=== PATIENT | female | born 1935 | race Two or more races ===

== ENCOUNTER 2024-08-02 10:33 | Inpatient (IN) | payer MEDICARE, MEDICAID, SELFPAY ==
[2024-08-02] VITALS (26 sets, daily range): BP systolic 87–164; BP diastolic 44–65; PULSE 58–100; RESP 16–33; TEMP 37.2–39.3; O2SAT 75–100; BMI 24.7
--- NOTE | 2024-08-02 10:37 | EKG_ITS ---
[facility] Test Date: 2024-08-02 Pat Name: REILLY MONTENEGROepartment: Room: - Gender: Female [employer]: : [id number] Requested By: ED Temporary Provider Order Number: [id number] Reading MD: ED Temporary Provider Measurements Intervals [place] Rate: 66 P: NC: QRS: -49 QRSD: 162 T: 118 QT: 451 QTc: 476 Interpretive Statements UNCERTAIN REGULAR RHYTHM MARKED LEFT AXIS DEVIATION [QRS AXIS < -30] LEFT BUNDLE BRANCH BLOCK [120+ ms QRS DURATION, 80+ ms Q/S IN V1/V2, 85+ ms R IN I/aVL/V5/V6] Compared to ECG 06/04/2024 20:19:50 Sinus bradycardia no longer present First degree AV block no longer present /store/S0/[id number]
--- NOTE | 2024-08-02 10:55 | XR_ITS ---
Examination: AP chest single view Technique: AP portable semiupright chest single view Exam date and time: August 02, 2024 11:50 AM Comparison June 04, 2024 Indications: Coughing beginning 2 days ago Findings: Moderate CHF Mild to moderate enlargement cardiac contour Prominent vascular congestion including central vascular engorgement Perihilar basilar edema Significant osteopenia Impression: Moderate CHF
--- NOTE | 2024-08-02 10:57 | PD.EDRME ---
Rapid Medical Screening Exam RME Arrival date/time: 08/02/24 10:33 Chief Complaint: Shortness of Breath/Dyspnea Time Seen by Provider: 08/02/24 10:46 RME Narrative: Cough, shortness of breath since yesterday. Patient hypoxic in triage
--- NOTE | 2024-08-02 11:12 | PD.EDSOB ---
ED SOB =RME/HPI General Chief Complaint: Shortness of Breath/Dyspnea Stated Complaint: DIFF BREATHING/COUGH FOR 2 DAYS AFTER FLU SHOT Time Seen by Provider: 08/02/24 10:46 Arrival date/time: 08/02/24 10:33 RME / HPI RME / HPI Narrative: 88-year-old female patient with significant history of congestive heart failure hypertension, hypercholesterolemia, was brought in by family for evaluation regarding worsening cough. Patient is having worsening cough for the last 2 days, dyspnea on exertion, orthopnea, and worsening bilateral lower leg swelling. Patient is currently taking Lasix 40 mg daily p.o. On my initial evaluation patient was noted to be 78% on room air. Patient was also noted to have fever, sepsis alert was initiated right away Related Data Home Medications ?Medication ?Instructions ?Recorded ?Confirmed amlodipine 5 mg tablet (Norvasc) 5 mg PO QDAY #0 tabs 05/06/16 12/11/22 atorvastatin 80 mg tablet 80 mg PO QDAY 11/21/22 04/27/24 Previous Rx's ?Medication ?Instructions ?Recorded amiodarone 200 mg tablet 200 mg PO BID #60 tabs 12/11/22 furosemide 40 mg tablet 40 mg PO QDAY 30 days #30 tabs 04/30/24 furosemide 40 mg tablet 40 mg PO QDAY #30 tabs 06/04/24 Allergies Allergy/AdvReac Type Severity Reaction Status Date / Time No Known Allergies Allergy Verified 08/02/24 10:36 Review of Systems Review of Systems Narrative Review of Systems: Review of system reviewed and within normal limits except mentioned in HPI ED Exam Narrative Physical exam: VITAL SIGNS: Reviewed. GENERAL APPEARANCE: Alert and interactive, follows commands, + mild acute distress, HEAD AND FACE: Non-traumatic. ENT: PERRL, pink conjunctivitis, eyelid no trauma, Mucous membrane moist. NECK: Supple, nontender, no nuchal rigidity. Positive distention jugular neck veins CHEST: No tenderness, no crepitus, no paradoxical movement, no retractions. LUNGS:+ymmetric, + rales, no wheezing, no ronchi, no stridor, decreased breath sounds bilaterally. HEART: Regular rate, regular rhythm, no murmur, no gallops. ABDOMEN: Soft, positive bowel sounds, nondistended, no guarding, nontender, no rebound, no masses, RECTAL: Deferred. GENITAL: Deferred. NEUROLOGICAL: Gross motor function intact sensory function intact, Appropriate for age. MUSCULOSKELETAL: low back nontender, full range of motion. EXTREMITIES: Nontender, full range of motion. + +2 bilateral lower leg edema SKIN: Color pink, dry, no rash, no lacerations, no abrasions, no contusions. LYMPHATICS: Deferred. Course Quality Measures none Orders Category Date Time Status Bedside COVID-19 Antigen Test NOW Care 08/02/24 11:55 Active Bedside Influenza A&B Antigen Test NOW Care 08/02/24 10:55 Active COVID-19 Screening Questionnaire NOW Care 08/02/24 13:06 Active Decision to Admit X1 Care 08/02/24 13:06 Active EKG (ED ONLY) *Do not use* NOW Care 08/02/24 10:37 Completed CXR [XR chest 1V] Stat Exams 08/02/24 10:55 Completed EKG (ED Only) Stat Exams 08/02/24 10:37 Draft BNP [B-Type Natriuretic Peptide] Stat Lab 08/02/24 11:32 Completed Blood Culture (Lab) Stat Lab 08/02/24 11:26 Received CBC Stat Lab 08/02/24 11:32 Completed CMP [Comprehensive Metabolic Panel] Stat Lab 08/02/24 11:32 Completed Lactate (Lactic Acid) Stat Lab 08/02/24 11:32 Results Procalcitonin Stat Lab 08/02/24 11:32 Completed Troponin I Stat Lab 08/02/24 11:32 Completed VBG [Venous Blood Gas] Stat Lab 08/02/24 11:32 Completed ALBUTEROL RT 0.5ml [Proventil Rt 0.5ml] Med 08/02/24 11:12 Discontinued 10 mg INH X1 ONE Furosemide Inj [Lasix Inj] Med 08/02/24 11:11 Discontinued 40 mg IVP X1 ONE Ipratropium Jerome Rt Cindy [Atrovent Rt Cindy] Med 08/02/24 11:12 Discontinued 1 mg INH X1 ONE Nitroglycerin Oint 2% [Nitro-paste Oint 2%] Med 08/02/24 11:11 Discontinued 1 inch TOP X1 ONE Oseltamivir [Tamiflu] Med 08/02/24 13:03 Discontinued 30 mg PO X1 ONE Oseltamivir [Tamiflu] Med 08/02/24 12:58 Discontinued 75 mg PO X1 ONE Sodium Chloride Rt Cindy 0.9% [NS Rt Cindy 0.9%] Med 08/02/24 11:12 Active 3 ml INH PRN PRN Vital Signs Vital signs: Vital Signs Temperature 98.9 F 08/02/24 10:49 Pulse Rate 69 08/02/24 10:49 Respiratory Rate 25 H 08/02/24 10:49 Blood Pressure 122/54 L 08/02/24 10:49 Pulse Oximetry (%) 75 L 08/02/24 10:49 Oxygen Delivery Method Room Air 08/02/24 10:49 Shortness of Breath / Dyspnea MDM Narrative MDM Narrative:: 88-year-old female patient with significant history of congestive heart failure hypertension, hypercholesterolemia, was brought in by family for evaluation regarding worsening cough. Patient is having worsening cough for the last 2 days, dyspnea on exertion, orthopnea, and worsening bilateral lower leg swelling. Patient is currently taking Lasix 40 mg daily p.o. On my initial evaluation patient was noted to be 78% on room air. Patient was also noted to have fever, sepsis alert was initiated right away. Patient tested positive for flu A, chest x-ray showed moderate congestive heart failure. Currently patient is satting 92% on 7 liters nasal cannula after patient received 1 hour-long breathing treatment, Lasix IV and Nitropaste Laboratory workup came back unremarkable except for elevated BNP Case discussed with hospitalist, Dr. Kim, admitted the Patient data External records reviewed:: None Clinical information provided by:: patient and family Social determinants that could affect healthcare access:: none Patient has the following chronic illnesses:: Congestive heart failure diabetes mellitus hypertension malignant neoplasm of ascending colon How is presenting disease/condition affected by chronic disease/condition?: exacerbated by Evaluation data The following diagnostics were reviewed and interpreted by me:: lab results, radiology exam(s) and EKG tracing(s) Lab and/or radiology exams considered but not ordered:: None Interpretation Summary: EKG showed left bundle branch block, ventricular rate 66 bpm, no ST segment elevation or depression noted. Chest x-ray showed moderate congestive heart failure, laboratory workup significant for elevated BNP. Medications / Prescriptions Medications or Prescriptions considered but not ordered:: Plan Medication administrations:: Medication Administration History Sodium Chloride (Sodium Chloride Rt Cindy 0.9% 3 Ml Nebu) 3 ml INH PRN PRN PRN Reason: SOLN Stop: 01/13/25 11:11 Last Admin: 08/02/24 11:15 Dose: 3 ml Documented By: [facility] Discontinued Medications Albuterol (Albuterol Rt 2.5 Mg/0.5 Ml Nebu) 10 mg INH X1 ONE Stop: 08/02/24 11:13 Last Admin: 08/02/24 11:15 Dose: 10 mg Documented By: [facility] Furosemide (Furosemide Inj 10 Mg/Ml 4ml Vial) 40 mg IVP X1 ONE Stop: 08/02/24 11:12 Last Admin: 08/02/24 11:34 Dose: 40 mg Documented By: SILVINA Ipratropium Jerome (Ipratropium Rt 0.5 Mg/ 2.5 Ml Nebu) 1 mg INH X1 ONE Stop: 08/02/24 11:13 Last Admin: 08/02/24 11:15 Dose: 1 mg Documented By: [facility] Nitroglycerin (Nitroglycerin Oint 2% 1 Inch Packet) 1 inch TOP X1 ONE Stop: 08/02/24 11:12 Last Admin: 08/02/24 11:16 Dose: 1 inch Documented By: SILVINA Oseltamivir Phosphate (Oseltamivir 75 Mg Capsule) 75 mg PO X1 ONE Stop: 08/02/24 12:59 Oseltamivir Phosphate (Oseltamivir 30 Mg Capsule) 30 mg PO X1 ONE Stop: 08/02/24 13:04 Tamiflu, Nitropaste, hour-long breathing treatment Consultations Consultation(s) initiated? (list below): No Diagnosis Shortness of Breath Differential Diagnosis: acute exacerbation of chronic obstructive airways disease, congestive heart failure and community acquired pneumonia Most likely diagnosis given after review of the tests above:: Hypoxia, influenza, acute exacerbation of CHF Admission Indicated Admission indicated?: indicated Explain why admission is indicated or not indicated:: For further management. Admission Request Was there a request for admission?: Yes Admission Attestation Admission request attestation: Discussed case with [Dr Kim] from Hospitalist service regarding admission. Discussed patients ED course, exam findings, labs, and radiology results. The Hospitalist [agrees] to accept the patient for admission. Disposition Plan Disposition Plan: Admit Discharge Plan Plan Patient Disposition: Admit Acute Care w/in Hospital Disposition Comment: stable Prescriptions/Referrals Prescriptions/Med Rec: No Action amlodipine [Norvasc] 5 MG tablet 5 mg PO QDAY Qty: 0 atorvastatin 80 mg tablet 80 mg PO QDAY amiodarone 200 mg Tablet 200 mg PO BID Qty: 60 0RF furosemide 40 mg Tablet 40 mg PO QDAY 30 Days Qty: 30 0RF furosemide 40 mg tablet 40 mg PO QDAY Qty: 30 0RF Referrals: No Primary/Family,Physician [Primary Care Provider] - In 1 week Problem List Clinical Impression: Hypoxia, Acute exacerbation of CHF (congestive heart failure), Influenza Patient/Caregiver Discharge Instructions Print Language: Syriac Stand Alone Forms: [employer]bie Award Info., Patient Portal Info Letter
[2024-08-02] MEDS: ALBUTEROL RT 2.5 MG/0.5 ML NEBU 10 MG INH (11:15)
[2024-08-02] MEDS: SODIUM CHLORIDE RT SOL 0.9% 3 ML NEBU INH (11:15)
[2024-08-02] MEDS: IPRATROPIUM RT 0.5 MG/ 2.5 ML NEBU 1 MG INH (11:15)
[2024-08-02] MEDS: NITROGLYCERIN OINT 2% 1 INCH PACKET TOP (11:16)
[2024-08-02] MEDS: FUROSEMIDE INJ 10 MG/ML 4ML VIAL 40 MG IVP (11:34)
[2024-08-02 12:01] LABS: Base Excess, Venous 3 (-3-3); Lactate (Lactic Acid) 2.4 mMol/L (0.4-2.0); O2 Saturation, Venous 84 % (96-97); PCO2, Venous 35 mmHg (36-56); PO2, Venous 46 mmHg (15-58); pH, Venous 7.48 (7.33-7.66)
[2024-08-02 12:10] LABS: Basophils % (Auto) 0 % (0-2.5); Eosinophils % (Auto) 0 % (0-10); Hematocrit 36.6 % (36.0-46.0); Hemoglobin 11.6 g/dL (12.0-16.0); Immature Granulocytes % (Auto) 1 % (0-0); Immature Granulocytes Auto 0.05 Thou/mm3 (0.00-0.00); Lymphocytes # (Auto) 0.9 Thou/mm3 (1.0-4.8); Lymphocytes % (Auto) 12 % (10-50); Mean Corpuscular HGB Conc 31.7 g/dl (31.0-37.0); Mean Corpuscular Hemoglobin 28.3 pg (25.0-35.0); Mean Corpuscular Volume 89 fL (80-100); Monocytes # (Auto) 0.4 Thou/mm3 (0.0-0.8); Monocytes % (Auto) 6 % (0-12); Neutrophils # (Auto) 6.2 Thou/mm3 (1.8-7.7); Neutrophils % (Auto) 81 % (37-80); Nucleated Red Blood Cell % 0 /100 WBC (0); Platelet Count 167 Thou/mm3 (140-440); RDW Standard Deviation 49.3 fL (36.4-46.3); White Blood Count 7.6 Thou/mm3 (3.6-11.0)
[2024-08-02 12:41] LABS: B-Type Natriuretic Peptide 518 pg/mL (0-100)
[2024-08-02 12:43] LABS: Alanine Aminotransferase 88 U/L (10-49); Albumin, Serum 4.6 gm/dL (3.4-4.8); Albumin/Globulin Ratio 1.8 (1.2-2.2); Alkaline Phosphatase 143 U/L (46-116); Anion Gap 6 (7-16); Aspartate Amino Transferase 127 U/L (0-34); BUN/Creatinine Ratio 11 Ratio (12-20); Bilirubin,Total 0.7 mg/dL (0.3-1.2); Blood Urea Nitrogen 17 mg/dL (9-23); Calcium 9.4 mg/dL (8.3-10.6); Calcium (Corrected) 9.4 mg/dL (8.5-10.1); Carbon Dioxide 28.7 mMol/L (20.0-31.0); Chloride 103 mMol/L (98-107); Creatinine (Component) 1.5 mg/dL (0.6-1.3); Estimated Creatinine Clearance 23.7 mL/min (>60); Globulin 2.5 gm/dL (2.3-3.5); Glucose 187 mg/dL (74-106); Osmolality,Calculated 282 (275-295); Potassium 3.7 mMol/L (3.4-5.1); Procalcitonin 0.14 ng/ml (0.0-0.49); Sodium 138 mMol/L (136-145); Total Protein 7.1 gm/dL (5.7-8.2); Troponin I < 0.020 ng/mL (0.0-0.045); eGFR 34 See Note
--- NOTE | 2024-08-02 13:34 | PD.ADDHP ---
Addendum History & Physical Addendum Date of report being addended: 08/02/24 Narrative: Attending's attestation: I reviewed labs, imaging, EKG, home medications and prior available records. Face to face evaluation was performed by me. I have personally examined the patient and discussed assessment and plan with the IM team. I reviewed the resident note and agree with the plan with exceptions as below. 88-year-old female with history of atrial fibrillation, CKD stage IIIb and heart failure with preserved EF as per echo done in April 2024, who presented with a chief complaint of shortness of breath and cough. She was found to have acute hypoxic respiratory failure in the setting of influenza A and CHF exacerbation. Acute hypoxic respiratory failure: In the setting of CHF exacerbation. Start IV diuresis. Monitor I's and O's. CHF exacerbation: In setting of history of HFpEF. Diuresis as above. Telemetry level of care. Influenza A: Might be the trigger of her CHF exacerbation. Started Tamiflu 30 mg p.o. twice daily given her renal function. CKD stage IIIb: Creatinine is close to baseline. Monitor kidney function. Avoid nephrotoxins. Renally dosed medications. Atrial fibrillation with controlled ventricular rhythm: Resume home medications.
[2024-08-02] MEDS: OSELTAMIVIR 30 MG CAPSULE PO (13:59)
[2024-08-02 14:59] LABS: Reflex Lactate? Y
[2024-08-02 15:31] LABS: Base Excess 3 (-3-3); HCO3 29 mEq/L (20-26); Inspired Oxygen, FIO2 21 %; O2 Saturation 64 % (91-98); PCO2 50 mmHg (32.0-48.0); pH, Arterial 7.37 (7.35-7.45)
[2024-08-02 15:32] LABS: Allen Test Performed/OK; PO2 36 mmHg (83-108)
[2024-08-02 15:32] LABS: Lactic Acid, 3 HR 4.2 mMol/L (0.4-2.0)
[2024-08-02 15:33] LABS: Inspired O2, VO2 Liters 10 L/min; Puncture Site Left Radial
[2024-08-02] MEDS: AMIODARONE HCL 200 MG TABLET PO (15:52)
[2024-08-02] MEDS: amLODIPine BESYLATE 5 MG TABLET PO (15:52)
[2024-08-02] MEDS: METOPROLOL SUCCINATE XL 25 MG TABCR PO (15:53)
[2024-08-02] MEDS: guaiFENesin SYRUP 200 MG/10 ML UDC 100 MG PO (15:54)
--- NOTE | 2024-08-02 16:01 | ESHP_ITS ---
<Statement entered by Beto Powell MD - 08/02/24 20:09> This patient 88-year-old female with past medical history of HFpEF EF 55 to 60%, CKD stage IIIb, history of severe aortic stenosis follows Dr. Barton, guard immigration as outpatient, history of colon cancer postresection history of A- fib on amiodarone not on Eliquis, DM type II presented with worsening shortness of breath and productive cough. ABG showed hypoxia. Patient is admitted for acute hypoxic respiratory failure and sepsis likely due to influenza pneumonia with superimposed bacterial infection and CHF exacerbation. Patient was started on IV diuretic therapy with Lasix initially 40 mg x 1 and now 60 mg in the evening due to vascular congestion and currently B-lines seen on chest x-ray. She was also started on Tamiflu 30 mg once daily given decrease creatinine clearance and due to fever spike of 102.7 blood cultures were taken and was started on IV Zosyn and vancomycin. As patient was hypoxic and desaturating in 70s despite on OxyMask ICU graphite grinder was curb sided and per recommendation patient was switched to BiPAP on IPAP 10 and EPAP 5 for lung protective ventilation settings and avoid barotrauma or patient infected lung injury. RT was called is following up the case. Breathing treatments. We added IV Solu- Medrol 40 mg once a day as patient is progressing towards ARDS. Goals of care discussion was performed between the family and patient's who is decision-maker patient's current condition was explained and with all that information he wished to continue full code for now. Cocci serology ordered. Field Marketing Director stated that if patient is in sinus rhythm he is okay for not starting Eliquis/heparin drip although [id number] or is 3 given high risk of bleeding and currently being in sinus rhythm. ICU graphite grinder stated that follow-up on ABGs and if pH drops below 7.2 explained the patient's family that patient would need intubation. ICU team was given update regarding patient current condition and they will follow-up on ABGs and lactic acid. Given well criteria was 1 low suspicious for PE CTA was not followed up and was deferred. All labs and orders were reviewed. I saw and examined the patient, and I agree with current management stated by Dr Eneida MD,PGY1. Plan of care was discussed with the attending physician and resident physician. Disclaimer: Despite multiple revisions, due to the dictation software being used, the document bellow may not be free of grammatical errors including phonetic/typographic errors. However, this does not deter from our commitment to providing health care in the patient's best interest in mind. Dr. Sherry MD, PGY 2 Documentation for date of: 08/02/24 HPI History of Present Illness History of present illness: CC:SOB Patient is an 88-year-old female with a past medical history of hypertension CHF diastolic dysfunction HFpEF (60 to 65%) on 04/27/2024, repeat CAD s/p stent in right coronary artery, aortic stenosis, carotid disease, s/p endarterectomy (2023), history of atrial fibrillation (not on Eliquis as patient is currently sinus and has a risk of bleeding?followed up with Dr. Barton guard immigration). Patient presented to the emergency room with a chief complaint of increasing shortness of breath, patient stated symptoms began on 08/01/2024, with shortness of breath, chills and dry cough. Patient stated cough is nonproductive. Patient also felt congested throughout the past 2 days. Patient denied any fevers at home. Patient has required sleeping in an upright position on the bed with several pillows propping herself up?orthopnea. Patient also states she has had paroxysmal internal dyspnea but she wakes up in the middle of the night short of breath. Patient denied any increasing lower pedal edema. Denied sick contacts. Patient denied chest pain. Admitted on (08/02/2024) for acute respiratory failure and pneumonia -->now Sepsis pneumonia shortly before moving onto floors. ER Course: T 98.9, HR 69, RR 25 (H), BP 122/54, SpO2 75 on RA CBC (08/02/2024) WBC 7.6, Hgb 11.6, Hct 36.6, MCV 89, Neut % 81 CMP (08/02/2024): Na 138, K 3.7 (repleated), BUN 17, Cr 1.5, GFR 34 (L) Previous baseline on discharge BUN 19, Cr. 1.4, GFR 27 BNP 518, Troponin <0.02, Glucose 187 Procalcitonin 0.14 Chest xray (08/02/2024): Moderate CHF. Mild to moderate enlargement cardiac contour. Prominent vascular congestion including central vascular engorgement. Perihilar basilar edema EKG (08/02/2024): Left bundle branch block, possible MT prolongation UA-Pending 40mg IV push Lasix PMH: HTN CHF CAD s/p stents aortic stenosis carotid disease atrial fibrillation (not on eliquis) Past Surgical History: -endarterectomy -CAD s/p stent of right coronary artery -colon cancer s/p resection Home Medication: Metoprolol 25 mg PO Amiodarone 200 mg PO BID Bumetanide 1 mg PO Daily Amlodipine 5 mg PO Daily-currenlty holding giving soft blood pressure Denied Eliquis despite previous history of Atrial Fibrillation-Dr. Barton confirmed no Eliquis on board currently as patient is sinus and possible risk of bleeding Social History: Denied Alcohol Use Denied Illicit Drug Use Never Smoker Allergies: None Code Status: Full Code Review of Systems Review of Systems Narrative Review of Systems: General appearance: NO weight change, NO fatigue, NO weakness, NO fever, YES c hills, NO night sweats, YES cough Skin: NO rash, NO itching, NO sores, NO moles HEENT: NO Trauma, NO nausea, NO vomiting, NO visual changes, NO blurry vision, NO double vision, NO tinnitus, NO vertigo, NO ear discharge, NO rhinorrhea, NO stuffiness, NO sneezing, NO allergy, NO epistaxis. NO Hoarseness, NO sore throat, NO swollen neck. Cardiac: NO Palpitations, NO dyspnea on exertion, NO orthopnea, NO paroxysmal nocturnal dyspnea, NO edema Respiratory: YES Shortness of Breath, NO Wheezing, YES Cough, NO Sputum, NO hemoptysis GI:NO appetite, NO nausea, NO vomiting, NO dysphagia, NO changes in bowel frequency, NO stool color, NO diarrhea, NO constipation, NO hemetemesis, NO hemorrhoids, NO melena, NO hematechezia, NO abdominal pain, NO jaundice Renal: NO frequency, NO hesitancy, NO urgency, NO hematuria, NO nocturia, NO incontinence MSK: NO muscle weakness, NO gout, NO arthritis, NO muscle stiffness Neuro: NO headaches, NO tremors, NO weakness, NO paralysis, NO seizures, NO loss of consciousness, NO numbness. Hem: NO anemia, NO easy bruising/bleeding, NO petechiae, NO purpura Endo: NO heat/cold intolerance, NO excessive sweating, NO polyuria, NO polydipsia, NO polyphagia, NO thyroid problems, NO diabetes (denied diabetes, A1c 6.2, previous admission) Pysch: NO mood, NO anxiety, NO depression Exam Vital Signs Temp Pulse Resp BP Pulse Ox O2 Del Method O2 Flow Rate 99.5 F 77 23 H 110/62 92 L Oxy Mask 9 08/02/24 14:42 08/02/24 14:42 08/02/24 14:42 08/02/24 14:42 08/02/24 14:42 08/02/24 14:42 08/02/24 14:42 Narrative Exam General Appearance: Alert & Oriented X3, well-nourished female who is lying in bed in respiratory distress with increased work of breathing HEENT: Skull symmetrical and atraumatic. Conjunctivae pale pink and moist. Pupils equal, round, reactive to light and accommodation (PERRL). External ear without lesion or discharge. Straight, nares patient, DRY mucosa, no discharge. No thyroid nodule appreciated. No cervical lymphadenopathy. Cardio: Normal Rate and Rhythm with S1 and S2 heart sounds. No murmurs or extra heart sounds auscultated. No bruits on carotid auscultation. 2+ pedal edema. Lungs: Symmetric with poor expansion, increased work of breathing. Chest and back non-tender. Rhonchi and crackles appreciated bilaterally on physical exam Abdomen: Non-tender, Non-distended, Normal Reactive Bowel Sounds Neuro: Alert, cooperative, oriented to person, place, and time. Speech clear. CN grossly intact. Upper motor strength 5/5 and Lower motor strength 5/5. Sensation intact. Results: Labs 08/04/24 05:24 08/04/24 05:24 Labs: Short CBC 08/02/24 Range/Units 11:32 WBC 7.6 (3.6-11.0) Thou/mm3 Hgb 11.6 L (12.0-16.0) g/dL Hct 36.6 (36.0-46.0) % Plt Count 167 (140-440) Thou/mm3 BMP 08/02/24 11:32 Sodium 138 Potassium 3.7 Chloride 103 Carbon Dioxide 28.7 BUN 17 Creatinine 1.5 H Glucose 187 H Calcium 9.4 Cardiac Enzymes 08/02/24 Range/Units 11:32 Troponin I < 0.020 (0.0-0.045) ng/mL Liver Function 08/02/24 Range/Units 11:32 Total Bilirubin 0.7 (0.3-1.2) mg/dL AST 127 H (0-34) U/L ALT 88 H (10-49) U/L Alkaline Phosphatase 143 H (46-116) U/L Albumin 4.6 (3.4-4.8) gm/dL ABG Interpretation ABG results: 08/02/24 08/02/24 11:32 15:23 ABG pH 7.37 ABG pCO2 50 H ABG pO2 36 L* ABG HCO3 29 H ABG O2 Saturation 64 L ABG Base Excess 3 VBG pH 7.48 VBG pCO2 35 L VBG pO2 46 VBG Base Excess 3 Quality Measures Quality Measures VTE prophylaxis (Heparin subcut) Advance care planning discussed with:: patient and spouse Medications Home Medications and Allergies Home Medications ?Medication ?Instructions ?Recorded ?Confirmed ?Type amlodipine 5 mg tablet (Norvasc) 5 mg PO QDAY #0 tabs 05/06/16 12/11/22 History atorvastatin 80 mg tablet 80 mg PO QDAY 11/21/22 04/27/24 History amlodipine 5 mg tablet 5 mg PO DAILY 08/02/24 08/02/24 History bumetanide 1 mg tablet 1 mg PO DAILY 08/02/24 08/02/24 History calcitriol 0.25 mcg capsule 0.25 mcg PO DAILY 08/02/24 08/02/24 History metoprolol succinate 25 mg 25 mg PO DAILY 08/02/24 08/02/24 History tablet,extended release 24 hr Allergies Allergy/AdvReac Type Severity Reaction Status Date / Time No Known Allergies Allergy Verified 08/02/24 10:36 Visit Medications Acetaminophen (Acetaminophen 325 Mg Tablet) 650 mg PO Q6H PRN PRN Reason: Mild Pain 1-3 or Fever >100.4 Stop: 09/01/24 13:41 Albuterol/Ipratropium (Albuterol/Ipratropium (Duoneb) Rt Cindy 3 Ml Nebu) 3 ml INH Q4HRRT PRN PRN Reason: Shortness of breath Stop: 09/01/24 14:59 Amiodarone HCl (Amiodarone Hcl 200 Mg Tablet) 200 mg PO BID [facility] Stop: 09/01/24 14:29 Amlodipine Besylate (Amlodipine Besylate 5 Mg Tablet) 5 mg PO QDAY [facility] Stop: 09/01/24 14:19 Atorvastatin Calcium (Atorvastatin Calcium 20 Mg Tablet) 80 mg PO QDAY [facility] Stop: 09/02/24 08:59 Dextrose (Dextrose 50%-Water Inj 50 Ml Syringe) 50 ml IV Q15MIN PRN PRN Reason: BG <50 OR BG <70 & pt unresponsive Stop: 09/01/24 13:45 Dextrose (Dextrose 50%-Water Inj 50 Ml Syringe) 25 ml IV Q15MIN PRN PRN Reason: BG 50-70 responsive npo pt Stop: 09/01/24 13:45 Furosemide (Furosemide Inj 10 Mg/Ml 4ml Vial) 40 mg IVP BID [facility] Stop: 09/01/24 20:59 Glucagon (Glucagon Inj 1 Mg Vial) 1 mg IM Q15MIN PRN PRN Reason: BG <70, and no IV access Guaifenesin (Guaifenesin Syrup 200 Mg/10 Ml Udc) 100 mg PO QID PRN; Protocol PRN Reason: COUGH Stop: 09/01/24 14:32 Guaifenesin/Dextromethorphan (Guaifenesin/Dm Tablet) 1 each PO Q4HR PRN PRN Reason: COUGH Stop: 09/01/24 15:25 Heparin Sodium (Porcine) (Heparin Sod Inj 5000 Unit/Ml Vial) 5,000 unit SC Q12HR [facility] Stop: 08/16/24 20:59 Metoprolol Succinate (Metoprolol Succinate Xl 25 Mg Tabcr) 25 mg PO QDAY [facility] Stop: 09/01/24 14:29 Oseltamivir Phosphate (Oseltamivir 30 Mg Capsule) 30 mg PO QDAY [facility]; Protocol Stop: 08/08/24 08:59 Sodium Chloride (Sodium Chloride Rt Cindy 0.9% 3 Ml Nebu) 3 ml INH PRN PRN PRN Reason: SOLN Stop: 09/01/24 11:11 Last Admin: 08/02/24 11:15 Dose: 3 ml Discontinued Medications Albuterol (Albuterol Rt 2.5 Mg/0.5 Ml Nebu) 10 mg INH X1 ONE Stop: 08/02/24 11:13 Last Admin: 08/02/24 11:15 Dose: 10 mg Furosemide (Furosemide Inj 10 Mg/Ml 4ml Vial) 40 mg IVP X1 ONE Stop: 08/02/24 11:12 Last Admin: 08/02/24 11:34 Dose: 40 mg Guaifenesin/Dextromethorphan (Guaifenesin/Dm Tablet) 1 each PO Q4HR PRN PRN Reason: COUGH Stop: 09/01/24 15:25 Insulin Human Lispro (Insulin Lispro (Admelog) 1 Unit/0.01 Ml Unit) 0 unit SC ACHS [facility]; Protocol Stop: 09/01/24 16:59 Ipratropium [facility] (Ipratropium Rt 0.5 Mg/ 2.5 Ml Nebu) 1 mg INH X1 ONE Stop: 08/02/24 11:13 Last Admin: 08/02/24 11:15 Dose: 1 mg Nitroglycerin (Nitroglycerin Oint 2% 1 Inch Packet) 1 inch TOP X1 ONE Stop: 08/02/24 11:12 Last Admin: 08/02/24 11:16 Dose: 1 inch Oseltamivir Phosphate (Oseltamivir 75 Mg Capsule) 75 mg PO X1 ONE Stop: 08/02/24 12:59 Last Admin: 08/02/24 14:00 Dose: Not Given Oseltamivir Phosphate (Oseltamivir 30 Mg Capsule) 30 mg PO X1 ONE Stop: 08/02/24 13:04 Last Admin: 08/02/24 13:59 Dose: 30 mg Potassium Chloride (Potassium Chloride 20 Meq Tabcr) 40 meq PO X1 ONE Stop: 08/02/24 15:27 Assessment & Plan Plan Patient is an 88-year-old female with a past medical history of hypertension CHF diastolic dysfunction HFpEF (60 to 65%) on 04/27/2024, repeat CAD s/p stent in right coronary artery, aortic stenosis, carotid disease, s/p endarterectomy (2023), history of atrial fibrillation (not on Eliquis) who was admitted in acute hypoxic respiratory failure with pneumonia likely post viral. #Sepsis, due to hypoxic respiratory failure likely secondary Pneumonia versus HFpEF #Pneumonia # Influenza Positive with superimposed bacterial infection Etiology: Influenza positive on admission in acute hypoxic respiratory failure with spO2 of 88% on 9 Liters of oxygen. Rhonchi and crackles heard on physical exam. -->Shortly after admission patient became septic with an T 102.7, RR 24, and known source of infection and organ failure from acute hypoxic respiratory failure with lacitc acid of 4.2 likely secondary to hypoxemia. 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 NO fluids given as patient is is in CHF exacerbation. Possible progression to ARDS. DDx: UTI less likely as no symptoms of UTI vs ME less likley given troponins <0.02. No STEM elevation. Diagnostics: CBC (08/02/2024) WBC 7.6, Hgb 11.6, Hct 36.6, MCV 89, Neut % 81 CMP (08/02/2024): Na 138, K 3.7 (repleated), BUN 17, Cr 1.5, GFR 34 (L) Previous baseline on discharge BUN 19, Cr. 1.4, GFR 27 Troponin <0.02, Procalcitonin 0.14 Lactic Acid 4.2 Chest xray (08/02/2024): Moderate CHF. Mild to moderate enlargement cardiac contour. Prominent vascular congestion including central vascular engorgement. Perihilar basilar edema EKG (08/02/2024): Left bundle branch block, possible MT prolongation -Ammonia <10, Lactic Acid 2.4, Lactic Acid 4.2 -QSOFA 1 Plan: ?Follow-up on ABGs and lactic acid -Oseltamivir 30 mg QDay (not bid given CKD) -Zosyn (08/02/2024--) -Vanco (08/02/2024) -blood Culture -Duonebs scheduled Q4HRRT -UA pending -UA culture -Coccidioides IgM Ab-Pending #Acute CHF exacerbation #CHF, Diastolic Dysfunction, HFpEF 60-65% (03/2024) # Aortic stenosis with RVSP 41 mmHg Etiology: Patient has a past medical history of congestive heart failure with a BNP 518. Patient positive for orthopnea, paroxysmal nocturnal orthopnea and increasing cough. CHF exacerbation likely secondary to pneumonia Dignostics: Although patient has a past medical history of CAD status post stents, less likely secondary to ME/no ST elevation on EKG and troponins are not elevated. PE less likely as well score is 1. Diagnostics: BNP 518, troponins less than 0.02 Chest x-ray (08/02/2024): Prominent vascular congestion including central vascular engorgemet, Moderate CHF Second Cxr pending Ultrasound (04/08/2024): Normal LV size and function. Stage I distolic dysfunction. Estimated EF 60-65% Moderate to severe AV stenosis, mean gradient 33mmHg, vmax 3.6m/s. LOREN 0.9 Sq cm Normal RV size and function. Estimated RVSP 41mmHg. Mild MAC. Mild MR, TR. Modeate AI. Wells Criteria 1 NYHA Class: likely III Plan: -Lasix 40 mg IV ER, and Lasix 60 IVP X1, Lasix 40 mg IVP BIDD -Amiodarone 200 mg PO BID, hold if HR <60 -Metoprolol Succinate XL 25 mg PO QDay -TSH -Lipid Panel -A1c -K>4 and Mg >2 -Fluid Restriction and Sodium Restriction 2 g per day -SpO <90%, support PRN; Currently on Bipap started at approximately 5 PM -Daily Weights, Strict Ins and Outs, Fluid Striction (1800 ml), Sodium Restriction 2 grams per day -Cardiology Consult, appreciate recommendations. #Atrial Fibrillation, rate controlled #CAD s/p stents of right coronary artery #Hyperlipidemia Patient has a past medical history of Atrial Fibrillation. CHADVASC of 3. Currently not on Eliquis per Dr. Barton. Possible risk of bleeding and currently sinus. Plan -Metoprolol Succinate XL 25 mg PO QDay -Amiodarone 200 mg PO BID, hold if HR <60 -Not on Eliquis #Hypertension Given soft blood pressure currently holdng home medication of Amlodipine Plan -Hold Amlodipine #CKD History of CKD disease currently CKD 3b. Likey secondary to cardio renal given history of CHF. Denied history of diabetes but previous A1c in 05/2024-6.2%. Diagnostics: Plan -Renally dose medication -avoid nephrotoxins #history of colon cancer Not an active problem Plan no acute intervention Health Maintenance: Disp: Pt is currently admitted to floors for further management of acute hypoxic respiratory failure, pneumonia & CHF exacerbation, awaiting blood culture, currently on Bipap FEN: low carb consistent, sodium restricted DVT: on subQ heparin Code: Full Code - The patient's plan was discussed with attending Dr. Kim and senior residents Dr. Sherry Monique MD PGY1 Internal Medicine Attending Provider Attestation/Addendum I reviewed labs, imaging, EKG, home medications and prior available records. Face to face evaluation was performed by me. I have personally examined the patient and discussed assessment and plan with the IM team. I reviewed the resident note and agree with the plan with exceptions as below. See my addendum in a separate note for the same date.
--- NOTE | 2024-08-02 16:10 | PC.NURSE ---
Report given to Meka FRY, patient will transfer to room 272.
--- NOTE | 2024-08-02 16:33 | XR_ITS ---
Examination: AP chest single view Technique one AP portable upright chest single view Exam date and time: August 02, 2024 1712 hrs. Comparison August 02, 2024 11:50 AM Indications: O2 desaturation today. Findings: Prominent CHF Consider superimposed pneumonia in the right perihilar region Enlarged cardiac contour prominent perihilar edema Moderate osteopenia Impression: Prominent CHF Consider superimposed pneumonia in the right perihilar region
[2024-08-02] MEDS: ALBUTEROL/IPRATROPIUM (Duoneb) RT SOL 3 ML NEBU INH ×3 (16:52→23:35)
[2024-08-02 16:59] LABS: Base Excess 2 (-3-3); HCO3 27 mEq/L (20-26); O2 Saturation 96 % (91-98); PCO2 44 mmHg (32.0-48.0); PO2 80 mmHg (83-108)
[2024-08-02 17:01] LABS: Allen Test Not Performed; Inspired Oxygen, FIO2 80 %; Puncture Site Right Brachial
[2024-08-02] MEDS: VANCOMYCIN/NS 1 GM IVPB 200 ML IV (17:02)
--- NOTE | 2024-08-02 17:24 | EVENTNT_ITS ---
<Statement entered by Beto Powell MD - 08/02/24 18:49> I saw and examined the patient, and I agree with current management stated by Dr Eneida MD,PGY1. Plan of care was discussed with the attending physician and resident physician. Disclaimer: Despite multiple revisions, due to the dictation software being used, the document bellow may not be free of grammatical errors including phonetic/typographic errors. However, this does not deter from our commitment to providing health care in the patient's best interest in mind. Dr. Sherry MD, PGY 2 Documentation for date of: 08/02/24 Event Note Event Note: Goals of Care event note, at 5:31 PM Spoke extensively to patient's family about goals of care given continue de- saturing spO2 despite changing patient from high flow. Explained current diagnosis of Pneumonia likely super imposed bacterial, post viral. Patient's SpO2 92% on high flow. Patient changed from high flow --> bipap with continued work of breathing. New ABG at 8:40 PM. Explained the possibility of needing intubation and transfer to ICU. Family would still like to keep patient Full Code with intubation if ICU is needed. Next of Kin and decision maker is patient's : Yassine Harris, phone number [phone]. Please call if there are any changes. - The patient's plan was discussed with attending Dr. Kim and senior residents Dr. Sherry Monique MD PGY1 Internal Medicine
[2024-08-02 18:13] LABS: Ammonia < 10 uMol/L (11-32)
[2024-08-02] MEDS: PIPER/TAZO 3.375 GM 3.375 GM/50 ML BAG IV (18:57)
--- NOTE | 2024-08-02 19:10 | PC.NURSE ---
MD Swenson notified that pt has an order for KCl liquid PO but pt is on bipap and desats without it. The pt is also have trouble swallowing due to the difficulty breathing. MD is aware and said ok to hold off on the medication and will reevaluate tomorrow.
[2024-08-02 20:05] LABS: Lactate (Lactic Acid) 3.1 mMol/L (0.4-2.0)
[2024-08-02 20:59] LABS: Base Excess 3 (-3-3); HCO3 29 mEq/L (20-26); Inspired Oxygen, FIO2 90 %; O2 Saturation 95 % (91-98); PCO2 47 mmHg (32.0-48.0); PO2 76 mmHg (83-108); pH, Arterial 7.39 (7.35-7.45)
[2024-08-02 21:00] LABS: Allen Test Performed/OK; Puncture Site Right Radial
[2024-08-02] MEDS: FUROSEMIDE INJ 10 MG/ML 4ML VIAL 60 MG IVP (21:05)
[2024-08-02] MEDS: HEPARIN SOD INJ 5000 UNIT/ML VIAL SC (21:05)
--- NOTE | 2024-08-02 22:17 | PC.NURSE ---
MS SQL DBA called to room 272 at approximately 2217 due to patient becoming more altered and increased work of breathing
[2024-08-02] MEDS: ETOMIDATE INJ 2 MG/ML VIAL 10 ML 20 MG IVP (22:46)
[2024-08-02] MEDS: SUCCINYLCHOLINE INJ 20 MG/ML VIAL 10 ML 50 MG IV (22:46)
--- NOTE | 2024-08-02 22:48 | XR_ITS ---
Examination: AP chest single view Technique: AP portable supine chest single view Exam date and time: August 02, 2020 4:11 PM Comparison August 02, 2024 1712 hrs. Indications: Hypoxic respiratory failure postintubation Findings: More prominent CHF, marked pulmonary edema throughout the lungs Tracheal tube tip 2.4 cm above britany Orogastric tube in the stomach Unchanged prominent cardiomegaly Impression: Marked worsening of pulmonary edema
[2024-08-02] MEDS: fentaNYL 2,500 MCG/250 ML BAG 2,500 MCG/250 ML BAG IV (22:50)
[2024-08-02] MEDS: PROPOFOL 1,000 MG IVPB 1,000 MG/100 ML VIAL 1.882 MG IV (22:50)
[2024-08-02 23:04] LABS: Reflex Lactate? Y
[2024-08-02] MEDS: Norepinephrine/D5W 8mg/250ml 8 MG/250 ML BAG 5.881 MG IV (23:30)
[2024-08-02 23:47] LABS: Lactic Acid, 3 HR 3.3 mMol/L (0.4-2.0)
[2024-08-02 23:58] LABS: Allen Test Performed/OK; Base Excess 2 (-3-3); HCO3 25 mEq/L (20-26); Inspired Oxygen, FIO2 100 %; O2 Saturation 99 % (91-98); PCO2 37 mmHg (32.0-48.0); PO2 248 mmHg (83-108); Puncture Site Right Radial; pH, Arterial 7.45 (7.35-7.45)
[2024-08-03] VITALS (73 sets, daily range): BP systolic 93–147; BP diastolic 41–57; PULSE 53–75; RESP 15–32; TEMP 36.4–36.9; O2SAT 80–100; BMI 24.5
[2024-08-03] MEDS: SODIUM CHLORIDE RT 10% 15 ML NEBU 5 ML INH (00:05)
[2024-08-03] MEDS: PIPER/TAZO 3.375 GM 3.375 GM/50 ML BAG IV ×4 (00:05→21:10)
--- NOTE | 2024-08-03 00:26 | PD.RESEVENT ---
Documentation for date of: 08/03/24 Event Note Event Note: Rapid response called on 22:17 (08/02) for patient in room 272 for increased work of breathing and increased altered mental status. Patient had an ABG earlier which showed pH 7.39, pCO2 47, pO2 76 and HCO3 of 29; however, patient apparently became more altered and was uncomfortable in the hospital bed. Patient's airway, breathing and circulation were assessed; patient's vitals included: BP of 108/46, HR fluctuating 70-90, RR of 27 and saturating 96 on BIPAP (IPAP 10 and EPAP 5). Decision was made to contact the patient's family to make them aware of the patient's rapidly deteriorating respiratory status. Their decision was to proceed with full code status; thus, a decision was made to intubate the patient for airway protection and predicted respiratory failure. Patient will be upgraded to ICU level of care after successfully being intubated and is currently sedated with RASS score of -4 achieved. Noel Swenson, PGY-1
--- NOTE | 2024-08-03 00:42 | ESOP_ITS ---
<Statement entered by Anisa Deo MD - 08/29/24 14:50> I, Anisa Doe MD, have reviewed the history, exam, and assessment of the patient. I have evaluated the patient independently and agree with the plan of care documented. All diagnostic studies were reviewed and discussed. Procedures were directly observed by me. I confirm the diagnosis as documented by the Resident. I was present during the Medical Decision Making for this patient. The patient's plan of care was created between myself and the Resident and consistent with our discussion of the patient's case. Procedures Procedure Date / Time 08/03/24 004 Intubation Indication(s): acute Resp Failure Informed consent obtained: obtained from surrogate decision maker Time out done, and the following verified: correct patient, side and site, procedure, patient position and implants and/or equipment Sedative: etomidate Mg given: 20 Paralytic: succinylcholine Mg given: 50 Laryngoscope: Brett ET tube size: 7.5 Tube secured depth (cm): 22 Tube placement confirmation: visualized tube passing through cords, equal breath sounds bilaterally, no breath sounds over epigastrium and confirmation by ca pnometry Patient tolerated procedure: well and no complications Intubation complications: none Additional comments: Procedure done under supervision of my attending Dr. Nader Hudson MD PGY-3
--- NOTE | 2024-08-03 00:42 | ESCONSULT_ITS ---
HPI Data of Consult Requesting Physician: Zuhair Kim MD Admitting Provider: Tameka Monique MD Attending Provider: Zuhair Kim MD Primary Care Provider: Physician No Primary/Family Consult Narrative History of present illness: 88-year-old woman with past medical history of HFpEF 55-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 During the day patient had 2 rapid responses due to hypoxia and increased work of breathing for which they spoke with the ICU team who recommended to start BiPAP on IPAP 10/EPAP 5 for lung protective ventilation settings and avoid barotrauma due to patient is progressing toward ARDS and if ABGs pH drop below 7.2 the patient will need intubation at the time . primary team had goals of care discussion with patient family members and patient and decision-maker Yassine Harris about patient current condition and overall prognosis they wish to continue with full code. Around 22:20 p.m. rapid response was called due to increased work of breathing, tachypnea and altered mental status. 8 PM ABG showed pH 7.39 pCO2 47 pO2 of 76 HCO3 of 29 otherwise overnight patient became altered and restless. Vitals were rapid BP 108/46, heart rate 90 RR 27 SpO2 96% on BiPAP. We called patient decision maker Yassine Harris about the patient critical medical condition that the patient at this point due to increased work of breathing will require intubation to improve oxygen requirements, family member understood the situation and he stated that he will like her to be intubated, and decision was made to transfer the patient to the ICU for intubation in the setting acute hypoxic respiratory failure secondary in the setting of influenza pneumonia and superimposed bacterial pneumonia. cc:: cc: Zuhair Kim MD Review of Systems Review of Systems ROS Unobtainable: unobtainable due to mental status Past Medical History Past Medical History NEUROLOGIC: Positive Neurological Disorders; Negative Cerebrovascular Accident, Transient Ischemic Attacks (TIA), Dementia, Alzheimer's Disease, Parkinson's Disease, Brain Tumor, Meningitis, Seizures, Epilepsy, Multiple Sclerosis, Cerebral Palsy, Amyotrophic Lateral Sclerosis (ALS/Belia Gehrig's), Guillain-Ama Syndrome, Spina Bifida, Paralysis, Peripheral Neuropathy, Regalado's Palsy, Subdural Hematoma, Migraine, Head Trauma, Spinal Cord Injury or Traumatic Brain Injury CARDIAC: Positive Cardiac Disorders, Heart Murmur, Coronary Artery Disease, Hypercholesterolemia, Congestive Heart Failure, Edema and Hypertension; Negative Myocardial Infarction, Cardiac Arrhythmia, Atrial Fibrillation, Angina, Atherosclerotic Heart Disease, Peripheral Vascular Disease, Aneurysm, Congenital Heart Disease, Valvular Heart Disease, Rheumatic Fever, Cardiomyopathy, Pericarditis, Cellulitis, Deep Vein Thrombosis, Hypotension or Varicose Veins RESPIRATORY: Positive Pneumonia; Negative Chronic Obstructive Pulmonary Disease (COPD), Asthma, Bronchitis, Emphysema, Pulmonary Fibrosis, Cystic Fibrosis, Tuberculosis, Pulmonary Embolism, Pulmonary Edema or Sleep Apnea GASTROINTESTINAL: Positive Colorectal Cancer; Negative Gastrointestinal Disorders, Hepatitis, Cirrhosis, Pancreatitis, Celiac Disease, Gall Bladder Disease, Gastrointestinal Bleed, Esophageal Varices, Simpson's Esophagus, Colitis, Ulcerative Colitis, Diverticulitis, Diverticulosis, Ulcer, Irritable Bowel, Crohn's Disease, Obstructive Bowel, Hiatal Hernia, Hemorrhoids, Gastroesophageal Reflux Disease or Obesity GENITOURINARY: Negative Genitourinary Disorders, Renal Disease, Kidney Stones, Polycystic Kidney Disease, Neurogenic Bladder, Inguinal Hernia or Dialysis REPRODUCTIVE: Positive Previous Pregnancies; Negative Breast Cancer, Endometriosis, Pelvic Inflammatory Disease or Uterine Prolapse MUSCULOSKELETAL: Positive Musculoskeletal Disorders and Arthritis; Negative Muscular Dystrophy, Myasthenia Gravis, Marfan's Syndrome, Bone Cancer, Rheumatoid Arthritis, Osteoporosis, Degenerative Disk Disease, Gout, Scoliosis, Carpal Tunnel Syndrome, Fibromyalgia, Fractures, Degenerative Joint Disease, Osteomyelitis or Poliovirus ENT: Positive Cataracts; Negative Glaucoma, Blind, Retinal Detachment, Macular Degeneration, Ear Infection, Deafness, Head Trauma or Eye Prosthesis ENDOCRINE: Negative Endocrine Disorders, Diabetes Mellitus Type 1, Diabetes Mellitus Type 2, Hypoglycemia, Milagro's Syndrome, [place]'s Disease, Hyperthyroidism, Hypothyroidism, Parathyroid Disease, Pituitary Disease, Systemic Lupus Erythematosus, Syndrome of Inappropriate Antidiuretic Hormone (SIADH), Adrenal Disease or Graves' Disease HEMATOLOGIC: Positive Blood Disorders; Negative Anemia, Leukemia, Hemophilia, Thalassemia, Sickle Cell Disease or Clotting Problems (pt) PSYCHO/SOCIAL: Negative Psychiatric Problems, Schizophrenia, Recreational Drug Use, Bipolar Disorder, Depression, Anxiety, Behavior Problems, Self-Mutilation, Attention Deficit Disorder, Attention Deficit Hyperactivity Disorder, Depression, Post Traumatic Stress Disorder or Eating Disorder OTHER HISTORY: Positive Hospitalization, Falls, Blood Transfusions, Chemotherapy, Radiation Therapy, Cancer and Colorectal Cancer; Negative Autoimmune Disease, Down Syndrome, Autism, Developmental Delay, Shingles, Blood Transfusion Reaction, Anesthesia Reactions, Organ Transplant, Hyperbaric Therapy, MRSA, VRSA, Vancomycin-Resistant Enterococci, Human Immunodeficiency Virus (HIV), Chicken Pox, Measles, Mumps, Rubella ([place] Measles), Pertussis, Clostridium Difficile, Breast Cancer, Cervical Cancer, Lung Cancer or Ovarian Cancer Family History FAMILY HISTORY: Positive Family Cardiac Disorders; Negative Family Psychiatric Problems, Family Respiratory Disorders, Family Gastrointestinal Problems, Family Cancer, Family Surgery or Family Anesthesia Reaction Surgical History SURGICAL: Positive Cardiac Surgery, Coronary Stent, Cardiac Catheterization, Angiogram, Eye Surgery and Abdominal Surgery; Negative Open Heart Surgery, Coronary Artery Bypass Graft, Valve Replacement, Vascular Surgery, Pacemaker, Auto Implanted Cardiovert Defib, Carotid Endarterectomy, Endocrine Surgery, Thyroidectomy, Ear Surgery, Tympanostomy Tube, Nose Surgery, Oral Surgery, Tonsillectomy, Adenoidectomy, Cochlear Implant, Corneal Transplant, Throat Surgery, Tracheostomy, Gastric Bypass Surgery, Gastrostomy, Bowel Surgery, Nephrectomy, Transurethral Resection, Joint Replacement, Amputation, Open Reduction Internal Fixation, Arthroscopy, Neurologic Surgery, Brain Shunt, Mastectomy, Lumpectomy, Hysterectomy, Tubal Ligation, Section or Organ Transplant Social History SMOKING STATUS: Never smoker Exam Vital Signs Temp Pulse Resp BP Pulse Ox O2 Del Method O2 Flow Rate 99.2 F 60 24 H 116/50 L 100 High Flow Nasal Cannula 40 08/02/24 20:00 08/02/24 23:11 08/02/24 20:00 08/02/24 23:11 08/02/24 23:11 08/02/24 16:53 08/02/24 16:53 FiO2 100 08/02/24 23:11 Narrative Exam General: In acute distress, tachypneic, SpO2 96% on BiPAP. HEENT: NC/AT, PERRL, EOMI, Good conjugate gaze, moist mucous membranes. Neck: Supple, No masses, No adenopathy, carotid pulse 2+ bilaterally without bruits, No JVD, normal range of motion. Chest: Symmetrical, atraumatic, and with equal expansion , Nontender on palpation no deformity and no crepitus. CVS: S1 and S2 present, Regular rate and rhythm, No murmurs, rubs or gallops perceived during auscultation. Lungs: Increased work of breathing with use of accessory muscles, tachypneic, bilateral rhonchi and crackles perceived on the lung martinez during auscultation. Abdomen : Soft, no tenderness to palpation, no guarding ,no rebound, +BS, no organomegaly. Extremities: 2+ bilateral lower extremity, warm well perfused, cap refill less than 2, +2 dp equal bilaterally, able to move all 4 extremities spontaneously. Skin: No rashes, no lesions, no erythema or jaundice noted . Neuro: Difficult to assess due to patient altered mental status. Psych: Difficult to assess due to patient altered mental state. Results Labs 08/02/24 11:32 08/02/24 11:32 Labs: Short CBC 08/02/24 Range/Units 11:32 WBC 7.6 (3.6-11.0) Thou/mm3 Hgb 11.6 L (12.0-16.0) g/dL Hct 36.6 (36.0-46.0) % Plt Count 167 (140-440) Thou/mm3 BMP 08/02/24 11:32 Sodium 138 Potassium 3.7 Chloride 103 Carbon Dioxide 28.7 BUN 17 Creatinine 1.5 H Glucose 187 H Calcium 9.4 Cardiac Enzymes 08/02/24 Range/Units 11:32 Troponin I < 0.020 (0.0-0.045) ng/mL Liver Function 08/02/24 Range/Units 11:32 Total Bilirubin 0.7 (0.3-1.2) mg/dL AST 127 H (0-34) U/L ALT 88 H (10-49) U/L Alkaline Phosphatase 143 H (46-116) U/L Albumin 4.6 (3.4-4.8) gm/dL ABG Interpretation ABG results: 08/02/24 08/02/24 08/02/24 11:32 15:23 16:47 ABG pH 7.37 7.40 ABG pCO2 50 H 44 ABG pO2 36 L* 80 L D ABG HCO3 29 H 27 H ABG O2 Saturation 64 L 96 ABG Base Excess 3 2 VBG pH 7.48 VBG pCO2 35 L VBG pO2 46 VBG Base Excess 3 08/02/24 08/02/24 20:46 23:49 ABG pH 7.39 7.45 ABG pCO2 47 37 D ABG pO2 76 L 248 H D ABG HCO3 29 H 25 ABG O2 Saturation 95 99 H ABG Base Excess 3 2 VBG pH VBG pCO2 VBG pO2 VBG Base Excess Quality Measures Quality Measures VTE prophylaxis (Heparin subcut) Advance care planning discussed with:: spouse Medications Home Medications and Allergies Home Medications ?Medication ?Instructions ?Recorded ?Confirmed ?Type amlodipine 5 mg tablet (Norvasc) 5 mg PO QDAY #0 tabs 05/06/16 12/11/22 History atorvastatin 80 mg tablet 80 mg PO QDAY 11/21/22 04/27/24 History amlodipine 5 mg tablet 5 mg PO DAILY 08/02/24 08/02/24 History bumetanide 1 mg tablet 1 mg PO DAILY 08/02/24 08/02/24 History calcitriol 0.25 mcg capsule 0.25 mcg PO DAILY 08/02/24 08/02/24 History metoprolol succinate 25 mg 25 mg PO DAILY 08/02/24 08/02/24 History tablet,extended release 24 hr Allergies Allergy/AdvReac Type Severity Reaction Status Date / Time No Known Allergies Allergy Verified 08/02/24 10:36 Visit Medications Acetaminophen (Acetaminophen 325 Mg Tablet) 650 mg PO Q6H PRN PRN Reason: Mild Pain 1-3 or Fever >100.4 Stop: 09/01/24 13:41 Albuterol/Ipratropium (Albuterol/Ipratropium (Duoneb) Rt Cindy 3 Ml Nebu) 3 ml INH Q4HRRT [facility] Stop: 09/01/24 16:44 Last Admin: 08/02/24 23:35 Dose: 3 ml Amiodarone HCl (Amiodarone Hcl 200 Mg Tablet) 200 mg PO BID [facility] Stop: 09/02/24 08:59 Amlodipine Besylate (Amlodipine Besylate 5 Mg Tablet) 5 mg PO QDAY [facility] Stop: 09/01/24 14:19 Last Admin: 08/02/24 15:52 Dose: 5 mg Atorvastatin Calcium (Atorvastatin Calcium 20 Mg Tablet) 80 mg PO QDAY [facility] Stop: 09/02/24 08:59 Dextrose (Dextrose 50%-Water Inj 50 Ml Syringe) 25 ml IV Q15MIN PRN PRN Reason: BG 50-70 responsive npo pt Stop: 09/01/24 16:38 Dextrose (Dextrose 50%-Water Inj 50 Ml Syringe) 50 ml IV Q15MIN PRN PRN Reason: BG <50 OR BG <70 & pt unresponsive Stop: 09/01/24 16:38 Furosemide (Furosemide Inj 10 Mg/Ml 4ml Vial) 40 mg IVP BIDD JORGE ALBERTO Stop: 09/02/24 08:59 Glucagon (Glucagon Inj 1 Mg Vial) 1 mg IM Q15MIN PRN PRN Reason: BG <70, and no IV access Guaifenesin (Guaifenesin Syrup 200 Mg/10 Ml Udc) 100 mg PO QID PRN; Protocol PRN Reason: COUGH Stop: 09/01/24 14:32 Last Admin: 08/02/24 15:54 Dose: 100 mg Guaifenesin/Dextromethorphan (Guaifenesin/Dm Tablet) 1 each PO Q4HR PRN PRN Reason: COUGH Stop: 09/01/24 15:25 Heparin Sodium (Porcine) (Heparin Sod Inj 5000 Unit/Ml Vial) 5,000 unit SC Q12HR JORGE ALBERTO Stop: 08/16/24 20:59 Last Admin: 08/02/24 21:05 Dose: 5,000 unit Piperacillin/Tazobactam/Dextrose (Zosyn) 3.375 gm in 50 mls @ 12.5 mls/hr IV Q8HR [facility] Stop: 08/09/24 21:59 Last Admin: 08/03/24 00:05 Dose: 12.5 mls/hr Propofol (Diprivan Ivpb) 1,000 mg in 100 mls @ 1.882 mls/hr IV .Q24H PRN; Protocol PRN Reason: PER PROTOCOL Stop: 09/01/24 22:48 Last Titration: 08/03/24 00:00 Dose: 40 mcg/kg/min, 15.056 mls/hr Fentanyl Citrate (Sublimaze Inj 2,500 Mcg/250 Ml Bag) 2,500 mcg in 250 mls @ 2.5 mls/hr IV .Q24H PRN; Protocol PRN Reason: PER PROTOCOL Stop: 08/07/24 22:48 Last Titration: 08/03/24 00:05 Dose: 125 mcg/hr, 12.5 mls/hr Norepinephrine/Dextrose (Levophed In D5w 8mg/250ml) 8 mg in 250 mls @ 5.881 mls/hr IV .Q24H PRN; Protocol PRN Reason: PER PROTOCOL Stop: 09/01/24 23:40 Insulin Human Lispro (Insulin Lispro (Admelog) 1 Unit/0.01 Ml Unit) 0 unit SC ACHS [facility]; Protocol Stop: 09/01/24 16:59 Last Admin: 08/02/24 21:14 Dose: Not Given Methylprednisolone Sodium Succinate (Methylprednisolone Sod Succ 40 Mg Vial) 40 mg IVP QDAY [facility] Stop: 08/09/24 19:29 Last Admin: 08/02/24 19:54 Dose: 40 mg Metoprolol Succinate (Metoprolol Succinate Xl 25 Mg Tabcr) 25 mg PO QDAY [facility] Stop: 09/01/24 14:29 Last Admin: 08/02/24 15:53 Dose: 25 mg Oseltamivir Phosphate (Oseltamivir 30 Mg Capsule) 30 mg PO QDAY [facility]; Protocol Stop: 08/08/24 08:59 Pharmacy Consult (Vancomycin Pharmacy To Dose 1 Each Each) 1 each IV QDAY PRN PRN Reason: PROTOCOL Stop: 09/01/24 16:44 Sodium Chloride (Sodium Chloride Rt Cindy 0.9% 3 Ml Nebu) 3 ml INH PRN PRN PRN Reason: SOLN Stop: 09/01/24 11:11 Last Admin: 08/02/24 11:15 Dose: 3 ml Discontinued Medications Albuterol (Albuterol Rt 2.5 Mg/0.5 Ml Nebu) 10 mg INH X1 ONE Stop: 08/02/24 11:13 Last Admin: 08/02/24 11:15 Dose: 10 mg Albuterol/Ipratropium (Albuterol/Ipratropium (Duoneb) Rt Cindy 3 Ml Nebu) 3 ml INH Q4HRRT PRN PRN Reason: Shortness of breath Stop: 09/01/24 14:59 Amiodarone HCl (Amiodarone Hcl 200 Mg Tablet) 200 mg PO BID JORGE ALBERTO Stop: 09/01/24 14:29 Last Admin: 08/02/24 15:52 Dose: 200 mg Dextrose (Dextrose 50%-Water Inj 50 Ml Syringe) 50 ml IV Q15MIN PRN PRN Reason: BG <50 OR BG <70 & pt unresponsive Stop: 09/01/24 13:45 Dextrose (Dextrose 50%-Water Inj 50 Ml Syringe) 25 ml IV Q15MIN PRN PRN Reason: BG 50-70 responsive npo pt Stop: 09/01/24 13:45 Etomidate (Etomidate Inj 2 Mg/Ml Vial 10 Ml) 20 mg IVP X1 ONE Stop: 08/02/24 23:55 Etomidate (Etomidate Inj 2 Mg/Ml Vial 10 Ml) 20 mg IVP X1 ONE Stop: 08/02/24 22:46 Last Admin: 08/02/24 22:46 Dose: 20 mg Furosemide (Furosemide Inj 10 Mg/Ml 4ml Vial) 40 mg IVP X1 ONE Stop: 08/02/24 11:12 Last Admin: 08/02/24 11:34 Dose: 40 mg Furosemide (Furosemide Inj 10 Mg/Ml 4ml Vial) 40 mg IVP BID JORGE ALBERTO Stop: 09/01/24 20:59 Furosemide (Furosemide Inj 10 Mg/Ml 4ml Vial) 60 mg IVP X1 ONE Stop: 08/02/24 21:01 Last Admin: 08/02/24 21:05 Dose: 60 mg Glucagon (Glucagon Inj 1 Mg Vial) 1 mg IM Q15MIN PRN PRN Reason: BG <70, and no IV access Guaifenesin/Dextromethorphan (Guaifenesin/Dm Tablet) 1 each PO Q4HR PRN PRN Reason: COUGH Stop: 09/01/24 15:25 Piperacillin/Tazobactam/Dextrose (Zosyn) 3.375 gm in 50 mls @ 100 mls/hr IV X1 ONE Stop: 08/02/24 17:14 Last Admin: 08/02/24 18:57 Dose: 100 mls/hr Vancomycin/Sodium Chloride (Vancomycin/Ns 1 Gm Ivpb) 200 mls @ 120 mls/hr IV X1 ONE Stop: 08/02/24 18:39 Last Admin: 08/02/24 17:02 Dose: 120 mls/hr Midazolam HCl (Versed Pf Inj In Ns Premix) 100 mg in 100 mls @ 2 mls/hr IV .Q24H PRN; Protocol PRN Reason: PER PROTOCOL Stop: 08/07/24 23:16 Insulin Human Lispro (Insulin Lispro (Admelog) 1 Unit/0.01 Ml Unit) 0 unit SC ACHS JORGE ALBERTO; Protocol Stop: 09/01/24 16:59 Ipratropium Noble (Ipratropium Rt 0.5 Mg/ 2.5 Ml Nebu) 1 mg INH X1 ONE Stop: 08/02/24 11:13 Last Admin: 08/02/24 11:15 Dose: 1 mg Nitroglycerin (Nitroglycerin Oint 2% 1 Inch Packet) 1 inch TOP X1 ONE Stop: 08/02/24 11:12 Last Admin: 08/02/24 11:16 Dose: 1 inch Oseltamivir Phosphate (Oseltamivir 75 Mg Capsule) 75 mg PO X1 ONE Stop: 08/02/24 12:59 Last Admin: 08/02/24 14:00 Dose: Not Given Oseltamivir Phosphate (Oseltamivir 30 Mg Capsule) 30 mg PO X1 ONE Stop: 08/02/24 13:04 Last Admin: 08/02/24 13:59 Dose: 30 mg Potassium Chloride (Potassium Chloride 20 Meq Tabcr) 40 meq PO X1 ONE Stop: 08/02/24 15:27 Last Admin: 08/02/24 17:48 Dose: Not Given Potassium Chloride (Potassium Chloride 10% 20 Meq/15 Ml Udc) 40 meq PO X1 ONE Stop: 08/02/24 18:21 Last Admin: 08/02/24 19:10 Dose: Not Given Sodium Chloride (Sodium Chloride Rt 10% 15 Ml Nebu) 5 ml INH X1 ONE Stop: 08/02/24 16:32 Last Admin: 08/03/24 00:05 Dose: 5 ml Succinylcholine Chloride (Succinylcholine Inj 20 Mg/Ml Vial 10 Ml) 50 mg IV X1 ONE Stop: 08/02/24 22:46 Last Admin: 08/02/24 22:46 Dose: 50 mg Assessment & Plan Plan 88-year-old woman with past medical history of HFpEF 55-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 During the day patient had 2 rapid responses due to hypoxia and increased work of breathing for which they spoke with the ICU team who recommended to start BiPAP on IPAP 10/EPAP 5 for lung protective ventilation settings and avoid barotrauma due to patient is progressing toward ARDS and if ABGs pH drop below 7.2 the patient will need intubation at the time . primary team had goals of care discussion with patient family members and patient and decision-maker Yassine Harris about patient current condition and overall prognosis they wish to continue with full code. Around 22:20 p.m. rapid response was called due to increased work of breathing, tachypnea and altered mental status. 8 PM ABG showed pH 7.39 pCO2 47 pO2 of 76 HCO3 of 29 otherwise overnight patient became altered and restless. Vitals were rapid BP 108/46, heart rate 90 RR 27 SpO2 96% on BiPAP. We called patient decision maker Yassine Harris about the patient critical medical condition that the patient at this point due to increased work of breathing will require intubation to improve oxygen requirements, family member understood the situation and he stated that he will like her to be intubated, and decision was made to transfer the patient to the ICU for intubation in the setting acute hypoxic respiratory failure secondary in the setting of influenza pneumonia and superimposed bacterial pneumonia. PROJECT/PRODUCTION MANAGER IMAGING: #Acute encephalopathy Secondary to hypoxia Overnight patient work on breathing increase started to become altered and agitated Due to hypoxia patient required transfer to the ICU sedated and mechanically ventilated Sedation: Propofol gtt and fentanyl gtt. RASS of -4 CVS: #Shock Most likely septic shock in the setting of influenza pneumonia and pneumonia and superimposed bacterial pneumonia MAP dropped below 65 after intubation ? Started Levophed gtt. to keep MAP above 65 ? Wean off as tolerated #Acute decompensated HFpEF 55 - 60% Patient has history of HFpEF 55-60% March 2024 Stage I distolic dysfunction BNP 518, troponin were negative Chest x-ray showed prominent vascular congestion including central vascular engorgemet, Moderate CHF ? Continue Lasix 40 mg IV twice daily ? Strict in and out ? Daily weight ? Follow-up electrolytes and replete as necessary #Aortic stenosis #History of A-fib Rate controlled on amiodarone [id number] 3 not on anticoagulation per cardiology recommendation due to high risk of bleeding ? Continue metoprolol succinate XL 25 p.o. daily ? Continue amiodarone 200 mg p.o. twice daily #History of hypertension ? Hold home amlodipine in the setting of blood pressure PULM: #Acute hypoxic respiratory failure Secondary to influenza pneumonia and superimposed bacterial pneumonia vs CHF exacerbation? Patient tested positive for influenza A on admission and was hypoxic on presentation with SpO2 88% X-ray showed moderate CHF with moderate enlargement of cardiac care nurse prominent vascular congestion with central vascular engorgement and perihilar vascular edema. ABG pH 7.39, pCO2 47, pO2 76 and HCO3 29 During the day patient had multiple rapid's due to increased work of breathing and hypoxia and possible progression to ARDS for which decision was made to intubate and transfer the patient to the ICU Vent settings: AC/VC VT 375 RR 30 PEEP 10 FiO2 100 ? Follow-up ABGs ? Follow-up chest x-ray #Influenza pneumonia with superimposed bacterial pneumonia ? See ID as below RENAL: #Lactic acidosis In the setting of hypoxia and shock Lactic acid 3.3=>4.2 ? Trend lactic acid every 3 hours #CKD stage IIIb Patient has past medical history of CKD no history of diabetes previous A1c 6.2% 05/2024 - Strict ins and outs - Avoid nephrotoxic drugs - Renally dose medications - Follow-up CMP ENDO: Stable HEME/ONC: Stable ID: #Septic shock secondary to influenza pneumonia and superimposed bacterial pneumonia On admission patient was positive for influenza and was hypoxic with SpO2 88% on 9 oxygen WBCs within normal limits on admission, lactic acid 4.2 on admission X-ray showed moderate CHF with moderate enlargement of cardiac care nurse prominent vascular congestion with central vascular engorgement and perihilar vascular edema Patient did not receive per sepsis protocol 30 cc/kg IV fluids due to decompensated CHF ? Continue oseltamivir 30 mg daily (08/02? ? Continue IV Zosyn and vancomycin (08/02? ? Continue DuoNebs every 4 hours scheduled ? Continue IV methylprednisolone 40 mg daily ? Follow-up blood and urine cultures ? Follow-up sputum culture and Gram ? Follow-up IgM and IgG cocci ? Follow-up CBC GI: Stable MSK: Stable SKIN: Stable FEN: N.p.o. Lines: Peripheral line DVT prophylaxis: Heparin subcu GI prophylaxis: Protonix CODE STATUS: Full code patient/decision maker Yassine Harris () phone number [phone] Patient discussed with my attending Dr Fady Hudson MD PGY-3 Disclaimer: Despite multiple revisions, due to the dictation software being used, the document bellow may not be free of grammatical errors including phonetic/typographic errors. However, this does not deter from our commitment to providing health care in the patient's best interest in mind. Attending Provider Attestation/Addendum Pt was evaluated and plan formulated together with the housestaff team. I have reviewed the residents note above and agree with most of its content. Please refer to the residents note for additional details.
[2024-08-03] MEDS: ALBUTEROL/IPRATROPIUM (Duoneb) RT SOL 3 ML NEBU INH ×6 (02:45→22:08)
[2024-08-03 03:31] LABS: Allen Test Performed/OK; Base Excess 2 (-3-3); HCO3 25 mEq/L (20-26); Inspired Oxygen, FIO2 60 %; O2 Saturation 98 % (91-98); PCO2 34 mmHg (32.0-48.0); PO2 160 mmHg (83-108); Puncture Site Right Radial; pH, Arterial 7.48 (7.35-7.45)
[2024-08-03] MEDS: PROPOFOL 1,000 MG IVPB 1,000 MG/100 ML VIAL 15.056 MG IV (04:33)
[2024-08-03 05:26] LABS: Base Excess 2 (-3-3); HCO3 26 mEq/L (20-26); O2 Saturation 90 % (91-98); PCO2 37 mmHg (32.0-48.0); pH, Arterial 7.45 (7.35-7.45)
[2024-08-03 05:28] LABS: Allen Test Performed/OK; Inspired Oxygen, FIO2 35 %; Puncture Site Right Radial
[2024-08-03 05:29] LABS: PO2 55 mmHg (83-108)
[2024-08-03 05:38] LABS: Lactate (Lactic Acid) 4.2 mMol/L (0.4-2.0)
[2024-08-03] MEDS: INSULIN LISPRO (AdmeLOG) 1 UNIT/0.01 ML UNIT SC ×3 (05:52→17:22)
[2024-08-03 06:10] LABS: Basophils % (Auto) 0 % (0-2.5); Eosinophils % (Auto) 0 % (0-10); Hematocrit 34.3 % (36.0-46.0); Immature Granulocytes % (Auto) 1 % (0-0); Immature Granulocytes Auto 0.04 Thou/mm3 (0.00-0.00); Lymphocytes # (Auto) 0.2 Thou/mm3 (1.0-4.8); Lymphocytes % (Auto) 3 % (10-50); Mean Corpuscular HGB Conc 32.1 g/dl (31.0-37.0); Mean Corpuscular Volume 87 fL (80-100); Monocytes # (Auto) 0.2 Thou/mm3 (0.0-0.8); Monocytes % (Auto) 3 % (0-12); Neutrophils # (Auto) 7.8 Thou/mm3 (1.8-7.7); Neutrophils % (Auto) 94 % (37-80); Nucleated Red Blood Cell % 0 /100 WBC (0); Platelet Count 143 Thou/mm3 (140-440); RDW Standard Deviation 48.1 fL (36.4-46.3); Red Blood Count 3.93 Miln/mm3 (4.00-5.20); White Blood Count 8.3 Thou/mm3 (3.6-11.0)
[2024-08-03 06:50] LABS: Alanine Aminotransferase 373 U/L (10-49); Albumin, Serum 3.8 gm/dL (3.4-4.8); Albumin/Globulin Ratio 1.7 (1.2-2.2); Alkaline Phosphatase 108 U/L (46-116); Anion Gap 14 (7-16); Aspartate Amino Transferase 594 U/L (0-34); BUN/Creatinine Ratio 13 Ratio (12-20); Bilirubin,Total 1.2 mg/dL (0.3-1.2); Blood Urea Nitrogen 24 mg/dL (9-23); Calcium 8.8 mg/dL (8.3-10.6); Carbon Dioxide 23.9 mMol/L (20.0-31.0); Cardiac Risk Estimate 3.2 RATIO (3.7-5.6); Chloride 102 mMol/L (98-107); Cholesterol 176 mg/dL (132-200); Creatinine (Component) 1.8 mg/dL (0.6-1.3); Estimated Creatinine Clearance 18.2 mL/min (>60); Globulin 2.3 gm/dL (2.3-3.5); Glucose 287 mg/dL (74-106); HDL Cholesterol 55 mg/dL (40-60); LDL Cholesterol,Calculated 101 mg/dL (0-130); Osmolality,Calculated 293 (275-295); Potassium 2.9 mMol/L (3.4-5.1); Sodium 140 mMol/L (136-145); Thyroid Stimulating Hormone 0.35 uIU/mL (0.55-4.78); Total Protein 6.1 gm/dL (5.7-8.2); Triglycerides 100 mg/dL (30-150); eGFR 27 See Note
[2024-08-03 07:04] LABS: Glucose Estimated Average 131 mg/dL (80-131); Hemoglobin A1C 6.2 % Hgb (4.8-6.0)
--- NOTE | 2024-08-03 08:18 | PC.NURSE ---
MD Puente made aware of poor urine output overnight as well as patients HR of low 50's
[2024-08-03] MEDS: RINGERS LACTATED 1000 ML 1,000 ML 999 ML IV (08:26)
[2024-08-03 08:33] LABS: Reflex Lactate? Y
--- NOTE | 2024-08-03 09:00 | XR_ITS ---
Examination: AP chest single view Technique: AP portable semiupright chest single view Exam date and time: August 01, 2024 0605 hrs. Comparison August 02, 2024 Indications: Hypoxic respiratory failure ARDS pneumonia heart failure on earlier chest imaging this week. Findings: Mild enlargement cardiac contour Extensive bilateral edema and/or pneumonia Endotracheal tube tip approximately 2.8 cm above britany The lower portion of the orogastric tube is poorly visualized Impression: Again noted extensive bilateral edema and/or pneumonia Recommend abdomen film to better assess position of the orogastric tube
[2024-08-03 09:13] LABS: Base Excess 0 (-3-3); HCO3 26 mEq/L (20-26); O2 Saturation 85 % (91-98); PCO2 43 mmHg (32.0-48.0); pH, Arterial 7.38 (7.35-7.45)
[2024-08-03 09:19] LABS: Allen Test Not Performed; Puncture Site Right Brachial
[2024-08-03 09:20] LABS: PO2 51 mmHg (83-108)
[2024-08-03 09:25] LABS: Inspired Oxygen, FIO2 35 %
[2024-08-03] MEDS: ATORVASTATIN CALCIUM 20 MG TABLET 80 MG PO (09:28)
[2024-08-03] MEDS: HEPARIN SOD INJ 5000 UNIT/ML VIAL SC ×2 (09:28→21:10)
[2024-08-03] MEDS: PANTOPRAZOLE INJ 40 MG VIAL IV (09:28)
[2024-08-03] MEDS: FUROSEMIDE INJ 10 MG/ML 4ML VIAL 40 MG IVP (10:09)
[2024-08-03] MEDS: POTASSIUM CHLORIDE 10% 20 MEQ/15 ML UDC 40 MEQ GT (10:33)
[2024-08-03] MEDS: DEXMEDETOMIDINE 200 MCG IVPB 200 MCG/50 ML BOTTLE IV (10:35)
[2024-08-03 10:45] LABS: Lactic Acid, 3 HR 3.7 mMol/L (0.4-2.0)
[2024-08-03] MEDS: VANCOMYCIN/NS 500 MG IVPB 100 ML 120 MG IV (11:00)
[2024-08-03] MEDS: OSELTAMIVIR 6 MG/ML 30 MG NG (11:00)
[2024-08-03] MEDS: POTASSIUM CHL 10 mEq IVPB 10 MEQ/100 ML BAG 100 MEQ IV ×4 (11:01→14:30)
[2024-08-03] MEDS: BUMETANIDE INJ 0.25 MG/ML VIAL 4 ML 1 MG IVP (11:19)
[2024-08-03] MEDS: DEXMEDETOMIDINE 200 MCG IVPB 200 MCG/50 ML BOTTLE 21.945 MCG IV ×5 (13:21→22:55)
[2024-08-03 14:01] LABS: Lactate (Lactic Acid) 3.1 mMol/L (0.4-2.0)
[2024-08-03 14:25] LABS: Cocci Serology, IgM Negative (Negative)
--- NOTE | 2024-08-03 14:38 | PD.INTPROG ---
Documentation for date of: 08/03/24 Subjective Subjective Interval history: This is an 88-year-old female admitted yesterday for acute hypoxic respiratory failure. She was diagnosed with influenza in the ER and admitted to the floor. She was started on BiPAP for increased work of breathing. She continued to decompensate and tire out. Overnight she was brought to the ICU and intubated. She was started on low tidal volume ventilation for ARDS secondary to influenza pneumonia. She has had a decreased urinary output overnight. She is afebrile. Critical Care Note Critical care time (min.): 68 Exam Vital Signs Temp Pulse Resp BP Pulse Ox O2 Del Method O2 Flow Rate 97.6 F 62 19 118/49 L 98 Mechanical Ventilation 40 08/03/24 12:00 08/03/24 12:15 08/03/24 10:39 08/03/24 12:15 08/03/24 12:15 08/03/24 07:00 08/02/24 16:53 FiO2 45 08/03/24 12:00 Narrative Exam General-intubated, sedated, elderly, normal body habitus, patient does wake up and is able to follow commands HEENT-normocephalic, atraumatic, sclera icteric, oral mucosa is hydrated, ET tube and OG tube in place Chest-few scattered crackles posterior base, no expiratory wheezes auscultated at this time, heart regular rhythmic, no bruits murmurs, no increased work of breathing Abdomen-soft, nontender, bowel sounds present, no rebound or guarding Extremities-some edema, pulses palpable, no clubbing, no mottling, moves all 4 Vent AC/VC Drips Fentanyl Propofol Physical Exam Completion Physical Exam Complete?: Yes 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 Labs 08/03/24 05:38 08/03/24 05:38 Labs: Laboratory Results - last 24 hr 08/02/24 08/02/24 08/02/24 15:19 15:23 16:47 WBC RBC Hgb Hct MCV MCH MCHC RDW Std Deviation Plt Count Neut % (Auto) Lymph % (Auto) Wells % (Auto) Eos % (Auto) Baso % (Auto) Neut # (Auto) Lymph # (Auto) Wells # (Auto) Eos # (Auto) Baso # (Auto) Immature Gran # (Auto) Absolute Nucleated RBC Immature Gran % Nucleated RBC % Puncture Site Left Radial Right Brachial ABG pH 7.37 7.40 ABG pCO2 50 H 44 ABG pO2 36 L* 80 L D ABG HCO3 29 H 27 H ABG O2 Saturation 64 L 96 ABG Base Excess 3 2 Oxygen Liter Flow 10 FiO2 21 80 Sodium Potassium Chloride Carbon Dioxide Anion Gap BUN Creatinine Estim Creat Clear Calc eGFR BUN/Creatinine Ratio Glucose Estimated Ave Glu mg/dL Hemoglobin A1c Calculated Osmolality Lactic Acid 4.2 H* Calcium Corrected Calcium Phosphorus Magnesium Total Bilirubin AST ALT Alkaline Phosphatase Ammonia Total Protein Albumin Globulin Albumin/Globulin Ratio Triglycerides Cholesterol LDL Cholesterol, Calc HDL Cholesterol Cholesterol/HDL Ratio TSH Coccidioides IgM Ab 08/02/24 08/02/24 08/02/24 17:31 19:56 20:46 WBC RBC Hgb Hct MCV MCH MCHC RDW Std Deviation Plt Count Neut % (Auto) Lymph % (Auto) Wells % (Auto) Eos % (Auto) Baso % (Auto) Neut # (Auto) Lymph # (Auto) Wells # (Auto) Eos # (Auto) Baso # (Auto) Immature Gran # (Auto) Absolute Nucleated RBC Immature Gran % Nucleated RBC % Puncture Site Right Radial ABG pH 7.39 ABG pCO2 47 ABG pO2 76 L ABG HCO3 29 H ABG O2 Saturation 95 ABG Base Excess 3 Oxygen Liter Flow FiO2 90 Sodium Potassium Chloride Carbon Dioxide Anion Gap BUN Creatinine Estim Creat Clear Calc eGFR BUN/Creatinine Ratio Glucose Estimated Ave Glu mg/dL Hemoglobin A1c Calculated Osmolality Lactic Acid 3.1 H Calcium Corrected Calcium Phosphorus Magnesium 2.0 Total Bilirubin AST ALT Alkaline Phosphatase Ammonia < 10 L Total Protein Albumin Globulin Albumin/Globulin Ratio Triglycerides Cholesterol LDL Cholesterol, Calc HDL Cholesterol Cholesterol/HDL Ratio TSH Coccidioides IgM Ab Negative 08/02/24 08/02/24 08/03/24 23:31 23:49 03:08 WBC RBC Hgb Hct MCV MCH MCHC RDW Std Deviation Plt Count Neut % (Auto) Lymph % (Auto) Wells % (Auto) Eos % (Auto) Baso % (Auto) Neut # (Auto) Lymph # (Auto) Wells # (Auto) Eos # (Auto) Baso # (Auto) Immature Gran # (Auto) Absolute Nucleated RBC Immature Gran % Nucleated RBC % Puncture Site Right Radial Right Radial ABG pH 7.45 7.48 H ABG pCO2 37 D 34 ABG pO2 248 H D 160 H D ABG HCO3 25 25 ABG O2 Saturation 99 H 98 ABG Base Excess 2 2 Oxygen Liter Flow FiO2 100 60 Sodium Potassium Chloride Carbon Dioxide Anion Gap BUN Creatinine Estim Creat Clear Calc eGFR BUN/Creatinine Ratio Glucose Estimated Ave Glu mg/dL Hemoglobin A1c Calculated Osmolality Lactic Acid 3.3 H Calcium Corrected Calcium Phosphorus Magnesium Total Bilirubin AST ALT Alkaline Phosphatase Ammonia Total Protein Albumin Globulin Albumin/Globulin Ratio Triglycerides Cholesterol LDL Cholesterol, Calc HDL Cholesterol Cholesterol/HDL Ratio TSH Coccidioides IgM Ab 08/03/24 08/03/24 08/03/24 05:03 05:38 09:09 WBC 8.3 RBC 3.93 L Hgb 11.0 L Hct 34.3 L MCV 87 MCH 28.0 MCHC 32.1 RDW Std Deviation 48.1 H Plt Count 143 Neut % (Auto) 94 H Lymph % (Auto) 3 L Wells % (Auto) 3 Eos % (Auto) 0 Baso % (Auto) 0 Neut # (Auto) 7.8 H Lymph # (Auto) 0.2 L Wells # (Auto) 0.2 Eos # (Auto) 0.0 Baso # (Auto) 0.0 Immature Gran # (Auto) 0.04 H Absolute Nucleated RBC 0.00 Immature Gran % 1 H Nucleated RBC % 0 Puncture Site Right Radial Right Brachial ABG pH 7.45 7.38 ABG pCO2 37 43 ABG pO2 55 L* D 51 L* ABG HCO3 26 26 ABG O2 Saturation 90 L 85 L ABG Base Excess 2 0 Oxygen Liter Flow FiO2 35 35 Sodium 140 Potassium 2.9 L D Chloride 102 Carbon Dioxide 23.9 Anion Gap 14 BUN 24 H Creatinine 1.8 H Estim Creat Clear Calc 18.2 L eGFR 27 L BUN/Creatinine Ratio 13 Glucose [address] Glu mg/dL 131 Hemoglobin A1c 6.2 H Calculated Osmolality 293 Lactic Acid 4.2 H* Calcium 8.8 Corrected Calcium 9.0 Phosphorus 3.0 Magnesium 2.0 Total Bilirubin 1.2 D AST 594 H* ALT 373 H Alkaline Phosphatase 108 D Ammonia Total Protein 6.1 Albumin 3.8 D Globulin 2.3 Albumin/Globulin Ratio 1.7 Triglycerides 100 Cholesterol 176 LDL Cholesterol, Calc 101 HDL Cholesterol 55 Cholesterol/HDL Ratio 3.2 L TSH 0.35 L Coccidioides IgM Ab 08/03/24 08/03/24 10:28 13:50 WBC RBC Hgb Hct MCV MCH MCHC RDW Std Deviation Plt Count Neut % (Auto) Lymph % (Auto) Wells % (Auto) Eos % (Auto) Baso % (Auto) Neut # (Auto) Lymph # (Auto) Wells # (Auto) Eos # (Auto) Baso # (Auto) Immature Gran # (Auto) Absolute Nucleated RBC Immature Gran % Nucleated RBC % Puncture Site ABG pH ABG pCO2 ABG pO2 ABG HCO3 ABG O2 Saturation ABG Base Excess Oxygen Liter Flow FiO2 Sodium Potassium Chloride Carbon Dioxide Anion Gap BUN Creatinine Estim Creat Clear Calc eGFR BUN/Creatinine Ratio Glucose Estimated Ave Glu mg/dL Hemoglobin A1c Calculated Osmolality Lactic Acid 3.7 H 3.1 H Calcium Corrected Calcium Phosphorus Magnesium Total Bilirubin AST ALT Alkaline Phosphatase Ammonia Total Protein Albumin Globulin Albumin/Globulin Ratio Triglycerides Cholesterol LDL Cholesterol, Calc HDL Cholesterol Cholesterol/HDL Ratio TSH Coccidioides IgM Ab Assessment & Plan Additional Assessment Additional Assessment: In summary this is an 88-year-old female admitted to the ICU for acute hypoxic respiratory failure 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 CV History of hypertension- home meds on hold h/o afib- on amio Resp Acute hypoxic respiratory failure- currently intubated and on MV, fu with ABG and CXR, ween as able Influenza pneumonia- initially on 100% FiO2 however have been able to come down to 50%, on Tamiflu, fu on cx - on vanc/zosyn to cover superimposed bacterial infection while cx are pending ARDS- LTVV - maintain Pplat <30 - sats >88% - pf ratio 145 Renal Hypokalemia- replete IV and PO Acute kidney injury on chronic kidney disease- monitor i/os, avoid nephrotoxins - given bumex today for decreased UOP Lactic acidosis- trended back down GI Transaminitis- likely related to ischemic hepatitis and episode of hypotension overnight - fu with AM labs GI prophylaxis- PPI Endo Stable Heme Anemia- no active bleeding noted DVT prophylaxis- heparin 5000 q8 ID Influenza- on tamiflu Case discussed with ICU team Discussed with family at bedside Labs, imaging and records reviewed Approximately 68 critical care minutes required for evaluation, exam, review, intervention and discussion with formulation of plan of care for this critically ill patient with acute hypoxic respiratory failure at high risk for further and ongoing decompensation Provider Notation Provider Notation: Although this document has been carefully reviewed, there may still be some phonetic and other typographical errors. These errors are purely grammatical due to imperfections in the software program and should not be construed in any way to compromise the substance of the patient's medical care during this visit. Thank you for the opportunity and privilege in assisting you with this patient's care and management.
[2024-08-03] MEDS: fentaNYL 2,500 MCG/250 ML BAG 2,500 MCG/250 ML BAG 17.5 MCG IV (14:52)
[2024-08-03] MEDS: BUMETANIDE INJ 0.25 MG/ML VIAL 4 ML 2 MG IVP (15:16)
[2024-08-03 16:59] LABS: Reflex Lactate? Y
[2024-08-03 17:17] LABS: Lactate (Lactic Acid) 1.6 mMol/L (0.4-2.0)
[2024-08-03 20:27] LABS: Lactate (Lactic Acid) 1.6 mMol/L (0.4-2.0)
[2024-08-03] MEDS: AMIODARONE HCL 200 MG TABLET PO (21:09)
[2024-08-03 23:20] LABS: Lactate (Lactic Acid) 1.4 mMol/L (0.4-2.0)
[2024-08-04] VITALS (36 sets, daily range): BP systolic 132–174; BP diastolic 49–121; PULSE 64–78; RESP 18–24; TEMP 36.6–37.6; O2SAT 94–99; BMI 25.2
[2024-08-04] MEDS: INSULIN LISPRO (AdmeLOG) 1 UNIT/0.01 ML UNIT SC ×4 (00:31→18:24)
[2024-08-04] MEDS: DEXMEDETOMIDINE 200 MCG IVPB 200 MCG/50 ML BOTTLE 21.945 MCG IV ×10 (00:43→20:40)
[2024-08-04] MEDS: ALBUTEROL/IPRATROPIUM (Duoneb) RT SOL 3 ML NEBU INH ×6 (03:04→22:38)
[2024-08-04 04:06] LABS: Hepatitis A Antibody IgM Non Reactive (Non React); Hepatitis B Core Antibody IgM Non Reactive (Non React); Hepatitis B Surface Antigen Non Reactive (Non React); Hepatitis C Antibody Non Reactive (Non React)
[2024-08-04 04:36] LABS: Base Excess 5 (-3-3); HCO3 30 mEq/L (20-26); Inspired Oxygen, FIO2 30 %; O2 Saturation 97 % (91-98); PCO2 46 mmHg (32.0-48.0); PO2 92 mmHg (83-108); pH, Arterial 7.42 (7.35-7.45)
[2024-08-04 04:39] LABS: Allen Test Performed/OK; Puncture Site Right Brachial
[2024-08-04] MEDS: HEPARIN SOD INJ 5000 UNIT/ML VIAL SC ×3 (05:16→22:55)
[2024-08-04] MEDS: PIPER/TAZO 3.375 GM 3.375 GM/50 ML BAG IV ×3 (05:18→22:56)
[2024-08-04 05:58] LABS: Basophils % (Auto) 0 % (0-2.5); Eosinophils % (Auto) 0 % (0-10); Hematocrit 36.2 % (36.0-46.0); Hemoglobin 11.7 g/dL (12.0-16.0); Immature Granulocytes % (Auto) 1 % (0-0); Immature Granulocytes Auto 0.16 Thou/mm3 (0.00-0.00); Lymphocytes # (Auto) 0.3 Thou/mm3 (1.0-4.8); Lymphocytes % (Auto) 2 % (10-50); Mean Corpuscular HGB Conc 32.3 g/dl (31.0-37.0); Mean Corpuscular Volume 87 fL (80-100); Monocytes # (Auto) 0.4 Thou/mm3 (0.0-0.8); Monocytes % (Auto) 3 % (0-12); Neutrophils # (Auto) 12.1 Thou/mm3 (1.8-7.7); Neutrophils % (Auto) 94 % (37-80); Nucleated Red Blood Cell % 0 /100 WBC (0); Platelet Count 162 Thou/mm3 (140-440); Red Blood Count 4.18 Miln/mm3 (4.00-5.20); White Blood Count 12.9 Thou/mm3 (3.6-11.0)
[2024-08-04] MEDS: fentaNYL 2,500 MCG/250 ML BAG 2,500 MCG/250 ML BAG 22.5 MCG IV (06:11)
[2024-08-04 06:31] LABS: Alanine Aminotransferase 575 U/L (10-49); Albumin, Serum 3.4 gm/dL (3.4-4.8); Albumin/Globulin Ratio 1.4 (1.2-2.2); Alkaline Phosphatase 92 U/L (46-116); Anion Gap 10 (7-16); Aspartate Amino Transferase 651 U/L (0-34); BUN/Creatinine Ratio 19 Ratio (12-20); Bilirubin,Total 0.8 mg/dL (0.3-1.2); Blood Urea Nitrogen 31 mg/dL (9-23); Calcium 9.1 mg/dL (8.3-10.6); Calcium (Corrected) 9.6 mg/dL (8.5-10.1); Carbon Dioxide 28.9 mMol/L (20.0-31.0); Chloride 106 mMol/L (98-107); Creatinine (Component) 1.6 mg/dL (0.6-1.3); Estimated Creatinine Clearance 20.5 mL/min (>60); Globulin 2.5 gm/dL (2.3-3.5); Glucose 148 mg/dL (74-106); Magnesium 2.1 mg/dL (1.6-2.6); Osmolality,Calculated 298 (275-295); Phosphorous 3.9 mg/dL (2.4-5.1); Potassium 3.8 mMol/L (3.4-5.1); Sodium 145 mMol/L (136-145); Total Protein 5.9 gm/dL (5.7-8.2); eGFR 31 See Note
--- NOTE | 2024-08-04 08:42 | PC.PT ---
PT eval received. Patient is on mechanical ventilator. Patient is not appropriate for PT at this time. Will cancel PT evaluation.
--- NOTE | 2024-08-04 09:00 | XR_ITS ---
Examination: AP chest single view Technique one AP portable semiupright chest single view Exam date and time: August 04, 2024 at 0528 hrs. Comparison August 03, 2024 Indications: Acute hypoxic respiratory failure, postintubation Findings: Extensive bilateral pneumonia and possible pulmonary edema No major cardiac enlargement The orogastric tube is in the stomach, the tip is below the level film Tracheal tube tip 3 cm above britany No pneumothorax Impression: Severe bilateral lung opacity, most consistent with pneumonia ARDS
[2024-08-04] MEDS: METOPROLOL SUCCINATE XL 25 MG TABCR PO (09:51)
[2024-08-04] MEDS: OSELTAMIVIR 6 MG/ML 30 MG NG (09:51)
[2024-08-04] MEDS: ATORVASTATIN CALCIUM 20 MG TABLET 80 MG PO (09:52)
[2024-08-04] MEDS: PANTOPRAZOLE INJ 40 MG VIAL IV (09:53)
[2024-08-04] MEDS: AMIODARONE HCL 200 MG TABLET PO ×2 (09:53→21:50)
[2024-08-04] MEDS: VANCOMYCIN/NS 500 MG IVPB 100 ML 120 MG IV (10:58)
--- NOTE | 2024-08-04 11:53 | PC.NURSE ---
Update given to patient's POC Lisbeth (daughter).
--- NOTE | 2024-08-04 12:24 | ECHO_ITS ---
Transthoracic Echo Report Ht (in): 63 Wt (lb): 142 Exam Location: Echo Lab Status: Inpatient Service Line Layer: Patrica Campbell Indications: Procedure Performed: BP: 153 / 60 HR: 65 Technical Quality: Technically difficult study MEASUREMENTS (Male / Female) Normal Values 2D ECHO LVOT Diameter 1.8 cm Aortic Root Diameter 2.4 cm LA Volume Index 33.5 cm?/m? 16 - 28 cm?/m? M-MODE AV Cusp Separation MM 0.9 cm DOPPLER AV Peak Velocity 336.0 cm/s AV Peak Gradient 45.2 mmHg AV Mean Gradient 27.0 mmHg AV Velocity Time Integral 84.8 cm AI Peak Velocity 293.5 cm/s AI Peak Gradient 34.5 mmHg AI Pressure Half Time 450.5 ms LVOT Peak Velocity 110.0 cm/s LVOT Peak Gradient 4.8 mmHg LVOT Velocity Time Integral 26.7 cm LVOT Cardiac Index 2591.2 cm?/min?m? AV Area Cont Eq vti 0.8 cm? AV Area Cont Eq pk 0.8 cm? MV Peak Velocity 122.0 cm/s MV Peak Gradient 6.0 mmHg MV Mean Velocity 83.3 cm/s MV Mean Gradient 3.0 mmHg MV Area PHT 2.8 cm? MR Peak Velocity 298.0 cm/s MR Peak Gradient 35.5 mmHg Mitral E Point Velocity 62.1 cm/s Mitral A Point Velocity 91.2 cm/s Mitral E to A Ratio 0.7 LV E' Lateral Velocity 6.1 cm/s Mitral E to LV E' Lateral Ratio 10.2 LV E' Septal Velocity 2.9 cm/s Mitral E to LV E' Septal Ratio 21.1 TR Peak Velocity 266.0 cm/s TR Peak Gradient 28.3 mmHg FINDINGS Left Ventricle Normal left ventricular size, wall thickness, systolic function with no obvious regional wall motion abnormalities. Normal left ventricular diastolic filling pattern for age. The ejection fraction is v isually estimated at 60-65 %. Right Ventricle The right ventricle is normal in size. The right ventricular systolic function is mildly decreased. The estimated right ventricular systolic pressure, 47 mmHg. RAP 15. Left Atrium The left atrium is normal by two-dimensional, color flow and Doppler imaging with no structural abnormalities, no thrombus formation present. Right Atrium The right atrium is normal by two-dimensional imaging, color flow and Doppler imaging with no struct ural abnormalities, no thrombus formation present. Atrial Septum The interatrial septum appears normal with no evidence of a shunt. Aorta The aortic valve is trileaflet. Moderate stenosis. Mitral Valve Mild Mitral valve is mildly MAC. There is mild mitral valve regurgitation, stenosis or prolapse. Aortic Valve The aortic valve is trileaflet and normal by two-dimensional, color flow and Doppler interrogation. There is moderate aortic valve regurgitation. Tricuspid Valve The tricuspid valve is normal by two-dimensional, color flow and Doppler interrogation. There is no significant tricuspid valve regurgitation. Pulmonic Valve The pulmonic valve is not well visualized. There is no significant pulmonic valve regurgitation. Vessels The pulmonary artery appears normal. The inferior vena cava pulmonary and hepatic veins appear chiquita l. Pericardium The pericardium is normal by two-dimensional imaging. There is no significant pericardial effusion. CONCLUSIONS Indiation: CHF Normal LV size and function. Estimated EF 60-65% Moderate to severec calcific aortic stenosis. Mild aotic regurgitation RV is normal in size. The right ventricular systolic function is mildly decreased. The estimated RVS P, 47 mmHg. RAP 15. Mild MAC. Mild MR, TR. Emy Montejo (Electronically Signed) Final Date: 06 August 2024 16:55
--- NOTE | 2024-08-04 13:34 | ESCONSULT_ITS ---
<Statement entered by Thaddeus Barton MD - 08/07/24 22:46> The patient is evaluated by me personally with physician resident physician Dr. Ryan in the intensive care unit patient under the hospital acute hypoxic respiratory failure due to combination of factors including possible volume overload influenza pneumonia flu positive critically ill intubated mechanical ventilation agree with the treatment plan recommendation as documented with Dr. Ryan will continue to monitor the patient closely possibly treat as heart failure as well with volume overload. She does have severe aortic stenosis as well but not critical velocities are usually below 4 m will reviewed the cardiac echo findings. HPI Data of Consult Requesting Physician: Ayaka Diaz MD Admitting Provider: Tameka Monique MD Attending Provider: Ayaka Diaz MD Primary Care Provider: Physician No Primary/Family Consult Narrative History of present illness: 88-year-old female patient with significant medical history for HFpEF, moderate to severe aortic stenosis, coronary artery disease s/p RCA stent placements, atrial fibrillation, bilateral endarterectomy (2020 and 2023), severe peripheral artery disease, chronic kidney disease, colon cancer sp resection, DM2, hypertension and hypercholesterolemia presented with worsening shortness of breath and productive cough was admitted for AHRF and sepsis due to influenza pneumonia with superimposed bacterial infection and CHF exacerbation. Patient was administered Tamiflu and started on IV Vanco and Zosyn. Initially patient was started on oxygen mask as she was hypoxic, due to continuing desaturation in the 70s patient was transitioned to BiPAP. Multiple rapid responses were called as patient continued to be desatting and was becoming increasingly tired. Goals of care discussion were held with family, patient's code status was switched to full code and decision was made to upgrade patient to ICU, intubated and started on levophed as patient was progressing towards ARDS. Cardiology was consulted for further management. Medical Hx: As above Surgical Hx: Bilateral endarterectomy, CAD s/p stent, colon cancer s/p resection Medications: Amiodarone 200 mg, metoprolol XL 25 mg, amlodipine 5 mg, atorvastatin 80 mg, Bumex 1mg, escitalopram 10 mg Social Hx: Denies alcohol use, smoking cigarettes or using other illicit drugs Allergies: NKDA CODE STATUS: Full code 08/04/24: Echocardiogram on this admission indicates moderate to severe aortic stenosis with a gradient of 48 mmHg H (mean 30) with Vmax of 3.5 and LVEF 60- 65%. On physical exam patient is does not seem to be fluid overloaded, patient was recently seen at the clinic and was found to be asymptomatic. Patient seems to have an ARDS pattern secondary to influenza pneumonia. Continue current management, if no improvement we will consider right heart [place] cath. cc:: cc: Ayaka Diaz MD Review of Systems Review of Systems ROS Unobtainable: unobtainable due to mental status and unobtainable due to medical condition Exam Vital Signs Temp Pulse Resp BP Pulse Ox O2 Del Method O2 Flow Rate 99.1 F 67 19 155/60 H 96 Mechanical Ventilation 40 08/04/24 07:00 08/04/24 11:00 08/04/24 10:59 08/04/24 11:00 08/04/24 11:00 08/03/24 07:00 08/02/24 16:53 FiO2 40 08/04/24 10:59 Narrative Exam Constitutional: Critically ill, sedated and intubated HEENT: NCAT, EOMI, reactive round pupils b/l,moist mucous membranes, ET tube noted Lung: Mechanically ventilated, no wheezing, no rhonchi, no crackles Heart: Regular S1S2, no murmurs, gallops, or rubs Abdomen: Soft, non-distended, non-tender, bowel sounds present throughout Extremities: No cyanosis, clubbing, or edema, LE pulses present b/l Neurologic: Unable to perform due to sedation Skin: Warm, dry, no lesions or rashes noted Results Labs 08/05/24 05:32 08/05/24 05:32 Labs: Short CBC 08/04/24 Range/Units 05:24 WBC 12.9 H D (3.6-11.0) Thou/mm3 Hgb 11.7 L (12.0-16.0) g/dL Hct 36.2 (36.0-46.0) % Plt Count 162 (140-440) Thou/mm3 BMP 08/04/24 05:24 Sodium 145 Potassium 3.8 D Chloride 106 Carbon Dioxide 28.9 BUN 31 H Creatinine 1.6 H Glucose 148 H D Calcium 9.1 Liver Function 08/04/24 Range/Units 05:24 Total Bilirubin 0.8 (0.3-1.2) mg/dL AST 651 H* (0-34) U/L ALT 575 H* (10-49) U/L Alkaline Phosphatase 92 (46-116) U/L Albumin 3.4 (3.4-4.8) gm/dL ABG Interpretation ABG results: 08/02/24 08/02/24 08/02/24 11:32 15:23 16:47 ABG pH 7.37 7.40 ABG pCO2 50 H 44 ABG pO2 36 L* 80 L D ABG HCO3 29 H 27 H ABG O2 Saturation 64 L 96 ABG Base Excess 3 2 VBG pH 7.48 VBG pCO2 35 L VBG pO2 46 VBG Base Excess 3 08/02/24 08/02/24 08/03/24 20:46 23:49 03:08 ABG pH 7.39 7.45 7.48 H ABG pCO2 47 37 D 34 ABG pO2 76 L 248 H D 160 H D ABG HCO3 29 H 25 25 ABG O2 Saturation 95 99 H 98 ABG Base Excess 3 2 2 VBG pH VBG pCO2 VBG pO2 VBG Base Excess 08/03/24 08/03/24 08/04/24 05:03 09:09 04:23 ABG pH 7.45 7.38 7.42 ABG pCO2 37 43 46 ABG pO2 55 L* D 51 L* 92 D ABG HCO3 26 26 30 H ABG O2 Saturation 90 L 85 L 97 ABG Base Excess 2 0 5 H VBG pH VBG pCO2 VBG pO2 VBG Base Excess Quality Measures Quality Measures VTE prophylaxis (Heparin subcut) Advance care planning discussed with:: other Medications Home Medications and Allergies Home Medications ?Medication ?Instructions ?Recorded ?Confirmed ?Type amlodipine 5 mg tablet (Norvasc) 5 mg PO QDAY #0 tabs 05/06/16 12/11/22 History atorvastatin 80 mg tablet 80 mg PO QDAY 11/21/22 04/27/24 History amlodipine 5 mg tablet 5 mg PO DAILY 08/02/24 08/02/24 History bumetanide 1 mg tablet 1 mg PO DAILY 08/02/24 08/02/24 History calcitriol 0.25 mcg capsule 0.25 mcg PO DAILY 08/02/24 08/02/24 History metoprolol succinate 25 mg 25 mg PO DAILY 08/02/24 08/02/24 History tablet,extended release 24 hr Allergies Allergy/AdvReac Type Severity Reaction Status Date / Time No Known Allergies Allergy Verified 08/02/24 10:36 Visit Medications Acetaminophen (Acetaminophen 325 Mg Tablet) 650 mg PO Q6H PRN PRN Reason: Mild Pain 1-3 or Fever >100.4 Stop: 09/01/24 13:41 Albuterol/Ipratropium (Albuterol/Ipratropium (Duoneb) Rt Cindy 3 Ml Nebu) 3 ml INH Q4HRRT [facility] Stop: 09/01/24 16:44 Last Admin: 08/04/24 10:59 Dose: 3 ml Amiodarone HCl (Amiodarone Hcl 200 Mg Tablet) 200 mg PO BID [facility] Stop: 09/02/24 08:59 Last Admin: 08/04/24 09:53 Dose: 200 mg Amlodipine Besylate (Amlodipine Besylate 5 Mg Tablet) 5 mg PO QDAY [facility] Stop: 09/01/24 14:19 Last Admin: 08/02/24 15:52 Dose: 5 mg Atorvastatin Calcium (Atorvastatin Calcium 20 Mg Tablet) 80 mg PO QDAY [facility] Stop: 09/02/24 08:59 Last Admin: 08/04/24 09:52 Dose: 80 mg Dextrose (Dextrose 50%-Water Inj 50 Ml Syringe) 25 ml IV Q15MIN PRN PRN Reason: BG 50-70 responsive npo pt Stop: 09/01/24 16:38 Dextrose (Dextrose 50%-Water Inj 50 Ml Syringe) 50 ml IV Q15MIN PRN PRN Reason: BG <50 OR BG <70 & pt unresponsive Stop: 09/01/24 16:38 Glucagon (Glucagon Inj 1 Mg Vial) 1 mg IM Q15MIN PRN PRN Reason: BG <70, and no IV access Guaifenesin (Guaifenesin Syrup 200 Mg/10 Ml Udc) 100 mg PO QID PRN; Protocol PRN Reason: COUGH Stop: 09/01/24 14:32 Last Admin: 08/02/24 15:54 Dose: 100 mg Guaifenesin/Dextromethorphan (Guaifenesin/Dm Tablet) 1 each PO Q4HR PRN PRN Reason: COUGH Stop: 09/01/24 15:25 Heparin Sodium (Porcine) (Heparin Sod Inj 5000 Unit/Ml Vial) 5,000 unit SC Q8HR [facility] Stop: 08/17/24 21:59 Last Admin: 08/04/24 05:16 Dose: 5,000 unit Piperacillin/Tazobactam/Dextrose (Zosyn) 3.375 gm in 50 mls @ 12.5 mls/hr IV Q8HR [facility] Stop: 08/09/24 21:59 Last Admin: 08/04/24 05:18 Dose: 12.5 mls/hr Propofol (Diprivan Ivpb) 1,000 mg in 100 mls @ 1.882 mls/hr IV .Q24H PRN; Protocol PRN Reason: PER PROTOCOL Stop: 09/01/24 22:48 Last Titration: 08/03/24 12:15 Dose: 0 mcg/kg/min, 0 mls/hr Fentanyl Citrate (Sublimaze Inj 2,500 Mcg/250 Ml Bag) 2,500 mcg in 250 mls @ 2.5 mls/hr IV .Q24H PRN; Protocol PRN Reason: PER PROTOCOL Stop: 08/07/24 22:48 Last Titration: 08/04/24 12:00 Dose: 225 mcg/hr, 22.5 mls/hr Norepinephrine/Dextrose (Levophed In D5w 8mg/250ml) 8 mg in 250 mls @ 5.881 mls/hr IV .Q24H PRN; Protocol PRN Reason: PER PROTOCOL Stop: 09/01/24 23:40 Last Titration: 08/03/24 12:00 Dose: 0 mcg/kg/min, 0 mls/hr Dexmedetomidine/Sodium Chloride (Precedex Ivpb) 200 mcg in 50 mls @ 3.135 mls/hr IV .[id number] PRN; Protocol PRN Reason: Per PROTOCOL Stop: 09/02/24 10:18 Last Admin: 08/04/24 12:10 Dose: 1.4 mcg/kg/hr, 21.945 mls/hr Insulin Human Lispro (Insulin Lispro (Admelog) 1 Unit/0.01 Ml Unit) 0 unit SC Q6HR [facility]; Protocol Stop: 09/02/24 05:59 Last Admin: 08/04/24 12:14 Dose: 1 unit Metoprolol Succinate (Metoprolol Succinate Xl 25 Mg Tabcr) 25 mg PO QDAY [facility] Stop: 09/01/24 14:29 Last Admin: 08/04/24 09:51 Dose: 25 mg Oseltamivir Phosphate (Oseltamivir 6 Mg/Ml) 30 mg NG QDAY [facility]; Protocol Stop: 08/08/24 08:59 Last Admin: 08/04/24 09:51 Dose: 30 mg Pantoprazole Sodium (Pantoprazole Inj 40 Mg Vial) 40 mg IV QDAY [facility] Stop: 09/02/24 08:59 Last Admin: 08/04/24 09:53 Dose: 40 mg Sodium Chloride (Sodium Chloride Rt Cindy 0.9% 3 Ml Nebu) 3 ml INH PRN PRN PRN Reason: SOLN Stop: 09/01/24 11:11 Last Admin: 08/02/24 11:15 Dose: 3 ml Discontinued Medications Albuterol (Albuterol Rt 2.5 Mg/0.5 Ml Nebu) 10 mg INH X1 ONE Stop: 08/02/24 11:13 Last Admin: 08/02/24 11:15 Dose: 10 mg Albuterol/Ipratropium (Albuterol/Ipratropium (Duoneb) Rt Cindy 3 Ml Nebu) 3 ml INH Q4HRRT PRN PRN Reason: Shortness of breath Stop: 09/01/24 14:59 Amiodarone HCl (Amiodarone Hcl 200 Mg Tablet) 200 mg PO BID [facility] Stop: 09/01/24 14:29 Last Admin: 08/02/24 15:52 Dose: 200 mg Bumetanide (Bumetanide Inj 0.25 Mg/Ml Vial 4 Ml) 1 mg IVP QDAY ONE Stop: 08/03/24 10:11 Last Admin: 08/03/24 11:19 Dose: 1 mg Bumetanide (Bumetanide Inj 0.25 Mg/Ml Vial 4 Ml) 2 mg IVP NOW ONE Stop: 08/03/24 14:56 Last Admin: 08/03/24 15:16 Dose: 2 mg Dextrose (Dextrose 50%-Water Inj 50 Ml Syringe) 50 ml IV Q15MIN PRN PRN Reason: BG <50 OR BG <70 & pt unresponsive Stop: 09/01/24 13:45 Dextrose (Dextrose 50%-Water Inj 50 Ml Syringe) 25 ml IV Q15MIN PRN PRN Reason: BG 50-70 responsive npo pt Stop: 09/01/24 13:45 Etomidate (Etomidate Inj 2 Mg/Ml Vial 10 Ml) 20 mg IVP X1 ONE Stop: 08/02/24 23:55 Last Admin: 08/03/24 04:19 Dose: Not Given Etomidate (Etomidate Inj 2 Mg/Ml Vial 10 Ml) 20 mg IVP X1 ONE Stop: 08/02/24 22:46 Last Admin: 08/02/24 22:46 Dose: 20 mg Furosemide (Furosemide Inj 10 Mg/Ml 4ml Vial) 40 mg IVP X1 ONE Stop: 08/02/24 11:12 Last Admin: 08/02/24 11:34 Dose: 40 mg Furosemide (Furosemide Inj 10 Mg/Ml 4ml Vial) 40 mg IVP BID [facility] Stop: 09/01/24 20:59 Furosemide (Furosemide Inj 10 Mg/Ml 4ml Vial) 60 mg IVP X1 ONE Stop: 08/02/24 21:01 Last Admin: 08/02/24 21:05 Dose: 60 mg Furosemide (Furosemide Inj 10 Mg/Ml 4ml Vial) 40 mg IVP BIDD [facility] Stop: 09/02/24 08:59 Last Admin: 08/03/24 10:09 Dose: 40 mg Glucagon (Glucagon Inj 1 Mg Vial) 1 mg IM Q15MIN PRN PRN Reason: BG <70, and no IV access Guaifenesin/Dextromethorphan (Guaifenesin/Dm Tablet) 1 each PO Q4HR PRN PRN Reason: COUGH Stop: 09/01/24 15:25 Heparin Sodium (Porcine) (Heparin Sod Inj 5000 Unit/Ml Vial) 5,000 unit SC Q12HR [facility] Stop: 08/16/24 20:59 Last Admin: 08/03/24 09:28 Dose: 5,000 unit Piperacillin/Tazobactam/Dextrose (Zosyn) 3.375 gm in 50 mls @ 100 mls/hr IV X1 ONE Stop: 08/02/24 17:14 Last Admin: 08/02/24 18:57 Dose: 100 mls/hr Vancomycin/Sodium Chloride (Vancomycin/Ns 1 Gm Ivpb) 200 mls @ 120 mls/hr IV X1 ONE Stop: 08/02/24 18:39 Last Admin: 08/02/24 17:02 Dose: 120 mls/hr Midazolam HCl (Versed Pf Inj In Ns Premix) 100 mg in 100 mls @ 2 mls/hr IV .Q24H PRN; Protocol PRN Reason: PER PROTOCOL Stop: 08/07/24 23:16 Lactated Ringer's (Lactated Ringers) 1,000 mls @ 999 mls/hr IV .Q1H1M ONE Stop: 08/03/24 09:06 Last Admin: 08/03/24 08:26 Dose: 999 mls/hr Vancomycin/Sodium Chloride (Vancomycin/Ns 500 Mg Ivpb) 100 mls @ 120 mls/hr IV Q24H [facility]; Protocol Stop: 08/10/24 09:59 Last Admin: 08/04/24 10:58 Dose: 120 mls/hr Dexmedetomidine/Sodium Chloride (Precedex Ivpb) 400 mcg in 100 mls @ 3.135 mls/hr IV .Q24H PRN; Protocol PRN Reason: Per PROTOCOL Stop: 09/02/24 10:18 Potassium Chloride (Kcl Ivpb) 10 meq in 100 mls @ 100 mls/hr IV Q1H [facility] Stop: 08/03/24 14:19 Last Admin: 08/03/24 14:30 Dose: 100 mls/hr Insulin Human Lispro (Insulin Lispro (Admelog) 1 Unit/0.01 Ml Unit) 0 unit SC ACHS [facility]; Protocol Stop: 09/01/24 16:59 Insulin Human Lispro (Insulin Lispro (Admelog) 1 Unit/0.01 Ml Unit) 0 unit SC ACHS [facility]; Protocol Stop: 09/01/24 16:59 Last Admin: 08/03/24 05:52 Dose: 4 unit Ipratropium [place] (Ipratropium Rt 0.5 Mg/ 2.5 Ml Nebu) 1 mg INH X1 ONE Stop: 08/02/24 11:13 Last Admin: 08/02/24 11:15 Dose: 1 mg Methylprednisolone Sodium Succinate (Methylprednisolone Sod Succ 40 Mg Vial) 40 mg IVP QDAY [facility] Stop: 08/09/24 19:29 Last Admin: 08/04/24 09:51 Dose: 40 mg Nitroglycerin (Nitroglycerin Oint 2% 1 Inch Packet) 1 inch TOP X1 ONE Stop: 08/02/24 11:12 Last Admin: 08/02/24 11:16 Dose: 1 inch Oseltamivir Phosphate (Oseltamivir 75 Mg Capsule) 75 mg PO X1 ONE Stop: 08/02/24 12:59 Last Admin: 08/02/24 14:00 Dose: Not Given Oseltamivir Phosphate (Oseltamivir 30 Mg Capsule) 30 mg PO X1 ONE Stop: 08/02/24 13:04 Last Admin: 08/02/24 13:59 Dose: 30 mg Oseltamivir Phosphate (Oseltamivir 30 Mg Capsule) 30 mg PO QDAY [facility]; Protocol Stop: 08/08/24 08:59 Last Admin: 08/03/24 19:15 Dose: Not Given Pharmacy Consult (Vancomycin Pharmacy To Dose 1 Each Each) 1 each IV QDAY PRN PRN Reason: PROTOCOL Stop: 09/01/24 16:44 Potassium Chloride (Potassium Chloride 20 Meq Tabcr) 40 meq PO X1 ONE Stop: 08/02/24 15:27 Last Admin: 08/02/24 17:48 Dose: Not Given Potassium Chloride (Potassium Chloride 10% 20 Meq/15 Ml Udc) 40 meq PO X1 ONE Stop: 08/02/24 18:21 Last Admin: 08/02/24 19:10 Dose: Not Given Potassium Chloride (Potassium Chloride 10% 20 Meq/15 Ml Udc) 40 meq GT X1 ONE Stop: 08/03/24 10:01 Last Admin: 08/03/24 10:33 Dose: 40 meq Sodium Chloride (Sodium Chloride Rt 10% 15 Ml Nebu) 5 ml INH X1 ONE Stop: 08/02/24 16:32 Last Admin: 08/03/24 00:05 Dose: 5 ml Succinylcholine Chloride (Succinylcholine Inj 20 Mg/Ml Vial 10 Ml) 50 mg IV X1 ONE Stop: 08/02/24 22:46 Last Admin: 08/02/24 22:46 Dose: 50 mg Assessment & Plan Plan 88-year-old female patient with significant medical history for HFpEF, moderate to severe aortic stenosis, coronary artery disease s/p RCA stent placements, atrial fibrillation, bilateral endarterectomy (2020 and 2023), severe peripheral artery disease, chronic kidney disease, colon cancer sp resection, DM2, hypertension and hypercholesterolemia presented with worsening shortness of breath and productive cough was admitted for AHRF and sepsis due to influenza pneumonia with superimposed bacterial infection and CHF exacerbation. #HFpEF (60 to 65%) #Hx of CAD s/p RCA stent placement #Hx of s/p bilateral endarterectomy #Hx of hypertension Echocardiogram indicates moderate to severe aortic stenosis with a gradient of 48 mmHg H (mean 30) with Vmax of 3.5 and LVEF 60-65% On addmission BNP 518 and CXR showed prominent vascular congestion On physical exam, patient not fluid overloaded Plan: ? If no improvement, will consider right heart [place] cath ? Hold off diuretic and BP meds in setting of septic shock ? Strict in and out ? Daily weight ? Follow-up electrolytes and replete as necessary #Atrial fibrillation, rate controlled #Moderate-severe aortic stenosis [id number] not on anticoagulation due to high risk of bleeding Plan: ? Continue amiodarone 200 mg BID #Shock, septic vs. cardiogenic In the setting of fever, influenza PNA and possibly superimposed bacterial pneumonia MAP dropped below 65 after intubation Plan: ? Continue Levophed gtt to keep MAP > 65 ? Wean off as tolerated #Sepsis secondary to #Influenza #Pneumonia #CKD IIIb #DM2 #Hx of colon cancer s/p resection -Management per primary team This patient care was discussed with my attending Dr. Mick Lester MD PGY-2 Disclaimer: Minor errors in aging room hand may be present since this note was dictated by speech recognition software.
--- NOTE | 2024-08-04 14:25 | PC.SS ---
Initial assessment: This is 88 year old female admitted for acute hypoxic respiratory failure. Patient is currently admitted to the ICU. Patient lives at home with spouse, Yassine. Confirmed address and contact number on face sheet in speaking with patient's daughter, Lisbeth Lynn. Lisbeth reports the patient requires some assistance with ADL's. Patient utilizes a cane to assist with ambulation. Patient utilizes supplemental oxygen, unknown baseline per daughter Lisbeth. Patient's PCP is Dr. Alfreda Alberto. The patient's emergency contact is her daughter, Lisbeth Lynn. The discharge plan remains pending at this time. D/c plan: pending Next of kin: daughter, Lisbeth Lynn
--- NOTE | 2024-08-04 14:46 | ESPR_ITS ---
<Statement entered by Ayaka Diaz MD - 08/05/24 11:48> TOTAL CC TIME: 45 MIN I saw and evaluated the patient. I reviewed the resident?s note and agree with findings and plan as documented in the resident?s note. Upon my evaluation, this patient had a high probability of imminent or life- threatening deterioration due to hypoxic respiratory failure from pulmonary edema due to aortic stenosis and influenza pneumonia which required my direct attention, intervention, and personal management. This time is exclusive of time spent on procedures, which are documented separately if performed. Continue diuresis with goal 1 L negative daily. We are careful to avoid overdiuresis due to the aortic stenosis. Repeat echocardiogram has been ordered. Continue management for influenza pneumonia Not a candidate to extubate at this time but we will continue to wean sedation as tolerated and transition to pressure support when appropriate Antibiotics DC'd as cultures are negative Documentation for date of: 08/04/24 Subjective Subjective Interval history: 08/04/2024: Patient was seen and examined by bedside, patient continues to be on ventilator, initially sedation was weaned off but resumed again as patient continues to require mechanical ventilation, vancomycin and Zosyn were discontinued as patient's clinical presentation, labs, imagings are not consistent with bacterial pneumonia, will continue patient on oseltamivir for influenza but will repeat influenza A/B PCR as no test results showing on patient's labs/serology, CBC only noted for increase in WBC to 12.5, CMP shows improvement in renal function and normalization of lactate level but AST/ALT continue to increase with levels around 600 in setting of ischemic injury, will continue to trend. Previous echocardiogram on 05/13 was noted for moderate/severe aortic stenosis with V-max gradient 3.5, cardiology was consulted for possible TAVR, recommendations pending. At the meantime we will continue cautiously diuresing patient to achieve - 1-1.5 L net balance. Exam Vital Signs Temp Pulse Resp BP Pulse Ox O2 Del Method O2 Flow Rate 99.1 F 71 19 153/59 H 97 Mechanical Ventilation 40 08/04/24 07:00 08/04/24 14:24 08/04/24 14:24 08/04/24 14:21 08/04/24 14:24 08/03/24 07:00 08/02/24 16:53 FiO2 40 08/04/24 14:24 Narrative Exam GEN: Critically ill, not acutely distressed, sedated and intubated. Neuro: Deferred due to sedation. HEENT: NCAT, trachea midline, moist mucous membranes, ET tube, PO tube noted. CVS: RRR, S1S2 present, no M/R/G. No JVD Respi: Mechanically ventilated, b/l breath sounds heard, no wheezing/crackles. ABD: Soft, no grimace to palpation, bowel sounds present in all 4 quadrants. Skin: warm, dry and intact. Extremities: Pulses 3+, no edema/cyanosis. Objective Labs 08/05/24 05:32 08/05/24 05:32 Labs: Laboratory Results - last 24 hr 08/03/24 08/03/24 08/03/24 00:02 10:28 17:05 WBC RBC Hgb Hct MCV MCH MCHC RDW Std Deviation Plt Count Neut % (Auto) Lymph % (Auto) Bell % (Auto) Eos % (Auto) Baso % (Auto) Neut # (Auto) Lymph # (Auto) Bell # (Auto) Eos # (Auto) Baso # (Auto) Immature Gran # (Auto) Absolute Nucleated RBC Immature Gran % Nucleated RBC % Puncture Site ABG pH ABG pCO2 ABG pO2 ABG HCO3 ABG O2 Saturation ABG Base Excess FiO2 Sodium Potassium Chloride Carbon Dioxide Anion Gap BUN Creatinine Estim Creat Clear Calc eGFR BUN/Creatinine Ratio Glucose Calculated Osmolality Lactic Acid 1.6 1.6 Calcium Corrected Calcium Phosphorus Magnesium Total Bilirubin AST ALT Alkaline Phosphatase Total Protein Albumin Globulin Albumin/Globulin Ratio Hepatitis A IgM Ab Non Reactive Hep Bs Antigen Non Reactive Hep B Core IgM Ab Non Reactive Hepatitis C Antibody Non Reactive 08/03/24 08/04/24 08/04/24 22:53 04:23 05:24 WBC 12.9 H D RBC 4.18 Hgb 11.7 L Hct 36.2 MCV 87 MCH 28.0 MCHC 32.3 RDW Std Deviation 49.0 H Plt Count 162 Neut % (Auto) 94 H Lymph % (Auto) 2 L Bell % (Auto) 3 Eos % (Auto) 0 Baso % (Auto) 0 Neut # (Auto) 12.1 H Lymph # (Auto) 0.3 L Bell # (Auto) 0.4 Eos # (Auto) 0.0 Baso # (Auto) 0.0 Immature Gran # (Auto) 0.16 H Absolute Nucleated RBC 0.00 Immature Gran % 1 H Nucleated RBC % 0 Puncture Site Right Brachial ABG pH 7.42 ABG pCO2 46 ABG pO2 92 D ABG HCO3 30 H ABG O2 Saturation 97 ABG Base Excess 5 H FiO2 30 Sodium 145 Potassium 3.8 D Chloride 106 Carbon Dioxide 28.9 Anion Gap 10 BUN 31 H Creatinine 1.6 H Estim Creat Clear Calc 20.5 L eGFR 31 L BUN/Creatinine Ratio 19 Glucose 148 H D Calculated Osmolality 298 H Lactic Acid 1.4 Calcium 9.1 Corrected Calcium 9.6 Phosphorus 3.9 Magnesium 2.1 Total Bilirubin 0.8 AST 651 H* ALT 575 H* Alkaline Phosphatase 92 Total Protein 5.9 Albumin 3.4 Globulin 2.5 Albumin/Globulin Ratio 1.4 Hepatitis A IgM Ab Hep Bs Antigen Hep B Core IgM Ab Hepatitis C Antibody ABG Interpretation ABG results: 08/02/24 08/02/24 08/02/24 11:32 15:23 16:47 ABG pH 7.37 7.40 ABG pCO2 50 H 44 ABG pO2 36 L* 80 L D ABG HCO3 29 H 27 H ABG O2 Saturation 64 L 96 ABG Base Excess 3 2 VBG pH 7.48 VBG pCO2 35 L VBG pO2 46 VBG Base Excess 3 08/02/24 08/02/24 08/03/24 20:46 23:49 03:08 ABG pH 7.39 7.45 7.48 H ABG pCO2 47 37 D 34 ABG pO2 76 L 248 H D 160 H D ABG HCO3 29 H 25 25 ABG O2 Saturation 95 99 H 98 ABG Base Excess 3 2 2 VBG pH VBG pCO2 VBG pO2 VBG Base Excess 08/03/24 08/03/24 08/04/24 05:03 09:09 04:23 ABG pH 7.45 7.38 7.42 ABG pCO2 37 43 46 ABG pO2 55 L* D 51 L* 92 D ABG HCO3 26 26 30 H ABG O2 Saturation 90 L 85 L 97 ABG Base Excess 2 0 5 H VBG pH VBG pCO2 VBG pO2 VBG Base Excess Quality Measures Quality Measures VTE prophylaxis (Heparin subcut) Advance care planning discussed with:: child and legal surragate Assessment & Plan Assessment Current Active Medications: Generic Name Dose Route Start Last Admin Trade Name Freq PRN Reason Stop Dose Admin Acetaminophen 650 mg 08/02/24 13:42 Acetaminophen 325 Mg Tablet PO 09/01/24 13:41 Q6H PRN Mild Pain 1-3 or Fever >100.4 Albuterol/Ipratropium 3 ml 08/02/24 16:45 08/04/24 14:24 Albuterol/Ipratropium (Duoneb) Rt Cindy 3 Ml Nebu INH 09/01/24 16:44 3 ml Q4HRRT JORGE ALBERTO Administration Amiodarone HCl 200 mg 08/03/24 09:00 08/04/24 09:53 Amiodarone Hcl 200 Mg Tablet PO 09/02/24 08:59 200 mg BID JORGE ALBERTO Administration Amlodipine Besylate 5 mg 08/02/24 14:20 08/02/24 15:52 Amlodipine Besylate 5 Mg Tablet PO 09/01/24 14:19 5 mg QDAY JORGE ALBERTO Administration Atorvastatin Calcium 80 mg 08/03/24 09:00 08/04/24 09:52 Atorvastatin Calcium 20 Mg Tablet PO 09/02/24 08:59 80 mg QDAY JORGE ALBERTO Administration Dextrose 25 ml 08/02/24 16:39 Dextrose 50%-Water Inj 50 Ml Syringe IV 09/01/24 16:38 Q15MIN PRN BG 50-70 responsive npo pt Dextrose 50 ml 08/02/24 16:39 Dextrose 50%-Water Inj 50 Ml Syringe IV 09/01/24 16:38 Q15MIN PRN BG <50 OR BG <70 & pt unresponsive Glucagon 1 mg 08/02/24 16:39 Glucagon Inj 1 Mg Vial IM Q15MIN PRN BG <70, and no IV access Guaifenesin 100 mg 08/02/24 14:33 08/02/24 15:54 Guaifenesin Syrup 200 Mg/10 Ml Udc PO 09/01/24 14:32 100 mg QID PRN Administration COUGH Protocol Guaifenesin/Dextromethorphan 1 each 08/02/24 15:30 Guaifenesin/Dm Tablet PO 09/01/24 15:25 Q4HR PRN COUGH Heparin Sodium (Porcine) 5,000 unit 08/03/24 22:00 08/04/24 14:06 Heparin Sod Inj 5000 Unit/Ml Vial SC 08/17/24 21:59 5,000 unit Q8HR JORGE ALBERTO Administration Piperacillin/Tazobactam/Dextrose 3.375 gm in 50 mls @ 12.5 mls/hr 08/02/24 22:00 08/04/24 14:06 Zosyn IV 08/09/24 21:59 12.5 mls/hr Q8HR JORGE ALBERTO Administration Propofol 1,000 mg in 100 mls @ 1.882 mls/hr 08/02/24 22:49 08/03/24 12:15 Diprivan Ivpb IV 09/01/24 22:48 0 mcg/kg/min .Q24H PRN 0 mls/hr PER PROTOCOL Titration Protocol 5 MCG/KG/MIN Fentanyl Citrate 2,500 mcg in 250 mls @ 2.5 mls/hr 08/02/24 22:49 08/04/24 12:00 Sublimaze Inj 2,500 Mcg/250 Ml Bag IV 08/07/24 22:48 225 mcg/hr .Q24H PRN 22.5 mls/hr PER PROTOCOL Titration Protocol 25 MCG/HR Norepinephrine/Dextrose 8 mg in 250 mls @ 5.881 mls/hr 08/02/24 23:41 08/03/24 12:00 Levophed In D5w 8mg/250ml IV 09/01/24 23:40 0 mcg/kg/min .Q24H PRN 0 mls/hr PER PROTOCOL Titration Protocol 0.05 MCG/KG/MIN Dexmedetomidine/Sodium Chloride 200 mcg in 50 mls @ 3.135 mls/hr 08/03/24 10:22 08/04/24 14:13 Precedex Ivpb IV 09/02/24 10:18 1.4 mcg/kg/hr .H24H31I PRN 21.945 mls/hr Per PROTOCOL Administration Protocol 0.2 MCG/KG/HR Insulin Human Lispro 0 unit 08/03/24 06:00 08/04/24 12:14 Insulin Lispro (Admelog) 1 Unit/0.01 Ml Unit SC 09/02/24 05:59 1 unit Q6HR JORGE ALBERTO Administration Protocol Metoprolol Succinate 25 mg 08/02/24 14:30 08/04/24 09:51 Metoprolol Succinate Xl 25 Mg Tabcr PO 09/01/24 14:29 25 mg QDAY JORGE ALBERTO Administration Oseltamivir Phosphate 30 mg 08/03/24 11:00 08/04/24 09:51 Oseltamivir 6 Mg/Ml NG 08/08/24 08:59 30 mg QDAY JORGE ALBERTO Administration Protocol Pantoprazole Sodium 40 mg 08/03/24 09:00 08/04/24 09:53 Pantoprazole Inj 40 Mg Vial IV 09/02/24 08:59 40 mg QDAY JORGE ALBERTO Administration Sodium Chloride 3 ml 08/02/24 11:12 08/02/24 11:15 Sodium Chloride Rt Cindy 0.9% 3 Ml Nebu INH 09/01/24 11:11 3 ml PRN PRN Administration SOLN Plan 88-year-old woman with past medical history of HFpEF 55-60% CKD stage IIIb, severe arctic stenosis, history of colon cancer postresection, A-fib on amiodarone, diabetes mellitus type 2 who was admitted today to [facility] due to acute hypoxic respiratory failure and sepsis in the setting influenza pneumonia and superimposed bacterial pneumonia as well as CHF exacerbation. During the day patient had 2 rapid responses due to hypoxia and increased work of breathing for which they spoke with the ICU team who recommended to start BiPAP on IPAP 10/EPAP 5 for lung protective ventilation settings and avoid barotrauma due to patient is progressing toward ARDS and if ABGs pH drop below 7.2 the patient will need intubation at the time . primary team had goals of care discussion with patient family members and patient and decision-maker Yassine Harris about patient current condition and overall prognosis they wish to continue with full code. Around 22:20 p.m. rapid response was called due to increased work of breathing, tachypnea and altered mental status. 8 PM ABG showed pH 7.39 pCO2 47 pO2 of 76 HCO3 of 29 otherwise overnight patient became altered and restless. Vitals were rapid BP 108/46, heart rate 90 RR 27 SpO2 96% on BiPAP. We called patient decision maker Yassine Harris about the patient critical medical condition that the patient at this point due to increased work of breathing will require intubation to improve oxygen requirements, family member understood the situation and he stated that he will like her to be intubated, and decision was made to transfer the patient to the ICU for intubation in the setting acute hypoxic respiratory failure secondary in the setting of influenza pneumonia and superimposed bacterial pneumonia. 08/04/2024: Patient was seen and examined by bedside, patient continues to be on ventilator, initially sedation was weaned off but resumed again as patient continues to require mechanical ventilation, vancomycin and Zosyn were discontinued as patient's clinical presentation, labs, imagings are not consistent with bacterial pneumonia, will continue patient on oseltamivir for influenza but will repeat influenza A/B PCR as no test results showing on patient's labs/serology, CBC only noted for increase in WBC to 12.5, CMP shows improvement in renal function and normalization of lactate level but AST/ALT continue to increase with levels around 600 in setting of ischemic injury, will continue to trend. Previous echocardiogram on 05/13 was noted for moderate/severe aortic stenosis with V-max gradient 3.5, cardiology was consulted for possible TAVR, recommendations pending. At the meantime we will continue cautiously diuresing patient to achieve - 1-1.5 L net balance. 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 RASS of -4 CVS: #Shock Most likely septic shock in the setting of influenza pneumonia and pneumonia and superimposed bacterial pneumonia MAP dropped below 65 after intubation ? Started Levophed gtt. to keep MAP above 65 ? Wean off as tolerated #Acute decompensated HFpEF 55 - 60% Patient has history of HFpEF 55-60% March 2024 Stage I distolic dysfunction BNP 518, troponin were negative Chest x-ray showed prominent vascular congestion including central vascular engorgemet, Moderate CHF ? Continue Lasix 40 mg IV twice daily ? Strict in and out ? Daily weight ? Follow-up electrolytes and replete as necessary #Aortic stenosis #History of A-fib Rate controlled on amiodarone [id number] 3 not on anticoagulation per cardiology recommendation due to high risk of bleeding ? Continue metoprolol succinate XL 25 p.o. daily ? Continue amiodarone 200 mg p.o. twice daily #History of hypertension ? Hold home amlodipine in the setting of blood pressure PULM: #Acute hypoxic respiratory failure Secondary to influenza pneumonia and superimposed bacterial pneumonia vs CHF exacerbation? 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 ABG pH 7.39, pCO2 47, pO2 76 and HCO3 29 During the day patient had multiple rapid's due to increased work of breathing and hypoxia and possible progression to ARDS for which decision was made to intubate and transfer the patient to the ICU Vent settings: AC/VC VT 375 RR 30 PEEP 10 FiO2 100 ? Follow-up ABGs ? Follow-up chest x-ray #Influenza pneumonia with superimposed bacterial pneumonia ? See ID as below RENAL: #Lactic acidosis In the setting of hypoxia and shock Lactic acid 3.3=>4.2 ? Trend lactic acid every 3 hours #CKD stage IIIb Patient has past medical history of CKD no history of diabetes previous A1c 6.2% 05/2024 - Strict ins and outs - Avoid nephrotoxic drugs - Renally dose medications - Follow-up CMP ENDO: Stable HEME/ONC: Stable ID: #Septic shock secondary to influenza pneumonia and superimposed bacterial pneumonia On admission patient was positive for influenza and was hypoxic with SpO2 88% on 9 oxygen WBCs within normal limits on admission, lactic acid 4.2 on admission X-ray showed moderate CHF with moderate enlargement of academic advisor prominent vascular congestion with central vascular engorgement and perihilar vascular edema Patient did not receive per sepsis protocol 30 cc/kg IV fluids due to decompensated CHF ? Continue oseltamivir 30 mg daily (08/02? ? Continue IV Zosyn and vancomycin (08/02? ? Continue DuoNebs every 4 hours scheduled ? Continue IV methylprednisolone 40 mg daily ? Follow-up blood and urine cultures ? Follow-up sputum culture and Gram ? Follow-up IgM and IgG cocci ? Follow-up CBC GI: Stable MSK: Stable SKIN: Stable FEN: N.p.o. Lines: Peripheral line DVT prophylaxis: Heparin subcu GI prophylaxis: Protonix CODE STATUS: Full code patient/decision maker Yassine Harris () phone number [phone] Patient's plan of care discussed with attending Dr Emily Garza, PGY-3
[2024-08-04 14:53] LABS: Cocci Serology, IgG Negative (Negative)
--- NOTE | 2024-08-04 16:12 | PC.SS ---
Update: patient remains intubated/sedated.
[2024-08-04] MEDS: fentaNYL 2,500 MCG/250 ML BAG 2,500 MCG/250 ML BAG 30 MCG IV (17:53)
[2024-08-05] VITALS (34 sets, daily range): BP systolic 119–168; BP diastolic 6–97; PULSE 60–79; RESP 15–19; TEMP 36.1–36.9; O2SAT 88–99; BMI 25.6; BMI 25.2
[2024-08-05] MEDS: INSULIN LISPRO (AdmeLOG) 1 UNIT/0.01 ML UNIT SC ×4 (00:43→17:32)
[2024-08-05] MEDS: DEXMEDETOMIDINE 200 MCG IVPB 200 MCG/50 ML BOTTLE 21.945 MCG IV ×5 (01:51→11:51)
[2024-08-05] MEDS: fentaNYL 2,500 MCG/250 ML BAG 2,500 MCG/250 ML BAG 30 MCG IV (01:55)
[2024-08-05] MEDS: ALBUTEROL/IPRATROPIUM (Duoneb) RT SOL 3 ML NEBU INH ×6 (02:38→22:34)
[2024-08-05 05:10] LABS: Base Excess 4 (-3-3); HCO3 30 mEq/L (20-26); Inspired Oxygen, FIO2 40 %; O2 Saturation 96 % (91-98); PCO2 50 mmHg (32.0-48.0); PO2 93 mmHg (83-108); pH, Arterial 7.38 (7.35-7.45)
[2024-08-05 05:12] LABS: Allen Test Performed/OK; Puncture Site Right Radial
[2024-08-05] MEDS: HEPARIN SOD INJ 5000 UNIT/ML VIAL SC ×3 (05:29→21:03)
[2024-08-05] MEDS: PIPER/TAZO 3.375 GM 3.375 GM/50 ML BAG IV (05:30)
[2024-08-05 06:29] LABS: Basophils % (Auto) 0 % (0-2.5); Eosinophils % (Auto) 0 % (0-10); Immature Granulocytes % (Auto) 2 % (0-0); Immature Granulocytes Auto 0.24 Thou/mm3 (0.00-0.00); Lymphocytes # (Auto) 0.3 Thou/mm3 (1.0-4.8); Lymphocytes % (Auto) 3 % (10-50); Mean Corpuscular HGB Conc 32.4 g/dl (31.0-37.0); Mean Corpuscular Hemoglobin 28.2 pg (25.0-35.0); Mean Corpuscular Volume 87 fL (80-100); Monocytes # (Auto) 0.4 Thou/mm3 (0.0-0.8); Monocytes % (Auto) 3 % (0-12); Neutrophils # (Auto) 11.8 Thou/mm3 (1.8-7.7); Neutrophils % (Auto) 92 % (37-80); Nucleated Red Blood Cell % 0 /100 WBC (0); Platelet Count 151 Thou/mm3 (140-440); RDW Standard Deviation 49.8 fL (36.4-46.3); Red Blood Count 4.26 Miln/mm3 (4.00-5.20); White Blood Count 12.9 Thou/mm3 (3.6-11.0)
[2024-08-05 07:20] LABS: Alanine Aminotransferase 405 U/L (10-49); Albumin, Serum 3.4 gm/dL (3.4-4.8); Albumin/Globulin Ratio 1.5 (1.2-2.2); Alkaline Phosphatase 97 U/L (46-116); Anion Gap 9 (7-16); Aspartate Amino Transferase 301 U/L (0-34); BUN/Creatinine Ratio 24 Ratio (12-20); Bilirubin,Total 0.6 mg/dL (0.3-1.2); Blood Urea Nitrogen 33 mg/dL (9-23); Calcium 8.7 mg/dL (8.3-10.6); Calcium (Corrected) 9.2 mg/dL (8.5-10.1); Chloride 108 mMol/L (98-107); Creatinine (Component) 1.4 mg/dL (0.6-1.3); Estimated Creatinine Clearance 25.6 mL/min (>60); Globulin 2.3 gm/dL (2.3-3.5); Glucose 174 mg/dL (74-106); Magnesium 2.4 mg/dL (1.6-2.6); Osmolality,Calculated 299 (275-295); Phosphorous 3.6 mg/dL (2.4-5.1); Potassium 3.7 mMol/L (3.4-5.1); Sodium 145 mMol/L (136-145); Total Protein 5.7 gm/dL (5.7-8.2); eGFR 36 See Note
[2024-08-05] MEDS: AMIODARONE HCL 200 MG TABLET PO ×2 (08:09→21:00)
[2024-08-05] MEDS: METOPROLOL SUCCINATE XL 25 MG TABCR PO (08:09)
[2024-08-05] MEDS: PANTOPRAZOLE INJ 40 MG VIAL IV (08:09)
[2024-08-05] MEDS: OSELTAMIVIR 6 MG/ML 30 MG NG (08:19)
[2024-08-05] MEDS: ATORVASTATIN CALCIUM 20 MG TABLET 80 MG PO (08:19)
[2024-08-05 08:49] LABS: Influenza A Ag Positive; Influenza B Ag Negative
--- NOTE | 2024-08-05 09:00 | XR_ITS ---
Examination: AP chest single view Technique one AP portable semiupright chest single view Exam date and time: August 05, 2024 0558 hours Comparison August 04, 2024 INDICATIONS: Hypoxic respiratory failure, severe bilateral pneumonia this week FINDINGS: Extensive bilateral lung opacity Mild enlargement left ventricle Orogastric tube in stomach, the tip below the level film Endotracheal tube tip 3 cm above britany IMPRESSION: Extensive bilateral pneumonia ARDS Suspicious for mild associated heart failure
[2024-08-05] MEDS: fentaNYL 2,500 MCG/250 ML BAG 2,500 MCG/250 ML BAG 20 MCG IV (09:10)
--- NOTE | 2024-08-05 10:37 | PC.RT ---
PER DR HUIZAR PLACED PATIENT ON PRESSURE SUPPORT MODE 15/ PATIENT FAILED AT THIS TIME WILL CONTINUE WEAN SEDATION & TRY AGAIN LATER
[2024-08-05] MEDS: fentaNYL 2,500 MCG/250 ML BAG 2,500 MCG/250 ML BAG 15 MCG IV (11:07)
--- NOTE | 2024-08-05 12:31 | PC.DIETICIAN ---
Nutrition prescription Vital 1.2 at 20 ml/hr via NG tube by pump. Advance 10 ml every 8 hrs to goal rate of 55 ml/hr x 24 hrs. If no IV fluids, water flushes of 25 ml/hr (or per MD).
--- NOTE | 2024-08-05 12:57 | ESPR_ITS ---
<Statement entered by Ayaka Diaz MD - 08/06/24 08:38> TOTAL CC TIME: 45 MIN I saw and evaluated the patient. I reviewed the resident?s note and agree with findings and plan as documented in the resident?s note. Upon my evaluation, this patient had a high probability of imminent or life- threatening deterioration due to acute hypoxic respiratory failure with pulmonary edema and aortic stenosis complicated by influenza pneumonia, which required my direct attention, intervention, and personal management. This time is exclusive of time spent on procedures, which are documented separately if performed. Diuresing well, monitor hemodynamics carefully while diuresing due to aortic stenosis She is following commands but becomes agitated very quickly when sedation is weaned We are trialing pressure support as tolerated Documentation for date of: 08/05/24 Subjective Subjective Interval history: 08/05/2024; patient was seen and examined by bedside, remains on sedation with fentanyl, will wean patient off sedation and evaluate for possible SBT, repeat echocardiogram showed normal EF with moderate/severe aortic stenosis with V-max of 3.5 m/S, continue patient on Bumex 1 mg every 8 hours as needed to achieve net balance of -1 L. Renal functions improving, no changes in CBC noted from prior, patient remains afebrile, renal panel noted for improving LFTs, repeat influenza PCR positive for flu A, will continue patient on oseltamivir. Weaning patient off oxygen with current FiO2 40%, will attempt switching patient to pressure support as she is more responsive and evaluated for extubation. Monitor and replete electrolytes as needed. Attempt to wean patient off fentanyl while on Precedex was unsuccessful as patient became extremely agitated, fentanyl was resumed again, will attempt weaning off sedation and spontaneous breathing trial again tomorrow. Exam Vital Signs Temp Pulse Resp BP Pulse Ox O2 Del Method O2 Flow Rate 97.0 F 60 18 145/63 H 97 Mechanical Ventilation 40 08/05/24 07:00 08/05/24 10:39 08/05/24 10:39 08/05/24 10:39 08/05/24 10:39 08/03/24 07:00 08/02/24 16:53 FiO2 40 08/05/24 10:39 Narrative Exam GEN: Critically ill, intubated. Neuro: Deferred due to sedation. HEENT: NCAT, trachea midline, moist mucous membranes, ET tube, PO tube noted. CVS: RRR, S1S2 present, no M/R/G. No JVD Respi: Mechanically ventilated, b/l breath sounds heard, no wheezing/crackles. ABD: Soft, grimaces to palpation, bowel sounds present in all 4 quadrants. Skin: warm, dry and intact. Extremities: Pulses 3+, 2+ edema on BLE / no cyanosis. Objective Labs 08/05/24 05:32 08/05/24 05:32 Labs: Laboratory Results - last 24 hr 08/02/24 08/05/24 08/05/24 17:31 04:47 05:32 WBC 12.9 H RBC 4.26 Hgb 12.0 Hct 37.0 MCV 87 MCH 28.2 MCHC 32.4 RDW Std Deviation 49.8 H Plt Count 151 Neut % (Auto) 92 H Lymph % (Auto) 3 L Mchenry % (Auto) 3 Eos % (Auto) 0 Baso % (Auto) 0 Neut # (Auto) 11.8 H Lymph # (Auto) 0.3 L Mchenry # (Auto) 0.4 Eos # (Auto) 0.0 Baso # (Auto) 0.0 Immature Gran # (Auto) 0.24 H Absolute Nucleated RBC 0.00 Immature Gran % 2 H Nucleated RBC % 0 Puncture Site Right Radial ABG pH 7.38 ABG pCO2 50 H ABG pO2 93 ABG HCO3 30 H ABG O2 Saturation 96 ABG Base Excess 4 H FiO2 40 Sodium 145 Potassium 3.7 Chloride 108 H Carbon Dioxide 28.0 Anion Gap 9 BUN 33 H Creatinine 1.4 H Estim Creat Clear Calc 25.6 L eGFR 36 L BUN/Creatinine Ratio 24 H Glucose 174 H Calculated Osmolality 299 H Calcium 8.7 Corrected Calcium 9.2 Phosphorus 3.6 Magnesium 2.4 Total Bilirubin 0.6 AST 301 H ALT 405 H Alkaline Phosphatase 97 Total Protein 5.7 Albumin 3.4 Globulin 2.3 Albumin/Globulin Ratio 1.5 Coccidioides IgG Ab Negative Influenza A (Rapid) Influenza B (Rapid) 08/05/24 07:25 WBC RBC Hgb Hct MCV MCH MCHC RDW Std Deviation Plt Count Neut % (Auto) Lymph % (Auto) Mchenry % (Auto) Eos % (Auto) Baso % (Auto) Neut # (Auto) Lymph # (Auto) Mchenry # (Auto) Eos # (Auto) Baso # (Auto) Immature Gran # (Auto) Absolute Nucleated RBC Immature Gran % Nucleated RBC % Puncture Site ABG pH ABG pCO2 ABG pO2 ABG HCO3 ABG O2 Saturation ABG Base Excess FiO2 Sodium Potassium Chloride Carbon Dioxide Anion Gap BUN Creatinine Estim Creat Clear Calc eGFR BUN/Creatinine Ratio Glucose Calculated Osmolality Calcium Corrected Calcium Phosphorus Magnesium Total Bilirubin AST ALT Alkaline Phosphatase Total Protein Albumin Globulin Albumin/Globulin Ratio Coccidioides IgG Ab Influenza A (Rapid) Positive A Influenza B (Rapid) Negative ABG Interpretation ABG results: 08/02/24 08/02/24 08/02/24 11:32 15:23 16:47 ABG pH 7.37 7.40 ABG pCO2 50 H 44 ABG pO2 36 L* 80 L D ABG HCO3 29 H 27 H ABG O2 Saturation 64 L 96 ABG Base Excess 3 2 VBG pH 7.48 VBG pCO2 35 L VBG pO2 46 VBG Base Excess 3 08/02/24 08/02/24 08/03/24 20:46 23:49 03:08 ABG pH 7.39 7.45 7.48 H ABG pCO2 47 37 D 34 ABG pO2 76 L 248 H D 160 H D ABG HCO3 29 H 25 25 ABG O2 Saturation 95 99 H 98 ABG Base Excess 3 2 2 VBG pH VBG pCO2 VBG pO2 VBG Base Excess 08/03/24 08/03/24 08/04/24 05:03 09:09 04:23 ABG pH 7.45 7.38 7.42 ABG pCO2 37 43 46 ABG pO2 55 L* D 51 L* 92 D ABG HCO3 26 26 30 H ABG O2 Saturation 90 L 85 L 97 ABG Base Excess 2 0 5 H VBG pH VBG pCO2 VBG pO2 VBG Base Excess 08/05/24 04:47 ABG pH 7.38 ABG pCO2 50 H ABG pO2 93 ABG HCO3 30 H ABG O2 Saturation 96 ABG Base Excess 4 H VBG pH VBG pCO2 VBG pO2 VBG Base Excess Quality Measures Quality Measures VTE prophylaxis (Heparin subcut) Advance care planning discussed with:: child and legal surragate Assessment & Plan Assessment Current Active Medications: Generic Name Dose Route Start Last Admin Trade Name Freq PRN Reason Stop Dose Admin Acetaminophen 650 mg 08/02/24 13:42 Acetaminophen 325 Mg Tablet PO 09/01/24 13:41 Q6H PRN Mild Pain 1-3 or Fever >100.4 Albuterol/Ipratropium 3 ml 08/02/24 16:45 08/05/24 10:40 Albuterol/Ipratropium (Duoneb) Rt Cindy 3 Ml Nebu INH 09/01/24 16:44 3 ml Q4HRRT JORGE ALBERTO Administration Amiodarone HCl 200 mg 08/03/24 09:00 08/05/24 08:09 Amiodarone Hcl 200 Mg Tablet PO 09/02/24 08:59 200 mg BID JORGE ALBERTO Administration Amlodipine Besylate 5 mg 08/02/24 14:20 08/02/24 15:52 Amlodipine Besylate 5 Mg Tablet PO 09/01/24 14:19 5 mg QDAY JORGE ALBERTO Administration Atorvastatin Calcium 80 mg 08/03/24 09:00 08/05/24 08:19 Atorvastatin Calcium 20 Mg Tablet PO 09/02/24 08:59 80 mg QDAY JORGE ALBERTO Administration Dextrose 25 ml 08/02/24 16:39 Dextrose 50%-Water Inj 50 Ml Syringe IV 09/01/24 16:38 Q15MIN PRN BG 50-70 responsive npo pt Dextrose 50 ml 08/02/24 16:39 Dextrose 50%-Water Inj 50 Ml Syringe IV 09/01/24 16:38 Q15MIN PRN BG <50 OR BG <70 & pt unresponsive Glucagon 1 mg 08/02/24 16:39 Glucagon Inj 1 Mg Vial IM Q15MIN PRN BG <70, and no IV access Guaifenesin 100 mg 08/02/24 14:33 08/02/24 15:54 Guaifenesin Syrup 200 Mg/10 Ml Udc PO 09/01/24 14:32 100 mg QID PRN Administration COUGH Protocol Guaifenesin/Dextromethorphan 1 each 08/02/24 15:30 Guaifenesin/Dm Tablet PO 09/01/24 15:25 Q4HR PRN COUGH Heparin Sodium (Porcine) 5,000 unit 08/03/24 22:00 08/05/24 05:29 Heparin Sod Inj 5000 Unit/Ml Vial SC 08/17/24 21:59 5,000 unit Q8HR JORGE ALBERTO Administration Propofol 1,000 mg in 100 mls @ 1.882 mls/hr 08/02/24 22:49 08/03/24 12:15 Diprivan Ivpb IV 09/01/24 22:48 0 mcg/kg/min .Q24H PRN 0 mls/hr PER PROTOCOL Titration Protocol 5 MCG/KG/MIN Norepinephrine/Dextrose 8 mg in 250 mls @ 5.881 mls/hr 08/02/24 23:41 08/03/24 12:00 Levophed In D5w 8mg/250ml IV 09/01/24 23:40 0 mcg/kg/min .Q24H PRN 0 mls/hr PER PROTOCOL Titration Protocol 0.05 MCG/KG/MIN Dexmedetomidine/Sodium Chloride 200 mcg in 50 mls @ 3.135 mls/hr 08/03/24 10:22 08/05/24 09:30 Precedex Ivpb IV 09/02/24 10:18 1.4 mcg/kg/hr .[id number] PRN 21.945 mls/hr Per PROTOCOL Administration Protocol 0.2 MCG/KG/HR Fentanyl Citrate 2,500 mcg in 250 mls @ 2.5 mls/hr 08/05/24 07:59 08/05/24 09:10 Sublimaze Inj 2,500 Mcg/250 Ml Bag IV 08/07/24 22:48 200 mcg/hr .Q24H PRN 20 mls/hr PER PROTOCOL Administration Protocol 25 MCG/HR Insulin Human Lispro 0 unit 08/03/24 06:00 08/05/24 05:36 Insulin Lispro (Admelog) 1 Unit/0.01 Ml Unit SC 09/02/24 05:59 1 unit Q6HR JORGE ALBERTO Administration Protocol Metoprolol Succinate 25 mg 08/02/24 14:30 08/05/24 08:09 Metoprolol Succinate Xl 25 Mg Tabcr PO 09/01/24 14:29 25 mg QDAY JORGE ALBERTO Administration Oseltamivir Phosphate 30 mg 08/03/24 11:00 08/05/24 08:19 Oseltamivir 6 Mg/Ml NG 08/08/24 08:59 30 mg QDAY JORGE ALBERTO Administration Protocol Pantoprazole Sodium 40 mg 08/03/24 09:00 08/05/24 08:09 Pantoprazole Inj 40 Mg Vial IV 09/02/24 08:59 40 mg QDAY JORGE ALBERTO Administration Sodium Chloride 3 ml 08/02/24 11:12 08/02/24 11:15 Sodium Chloride Rt Cindy 0.9% 3 Ml Nebu INH 09/01/24 11:11 3 ml PRN PRN Administration SOLN Plan 88-year-old woman with past medical history of HFpEF 55-60% CKD stage IIIb, severe arctic stenosis, history of colon cancer postresection, A-fib on amiodarone, diabetes mellitus type 2 who was admitted today to [facility] due to acute hypoxic respiratory failure and sepsis in the setting influenza pneumonia and superimposed bacterial pneumonia as well as CHF exacerbation. During the day patient had 2 rapid responses due to hypoxia and increased work of breathing for which they spoke with the ICU team who recommended to start BiPAP on IPAP 10/EPAP 5 for lung protective ventilation settings and avoid barotrauma due to patient is progressing toward ARDS and if ABGs pH drop below 7.2 the patient will need intubation at the time . primary team had goals of care discussion with patient family members and patient and decision-maker Yassine Harris about patient current condition and overall prognosis they wish to continue with full code. Around 22:20 p.m. rapid response was called due to increased work of breathing, tachypnea and altered mental status. 8 PM ABG showed pH 7.39 pCO2 47 pO2 of 76 HCO3 of 29 otherwise overnight patient became altered and restless. Vitals were rapid BP 108/46, heart rate 90 RR 27 SpO2 96% on BiPAP. We called patient decision maker Yassine Harris about the patient critical medical condition that the patient at this point due to increased work of breathing will require intubation to improve oxygen requirements, family member understood the situation and he stated that he will like her to be intubated, and decision was made to transfer the patient to the ICU for intubation in the setting acute hypoxic respiratory failure secondary in the setting of influenza pneumonia and superimposed bacterial pneumonia. 08/04/2024: Patient was seen and examined by bedside, patient continues to be on ventilator, initially sedation was weaned off but resumed again as patient continues to require mechanical ventilation, vancomycin and Zosyn were discontinued as patient's clinical presentation, labs, imagings are not consistent with bacterial pneumonia, will continue patient on oseltamivir for influenza but will repeat influenza A/B PCR as no test results showing on patient's labs/serology, CBC only noted for increase in WBC to 12.5, CMP shows improvement in renal function and normalization of lactate level but AST/ALT continue to increase with levels around 600 in setting of ischemic injury, will continue to trend. Previous echocardiogram on 05/13 was noted for moderate/severe aortic stenosis with V-max gradient 3.5, cardiology was consulted for possible TAVR, recommendations pending. At the meantime we will continue cautiously diuresing patient to achieve - 1-1.5 L net balance. 08/05/2024; patient was seen and examined by bedside, remains on sedation with fentanyl, will wean patient off sedation and evaluate for possible SBT, repeat echocardiogram showed normal EF with moderate/severe aortic stenosis with V-max of 3.5 m/S, continue patient on Bumex 1 mg every 8 hours as needed to achieve net balance of -1 L. Renal functions improving, no changes in CBC noted from prior, patient remains afebrile, renal panel noted for improving LFTs, repeat influenza PCR positive for flu A, will continue patient on oseltamivir. Weaning patient off oxygen with current FiO2 40%, will attempt switching patient to pressure support as she is more responsive and evaluated for extubation. Monitor and replete electrolytes as needed. Attempt to wean patient off fentanyl while on Precedex was unsuccessful as patient became extremely agitated, fentanyl was resumed again, will attempt weaning off sedation and spontaneous breathing trial again tomorrow. 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 RASS of -4 CVS: #Obstructive Shock Most likely septic shock in the setting of influenza pneumonia and pneumonia and superimposed bacterial pneumonia MAP dropped below 65 after intubation ? Started Levophed gtt. to keep MAP above 65 ? Wean off as tolerated ? Repeat echocardiogram shows moderate/severe aortic stenosis with Vmax of 3.5 M/S ? Bumix 1mg prn as needed to achieve net loss of around -1 Liter. #Acute decompensated HFpEF 55 - 60% Patient has history of HFpEF 55-60% March 2024 Stage I distolic dysfunction BNP 518, troponin were negative Chest x-ray showed prominent vascular congestion including central vascular engorgemet, Moderate CHF ? Bumix 1mg prn as needed to achieve net loss of around -1 Liter. ? Strict in and out ? Daily weight ? Follow-up electrolytes and replete as necessary #Aortic stenosis #History of A-fib Rate controlled on amiodarone [id number] not on anticoagulation per cardiology recommendation due to high risk of bleeding ? Continue metoprolol succinate XL 25 p.o. daily ? Continue amiodarone 200 mg p.o. twice daily ? Pending recs to see if pt is a candidate for TAVR #History of hypertension ? Hold home amlodipine in the setting of blood pressure PULM: #Acute hypoxic respiratory failure In setting of Obstructive shock 2/2 Aortic stenosis and CHF exacerbation. Patient tested positive for influenza A on admission and was hypoxic on presentation with SpO2 88% X-ray showed moderate CHF with moderate enlargement of monitor worker prominent vascular congestion with central vascular engorgement and perihilar vascular edema. ABG pH 7.39, pCO2 47, pO2 76 and HCO3 29 During the day patient had multiple rapid's due to increased work of breathing and hypoxia and possible progression to ARDS for which decision was made to intubate and transfer the patient to the ICU Vent settings: AC/VC VT 375 RR 30 PEEP 10 FiO2 100 ? Follow-up ABGs ? Follow-up chest x-ray ? Continue diuresis as needed to achieve daily goal of -1 Liter. #Influenza pneumonia ? See ID as below RENAL: #CKD stage IIIb Patient has past medical history of CKD no history of diabetes previous A1c 6.2% 05/2024 - Strict ins and outs - Avoid nephrotoxic drugs - Renally dose medications - Follow-up CMP #Lactic acidosis----Resolved. In the setting of hypoxia and shock Lactic acid 3.3=>4.2 ? Trend lactic acid every 3 hours ENDO: Stable HEME/ONC: Stable ID: #Influenza pneumonia On admission patient was positive for influenza and was hypoxic with SpO2 88% on 9 oxygen WBCs within normal limits on admission, lactic acid 4.2 on admission X-ray showed moderate CHF with moderate enlargement of monitor worker prominent vascular congestion with central vascular engorgement and perihilar vascular edema Patient did not receive per sepsis protocol 30 cc/kg IV fluids due to decompensated CHF ? Continue oseltamivir 30 mg daily (08/02? ? Continue IV Zosyn and vancomycin (08/02? ? Continue DuoNebs every 4 hours scheduled ? Continue IV methylprednisolone 40 mg daily ? Follow-up blood and urine cultures ? Follow-up sputum culture and Gram ? Follow-up IgM and IgG cocci ? Follow-up CBC GI: #Acute liver injury----Improving 2/2 obstructive shock. Continue management as per CVS. #Tube feeding at rate of 20cc/hr. MSK: Stable SKIN: Stable FEN: N.p.o. Lines: Peripheral line DVT prophylaxis: Heparin subcu GI prophylaxis: Protonix CODE STATUS: Full code patient/decision maker Yassine Harris () phone number [phone] Patient's plan of care discussed with attending Dr Emily Garza, PGY-3
[2024-08-05] MEDS: BUMETANIDE INJ 0.25 MG/ML VIAL 4 ML 1 MG IVP ×2 (13:16→17:31)
[2024-08-05] MEDS: POTASSIUM CHLORIDE 10% 20 MEQ/15 ML UDC 40 MEQ GT (13:42)
[2024-08-05] MEDS: DEXMEDETOMIDINE 200 MCG IVPB 200 MCG/50 ML BOTTLE 18.81 MCG IV ×3 (14:45→20:02)
--- NOTE | 2024-08-05 15:14 | PC.SS ---
Update: Patient remains intubated/sedated. Attempt at extubation unsuccessful today. No skin issues. Feeds via NG tube. Precaution protocol in place due to Flu A.
--- NOTE | 2024-08-05 17:37 | ESPR_ITS ---
<Statement entered by Thaddeus Barton MD - 08/07/24 22:35> The patient is evaluated by me personally in the intensive care and appears to be clinically somewhat stable but she is still intubated not extubated yet Levophed is not taken off not on vasopressors anymore she has severe aortic stenosis but not critical also some volume overload HFpEF with combination of aortic stenosis causing respiratory failure continue to diurese cautiously might help to extubate. I evaluated the patient with resident physician agree with the treatment plan recommendations all essential components are reviewed agree with the documentation and treatment as documented by Dr. Ryan PGY2 Documentation for date of: 08/05/24 Subjective Subjective Interval history: 88-year-old female patient with significant medical history for HFpEF, moderate to severe aortic stenosis, coronary artery disease s/p RCA stent placements, atrial fibrillation, bilateral endarterectomy (2020 and 2023), severe peripheral artery disease, chronic kidney disease, colon cancer sp resection, DM2, hypertension and hypercholesterolemia presented with worsening shortness of breath and productive cough was admitted for AHRF and sepsis due to influenza pneumonia with superimposed bacterial infection and CHF exacerbation. Patient was administered Tamiflu and started on IV Vanco and Zosyn. Initially patient was started on oxygen mask as she was hypoxic, due to continuing desaturation in the 70s patient was transitioned to BiPAP. Multiple rapid responses were called as patient continued to be desatting and was becoming increasingly tired. Goals of care discussion were held with family, patient's code status was switched to full code and decision was made to upgrade patient to ICU, intubated and started on levophed as patient was progressing towards ARDS. Cardiology was consulted for further management. 08/04/24: Echocardiogram on this admission indicates moderate to severe aortic stenosis with a gradient of 48 mmHg H (mean 30) with Vmax of 3.5 and LVEF 60- 65%. On physical exam patient is does not seem to be fluid overloaded, patient was recently seen at the clinic and was found to be asymptomatic. Patient seems to have an ARDS pattern secondary to influenza pneumonia. Continue current management, if no improvement we will consider right heart [place] cath. 08/05/24: Patient has been weaned off of Levophed but still intubated. FiO2 at 40% and on 20 L rate. Morning chest x-ray seems to be worse than previous with more congestion, greater on the right side. Renal function and transaminitis improving. Patient had 1.6 L urine output and 1 bowel movement. Patient started on Bumex 1mg with a goal of -1 to 1.5 L overall fluid balance. Per primary team, picture is more of a obstructive shock. From cardiology point of view, no need for TAVR at this point. Exam Vital Signs Temp Pulse Resp BP Pulse Ox O2 Del Method O2 Flow Rate 97.9 F 67 18 125/54 L 97 Mechanical Ventilation 40 08/05/24 16:00 08/05/24 17:00 08/05/24 14:48 08/05/24 17:00 08/05/24 17:00 08/03/24 07:00 08/02/24 16:53 FiO2 40 08/05/24 16:00 Narrative Exam Constitutional: Critically ill, sedated and intubated HEENT: NCAT, EOMI, reactive round pupils b/l,moist mucous membranes, ET tube noted Lung: Mechanically ventilated, no wheezing, no rhonchi, no crackles, decreased air entry on right lower lobe side Heart: Regular S1S2, no murmurs, gallops, or rubs Abdomen: Soft, non-distended, non-tender, bowel sounds present throughout Extremities: No cyanosis, clubbing, + trace edema, LE pulses present b/l Neurologic: Unable to perform due to sedation Skin: Warm, dry, no lesions or rashes noted Objective Labs 08/06/24 05:48 08/06/24 05:48 Labs: Laboratory Results - last 24 hr 08/05/24 08/05/24 08/05/24 04:47 05:32 07:25 WBC 12.9 H RBC 4.26 Hgb 12.0 Hct 37.0 MCV 87 MCH 28.2 MCHC 32.4 RDW Std Deviation 49.8 H Plt Count 151 Neut % (Auto) 92 H Lymph % (Auto) 3 L Greene % (Auto) 3 Eos % (Auto) 0 Baso % (Auto) 0 Neut # (Auto) 11.8 H Lymph # (Auto) 0.3 L Greene # (Auto) 0.4 Eos # (Auto) 0.0 Baso # (Auto) 0.0 Immature Gran # (Auto) 0.24 H Absolute Nucleated RBC 0.00 Immature Gran % 2 H Nucleated RBC % 0 Puncture Site Right Radial ABG pH 7.38 ABG pCO2 50 H ABG pO2 93 ABG HCO3 30 H ABG O2 Saturation 96 ABG Base Excess 4 H FiO2 40 Sodium 145 Potassium 3.7 Chloride 108 H Carbon Dioxide 28.0 Anion Gap 9 BUN 33 H Creatinine 1.4 H Estim Creat Clear Calc 25.6 L eGFR 36 L BUN/Creatinine Ratio 24 H Glucose 174 H Calculated Osmolality 299 H Calcium 8.7 Corrected Calcium 9.2 Phosphorus 3.6 Magnesium 2.4 Total Bilirubin 0.6 AST 301 H ALT 405 H Alkaline Phosphatase 97 Total Protein 5.7 Albumin 3.4 Globulin 2.3 Albumin/Globulin Ratio 1.5 Influenza A (Rapid) Positive A Influenza B (Rapid) Negative ABG Interpretation ABG results: 08/02/24 08/02/24 08/02/24 11:32 15:23 16:47 ABG pH 7.37 7.40 ABG pCO2 50 H 44 ABG pO2 36 L* 80 L D ABG HCO3 29 H 27 H ABG O2 Saturation 64 L 96 ABG Base Excess 3 2 VBG pH 7.48 VBG pCO2 35 L VBG pO2 46 VBG Base Excess 3 08/02/24 08/02/24 08/03/24 20:46 23:49 03:08 ABG pH 7.39 7.45 7.48 H ABG pCO2 47 37 D 34 ABG pO2 76 L 248 H D 160 H D ABG HCO3 29 H 25 25 ABG O2 Saturation 95 99 H 98 ABG Base Excess 3 2 2 VBG pH VBG pCO2 VBG pO2 VBG Base Excess 08/03/24 08/03/24 08/04/24 05:03 09:09 04:23 ABG pH 7.45 7.38 7.42 ABG pCO2 37 43 46 ABG pO2 55 L* D 51 L* 92 D ABG HCO3 26 26 30 H ABG O2 Saturation 90 L 85 L 97 ABG Base Excess 2 0 5 H VBG pH VBG pCO2 VBG pO2 VBG Base Excess 08/05/24 04:47 ABG pH 7.38 ABG pCO2 50 H ABG pO2 93 ABG HCO3 30 H ABG O2 Saturation 96 ABG Base Excess 4 H VBG pH VBG pCO2 VBG pO2 VBG Base Excess Quality Measures Quality Measures VTE prophylaxis (Heparin subcut) Advance care planning discussed with:: other Assessment & Plan Assessment Current Active Medications: Generic Name Dose Route Start Last Admin Trade Name Christo PRN Reason Stop Dose Admin Acetaminophen 650 mg 08/02/24 13:42 Acetaminophen 325 Mg Tablet PO 09/01/24 13:41 Q6H PRN Mild Pain 1-3 or Fever >100.4 Albuterol/Ipratropium 3 ml 08/02/24 16:45 08/05/24 14:41 Albuterol/Ipratropium (Duoneb) Rt Cindy 3 Ml Nebu INH 09/01/24 16:44 3 ml Q4HRRT JORGE ALBERTO Administration Amiodarone HCl 200 mg 08/03/24 09:00 08/05/24 08:09 Amiodarone Hcl 200 Mg Tablet PO 09/02/24 08:59 200 mg BID JORGE ALBERTO Administration Amlodipine Besylate 5 mg 08/02/24 14:20 08/02/24 15:52 Amlodipine Besylate 5 Mg Tablet PO 09/01/24 14:19 5 mg QDAY JORGE ALBERTO Administration Atorvastatin Calcium 80 mg 08/03/24 09:00 08/05/24 08:19 Atorvastatin Calcium 20 Mg Tablet PO 09/02/24 08:59 80 mg QDAY JORGE ALBERTO Administration Dextrose 25 ml 08/02/24 16:39 Dextrose 50%-Water Inj 50 Ml Syringe IV 09/01/24 16:38 Q15MIN PRN BG 50-70 responsive npo pt Dextrose 50 ml 08/02/24 16:39 Dextrose 50%-Water Inj 50 Ml Syringe IV 09/01/24 16:38 Q15MIN PRN BG <50 OR BG <70 & pt unresponsive Glucagon 1 mg 08/02/24 16:39 Glucagon Inj 1 Mg Vial IM Q15MIN PRN BG <70, and no IV access Guaifenesin 100 mg 08/02/24 14:33 08/02/24 15:54 Guaifenesin Syrup 200 Mg/10 Ml Udc PO 09/01/24 14:32 100 mg QID PRN Administration COUGH Protocol Guaifenesin/Dextromethorphan 1 each 08/02/24 15:30 Guaifenesin/Dm Tablet PO 09/01/24 15:25 Q4HR PRN COUGH Heparin Sodium (Porcine) 5,000 unit 08/03/24 22:00 08/05/24 13:21 Heparin Sod Inj 5000 Unit/Ml Vial SC 08/17/24 21:59 5,000 unit Q8HR JORGE ALBERTO Administration Propofol 1,000 mg in 100 mls @ 1.882 mls/hr 08/02/24 22:49 08/03/24 12:15 Diprivan Ivpb IV 09/01/24 22:48 0 mcg/kg/min .Q24H PRN 0 mls/hr PER PROTOCOL Titration Protocol 5 MCG/KG/MIN Norepinephrine/Dextrose 8 mg in 250 mls @ 5.881 mls/hr 08/02/24 23:41 08/03/24 12:00 Levophed In D5w 8mg/250ml IV 09/01/24 23:40 0 mcg/kg/min .Q24H PRN 0 mls/hr PER PROTOCOL Titration Protocol 0.05 MCG/KG/MIN Dexmedetomidine/Sodium Chloride 200 mcg in 50 mls @ 3.135 mls/hr 08/03/24 10:22 08/05/24 17:00 Precedex Ivpb IV 09/02/24 10:18 1.2 mcg/kg/hr .[id number] PRN 18.81 mls/hr Per PROTOCOL Titration Protocol 0.2 MCG/KG/HR Fentanyl Citrate 2,500 mcg in 250 mls @ 2.5 mls/hr 08/05/24 07:59 08/05/24 14:51 Sublimaze Inj 2,500 Mcg/250 Ml Bag IV 08/07/24 22:48 25 mcg/hr .Q24H PRN 2.5 mls/hr PER PROTOCOL Titration Protocol 25 MCG/HR Insulin Human Lispro 0 unit 08/03/24 06:00 08/05/24 13:16 Insulin Lispro (Admelog) 1 Unit/0.01 Ml Unit SC 09/02/24 05:59 2 unit Q6HR JORGE ALBERTO Administration Protocol Metoprolol Succinate 25 mg 08/02/24 14:30 08/05/24 08:09 Metoprolol Succinate Xl 25 Mg Tabcr PO 09/01/24 14:29 25 mg QDAY JORGE ALBERTO Administration Oseltamivir Phosphate 30 mg 08/03/24 11:00 08/05/24 08:19 Oseltamivir 6 Mg/Ml NG 08/08/24 08:59 30 mg QDAY JORGE ALBERTO Administration Protocol Pantoprazole Sodium 40 mg 08/03/24 09:00 08/05/24 08:09 Pantoprazole Inj 40 Mg Vial IV 09/02/24 08:59 40 mg QDAY JORGE ALBERTO Administration Sodium Chloride 3 ml 08/02/24 11:12 08/02/24 11:15 Sodium Chloride Rt Cindy 0.9% 3 Ml Nebu INH 09/01/24 11:11 3 ml PRN PRN Administration SOLN Plan 88-year-old female patient with significant medical history for HFpEF, moderate to severe aortic stenosis, coronary artery disease s/p RCA stent placements, atrial fibrillation, bilateral endarterectomy (2020 and 2023), severe peripheral artery disease, chronic kidney disease, colon cancer sp resection, DM2, hypertension and hypercholesterolemia presented with worsening shortness of breath and productive cough was admitted for AHRF and sepsis due to influenza pneumonia with superimposed bacterial infection and CHF exacerbation. #HFpEF (60 to 65%) #Hx of CAD s/p RCA stent placement #Hx of s/p bilateral endarterectomy #Hx of hypertension Echocardiogram indicates moderate to severe aortic stenosis with a gradient of 48 mmHg H (mean 30) with Vmax of 3.5 and LVEF 60-65% On addmission BNP 518 and CXR showed prominent vascular congestion On physical exam, patient not fluid overloaded Plan: ? If no improvement, will consider right heart [place] cath ? Hold off BP meds in setting of septic shock ? Strict in and out ? Daily weight ? Follow-up electrolytes and replete as necessary #Atrial fibrillation, rate controlled #Moderate-severe aortic stenosis [id number] not on anticoagulation due to high risk of bleeding Plan: ? Continue amiodarone 200 mg BID ? No need for TAVR at this point #Shock, septic vs. cardiogenic, resolved In the setting of fever, influenza PNA and possibly superimposed bacterial pneumonia MAP dropped below 65 after intubation Levophed weaned off on 08/05/24 Plan: ? Keep MAP > 65 #Sepsis secondary to #Influenza #Pneumonia #CKD IIIb #DM2 #Hx of colon cancer s/p resection -Management per primary team This patient care was discussed with my attending Dr. Mick Lester MD PGY-2 Disclaimer: Minor errors in cash applications associate may be present since this note was dictated by speech recognition software.
[2024-08-06] VITALS (35 sets, daily range): BP systolic 117–184; BP diastolic 52–97; PULSE 61–97; RESP 0–24; TEMP 36.3–37.3; O2SAT 84–97; BMI 25.1
[2024-08-06] MEDS: ALBUTEROL/IPRATROPIUM (Duoneb) RT SOL 3 ML NEBU INH ×6 (02:18→22:39)
[2024-08-06] MEDS: DEXMEDETOMIDINE 200 MCG IVPB 200 MCG/50 ML BOTTLE IV (02:23)
[2024-08-06 04:21] LABS: Base Excess 7 (-3-3); HCO3 32 mEq/L (20-26); Inspired Oxygen, FIO2 30 %; O2 Saturation 94 % (91-98); PCO2 49 mmHg (32.0-48.0); PO2 73 mmHg (83-108); pH, Arterial 7.42 (7.35-7.45)
[2024-08-06 04:29] LABS: Allen Test Performed/OK; Puncture Site Right Radial
[2024-08-06] MEDS: HEPARIN SOD INJ 5000 UNIT/ML VIAL SC ×3 (05:36→21:07)
[2024-08-06] MEDS: INSULIN LISPRO (AdmeLOG) 1 UNIT/0.01 ML UNIT SC ×3 (05:50→17:38)
[2024-08-06 06:23] LABS: Basophils % (Auto) 0 % (0-2.5); Eosinophils % (Auto) 0 % (0-10); Hematocrit 37.2 % (36.0-46.0); Immature Granulocytes % (Auto) 0 % (0-0); Immature Granulocytes Auto 0.04 Thou/mm3 (0.00-0.00); Lymphocytes # (Auto) 0.8 Thou/mm3 (1.0-4.8); Lymphocytes % (Auto) 9 % (10-50); Mean Corpuscular HGB Conc 32.3 g/dl (31.0-37.0); Mean Corpuscular Hemoglobin 28.1 pg (25.0-35.0); Mean Corpuscular Volume 87 fL (80-100); Monocytes # (Auto) 0.5 Thou/mm3 (0.0-0.8); Monocytes % (Auto) 6 % (0-12); Neutrophils # (Auto) 7.7 Thou/mm3 (1.8-7.7); Neutrophils % (Auto) 85 % (37-80); Nucleated Red Blood Cell % 0 /100 WBC (0); Platelet Count 132 Thou/mm3 (140-440); RDW Standard Deviation 50.4 fL (36.4-46.3); Red Blood Count 4.27 Miln/mm3 (4.00-5.20); White Blood Count 9.1 Thou/mm3 (3.6-11.0)
[2024-08-06 06:48] LABS: Alanine Aminotransferase 270 U/L (10-49); Albumin, Serum 3.2 gm/dL (3.4-4.8); Albumin/Globulin Ratio 1.5 (1.2-2.2); Alkaline Phosphatase 106 U/L (46-116); Anion Gap 9 (7-16); Aspartate Amino Transferase 193 U/L (0-34); BUN/Creatinine Ratio 22 Ratio (12-20); Bilirubin,Total 0.6 mg/dL (0.3-1.2); Blood Urea Nitrogen 35 mg/dL (9-23); Calcium 8.4 mg/dL (8.3-10.6); Carbon Dioxide 27.8 mMol/L (20.0-31.0); Chloride 110 mMol/L (98-107); Creatinine (Component) 1.6 mg/dL (0.6-1.3); Estimated Creatinine Clearance 22.4 mL/min (>60); Globulin 2.1 gm/dL (2.3-3.5); Glucose 159 mg/dL (74-106); Osmolality,Calculated 303 (275-295); Potassium 4.7 mMol/L (3.4-5.1); Sodium 147 mMol/L (136-145); Total Protein 5.3 gm/dL (5.7-8.2); eGFR 31 See Note
[2024-08-06] MEDS: fentaNYL 2,500 MCG/250 ML BAG 2,500 MCG/250 ML BAG 7.5 MCG IV (07:41)
[2024-08-06] MEDS: DEXMEDETOMIDINE 200 MCG IVPB 200 MCG/50 ML BOTTLE 9.405 MCG IV (07:41)
--- NOTE | 2024-08-06 09:00 | XR_ITS ---
Examination: AP chest single view Technique one AP portable semiupright chest single view Exam date and time: August 06, 2024 0519 hrs. Comparison August 05, 2024 Indications: Hypoxic respiratory failure, postintubation, bilateral pneumonia and heart failure on earlier chest imaging Findings: Again noted bilateral pneumonia, diffuse in the right lung Associated heart failure with prominent vascular congestion Endotracheal tube tip 2.9 cm above britany Orogastric tube is in the stomach satisfactory position Impression: Again noted bilateral pneumonia, diffuse in the right lung with mild associated heart failure
[2024-08-06] MEDS: ATORVASTATIN CALCIUM 20 MG TABLET 80 MG PO (09:37)
[2024-08-06] MEDS: OSELTAMIVIR 6 MG/ML 30 MG NG (09:37)
[2024-08-06] MEDS: METOPROLOL SUCCINATE XL 25 MG TABCR PO (09:37)
[2024-08-06] MEDS: AMIODARONE HCL 200 MG TABLET PO ×2 (09:37→21:06)
[2024-08-06] MEDS: PANTOPRAZOLE INJ 40 MG VIAL IV (09:38)
--- NOTE | 2024-08-06 10:31 | PC.RT ---
PER DR HUIZAR PLACED PATIENT ON PRESSURE SUPPORT MODE 15/ PATIENT FAILED AT THIS TIME WILL CONTINUE WEAN SEDATION & TRY AGAIN LATER
--- NOTE | 2024-08-06 11:21 | ESPR_ITS ---
<Statement entered by Ayaka Diaz MD - 08/07/24 14:22> TOTAL TIME: 45MINUTES ON DIRECT MEDICAL CARE, MANAGEMENT - COORDINATION AND COUNSELING > 50% OF TOTAL TIME I saw and evaluated the patient. I reviewed the resident?s note and agree with findings and plan as documented in the resident?s note. Achieving diuresis goals and subsequently extubated after passing SBT. Monitor in ICU continue diuresis add low-dose beta-jose. Documentation for date of: 08/06/24 Subjective Subjective Interval history: 08/06/2024; patient was seen and examined by bedside, doing fairly well with no acute overnight events reported, vitals stable with patient on minimal vent settings, fluid net balance 650cc started weaning patient off fentanyl for spontaneous awakening trials, patient was found to be alert and follows commands but failed initial SBT. Patient was ext[facility]ated to [facility] on second attempt, no significant change was noted in patient's CBC, CMP was noted for hypernatremia in setting of decreased oral intake and diuresis, patient was given 250 cc of free water, and will start patient on water at a rate of 10 cc/hour. CMP also noted for improvement in LFTs but showed mild decline in renal function with creatinine increasing to 1.6 likely in settings of diuresis, will continue careful fluid removal to achieve a goal of around 1 liter. Continue to monitor patient overnight and if remains stable will downgrade to floor in AM. Exam Vital Signs Temp Pulse Resp BP Pulse Ox O2 Del Method O2 Flow Rate 97.3 F 75 18 119/56 L 97 Mechanical Ventilation 40 08/06/24 04:00 08/06/24 10:14 08/06/24 10:14 08/06/24 10:14 08/06/24 10:14 08/06/24 04:00 08/02/24 16:53 FiO2 30 08/06/24 10:14 Narrative Exam GEN: Critically ill, extubated in PM Neuro: Off sedation, alert to name and , follow commands. HEENT: NCAT, trachea midline, moist mucous membranes, PO tube noted. CVS: RRR, S1S2 present, Systolic crescendo-decrescendo with radiation to carotids. No JVD Respi: On 5L of NC, b/l breath sounds heard, no wheezing/crackles. ABD: Soft, grimaces to palpation, bowel sounds present in all 4 quadrants. Skin: warm, dry and intact. Extremities: Pulses 3+, 1+ BLE pitting edema / no cyanosis. Objective Labs 08/06/24 05:48 08/06/24 05:48 Labs: Laboratory Results - last 24 hr 08/06/24 08/06/24 04:07 05:48 WBC 9.1 RBC 4.27 Hgb 12.0 Hct 37.2 MCV 87 MCH 28.1 MCHC 32.3 RDW Std Deviation 50.4 H Plt Count 132 L Neut % (Auto) 85 H Lymph % (Auto) 9 L Cassia % (Auto) 6 Eos % (Auto) 0 Baso % (Auto) 0 Neut # (Auto) 7.7 Lymph # (Auto) 0.8 L Cassia # (Auto) 0.5 Eos # (Auto) 0.0 Baso # (Auto) 0.0 Immature Gran # (Auto) 0.04 H Absolute Nucleated RBC 0.00 Immature Gran % 0 Nucleated RBC % 0 Puncture Site Right Radial ABG pH 7.42 ABG pCO2 49 H ABG pO2 73 L D ABG HCO3 32 H ABG O2 Saturation 94 ABG Base Excess 7 H FiO2 30 Sodium 147 H Potassium 4.7 D Chloride 110 H Carbon Dioxide 27.8 Anion Gap 9 BUN 35 H Creatinine 1.6 H Estim Creat Clear Calc 22.4 L eGFR 31 L BUN/Creatinine Ratio 22 H Glucose 159 H Calculated Osmolality 303 H Calcium 8.4 Corrected Calcium 9.0 Total Bilirubin 0.6 AST 193 H ALT 270 H Alkaline Phosphatase 106 Total Protein 5.3 L Albumin 3.2 L Globulin 2.1 L Albumin/Globulin Ratio 1.5 ABG Interpretation ABG results: 08/02/24 08/02/24 08/02/24 11:32 15:23 16:47 ABG pH 7.37 7.40 ABG pCO2 50 H 44 ABG pO2 36 L* 80 L D ABG HCO3 29 H 27 H ABG O2 Saturation 64 L 96 ABG Base Excess 3 2 VBG pH 7.48 VBG pCO2 35 L VBG pO2 46 VBG Base Excess 3 08/02/24 08/02/24 08/03/24 20:46 23:49 03:08 ABG pH 7.39 7.45 7.48 H ABG pCO2 47 37 D 34 ABG pO2 76 L 248 H D 160 H D ABG HCO3 29 H 25 25 ABG O2 Saturation 95 99 H 98 ABG Base Excess 3 2 2 VBG pH VBG pCO2 VBG pO2 VBG Base Excess 08/03/24 08/03/24 08/04/24 05:03 09:09 04:23 ABG pH 7.45 7.38 7.42 ABG pCO2 37 43 46 ABG pO2 55 L* D 51 L* 92 D ABG HCO3 26 26 30 H ABG O2 Saturation 90 L 85 L 97 ABG Base Excess 2 0 5 H VBG pH VBG pCO2 VBG pO2 VBG Base Excess 08/05/24 08/06/24 04:47 04:07 ABG pH 7.38 7.42 ABG pCO2 50 H 49 H ABG pO2 93 73 L D ABG HCO3 30 H 32 H ABG O2 Saturation 96 94 ABG Base Excess 4 H 7 H VBG pH VBG pCO2 VBG pO2 VBG Base Excess Quality Measures Quality Measures VTE prophylaxis (Heparin subcut) Advance care planning discussed with:: child and legal surragate Assessment & Plan Assessment Current Active Medications: Generic Name Dose Route Start Last Admin Trade Name Freq PRN Reason Stop Dose Admin Acetaminophen 650 mg 08/02/24 13:42 Acetaminophen 325 Mg Tablet PO 09/01/24 13:41 Q6H PRN Mild Pain 1-3 or Fever >100.4 Albuterol/Ipratropium 3 ml 08/02/24 16:45 08/06/24 10:13 Albuterol/Ipratropium (Duoneb) Rt Cindy 3 Ml Nebu INH 09/01/24 16:44 3 ml Q4HRRT JORGE ALBERTO Administration Amiodarone HCl 200 mg 08/03/24 09:00 08/06/24 09:37 Amiodarone Hcl 200 Mg Tablet PO 09/02/24 08:59 200 mg BID JORGE ALBERTO Administration Amlodipine Besylate 5 mg 08/02/24 14:20 08/02/24 15:52 Amlodipine Besylate 5 Mg Tablet PO 09/01/24 14:19 5 mg QDAY JORGE ALBERTO Administration Atorvastatin Calcium 80 mg 08/03/24 09:00 08/06/24 09:37 Atorvastatin Calcium 20 Mg Tablet PO 09/02/24 08:59 80 mg QDAY JORGE ALBERTO Administration Dextrose 25 ml 08/02/24 16:39 Dextrose 50%-Water Inj 50 Ml Syringe IV 09/01/24 16:38 Q15MIN PRN BG 50-70 responsive npo pt Dextrose 50 ml 08/02/24 16:39 Dextrose 50%-Water Inj 50 Ml Syringe IV 09/01/24 16:38 Q15MIN PRN BG <50 OR BG <70 & pt unresponsive Glucagon 1 mg 08/02/24 16:39 Glucagon Inj 1 Mg Vial IM Q15MIN PRN BG <70, and no IV access Guaifenesin 100 mg 08/02/24 14:33 08/02/24 15:54 Guaifenesin Syrup 200 Mg/10 Ml Udc PO 09/01/24 14:32 100 mg QID PRN Administration COUGH Protocol Guaifenesin/Dextromethorphan 1 each 08/02/24 15:30 Guaifenesin/Dm Tablet PO 09/01/24 15:25 Q4HR PRN COUGH Heparin Sodium (Porcine) 5,000 unit 08/03/24 22:00 08/06/24 05:36 Heparin Sod Inj 5000 Unit/Ml Vial SC 08/17/24 21:59 5,000 unit Q8HR JORGE ALBERTO Administration Propofol 1,000 mg in 100 mls @ 1.882 mls/hr 08/02/24 22:49 08/03/24 12:15 Diprivan Ivpb IV 09/01/24 22:48 0 mcg/kg/min .Q24H PRN 0 mls/hr PER PROTOCOL Titration Protocol 5 MCG/KG/MIN Norepinephrine/Dextrose 8 mg in 250 mls @ 5.881 mls/hr 08/02/24 23:41 08/03/24 12:00 Levophed In D5w 8mg/250ml IV 09/01/24 23:40 0 mcg/kg/min .Q24H PRN 0 mls/hr PER PROTOCOL Titration Protocol 0.05 MCG/KG/MIN Dexmedetomidine/Sodium Chloride 200 mcg in 50 mls @ 3.135 mls/hr 08/03/24 10:22 08/06/24 06:00 Precedex Ivpb IV 09/02/24 10:18 0.6 mcg/kg/hr .[id number] PRN 9.405 mls/hr Per PROTOCOL Titration Protocol 0.2 MCG/KG/HR Fentanyl Citrate 2,500 mcg in 250 mls @ 2.5 mls/hr 08/05/24 07:59 08/06/24 06:00 Sublimaze Inj 2,500 Mcg/250 Ml Bag IV 08/07/24 22:48 125 mcg/hr .Q24H PRN 12.5 mls/hr PER PROTOCOL Titration Protocol 25 MCG/HR Insulin Human Lispro 0 unit 08/03/24 06:00 08/06/24 05:50 Insulin Lispro (Admelog) 1 Unit/0.01 Ml Unit SC 09/02/24 05:59 1 unit Q6HR JORGE ALBERTO Administration Protocol Metoprolol Succinate 25 mg 08/02/24 14:30 08/06/24 09:37 Metoprolol Succinate Xl 25 Mg Tabcr PO 09/01/24 14:29 25 mg QDAY JORGE ALBERTO Administration Oseltamivir Phosphate 30 mg 08/03/24 11:00 08/06/24 09:37 Oseltamivir 6 Mg/Ml NG 08/08/24 08:59 30 mg QDAY JORGE ALBERTO Administration Protocol Pantoprazole Sodium 40 mg 08/03/24 09:00 08/06/24 09:38 Pantoprazole Inj 40 Mg Vial IV 09/02/24 08:59 40 mg QDAY JORGE ALBERTO Administration Sodium Chloride 3 ml 08/02/24 11:12 08/02/24 11:15 Sodium Chloride Rt Cindy 0.9% 3 Ml Nebu INH 09/01/24 11:11 3 ml PRN PRN Administration SOLN Plan 88-year-old woman with past medical history of HFpEF 55-60% CKD stage IIIb, severe arctic stenosis, history of colon cancer postresection, A-fib on amiodarone, diabetes mellitus type 2 who was admitted today to [facility] due to acute hypoxic respiratory failure and sepsis in the setting influenza pneumonia and superimposed bacterial pneumonia as well as CHF exacerbation. During the day patient had 2 rapid responses due to hypoxia and increased work of breathing for which they spoke with the ICU team who recommended to start BiPAP on IPAP 10/EPAP 5 for lung protective ventilation settings and avoid barotrauma due to patient is progressing toward ARDS and if ABGs pH drop below 7.2 the patient will need intubation at the time . primary team had goals of care discussion with patient family members and patient and decision-maker Yassine Harris about patient current condition and overall prognosis they wish to continue with full code. Around 22:20 p.m. rapid response was called due to increased work of breathing, tachypnea and altered mental status. 8 PM ABG showed pH 7.39 pCO2 47 pO2 of 76 HCO3 of 29 otherwise overnight patient became altered and restless. Vitals were rapid BP 108/46, heart rate 90 RR 27 SpO2 96% on BiPAP. We called patient decision maker Yassine Harris about the patient critical medical condition that the patient at this point due to increased work of breathing will require intubation to improve oxygen requirements, family member understood the situation and he stated that he will like her to be intubated, and decision was made to transfer the patient to the ICU for intubation in the setting acute hypoxic respiratory failure secondary in the setting of influenza pneumonia and superimposed bacterial pneumonia. 08/04/2024: Patient was seen and examined by bedside, patient continues to be on ventilator, initially sedation was weaned off but resumed again as patient continues to require mechanical ventilation, vancomycin and Zosyn were discontinued as patient's clinical presentation, labs, imagings are not consistent with bacterial pneumonia, will continue patient on oseltamivir for influenza but will repeat influenza A/B PCR as no test results showing on patient's labs/serology, CBC only noted for increase in WBC to 12.5, CMP shows improvement in renal function and normalization of lactate level but AST/ALT continue to increase with levels around 600 in setting of ischemic injury, will continue to trend. Previous echocardiogram on 05/13 was noted for moderate/severe aortic stenosis with V-max gradient 3.5, cardiology was consulted for possible TAVR, recommendations pending. At the meantime we will continue cautiously diuresing patient to achieve - 1-1.5 L net balance. 08/05/2024; patient was seen and examined by bedside, remains on sedation with fentanyl, will wean patient off sedation and evaluate for possible SBT, repeat echocardiogram showed normal EF with moderate/severe aortic stenosis with V-max of 3.5 m/S, continue patient on Bumex 1 mg every 8 hours as needed to achieve net balance of -1 L. Renal functions improving, no changes in CBC noted from prior, patient remains afebrile, renal panel noted for improving LFTs, repeat influenza PCR positive for flu A, will continue patient on oseltamivir. Weaning patient off oxygen with current FiO2 40%, will attempt switching patient to pressure support as she is more responsive and evaluated for extubation. Monitor and replete electrolytes as needed. Attempt to wean patient off fentanyl while on Precedex was unsuccessful as patient became extremely agitated, fentanyl was resumed again, will attempt weaning off sedation and spontaneous breathing trial again tomorrow. 08/06/2024; patient was seen and examined by bedside, doing fairly well with no acute overnight events reported, vitals stable with patient on minimal vent settings, fluid net balance 650cc started weaning patient off fentanyl for spontaneous awakening trials, patient was found to be alert and follows commands but failed initial SBT. Patient was ext[facility]ated to [facility] on second attempt, no significant change was noted in patient's CBC, CMP was noted for hypernatremia in setting of decreased oral intake and diuresis, patient was given 250 cc of free water, and will start patient on water at a rate of 10 cc/hour. CMP also noted for improvement in LFTs but showed mild decline in renal function with creatinine increasing to 1.6 likely in settings of diuresis, will continue careful fluid removal to achieve a goal of around 1 liter. Continue to monitor patient overnight and if remains stable will downgrade to floor in AM. 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 Secondary to hypoxia and sedation. CVS: #Cardiogenic Shock---Resolved Most likely septic shock in the setting of influenza pneumonia and pneumonia and superimposed bacterial pneumonia MAP dropped below 65 after intubation ? Started Levophed gtt. to keep MAP above 65 ? Wean off as tolerated ? Repeat echocardiogram shows moderate/severe aortic stenosis with Vmax of 3.5 M/S ? Bumix 1mg prn as needed to achieve net loss of around -1 Liter. #Acute decompensated HFpEF 55 - 60% Patient has history of HFpEF 55-60% March 2024 Stage I distolic dysfunction BNP 518, troponin were negative Chest x-ray showed prominent vascular congestion including central vascular engorgemet, Moderate CHF ? Bumix 1mg prn as needed to achieve net loss of around -1 Liter. ? Strict in and out ? Daily weight ? Follow-up electrolytes and replete as necessary #Aortic stenosis #History of A-fib Rate controlled on amiodarone [id number] 3 not on anticoagulation per cardiology recommendation due to high risk of bleeding ? Continue metoprolol succinate XL 25 p.o. daily ? Continue amiodarone 200 mg p.o. twice daily ? Per cardio patient doesn't require TAVR #History of hypertension ? Hold home amlodipine in the setting of blood pressure PULM: #Acute hypoxic respiratory failure----Improving In setting of Obstructive shock 2/2 Aortic stenosis and CHF exacerbation. Patient tested positive for influenza A on admission and was hypoxic on presentation with SpO2 88% X-ray showed moderate CHF with moderate enlargement of literature professor prominent vascular congestion with central vascular engorgement and perihilar vascular edema. ABG pH 7.39, pCO2 47, pO2 76 and HCO3 29 During the day patient had multiple rapid's due to increased work of breathing and hypoxia and possible progression to ARDS for which decision was made to intubate and transfer the patient to the ICU Vent settings: AC/VC VT 375 RR 30 PEEP 10 FiO2 100 ? Follow-up ABGs ? Follow-up chest x-ray ? Continue diuresis as needed to achieve daily goal of -1 Liter. #Influenza pneumonia ? See ID as below RENAL: #Hypernatremia Patient given 250cc of free water. Start patient on water 10cc/hr. #CKD stage IIIb Patient has past medical history of CKD no history of diabetes previous A1c 6.2% 05/2024 - Strict ins and outs - Avoid nephrotoxic drugs - Renally dose medications - Follow-up CMP #Lactic acidosis----Resolved. In the setting of hypoxia and shock Lactic acid 3.3=>4.2 ? Trend lactic acid every 3 hours ENDO: Stable HEME/ONC: Stable ID: #Influenza pneumonia On admission patient was positive for influenza and was hypoxic with SpO2 88% on 9 oxygen WBCs within normal limits on admission, lactic acid 4.2 on admission X-ray showed moderate CHF with moderate enlargement of literature professor prominent vascular congestion with central vascular engorgement and perihilar vascular edema Patient did not receive per sepsis protocol 30 cc/kg IV fluids due to decompensated CHF ? Continue oseltamivir 30 mg daily (08/02? ? Continue IV Zosyn and vancomycin (08/02? ? Continue DuoNebs every 4 hours scheduled ? Continue IV methylprednisolone 40 mg daily ? Follow-up blood and urine cultures ? Follow-up sputum culture and Gram ? Follow-up IgM and IgG cocci ? Follow-up CBC GI: #Acute liver injury----Improving 2/2 obstructive shock. Continue management as per CVS. #Tube feeding at rate of 20cc/hr. MSK: Stable SKIN: Stable FEN: N.p.o. Lines: Peripheral line DVT prophylaxis: Heparin subcu GI prophylaxis: Protonix CODE STATUS: Full code patient/decision maker Yassine Harris () phone number [phone] Patient's plan of care discussed with attending Dr Emily Garza, PGY-3
--- NOTE | 2024-08-06 11:41 | PC.RT ---
PER DR HUIZAR PATIENT WAS PUT ON SBT @1045 FIRST ON PS OF 07/27 THEN INCREASED TO 15/ AND INCREASED ONCE AGAIN TO 15. PATIENT FAILED SBT.
[2024-08-06] MEDS: BUMETANIDE INJ 0.25 MG/ML VIAL 4 ML 1 MG IVP (11:55)
--- NOTE | 2024-08-06 12:14 | PC.SS ---
Update: Patient failed extubation twice today. Feedings on hold. Patient is not sedated nor receiving pressors. Plan is for patient to come off precautions tomorrow, 08-07-24.
--- NOTE | 2024-08-06 12:28 | PC.RT ---
PER DR HUIZAR PATIENT WAS PUT ON SBT @1148 PT WAS MORE AWAKE AND RESPONSIVE TO COMMANDS. PS 12/5 PATIENT ON FOR 9 MINUTES AND BECAME APNIEC. PATIENT FAILED AND PLACED BACK STANDARD SETTINGS.
--- NOTE | 2024-08-06 15:29 | PC.SS ---
Update: Patient extubated today (08-06-24).
--- NOTE | 2024-08-06 17:35 | ESPR_ITS ---
<Statement entered by Thaddeus Barton MD - 08/07/24 22:33> The patient is personally evaluated by me in the intensive care unit she is extubated successfully clinically doing much better not have any chest pain shortness of breath heart failure improved significantly chest x-ray showed significant improvement compared to yesterday with diuresis. However she is developing hypernatremia slowly. She does have severe aortic stenosis but not critical aortic velocity is still below 4 m/s gradient is also not severely elevated as aortic stenosis not the main reason she went to the heart failure possibly combination of factors that includes aortic stenosis. Hence we will continue medical management may consider aortic valve replacement if she continues to have severe symptoms of aortic stenosis after discharge. Documentation for date of: 08/06/24 Subjective Subjective Interval history: 88-year-old female patient with significant medical history for HFpEF, moderate to severe aortic stenosis, coronary artery disease s/p RCA stent placements, atrial fibrillation, bilateral endarterectomy (2020 and 2023), severe peripheral artery disease, chronic kidney disease, colon cancer sp resection, DM2, hypertension and hypercholesterolemia presented with worsening shortness of breath and productive cough was admitted for AHRF and sepsis due to influenza pneumonia with superimposed bacterial infection and CHF exacerbation. Patient was administered Tamiflu and started on IV Vanco and Zosyn. Initially patient was started on oxygen mask as she was hypoxic, due to continuing desaturation in the 70s patient was transitioned to BiPAP. Multiple rapid responses were called as patient continued to be desatting and was becoming increasingly tired. Goals of care discussion were held with family, patient's code status was switched to full code and decision was made to upgrade patient to ICU, intubated and started on levophed as patient was progressing towards ARDS. Cardiology was consulted for further management. 08/04/24: Echocardiogram on this admission indicates moderate to severe aortic stenosis with a gradient of 48 mmHg H (mean 30) with Vmax of 3.5 and LVEF 60- 65%. On physical exam patient is does not seem to be fluid overloaded, patient was recently seen at the clinic and was found to be asymptomatic. Patient seems to have an ARDS pattern secondary to influenza pneumonia. Continue current management, if no improvement we will consider right heart swan cath. 08/05/24: Patient has been weaned off of Levophed but still intubated. FiO2 at 40% and on 20 L rate. Morning chest x-ray seems to be worse than previous with more congestion, greater on the right side. Renal function and transaminitis improving. Patient had 1.6 L urine output and 1 bowel movement. Patient started on Bumex 1mg with a goal of -1 to 1.5 L overall fluid balance. Per primary team, picture is more of a obstructive shock. From cardiology point of view, no need for TAVR at this point. 08/06/24: No significant overnight events overnight. Labs significant for hypernatremia most likely secondary to diuresis and decrease p.o. intake. While there was a mild decline in renal function patient's LFTs have been downtrending. Patient had 1.5 L of urine output with overall -650 mL net fluid balance. Patient was extubated on second attempt and was started on nasal cannula without complications. Currently patient on Bumex 1mg as needed which he was administered today. Exam Vital Signs Temp Pulse Resp BP Pulse Ox O2 Del Method O2 Flow Rate 97.8 F 84 18 161/71 H 90 L Mechanical Ventilation 4 08/06/24 16:01 08/06/24 16:01 08/06/24 15:30 08/06/24 16:01 08/06/24 16:01 08/06/24 04:00 08/06/24 15:30 FiO2 30 08/06/24 14:35 Narrative Exam Constitutional: Frail looking elderly, in mild distress, able to follow commands, on NC HEENT: NCAT, EOMI, reactive round pupils b/l,moist mucous membranes, NG tube noted Lung: Mechanically ventilated, no wheezing, no rhonchi, no crackles, decreased air entry on right lower lobe side Heart: Regular S1S2, no murmurs, gallops, or rubs Abdomen: Soft, non-distended, non-tender, bowel sounds present throughout Extremities: No cyanosis, clubbing, + trace edema, LE pulses present b/l Neurologic: Unable to perform due to sedation Skin: Warm, dry, no lesions or rashes noted Objective Labs 08/07/24 05:05 08/07/24 05:05 Labs: Laboratory Results - last 24 hr 08/06/24 08/06/24 04:07 05:48 WBC 9.1 RBC 4.27 Hgb 12.0 Hct 37.2 MCV 87 MCH 28.1 MCHC 32.3 RDW Std Deviation 50.4 H Plt Count 132 L Neut % (Auto) 85 H Lymph % (Auto) 9 L Power % (Auto) 6 Eos % (Auto) 0 Baso % (Auto) 0 Neut # (Auto) 7.7 Lymph # (Auto) 0.8 L Power # (Auto) 0.5 Eos # (Auto) 0.0 Baso # (Auto) 0.0 Immature Gran # (Auto) 0.04 H Absolute Nucleated RBC 0.00 Immature Gran % 0 Nucleated RBC % 0 Puncture Site Right Radial ABG pH 7.42 ABG pCO2 49 H ABG pO2 73 L D ABG HCO3 32 H ABG O2 Saturation 94 ABG Base Excess 7 H FiO2 30 Sodium 147 H Potassium 4.7 D Chloride 110 H Carbon Dioxide 27.8 Anion Gap 9 BUN 35 H Creatinine 1.6 H Estim Creat Clear Calc 22.4 L eGFR 31 L BUN/Creatinine Ratio 22 H Glucose 159 H Calculated Osmolality 303 H Calcium 8.4 Corrected Calcium 9.0 Total Bilirubin 0.6 AST 193 H ALT 270 H Alkaline Phosphatase 106 Total Protein 5.3 L Albumin 3.2 L Globulin 2.1 L Albumin/Globulin Ratio 1.5 ABG Interpretation ABG results: 08/02/24 08/02/24 08/02/24 11:32 15:23 16:47 ABG pH 7.37 7.40 ABG pCO2 50 H 44 ABG pO2 36 L* 80 L D ABG HCO3 29 H 27 H ABG O2 Saturation 64 L 96 ABG Base Excess 3 2 VBG pH 7.48 VBG pCO2 35 L VBG pO2 46 VBG Base Excess 3 08/02/24 08/02/24 08/03/24 20:46 23:49 03:08 ABG pH 7.39 7.45 7.48 H ABG pCO2 47 37 D 34 ABG pO2 76 L 248 H D 160 H D ABG HCO3 29 H 25 25 ABG O2 Saturation 95 99 H 98 ABG Base Excess 3 2 2 VBG pH VBG pCO2 VBG pO2 VBG Base Excess 08/03/24 08/03/24 08/04/24 05:03 09:09 04:23 ABG pH 7.45 7.38 7.42 ABG pCO2 37 43 46 ABG pO2 55 L* D 51 L* 92 D ABG HCO3 26 26 30 H ABG O2 Saturation 90 L 85 L 97 ABG Base Excess 2 0 5 H VBG pH VBG pCO2 VBG pO2 VBG Base Excess 08/05/24 08/06/24 04:47 04:07 ABG pH 7.38 7.42 ABG pCO2 50 H 49 H ABG pO2 93 73 L D ABG HCO3 30 H 32 H ABG O2 Saturation 96 94 ABG Base Excess 4 H 7 H VBG pH VBG pCO2 VBG pO2 VBG Base Excess Quality Measures Quality Measures VTE prophylaxis (Heparin subcut) Advance care planning discussed with:: other Assessment & Plan Assessment Current Active Medications: Generic Name Dose Route Start Last Admin Trade Name Freq PRN Reason Stop Dose Admin Acetaminophen 650 mg 08/02/24 13:42 Acetaminophen 325 Mg Tablet PO 09/01/24 13:41 Q6H PRN Mild Pain 1-3 or Fever >100.4 Albuterol/Ipratropium 3 ml 08/02/24 16:45 08/06/24 14:35 Albuterol/Ipratropium (Duoneb) Rt Cindy 3 Ml Nebu INH 09/01/24 16:44 3 ml Q4HRRT JORGE ALBERTO Administration Amiodarone HCl 200 mg 08/03/24 09:00 08/06/24 09:37 Amiodarone Hcl 200 Mg Tablet PO 09/02/24 08:59 200 mg BID JORGE ALBERTO Administration Amlodipine Besylate 5 mg 08/02/24 14:20 08/02/24 15:52 Amlodipine Besylate 5 Mg Tablet PO 09/01/24 14:19 5 mg QDAY JORGE ALBERTO Administration Atorvastatin Calcium 80 mg 08/03/24 09:00 08/06/24 09:37 Atorvastatin Calcium 20 Mg Tablet PO 09/02/24 08:59 80 mg QDAY JORGE ALBERTO Administration Dextrose 25 ml 08/02/24 16:39 Dextrose 50%-Water Inj 50 Ml Syringe IV 09/01/24 16:38 Q15MIN PRN BG 50-70 responsive npo pt Dextrose 50 ml 08/02/24 16:39 Dextrose 50%-Water Inj 50 Ml Syringe IV 09/01/24 16:38 Q15MIN PRN BG <50 OR BG <70 & pt unresponsive Glucagon 1 mg 08/02/24 16:39 Glucagon Inj 1 Mg Vial IM Q15MIN PRN BG <70, and no IV access Guaifenesin 100 mg 08/02/24 14:33 08/02/24 15:54 Guaifenesin Syrup 200 Mg/10 Ml Udc PO 09/01/24 14:32 100 mg QID PRN Administration COUGH Protocol Guaifenesin/Dextromethorphan 1 each 08/02/24 15:30 Guaifenesin/Dm Tablet PO 09/01/24 15:25 Q4HR PRN COUGH Heparin Sodium (Porcine) 5,000 unit 08/03/24 22:00 08/06/24 15:15 Heparin Sod Inj 5000 Unit/Ml Vial SC 08/17/24 21:59 5,000 unit Q8HR JORGE ALBERTO Administration Propofol 1,000 mg in 100 mls @ 1.882 mls/hr 08/02/24 22:49 08/03/24 12:15 Diprivan Ivpb IV 09/01/24 22:48 0 mcg/kg/min .Q24H PRN 0 mls/hr PER PROTOCOL Titration Protocol 5 MCG/KG/MIN Norepinephrine/Dextrose 8 mg in 250 mls @ 5.881 mls/hr 08/02/24 23:41 08/03/24 12:00 Levophed In D5w 8mg/250ml IV 09/01/24 23:40 0 mcg/kg/min .Q24H PRN 0 mls/hr PER PROTOCOL Titration Protocol 0.05 MCG/KG/MIN Dexmedetomidine/Sodium Chloride 200 mcg in 50 mls @ 3.135 mls/hr 08/03/24 10:22 08/06/24 13:18 Precedex Ivpb IV 09/02/24 10:18 0 mcg/kg/hr .[id number] PRN 0 mls/hr Per PROTOCOL Titration Protocol 0.2 MCG/KG/HR Fentanyl Citrate 2,500 mcg in 250 mls @ 2.5 mls/hr 08/05/24 07:59 08/06/24 08:30 Sublimaze Inj 2,500 Mcg/250 Ml Bag IV 08/07/24 22:48 0 mcg/hr .Q24H PRN 0 mls/hr PER PROTOCOL Titration Protocol 25 MCG/HR Insulin Human Lispro 0 unit 08/03/24 06:00 08/06/24 12:07 Insulin Lispro (Admelog) 1 Unit/0.01 Ml Unit SC 09/02/24 05:59 1 unit Q6HR JORGE ALBERTO Administration Protocol Metoprolol Succinate 12.5 mg 08/06/24 21:00 Metoprolol Succinate Xl 25 Mg Tabcr PO 09/05/24 20:59 BID JORGE ALBERTO Oseltamivir Phosphate 30 mg 08/03/24 11:00 08/06/24 09:37 Oseltamivir 6 Mg/Ml NG 08/08/24 08:59 30 mg QDAY JORGE ALBERTO Administration Protocol Pantoprazole Sodium 40 mg 08/03/24 09:00 08/06/24 09:38 Pantoprazole Inj 40 Mg Vial IV 09/02/24 08:59 40 mg QDAY JORGE ALBERTO Administration Sodium Chloride 3 ml 08/02/24 11:12 08/02/24 11:15 Sodium Chloride Rt Cindy 0.9% 3 Ml Nebu INH 09/01/24 11:11 3 ml PRN PRN Administration SOLN Plan 88-year-old female patient with significant medical history for HFpEF, moderate to severe aortic stenosis, coronary artery disease s/p RCA stent placements, atrial fibrillation, bilateral endarterectomy (2020 and 2023), severe peripheral artery disease, chronic kidney disease, colon cancer sp resection, DM2, hypertension and hypercholesterolemia presented with worsening shortness of breath and productive cough was admitted for AHRF and sepsis due to influenza pneumonia with superimposed bacterial infection and CHF exacerbation. #HFpEF (60 to 65%) #Hx of CAD s/p RCA stent placement #Hx of s/p bilateral endarterectomy #Hx of hypertension Echocardiogram indicates moderate to severe aortic stenosis with a gradient of 48 mmHg H (mean 30) with Vmax of 3.5 and LVEF 60-65% On addmission BNP 518 and CXR showed prominent vascular congestion On physical exam, patient not fluid overloaded Plan: ? If no improvement, will consider right heart [place] cath ? Hold off BP meds in setting of shock ? Strict in and out ? Daily weight ? Follow-up electrolytes and replete as necessary #Atrial fibrillation, rate controlled #Moderate-severe aortic stenosis [id number] 3 not on anticoagulation due to high risk of bleeding Plan: ? Continue amiodarone 200 mg BID ? No need for TAVR at this point #Shock, septic vs. cardiogenic, resolved In the setting of fever, influenza PNA and possibly superimposed bacterial pneumonia MAP dropped below 65 after intubation Levophed weaned off on 08/05/24 #Sepsis secondary to #Influenza #Pneumonia #CKD IIIb #DM2 #Hx of colon cancer s/p resection -Management per primary team This patient care was discussed with my attending Dr. Mick Lester MD PGY-2 Disclaimer: Minor errors in cement crusher operator may be present since this note was dictated by speech recognition software.
[2024-08-06] MEDS: METOPROLOL SUCCINATE XL 25 MG TABCR 12.5 MG PO (21:06)
[2024-08-07] VITALS (23 sets, daily range): BP systolic 136–169; BP diastolic 59–88; PULSE 70–93; RESP 16–32; TEMP 36.3–37.2; O2SAT 88–95; BMI 25.0
[2024-08-07] MEDS: ALBUTEROL/IPRATROPIUM (Duoneb) RT SOL 3 ML NEBU INH ×6 (02:29→22:08)
[2024-08-07 05:43] LABS: Basophils % (Auto) 0 % (0-2.5); Eosinophils % (Auto) 0 % (0-10); Hematocrit 38.4 % (36.0-46.0); Hemoglobin 12.1 g/dL (12.0-16.0); Immature Granulocytes % (Auto) 1 % (0-0); Immature Granulocytes Auto 0.11 Thou/mm3 (0.00-0.00); Lymphocytes # (Auto) 0.8 Thou/mm3 (1.0-4.8); Lymphocytes % (Auto) 8 % (10-50); Mean Corpuscular HGB Conc 31.5 g/dl (31.0-37.0); Mean Corpuscular Hemoglobin 27.9 pg (25.0-35.0); Mean Corpuscular Volume 89 fL (80-100); Monocytes # (Auto) 0.8 Thou/mm3 (0.0-0.8); Monocytes % (Auto) 8 % (0-12); Neutrophils # (Auto) 8.3 Thou/mm3 (1.8-7.7); Neutrophils % (Auto) 82 % (37-80); Nucleated Red Blood Cell % 0 /100 WBC (0); Platelet Count 153 Thou/mm3 (140-440); RDW Standard Deviation 52.3 fL (36.4-46.3); Red Blood Count 4.33 Miln/mm3 (4.00-5.20); White Blood Count 10.1 Thou/mm3 (3.6-11.0)
[2024-08-07] MEDS: HEPARIN SOD INJ 5000 UNIT/ML VIAL SC ×3 (06:01→21:30)
[2024-08-07 06:16] LABS: Alanine Aminotransferase 242 U/L (10-49); Albumin, Serum 3.4 gm/dL (3.4-4.8); Albumin/Globulin Ratio 1.4 (1.2-2.2); Alkaline Phosphatase 124 U/L (46-116); Anion Gap 11 (7-16); Aspartate Amino Transferase 187 U/L (0-34); BUN/Creatinine Ratio 26 Ratio (12-20); Bilirubin,Total 0.8 mg/dL (0.3-1.2); Blood Urea Nitrogen 41 mg/dL (9-23); Calcium 9.4 mg/dL (8.3-10.6); Calcium (Corrected) 9.9 mg/dL (8.5-10.1); Carbon Dioxide 30.4 mMol/L (20.0-31.0); Chloride 111 mMol/L (98-107); Creatinine (Component) 1.6 mg/dL (0.6-1.3); Estimated Creatinine Clearance 22.4 mL/min (>60); Globulin 2.5 gm/dL (2.3-3.5); Glucose 137 mg/dL (74-106); Osmolality,Calculated 313 (275-295); Potassium 4.4 mMol/L (3.4-5.1); Sodium 152 mMol/L (136-145); Total Protein 5.9 gm/dL (5.7-8.2); eGFR 31 See Note
[2024-08-07 06:27] LABS: Prolactin* 6.4 ng/mL
[2024-08-07] MEDS: METOPROLOL SUCCINATE XL 25 MG TABCR 12.5 MG PO ×2 (08:32→20:08)
[2024-08-07] MEDS: AMIODARONE HCL 200 MG TABLET PO ×2 (08:35→20:08)
[2024-08-07] MEDS: ATORVASTATIN CALCIUM 20 MG TABLET 80 MG PO (08:38)
[2024-08-07] MEDS: PANTOPRAZOLE INJ 40 MG VIAL IV (08:38)
[2024-08-07] MEDS: OSELTAMIVIR 6 MG/ML 30 MG NG (08:40)
--- NOTE | 2024-08-07 09:00 | XR_ITS ---
Examination: AP chest single view Technique one AP portable semiupright chest single view Exam date and time: August 07, 2024 0514 hrs. Comparison August 06, 2024 Indications: Hypoxic respiratory failure this week, bilateral pneumonia and heart failure on earlier chest imaging this week Findings: The patient has been extubated Cardiac contour remains enlarged with prominent vascular congestion and extensive bilateral perihilar pneumonia and/or edema Orogastric tube in the stomach, the tip below the level of the film Prominent osteopenia Impression: The patient has been extubated Heart failure remains with extensive bilateral pneumonia and/or pulmonary edema
--- NOTE | 2024-08-07 09:31 | PC.NURSE ---
MD Diaz Notified of patients current neuro assessment. States that the patient needs more time.
--- NOTE | 2024-08-07 10:06 | PCS.ST ---
Swallow Evaluation completed. See report for details. Pt is not safe for a PO diet at this time. ST will follow up for diet readiness.
--- NOTE | 2024-08-07 10:57 | PC.SS ---
Update: Patient has been downgraded from ICU on 08-07-24. Patient no longer on Flu precautions.
--- NOTE | 2024-08-07 11:23 | PC.SS ---
LANDSCAPING SPECIALIST conducted bedside contact with the patient. At bedside with patient was Olu patten. Olu Patten; confirmed that patient possesses home oxygen. Patient currently on 4L nasal cannula.
--- NOTE | 2024-08-07 11:57 | EVENTNT_ITS ---
<Statement entered by Beto Powell MD - 08/07/24 15:12> This patient 88-year-old female with past medical history of HFpEF EF 55 to 60%, CKD stage IIIb, severe aortic stenosis, history of colon cancer postresection, A-fib on amiodarone, diabetes type 2 was upgraded to ICU for acute hypoxic respiratory failure and sepsis in the setting of influenza pneumonia and superimposed bacterial pneumonia and CHF exacerbation. Patient is currently stable and maintaining saturation above 90% on 5 L NC. She is hemodynamically stable. Currently being managed on IV Bumex 1 mg every 12 hourly changed to daily as needed to achieve a net output of 1 L negative balance while maintaining stable hemodynamics. Labs showed no changes in the CBC. Chemistry panel showed mild hyponatremia with sodium 152, LFTs downtrended, renal functions are unchanged. Patient is on water flushes every 6 hourly. Repeat echocardiogram showed moderate/severe aortic stenosis with V-max of 3.5 m/s. C urrently managing with metoprolol succinate XL 25 and amiodarone 200 mg twice daily. Cardiology did not recommend TAVR. Antihypertensives are on hold for soft blood pressure. Antibiotics and Tamiflu were given adequately and blood cultures came negative. Patient is downgraded to hospitalist team a for continuation of care. I saw and examined the patient, and I agree with current management stated by Dr Eneida MD,PGY1. Plan of care was discussed with the attending physician and resident physician. Disclaimer: Despite multiple revisions, due to the dictation software being used, the document bellow may not be free of grammatical errors including phonetic/typographic errors. However, this does not deter from our commitment to providing health care in the patient's best interest in mind. Dr. Sherry MD, PGY 2 Documentation for date of: 08/07/24 Event Note Event Note: This patient 88-year-old female with past medical history of HFpEF EF 55 to 60%, CKD stage IIIb, severe aortic stenosis, history of colon cancer postresection, A-fib on amiodarone, diabetes type 2 was upgraded to ICU for acute hypoxic respiratory failure and sepsis in the setting of influenza pneumonia and superimposed bacterial pneumonia and CHF exacerbation. Patient is currently stable and maintaining saturation above 90% on 5 L NC. She is hemodynamically stable. Currently being managed on IV Bumex 1 mg every 12 hourly changed to daily as needed to achieve a net output of 1 L negative balance while maintaining stable hemodynamics. Labs showed no changes in the CBC. Chemistry panel showed mild hyponatremia with sodium 152, LFTs downtrended, renal functions are unchanged. Patient is on water flushes every 6 hourly. Repeat echocardiogram showed moderate/severe aortic stenosis with V-max of 3.5 m/s. Currently managing with metoprolol succinate XL 25 and amiodarone 200 mg twice daily. Cardiology did not recommend TAVR. Antihypertensives are on hold for soft blood pressure. Antibiotics and Tamiflu were discontinued given blood cultures negative. Patient is downgraded to hospitalist team a for continuation of care. Patient was seen and discussed with attending physician, Dr. Mann and resident physician, Dr. Sherry MD, PGY 2 Tameka Monique PGY- 1
[2024-08-07] MEDS: INSULIN LISPRO (AdmeLOG) 1 UNIT/0.01 ML UNIT SC ×3 (12:42→23:52)
--- NOTE | 2024-08-07 13:15 | ESPR_ITS ---
<Statement entered by Thaddeus Barton MD - 08/07/24 22:31> The patient is evaluated along with resident physician Dr. Ryan PGY2 successfully extubated now doing better developed hypernatremia and hyperchloremia possibly concentration and slightly dry side clinically continue medical management patient does have aortic stenosis which is severe but not critical will not require any aortic valve replacement surgery surgery near future but may be next 6 to 12 months. Because of the high sodium level will give him D5 W for dilating-8 see me every third the administration of sodium chloride. Since clinically she is doing well we will hold off on diuretics for short. Might discharge her home on a low-dose diuretic if necessary. Documentation for date of: 08/07/24 Subjective Subjective Interval history: 88-year-old female patient with significant medical history for HFpEF, moderate to severe aortic stenosis, coronary artery disease s/p RCA stent placements, atrial fibrillation, bilateral endarterectomy (2020 and 2023), severe peripheral artery disease, chronic kidney disease, colon cancer sp resection, DM2, hypertension and hypercholesterolemia presented with worsening shortness of breath and productive cough was admitted for AHRF and sepsis due to influenza pneumonia with superimposed bacterial infection and CHF exacerbation. Patient was administered Tamiflu and started on IV Vanco and Zosyn. Initially patient was started on oxygen mask as she was hypoxic, due to continuing desaturation in the 70s patient was transitioned to BiPAP. Multiple rapid responses were called as patient continued to be desatting and was becoming increasingly tired. Goals of care discussion were held with family, patient's code status was switched to full code and decision was made to upgrade patient to ICU, intubated and started on levophed as patient was progressing towards ARDS. Cardiology was consulted for further management. 08/04/24: Echocardiogram on this admission indicates moderate to severe aortic stenosis with a gradient of 48 mmHg H (mean 30) with Vmax of 3.5 and LVEF 60- 65%. On physical exam patient is does not seem to be fluid overloaded, patient was recently seen at the clinic and was found to be asymptomatic. Patient seems to have an ARDS pattern secondary to influenza pneumonia. Continue current management, if no improvement we will consider right heart swan cath. 08/05/24: Patient has been weaned off of Levophed but still intubated. FiO2 at 40% and on 20 L rate. Morning chest x-ray seems to be worse than previous with more congestion, greater on the right side. Renal function and transaminitis improving. Patient had 1.6 L urine output and 1 bowel movement. Patient started on Bumex 1mg with a goal of -1 to 1.5 L overall fluid balance. Per primary team, picture is more of a obstructive shock. From cardiology point of view, no need for TAVR at this point. 08/06/24: No significant events overnight. Labs significant for hypernatremia most likely secondary to diuresis and decrease p.o. intake. While there was a mild decline in renal function patient's LFTs have been downtrending. Patient had 1.5 L of urine output with overall -650 mL net fluid balance. Patient was extubated on second attempt and was started on nasal cannula without complications. Currently patient on Bumex 1mg as needed which he was administered today. 08/07/24: No events overnight. Vitals stable, currently on 5L nasal cannula. Patient had 2.3L of urine output with overall -2.2L of net fluid balance. While most labs are improving, sodium has increased to 152. Patient currently on 250 mL free water flush Q6H. Patient receiving nutrition through NG tube. Patient stable to be downgraded for floor team to take over care starting tomorrow. We recommend discontinuing diuresis and giving patient x1 500ml D5W IVF. Exam Vital Signs Temp Pulse Resp BP Pulse Ox O2 Del Method O2 Flow Rate 98.1 F 78 20 141/60 H 91 L Nasal Cannula 5 08/07/24 12:08/07/24 12:08/07/24 12:08/07/24 12:08/07/24 12:08/07/24 12:08/07/24 12:00 FiO2 30 08/06/24 14:35 Narrative Exam Constitutional: Frail looking female, in mild distress, cooperative HEENT: NCAT, EOMI, reactive round pupils b/l,moist mucous membranes, on nasal cannula Lung: Mechanically ventilated, no wheezing, no rhonchi, no crackles, decreased air entry on right lower lobe side Heart: Regular S1S2, no murmurs, gallops, or rubs Abdomen: Soft, non-distended, non-tender, bowel sounds present throughout Extremities: No cyanosis, clubbing, + trace edema, LE pulses present b/l Neurologic: Unable to perform due to sedation Skin: Warm, dry, no lesions or rashes noted Objective Labs 08/07/24 05:05 08/07/24 05:05 Labs: Laboratory Results - last 24 hr 08/02/24 08/07/24 17:31 05:05 WBC 10.1 RBC 4.33 Hgb 12.1 Hct 38.4 MCV 89 MCH 27.9 MCHC 31.5 RDW Std Deviation 52.3 H Plt Count 153 Neut % (Auto) 82 H Lymph % (Auto) 8 L Rap[place] % (Auto) 8 Eos % (Auto) 0 Baso % (Auto) 0 Neut # (Auto) 8.3 H Lymph # (Auto) 0.8 L [place] # (Auto) 0.8 Eos # (Auto) 0.0 Baso # (Auto) 0.0 Immature Gran # (Auto) 0.11 H Absolute Nucleated RBC 0.00 Immature Gran % 1 H Nucleated RBC % 0 Sodium 152 H Potassium 4.4 Chloride 111 H Carbon Dioxide 30.4 Anion Gap 11 BUN 41 H Creatinine 1.6 H Estim Creat Clear Calc 22.4 L eGFR 31 L BUN/Creatinine Ratio 26 H Glucose 137 H Calculated Osmolality 313 H Calcium 9.4 Corrected Calcium 9.9 Total Bilirubin 0.8 AST 187 H ALT 242 H Alkaline Phosphatase 124 H Total Protein 5.9 Albumin 3.4 Globulin 2.5 Albumin/Globulin Ratio 1.4 Prolactin (Send Out) 6.4 ABG Interpretation ABG results: 08/02/24 08/02/24 08/02/24 11:32 15:23 16:47 ABG pH 7.37 7.40 ABG pCO2 50 H 44 ABG pO2 36 L* 80 L D ABG HCO3 29 H 27 H ABG O2 Saturation 64 L 96 ABG Base Excess 3 2 VBG pH 7.48 VBG pCO2 35 L VBG pO2 46 VBG Base Excess 3 08/02/24 08/02/24 08/03/24 20:46 23:49 03:08 ABG pH 7.39 7.45 7.48 H ABG pCO2 47 37 D 34 ABG pO2 76 L 248 H D 160 H D ABG HCO3 29 H 25 25 ABG O2 Saturation 95 99 H 98 ABG Base Excess 3 2 2 VBG pH VBG pCO2 VBG pO2 VBG Base Excess 08/03/24 08/03/24 08/04/24 05:03 09:09 04:23 ABG pH 7.45 7.38 7.42 ABG pCO2 37 43 46 ABG pO2 55 L* D 51 L* 92 D ABG HCO3 26 26 30 H ABG O2 Saturation 90 L 85 L 97 ABG Base Excess 2 0 5 H VBG pH VBG pCO2 VBG pO2 VBG Base Excess 08/05/24 08/06/24 04:47 04:07 ABG pH 7.38 7.42 ABG pCO2 50 H 49 H ABG pO2 93 73 L D ABG HCO3 30 H 32 H ABG O2 Saturation 96 94 ABG Base Excess 4 H 7 H VBG pH VBG pCO2 VBG pO2 VBG Base Excess Quality Measures Quality Measures VTE prophylaxis (Heparin subcut) Advance care planning discussed with:: other Assessment & Plan Assessment Current Active Medications: Generic Name Dose Route Start Last Admin Trade Name Freq PRN Reason Stop Dose Admin Acetaminophen 650 mg 08/02/24 13:42 Acetaminophen 325 Mg Tablet PO 09/01/24 13:41 Q6H PRN Mild Pain 1-3 or Fever >100.4 Albuterol/Ipratropium 3 ml 08/02/24 16:45 08/07/24 11:50 Albuterol/Ipratropium (Duoneb) Rt Cindy 3 Ml Nebu INH 09/01/24 16:44 3 ml Q4HRRT JORGE ALBERTO Administration Amiodarone HCl 200 mg 08/03/24 09:00 08/07/24 08:35 Amiodarone Hcl 200 Mg Tablet PO 09/02/24 08:59 200 mg BID JORGE ALBERTO Administration Amlodipine Besylate 5 mg 08/02/24 14:20 08/02/24 15:52 Amlodipine Besylate 5 Mg Tablet PO 09/01/24 14:19 5 mg QDAY JORGE ALBERTO Administration Atorvastatin Calcium 80 mg 08/03/24 09:00 08/07/24 08:38 Atorvastatin Calcium 20 Mg Tablet PO 09/02/24 08:59 80 mg QDAY JORGE ALBERTO Administration Bumetanide 1 mg 08/08/24 09:00 Bumetanide Inj 0.25 Mg/Ml Vial 4 Ml IVP 09/07/24 08:59 QDAY JORGE ALBERTO Dextrose 25 ml 08/02/24 16:39 Dextrose 50%-Water Inj 50 Ml Syringe IV 09/01/24 16:38 Q15MIN PRN BG 50-70 responsive npo pt Dextrose 50 ml 08/02/24 16:39 Dextrose 50%-Water Inj 50 Ml Syringe IV 09/01/24 16:38 Q15MIN PRN BG <50 OR BG <70 & pt unresponsive Glucagon 1 mg 08/02/24 16:39 Glucagon Inj 1 Mg Vial IM Q15MIN PRN BG <70, and no IV access Guaifenesin 100 mg 08/02/24 14:33 08/02/24 15:54 Guaifenesin Syrup 200 Mg/10 Ml Udc PO 09/01/24 14:32 100 mg QID PRN Administration COUGH Protocol Guaifenesin/Dextromethorphan 1 each 08/02/24 15:30 Guaifenesin/Dm Tablet PO 09/01/24 15:25 Q4HR PRN COUGH Heparin Sodium (Porcine) 5,000 unit 08/03/24 22:00 08/07/24 06:01 Heparin Sod Inj 5000 Unit/Ml Vial SC 08/17/24 21:59 5,000 unit Q8HR JORGE ALBERTO Administration Insulin Human Lispro 0 unit 08/03/24 06:00 08/07/24 12:42 Insulin Lispro (Admelog) 1 Unit/0.01 Ml Unit SC 09/02/24 05:59 1 unit Q6HR JORGE ALBERTO Administration Protocol Metoprolol Succinate 12.5 mg 08/06/24 21:00 08/07/24 08:32 Metoprolol Succinate Xl 25 Mg Tabcr PO 09/05/24 20:59 12.5 mg BID JORGE ALBERTO Administration Oseltamivir Phosphate 30 mg 08/03/24 11:00 08/07/24 08:40 Oseltamivir 6 Mg/Ml NG 08/08/24 08:59 30 mg QDAY JORGE ALBERTO Administration Protocol Pantoprazole Sodium 40 mg 08/03/24 09:00 08/07/24 08:38 Pantoprazole Inj 40 Mg Vial IV 09/02/24 08:59 40 mg QDAY JORGE ALBERTO Administration Sodium Chloride 3 ml 08/02/24 11:12 08/02/24 11:15 Sodium Chloride Rt Cindy 0.9% 3 Ml Nebu INH 09/01/24 11:11 3 ml PRN PRN Administration SOLN Plan 88-year-old female patient with significant medical history for HFpEF, moderate to severe aortic stenosis, coronary artery disease s/p RCA stent placements, atrial fibrillation, bilateral endarterectomy (2020 and 2023), severe peripheral artery disease, chronic kidney disease, colon cancer sp resection, DM2, hypertension and hypercholesterolemia presented with worsening shortness of breath and productive cough was admitted for AHRF and sepsis due to influenza pneumonia with superimposed bacterial infection and CHF exacerbation. #HFpEF (60 to 65%), improving #Hx of CAD s/p RCA stent placement #Hx of s/p bilateral endarterectomy #Hx of hypertension Echocardiogram indicates moderate to severe aortic stenosis with a gradient of 48 mmHg H (mean 30) with Vmax of 3.5 and LVEF 60-65% On addmission BNP 518 and CXR showed prominent vascular congestion On physical exam, patient not fluid overloaded Plan: ? Strict in and out - Hold off diuresis - Administer x1 time IVF D5W at 75 cc/h ? Daily weight ? Follow-up electrolytes and replete as necessary - Future TAVR in outpatient setting #Atrial fibrillation, rate controlled #Moderate-severe aortic stenosis [id number] 3 not on anticoagulation due to high risk of bleeding Plan: ? Continue amiodarone 200 mg BID ? No need for TAVR at this point #Shock, septic vs. cardiogenic, resolved In the setting of fever, influenza PNA and possibly superimposed bacterial pneumonia MAP dropped below 65 after intubation Levophed weaned off on 08/05/24 #Sepsis secondary to #Influenza #Pneumonia #CKD IIIb #DM2 #Hx of colon cancer s/p resection -Management per primary team This patient care was discussed with my attending Dr. Mick Lester MD PGY-2 Disclaimer: Minor errors in recycler may be present since this note was dictated by speech recognition software.
--- NOTE | 2024-08-07 14:11 | ESPR_ITS ---
<Statement entered by Ayaka Diaz MD - 08/08/24 13:47> TOTAL TIME: 45MINUTES ON DIRECT MEDICAL CARE, MANAGEMENT - COORDINATION AND COUNSELING > 50% OF TOTAL TIME I saw and evaluated the patient. I reviewed the resident?s note and agree with findings and plan as documented in the resident?s note. Documentation for date of: 08/07/24 Subjective Subjective Interval history: 08/07/2024; patient was seen and examined by bedside, doing well this morning continues to be on 5L of NC, vitals stable. patient on Bumix 1mg q12 as needed to achieve a net output of -1 Liter while maintaing stable hemodynamics, UOP overnight 2.5 liters, net balance -3.5 liters. No changes in CBC noted, hypernatremia with sodium at 152 and increased from 147, LFTs trending down, renal functions unchanged, patient started on 250cc free water every 6 hours. Patient will be downgraded to [facility] as she no longer requires ICU level of care. Patient will be signed off to hospitalist team for resumption of care starting 08/08/2024. Exam Vital Signs Temp Pulse Resp BP Pulse Ox O2 Del Method O2 Flow Rate 98.1 F 78 20 141/60 H 91 L Nasal Cannula 5 08/07/24 12:00 08/07/24 12:00 08/07/24 12:00 08/07/24 12:00 08/07/24 12:00 08/07/24 12:00 08/07/24 12:00 FiO2 30 08/06/24 14:35 Narrative Exam GEN: Elderly, appears stated age, alert, on NC Neuro: Off sedation, alert to name and , follow commands. HEENT: NCAT, trachea midline, moist mucous membranes, PO tube noted. CVS: RRR, S1S2 present, Systolic crescendo-decrescendo with radiation to carotids. No JVD Respi: On 5L of NC, b/l breath sounds heard, no wheezing/crackles. ABD: Soft, grimaces to palpation, bowel sounds present in all 4 quadrants. Skin: warm, dry and intact. Extremities: Pulses 3+, 1+ BLE pitting edema / no cyanosis. Objective Labs 08/07/24 05:05 08/07/24 05:05 Labs: Laboratory Results - last 24 hr 08/02/24 08/07/24 17:31 05:05 WBC 10.1 RBC 4.33 Hgb 12.1 Hct 38.4 MCV 89 MCH 27.9 MCHC 31.5 RDW Std Deviation 52.3 H Plt Count 153 Neut % (Auto) 82 H Lymph % (Auto) 8 L Morgan % (Auto) 8 Eos % (Auto) 0 Baso % (Auto) 0 Neut # (Auto) 8.3 H Lymph # (Auto) 0.8 L Morgan # (Auto) 0.8 Eos # (Auto) 0.0 Baso # (Auto) 0.0 Immature Gran # (Auto) 0.11 H Absolute Nucleated RBC 0.00 Immature Gran % 1 H Nucleated RBC % 0 Sodium 152 H Potassium 4.4 Chloride 111 H Carbon Dioxide 30.4 Anion Gap 11 BUN 41 H Creatinine 1.6 H Estim Creat Clear Calc 22.4 L eGFR 31 L BUN/Creatinine Ratio 26 H Glucose 137 H Calculated Osmolality 313 H Calcium 9.4 Corrected Calcium 9.9 Total Bilirubin 0.8 AST 187 H ALT 242 H Alkaline Phosphatase 124 H Total Protein 5.9 Albumin 3.4 Globulin 2.5 Albumin/Globulin Ratio 1.4 Prolactin (Send Out) 6.4 ABG Interpretation ABG results: 08/02/24 08/02/24 08/02/24 11:32 15:23 16:47 ABG pH 7.37 7.40 ABG pCO2 50 H 44 ABG pO2 36 L* 80 L D ABG HCO3 29 H 27 H ABG O2 Saturation 64 L 96 ABG Base Excess 3 2 VBG pH 7.48 VBG pCO2 35 L VBG pO2 46 VBG Base Excess 3 08/02/24 08/02/24 08/03/24 20:46 23:49 03:08 ABG pH 7.39 7.45 7.48 H ABG pCO2 47 37 D 34 ABG pO2 76 L 248 H D 160 H D ABG HCO3 29 H 25 25 ABG O2 Saturation 95 99 H 98 ABG Base Excess 3 2 2 VBG pH VBG pCO2 VBG pO2 VBG Base Excess 08/03/24 08/03/24 08/04/24 05:03 09:09 04:23 ABG pH 7.45 7.38 7.42 ABG pCO2 37 43 46 ABG pO2 55 L* D 51 L* 92 D ABG HCO3 26 26 30 H ABG O2 Saturation 90 L 85 L 97 ABG Base Excess 2 0 5 H VBG pH VBG pCO2 VBG pO2 VBG Base Excess 08/05/24 08/06/24 04:47 04:07 ABG pH 7.38 7.42 ABG pCO2 50 H 49 H ABG pO2 93 73 L D ABG HCO3 30 H 32 H ABG O2 Saturation 96 94 ABG Base Excess 4 H 7 H VBG pH VBG pCO2 VBG pO2 VBG Base Excess Quality Measures Quality Measures VTE prophylaxis (Heparin subcut) Advance care planning discussed with:: child and legal surragate Assessment & Plan Assessment Current Active Medications: Generic Name Dose Route Start Last Admin Trade Name Freq PRN Reason Stop Dose Admin Acetaminophen 650 mg 08/02/24 13:42 Acetaminophen 325 Mg Tablet PO 09/01/24 13:41 Q6H PRN Mild Pain 1-3 or Fever >100.4 Albuterol/Ipratropium 3 ml 08/02/24 16:45 08/07/24 11:50 Albuterol/Ipratropium (Duoneb) Rt Cindy 3 Ml Nebu INH 09/01/24 16:44 3 ml Q4HRRT JORGE ALBERTO Administration Amiodarone HCl 200 mg 08/03/24 09:00 08/07/24 08:35 Amiodarone Hcl 200 Mg Tablet PO 09/02/24 08:59 200 mg BID JORGE ALBERTO Administration Amlodipine Besylate 5 mg 08/02/24 14:20 08/02/24 15:52 Amlodipine Besylate 5 Mg Tablet PO 09/01/24 14:19 5 mg QDAY JORGE ALBERTO Administration Atorvastatin Calcium 80 mg 08/03/24 09:00 08/07/24 08:38 Atorvastatin Calcium 20 Mg Tablet PO 09/02/24 08:59 80 mg QDAY JORGE ALBERTO Administration Bumetanide 1 mg 08/08/24 09:00 Bumetanide Inj 0.25 Mg/Ml Vial 4 Ml IVP 09/07/24 08:59 QDAY JORGE ALBERTO Dextrose 25 ml 08/02/24 16:39 Dextrose 50%-Water Inj 50 Ml Syringe IV 09/01/24 16:38 Q15MIN PRN BG 50-70 responsive npo pt Dextrose 50 ml 08/02/24 16:39 Dextrose 50%-Water Inj 50 Ml Syringe IV 09/01/24 16:38 Q15MIN PRN BG <50 OR BG <70 & pt unresponsive Glucagon 1 mg 08/02/24 16:39 Glucagon Inj 1 Mg Vial IM Q15MIN PRN BG <70, and no IV access Guaifenesin 100 mg 08/02/24 14:33 08/02/24 15:54 Guaifenesin Syrup 200 Mg/10 Ml Udc PO 09/01/24 14:32 100 mg QID PRN Administration COUGH Protocol Guaifenesin/Dextromethorphan 1 each 08/02/24 15:30 Guaifenesin/Dm Tablet PO 09/01/24 15:25 Q4HR PRN COUGH Heparin Sodium (Porcine) 5,000 unit 08/03/24 22:00 08/07/24 06:01 Heparin Sod Inj 5000 Unit/Ml Vial SC 08/17/24 21:59 5,000 unit Q8HR JORGE ALBERTO Administration Insulin Human Lispro 0 unit 08/03/24 06:00 08/07/24 12:42 Insulin Lispro (Admelog) 1 Unit/0.01 Ml Unit SC 09/02/24 05:59 1 unit Q6HR JORGE ALBERTO Administration Protocol Metoprolol Succinate 12.5 mg 08/06/24 21:00 08/07/24 08:32 Metoprolol Succinate Xl 25 Mg Tabcr PO 09/05/24 20:59 12.5 mg BID JORGE ALBERTO Administration Oseltamivir Phosphate 30 mg 08/03/24 11:00 08/07/24 08:40 Oseltamivir 6 Mg/Ml NG 08/08/24 08:59 30 mg QDAY JORGE ALBERTO Administration Protocol Pantoprazole Sodium 40 mg 08/03/24 09:00 08/07/24 08:38 Pantoprazole Inj 40 Mg Vial IV 09/02/24 08:59 40 mg QDAY JORGE ALBERTO Administration Sodium Chloride 3 ml 08/02/24 11:12 08/02/24 11:15 Sodium Chloride Rt Cindy 0.9% 3 Ml Nebu INH 09/01/24 11:11 3 ml PRN PRN Administration SOLN Plan 88-year-old woman with past medical history of HFpEF 55-60% CKD stage IIIb, severe arctic stenosis, history of colon cancer postresection, A-fib on amiodarone, diabetes mellitus type 2 who was admitted today to [facility] due to acute hypoxic respiratory failure and sepsis in the setting influenza pneumonia and superimposed bacterial pneumonia as well as CHF exacerbation. During the day patient had 2 rapid responses due to hypoxia and increased work of breathing for which they spoke with the ICU team who recommended to start BiPAP on IPAP 10/EPAP 5 for lung protective ventilation settings and avoid barotrauma due to patient is progressing toward ARDS and if ABGs pH drop below 7.2 the patient will need intubation at the time . primary team had goals of care discussion with patient family members and patient and decision-maker Yassine Harris about patient current condition and overall prognosis they wish to continue with full code. Around 22:20 p.m. rapid response was called due to increased work of breathing, tachypnea and altered mental status. 8 PM ABG showed pH 7.39 pCO2 47 pO2 of 76 HCO3 of 29 otherwise overnight patient became altered and restless. Vitals were rapid BP 108/46, heart rate 90 RR 27 SpO2 96% on BiPAP. We called patient decision maker Yassine Harris about the patient critical medical condition that the patient at this point due to increased work of breathing will require intubation to improve oxygen requirements, family member understood the situation and he stated that he will like her to be intubated, and decision was made to transfer the patient to the ICU for intubation in the setting acute hypoxic respiratory failure secondary in the setting of influenza pneumonia and superimposed bacterial pneumonia. 08/04/2024: Patient was seen and examined by bedside, patient continues to be on ventilator, initially sedation was weaned off but resumed again as patient continues to require mechanical ventilation, vancomycin and Zosyn were discontinued as patient's clinical presentation, labs, imagings are not consistent with bacterial pneumonia, will continue patient on oseltamivir for influenza but will repeat influenza A/B PCR as no test results showing on patient's labs/serology, CBC only noted for increase in WBC to 12.5, CMP shows improvement in renal function and normalization of lactate level but AST/ALT continue to increase with levels around 600 in setting of ischemic injury, will continue to trend. Previous echocardiogram on 05/13 was noted for moderate/severe aortic stenosis with V-max gradient 3.5, cardiology was consulted for possible TAVR, recommendations pending. At the meantime we will continue cautiously diuresing patient to achieve - 1-1.5 L net balance. 08/05/2024; patient was seen and examined by bedside, remains on sedation with fentanyl, will wean patient off sedation and evaluate for possible SBT, repeat echocardiogram showed normal EF with moderate/severe aortic stenosis with V-max of 3.5 m/S, continue patient on Bumex 1 mg every 8 hours as needed to achieve net balance of -1 L. Renal functions improving, no changes in CBC noted from prior, patient remains afebrile, renal panel noted for improving LFTs, repeat influenza PCR positive for flu A, will continue patient on oseltamivir. Weaning patient off oxygen with current FiO2 40%, will attempt switching patient to pressure support as she is more responsive and evaluated for extubation. Monitor and replete electrolytes as needed. Attempt to wean patient off fentanyl while on Precedex was unsuccessful as patient became extremely agitated, fentanyl was resumed again, will attempt weaning off sedation and spontaneous breathing trial again tomorrow. 08/06/2024; patient was seen and examined by bedside, doing fairly well with no acute overnight events reported, vitals stable with patient on minimal vent settings, fluid net balance 650cc started weaning patient off fentanyl for spontaneous awakening trials, patient was found to be alert and follows commands but failed initial SBT. Patient was extubated to VT on second attempt, no significant change was noted in patient's CBC, CMP was noted for hypernatremia in setting of decreased oral intake and diuresis, patient was given 250 cc of free water, and will start patient on water at a rate of 10 cc/hour. CMP also noted for improvement in LFTs but showed mild decline in renal function with creatinine increasing to 1.6 likely in settings of diuresis, will continue careful fluid removal to achieve a goal of around 1 liter. Patient continues to be on Oseltamavir until 08/08Continue to monitor patient overnight and if remains stable will downgrade to floor in AM. 08/07/2024; patient was seen and examined by bedside, doing well this morning continues to be on 5L of NC, vitals stable. patient on Bumix 1mg q12 as needed to achieve a net output of -1 Liter while maintaing stable hemodynamics, UOP overnight 2.5 liters, net balance -3.5 liters. No changes in CBC noted, hypernatremia with sodium at 152 and increased from 147, LFTs trending down, renal functions unchanged, patient started on 250cc free water every 6 hours. Patient will be downgraded to [facility] as she no longer requires ICU level of care. Patient will be signed off to hospitalist team for resumption of care starting 08/08/2024. 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 Secondary to hypoxia and sedation. CVS: #Cardiogenic Shock---Resolved Most likely septic shock in the setting of influenza pneumonia and pneumonia and superimposed bacterial pneumonia MAP dropped below 65 after intubation ? Started Levophed gtt. to keep MAP above 65 ? Wean off as tolerated ? Repeat echocardiogram shows moderate/severe aortic stenosis with Vmax of 3.5 M/S ? Bumix 1mg prn as needed to achieve net loss of around -1 Liter. #Acute decompensated HFpEF 55 - 60% Patient has history of HFpEF 55-60% March 2024 Stage I distolic dysfunction BNP 518, troponin were negative Chest x-ray showed prominent vascular congestion including central vascular engorgemet, Moderate CHF ? Bumix 1mg prn as needed to achieve net loss of around -1 Liter. ? Strict in and out ? Daily weight ? Follow-up electrolytes and replete as necessary #Aortic stenosis #History of A-fib Rate controlled on amiodarone [id number] 3 not on anticoagulation per cardiology recommendation due to high risk of bleeding ? Continue metoprolol succinate XL 25 p.o. daily ? Continue amiodarone 200 mg p.o. twice daily ? Per cardio patient doesn't require TAVR #History of hypertension ? Hold home amlodipine in the setting of blood pressure PULM: #Acute hypoxic respiratory failure----Improving In setting of Obstructive shock 2/2 Aortic stenosis and CHF exacerbation. Patient tested positive for influenza A on admission and was hypoxic on presentation with SpO2 88% X-ray showed moderate CHF with moderate enlargement of library monitor prominent vascular congestion with central vascular engorgement and perihilar vascular edema. ABG pH 7.39, pCO2 47, pO2 76 and HCO3 29 During the day patient had multiple rapid's due to increased work of breathing and hypoxia and possible progression to ARDS for which decision was made to intubate and transfer the patient to the ICU Vent settings: AC/VC VT 375 RR 30 PEEP 10 FiO2 100 ? Follow-up ABGs ? Follow-up chest x-ray ? Continue diuresis as needed to achieve daily goal of -1 Liter. #Influenza pneumonia ? See ID as below RENAL: #Hypernatremia Patient given 250cc of free water. Free water 250cc/q6 Start patient on water 10cc/hr. #CKD stage IIIb Patient has past medical history of CKD no history of diabetes previous A1c 6.2% 05/2024 - Strict ins and outs - Avoid nephrotoxic drugs - Renally dose medications - Follow-up CMP #Lactic acidosis----Resolved. In the setting of hypoxia and shock Lactic acid 3.3=>4.2 ? Trend lactic acid every 3 hours ENDO: Stable HEME/ONC: Stable ID: #Influenza pneumonia On admission patient was positive for influenza and was hypoxic with SpO2 88% on 9 oxygen WBCs within normal limits on admission, lactic acid 4.2 on admission X-ray showed moderate CHF with moderate enlargement of library monitor prominent vascular congestion with central vascular engorgement and perihilar vascular edema Patient did not receive per sepsis protocol 30 cc/kg IV fluids due to decompensated CHF ? Continue oseltamivir 30 mg daily (08/02?08/07) ? Continue IV Zosyn and vancomycin (08/02? ? Continue DuoNebs every 4 hours scheduled ? Continue IV methylprednisolone 40 mg daily ? Follow-up blood and urine cultures ? Follow-up sputum culture and Gram ? Follow-up IgM and IgG cocci ? Follow-up CBC GI: #Acute liver injury----Improving 2/2 Cardiogenic shock. Continue management as per CVS. #Tube feeding at rate of 20cc/hr. Failed swallow evaluation by speech therapy. MSK: Stable SKIN: Stable FEN: N.p.o. Lines: Peripheral line DVT prophylaxis: Heparin subcu GI prophylaxis: Protonix CODE STATUS: Full code patient/decision maker Yassine Harris () phone number [phone] Patient's plan of care discussed with attending Dr Emily Garza, PGY-3
[2024-08-07] MEDS: DEXTROSE 5%-WATER 500 ML 75 ML IV (18:36)
[2024-08-08] VITALS (18 sets, daily range): BP systolic 107–139; BP diastolic 49–67; PULSE 61–73; RESP 12–21; TEMP 36.1–36.6; O2SAT 91–96; BMI 25.0
[2024-08-08] MEDS: ALBUTEROL/IPRATROPIUM (Duoneb) RT SOL 3 ML NEBU INH ×6 (02:13→23:02)
[2024-08-08] MEDS: HEPARIN SOD INJ 5000 UNIT/ML VIAL SC ×3 (05:30→21:51)
[2024-08-08] MEDS: INSULIN LISPRO (AdmeLOG) 1 UNIT/0.01 ML UNIT SC ×4 (05:31→23:30)
[2024-08-08 06:01] LABS: Basophils % (Auto) 0 % (0-2.5); Eosinophils % (Auto) 0 % (0-10); Hemoglobin 11.4 g/dL (12.0-16.0); Immature Granulocytes % (Auto) 1 % (0-0); Immature Granulocytes Auto 0.13 Thou/mm3 (0.00-0.00); Lymphocytes % (Auto) 10 % (10-50); Mean Corpuscular HGB Conc 30.8 g/dl (31.0-37.0); Mean Corpuscular Hemoglobin 27.6 pg (25.0-35.0); Mean Corpuscular Volume 90 fL (80-100); Monocytes % (Auto) 10 % (0-12); Neutrophils # (Auto) 7.6 Thou/mm3 (1.8-7.7); Neutrophils % (Auto) 78 % (37-80); Nucleated Red Blood Cell % 0 /100 WBC (0); Platelet Count 154 Thou/mm3 (140-440); RDW Standard Deviation 53.2 fL (36.4-46.3); Red Blood Count 4.13 Miln/mm3 (4.00-5.20); White Blood Count 9.7 Thou/mm3 (3.6-11.0)
[2024-08-08 06:50] LABS: Alanine Aminotransferase 212 U/L (10-49); Albumin, Serum 3.4 gm/dL (3.4-4.8); Albumin/Globulin Ratio 1.4 (1.2-2.2); Alkaline Phosphatase 146 U/L (46-116); Anion Gap 7 (7-16); Aspartate Amino Transferase 195 U/L (0-34); BUN/Creatinine Ratio 26 Ratio (12-20); Bilirubin,Total 0.5 mg/dL (0.3-1.2); Blood Urea Nitrogen 42 mg/dL (9-23); Calcium 8.8 mg/dL (8.3-10.6); Calcium (Corrected) 9.3 mg/dL (8.5-10.1); Carbon Dioxide 33.8 mMol/L (20.0-31.0); Chloride 110 mMol/L (98-107); Creatinine (Component) 1.6 mg/dL (0.6-1.3); Estimated Creatinine Clearance 22.3 mL/min (>60); Globulin 2.4 gm/dL (2.3-3.5); Glucose 177 mg/dL (74-106); Osmolality,Calculated 314 (275-295); Potassium 3.9 mMol/L (3.4-5.1); Sodium 151 mMol/L (136-145); Total Protein 5.8 gm/dL (5.7-8.2); eGFR 31 See Note
[2024-08-08] MEDS: METOPROLOL SUCCINATE XL 25 MG TABCR 12.5 MG PO ×2 (08:41→21:50)
[2024-08-08] MEDS: AMIODARONE HCL 200 MG TABLET PO ×2 (08:42→21:49)
[2024-08-08] MEDS: POTASSIUM CHLORIDE 10% 20 MEQ/15 ML UDC PO (08:42)
[2024-08-08] MEDS: ATORVASTATIN CALCIUM 20 MG TABLET 80 MG PO (08:42)
[2024-08-08] MEDS: PANTOPRAZOLE INJ 40 MG VIAL IV (08:43)
[2024-08-08] MEDS: DEXTROSE 5%-WATER 500 ML 75 ML IV (08:47)
--- NOTE | 2024-08-08 09:41 | ESPR_ITS ---
<Statement entered by Portia Chang MD - 08/08/24 16:49> HFpEF 55-60% CKD stage IIIb, severe arctic stenosis, history of colon cancer postresection, A-fib on amiodarone, diabetes mellitus type 2 who was admitted for acute hypoxic respiratory failure and sepsis in the setting influenza pneumonia and superimposed bacterial pneumonia as well as CHF exacerbation, and downgraded from the ICU yesterday. Today, she was on 10L Oxymask. On physical exam she has scattered rhonchi and productive cough. We will get a repeat chest x-ray, order an acapella device and switch her over to high flow nasal cannula for some PEEP support. On her labs she was also noted to have hyponatremia at 151. We will discontinue IV fluids and just do free water flushes through the NG tube. We will continue her cardiac medications and will evaluate for diuresis tomorrow. Portia Chang MD PGY-3 Documentation for date of: 08/08/24 Subjective Subjective Interval history: Patient is an 88-year-old female with a past medical history of hypertension CHF diastolic dysfunction HFpEF (60 to 65%) on 04/27/2024, CAD s/p stent in right coronary artery, aortic stenosis, carotid disease, s/p endarterectomy (2020& 2023), history of atrial fibrillation (not on Eliquis as patient is currently sinus and has a risk of bleeding?followed up with Dr. Barton orientation and mobility instructor), and CKD. Admitted initially on 08/02/2024 for acute hypoxic respiratory failure and upgraded to ICU. Patient downgraded on 08/08/2024 for continued medical management. No overnight events reported for patient. Patient has been concerned with NG tube placement and discomfort, but explained at length the risk of aspiration given difficulty swallow and evaluation from speech therapy recommending continued NG tube. Paitne denied chest pain or with some dyspnea. Patichristina is currenlty on 10 liters oxy mask->transitioned back to high flow. Exam Vital Signs Temp Pulse Resp BP Pulse Ox O2 Del Method O2 Flow Rate 97 F 69 14 118/59 L 94 L Nasal Cannula 10 08/08/24 04:00 08/08/24 08:42 08/08/24 06:53 08/08/24 08:42 08/08/24 06:53 08/08/24 04:00 08/08/24 06:53 FiO2 30 08/08/24 04:00 Narrative Exam General Appearance: Alert & Oriented X3, well-nourished female who is lying in bed in no acute distress HEENT: Skull symmetrical and atraumatic. Conjunctivae pale pink and moist. Pupils equal, round, reactive to light and accommodation (PERRL). External ear without lesion or discharge. Straight, nares patient, mucosa pink, no discharge. No thyroid nodule appreciated. Cardio: Normal Rate and Rhythm with S1 and S2 heart sounds. Pulses regular and equal bilaterally. Possible holosystolic. No bruits on carotid auscultation. Peripheral edema improved, +1 Lungs: Symmetric expansion. Chest and back non-tender. Breath sounds vesicular with rhonchi appreciated through out lung martinez. Abdomen: Non-tender, Non-distended, Normal Reactive Bowel Sounds Neuro: Alert, cooperative, oriented to person, place, and time. Speech clear. CN grossly intact. Upper motor strength 5/5 and Lower motor strength 5/5. Sensation intact. Objective Labs 08/09/24 04:27 08/09/24 04:27 Labs: Laboratory Results - last 24 hr 08/08/24 04:15 WBC 9.7 RBC 4.13 Hgb 11.4 L Hct 37.0 MCV 90 MCH 27.6 MCHC 30.8 L RDW Std Deviation 53.2 H Plt Count 154 Neut % (Auto) 78 Lymph % (Auto) 10 [place] % (Auto) 10 Eos % (Auto) 0 Baso % (Auto) 0 Neut # (Auto) 7.6 Lymph # (Auto) 1.0 [place] # (Auto) 1.0 H Eos # (Auto) 0.0 Baso # (Auto) 0.0 Immature Gran # (Auto) 0.13 H Absolute Nucleated RBC 0.00 Immature Gran % 1 H Nucleated RBC % 0 Sodium 151 H Potassium 3.9 D Chloride 110 H Carbon Dioxide 33.8 H Anion Gap 7 BUN 42 H Creatinine 1.6 H Estim Creat Clear Calc 22.3 L eGFR 31 L BUN/Creatinine Ratio 26 H Glucose 177 H Calculated Osmolality 314 H Calcium 8.8 Corrected Calcium 9.3 Total Bilirubin 0.5 AST 195 H ALT 212 H Alkaline Phosphatase 146 H D Total Protein 5.8 Albumin 3.4 Globulin 2.4 Albumin/Globulin Ratio 1.4 ABG Interpretation ABG results: 08/02/24 08/02/24 08/02/24 11:32 15:23 16:47 ABG pH 7.37 7.40 ABG pCO2 50 H 44 ABG pO2 36 L* 80 L D ABG HCO3 29 H 27 H ABG O2 Saturation 64 L 96 ABG Base Excess 3 2 VBG pH 7.48 VBG pCO2 35 L VBG pO2 46 VBG Base Excess 3 08/02/24 08/02/24 08/03/24 20:46 23:49 03:08 ABG pH 7.39 7.45 7.48 H ABG pCO2 47 37 D 34 ABG pO2 76 L 248 H D 160 H D ABG HCO3 29 H 25 25 ABG O2 Saturation 95 99 H 98 ABG Base Excess 3 2 2 VBG pH VBG pCO2 VBG pO2 VBG Base Excess 08/03/24 08/03/24 08/04/24 05:03 09:09 04:23 ABG pH 7.45 7.38 7.42 ABG pCO2 37 43 46 ABG pO2 55 L* D 51 L* 92 D ABG HCO3 26 26 30 H ABG O2 Saturation 90 L 85 L 97 ABG Base Excess 2 0 5 H VBG pH VBG pCO2 VBG pO2 VBG Base Excess 08/05/24 08/06/24 04:47 04:07 ABG pH 7.38 7.42 ABG pCO2 50 H 49 H ABG pO2 93 73 L D ABG HCO3 30 H 32 H ABG O2 Saturation 96 94 ABG Base Excess 4 H 7 H VBG pH VBG pCO2 VBG pO2 VBG Base Excess Quality Measures Quality Measures VTE prophylaxis (Heparin subcut) Advance care planning discussed with:: patient and spouse Assessment & Plan Assessment Current Active Medications: Generic Name Dose Route Start Last Admin Trade Name Freq PRN Reason Stop Dose Admin Acetaminophen 650 mg 08/02/24 13:42 Acetaminophen 325 Mg Tablet PO 09/01/24 13:41 Q6H PRN Mild Pain 1-3 or Fever >100.4 Albuterol/Ipratropium 3 ml 08/02/24 16:45 08/08/24 06:52 Albuterol/Ipratropium (Duoneb) Rt Cindy 3 Ml Nebu INH 09/01/24 16:44 3 ml Q4HRRT JORGE ALBERTO Administration Amiodarone HCl 200 mg 08/03/24 09:00 08/08/24 08:42 Amiodarone Hcl 200 Mg Tablet PO 09/02/24 08:59 200 mg BID JORGE ALBERTO Administration Amlodipine Besylate 5 mg 08/02/24 14:20 08/02/24 15:52 Amlodipine Besylate 5 Mg Tablet PO 09/01/24 14:19 5 mg QDAY JORGE ALBERTO Administration Atorvastatin Calcium 80 mg 08/03/24 09:00 08/08/24 08:42 Atorvastatin Calcium 20 Mg Tablet PO 09/02/24 08:59 80 mg QDAY JORGE ALBERTO Administration Dextrose 25 ml 08/02/24 16:39 Dextrose 50%-Water Inj 50 Ml Syringe IV 09/01/24 16:38 Q15MIN PRN BG 50-70 responsive npo pt Dextrose 50 ml 08/02/24 16:39 Dextrose 50%-Water Inj 50 Ml Syringe IV 09/01/24 16:38 Q15MIN PRN BG <50 OR BG <70 & pt unresponsive Glucagon 1 mg 08/02/24 16:39 Glucagon Inj 1 Mg Vial IM Q15MIN PRN BG <70, and no IV access Guaifenesin 100 mg 08/02/24 14:33 08/02/24 15:54 Guaifenesin Syrup 200 Mg/10 Ml Udc PO 09/01/24 14:32 100 mg QID PRN Administration COUGH Protocol Guaifenesin/Dextromethorphan 1 each 08/02/24 15:30 Guaifenesin/Dm Tablet PO 09/01/24 15:25 Q4HR PRN COUGH Heparin Sodium (Porcine) 5,000 unit 08/03/24 22:00 08/08/24 05:30 Heparin Sod Inj 5000 Unit/Ml Vial SC 08/17/24 21:59 5,000 unit Q8HR JORGE ALBERTO Administration Dextrose 500 mls @ 75 mls/hr 08/08/24 07:39 08/08/24 08:47 D5w IV 08/08/24 14:18 75 mls/hr .Q6H40M ONE Administration Insulin Human Lispro 0 unit 08/03/24 06:00 08/08/24 05:31 Insulin Lispro (Admelog) 1 Unit/0.01 Ml Unit SC 09/02/24 05:59 2 unit Q6HR JORGE ALBERTO Administration Protocol Metoprolol Succinate 12.5 mg 08/06/24 21:00 08/08/24 08:41 Metoprolol Succinate Xl 25 Mg Tabcr PO 09/05/24 20:59 12.5 mg BID JORGE ALBERTO Administration Pantoprazole Sodium 40 mg 08/03/24 09:00 08/08/24 08:43 Pantoprazole Inj 40 Mg Vial IV 09/02/24 08:59 40 mg QDAY JORGE ALBERTO Administration Sodium Chloride 3 ml 08/02/24 11:12 08/02/24 11:15 Sodium Chloride Rt Cindy 0.9% 3 Ml Nebu INH 09/01/24 11:11 3 ml PRN PRN Administration SOLN Plan Patient is an 88-year-old female with a past medical history of hypertension CHF diastolic dysfunction HFpEF (60 to 65%) on 04/27/2024, CAD s/p stent in right coronary artery, aortic stenosis, carotid disease, s/p endarterectomy (2020& 2023), history of atrial fibrillation (not on Eliquis risk of bleeding), history of colorectal cancer, and CKD who was admitted for acute hypoxic respiratory failure. #Acute hypoxic respiratory failure secondary to CHF and pneumonia #Pneumonia, Influenza + with likley superimposed pneumonia #Sepsis, secondary to Pneumonia, resolved #Septic shock, resolved. Etiology: Influenza positive on admission in acute hypoxic respiratory failure from pneumonia likely secondary to influenza positive, patient currently requires oxygen support. DDx: UTI less likely as no symptoms of UTI vs [place] less likley given troponins <0.02. No STEM elevation. -WBC 9.7 (08/08/2024) -Cxr (08/08/2024): Moderate CHF, Right Base Pneumonia -Cxr (08/02/2024): Moderate CHF, perihilar basilar edema -Urine Culture NO Growth -Blood Culture: No growthin -Sputum Culture: Tia Albicans Plan: -Add Nystatin mouth wash AM -Duonebs scheduled -Guifensen PRN -Chest Physiology & Acapella -Oseltamivir 30 mg QDay-course completed -Oxygen Support, currenlty on High Flow. -Consider ABG if worsening work of breathing #Hypernatremia, Hypovolemic #Metabolic Alkalosis, secondary to diuresis Etiology: Patient was being diuresed on Bumex in ICU. Patient presented with hypernatremia after downgrade 152. Given that patient appears hypovolemic and dry up on physical exam with improved pedal edema on physical exam and improve pulmonary vascular congestion on chest x-ray, likely secondary to diuretics. DDx: Worsening CKD cannot be ruled out versus central or nephrogenic causes. Diagnostics: (08/08/2024) sodium 151, Bicarb 33.8, BUN 42, creatinine 1.6, GFR 31 Plan: -Water flushes 2 50 cc every 2 hours, if MAC fluid restriction of 1800 reached- okay to stop -Goal sodium 145 which would be a difference of 7 within the next 24 hours. -Next sodium check at 10 PM -Bumex on hold. #Acute CHF exacerbation, improving #CHF, Diastolic Dysfunciton, HFpEF 60-65% w/ moderate to serve calcified aortic stenosis (08/04/2024) Etiology: Patient has a past medical history of congestive heart failure with a BNP 518. Patient positive for orthopnea, paroxysmal nocturnal orthopnea and increasing cough. CHF exacerbation likely secondary to pneumonia Dignostics: Although patient has a past medical history of CAD status post stents, less likely secondary to [place]/no ST elevation on EKG and troponins are not elevated. PE less likely as well score is 1. Echo(08/04/2024) : Normal LV size and function. Estimated EF 60-65% Moderate to severec calcific aortic stenosis. Mild aotic regurgitation RV is normal in size. The right ventricular systolic function is mildly decreased. The estimated RVSP, 47 mmHg. RAP 15. Mild MAC. Mild MR, TR. NYHA Class: likely III Plan: -Hold Bumex -K>4 and Mg >2 -Fluid Restriction and Sodium Restriction 2 g per day -SpO <90%, support PRN -Daily Weights, Strict Ins and Outs, Fluid Striction (1800 ml), Sodium Restriction 2 grams per day -Cardiology Consult, Dr. Barton, appreciate recommendations. #Atrial Fibrillation, rate controlled #CAD s/p stents of right coronary artery #Hyperlipidemia Patient has a past medical history of Atrial Fibrillation. CHADVASC of 3. Currently not on Eliquis per Dr. Barton. Possible risk of bleeding and currently sinus. 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 FEN: NG tube w/ free water flushes DVT: on subQ heparin Code: Full code - The patient's plan was discussed with attending Dr. Mann and senior residents Dr. Bernardo Monique MD PGY1 Internal Medicine Attending Provider Attestation/Addendum I, Licha Mann DO, attest that I was physically present for the smith portions of the service and evaluated the patient with the resident and I reviewed and discussed the case with the resident and agree with the resident's findings and plans of care as documented above Patient seen and eval this a.m. Daughters are at bedside. She is currently on high flow nasal cannula with FiO2 of 60%. NG tube in place as well. Patient is noted to have bilateral crackles and rhonchi in all lung martinez. She has been receiving IV fluids for hypernatremia. However, due to concern for volume overload, will hold off on IV fluids and increase free water flushes instead. Will continue trending sodium closely. Chest x-ray appears to be slightly improved today but continues to have vascular congestion. Encourage patient to use incentive spirometer and Acapella due to productive cough and sputum. Will continue to titrate O2 as tolerated.
--- NOTE | 2024-08-08 09:48 | PC.SS ---
SS follow up note; Pending PT eval to determine discharge plan. Patient will be discharged in 1-2 days.
--- NOTE | 2024-08-08 09:58 | XR_ITS ---
Examination: AP chest single view TECHNIQUE: Portable sitting AP chest single view Exam date and time: August 08, 2024 10 0 8:00 AM Comparison August 07, 2024 INDICATIONS: Increasing hypoxia FINDINGS: Moderate CHF Mild enlargement cardiac contour Prominent vascular congestion including central vascular engorgement with bilateral perihilar edema Consider superimposed pneumonia at the right lung base Orogastric tube in the stomach Prominent osteopenia IMPRESSION: Moderate CHF Right base pneumonia
--- NOTE | 2024-08-08 09:59 | PCS.ST ---
Swallow tx/PO trials completed. See tx note for details. Pt continues to NOT be safe for PO at this time.
[2024-08-08 10:05] LABS: Magnesium 2.8 mg/dL (1.6-2.6)
--- NOTE | 2024-08-08 10:36 | PC.SS ---
SS follow up note; SS was informed by PT that patient was needing SNF for PT. SS contacted patient's daughter Lisbeth and she is agreeable to have patient discharge to SNF. SS submitted inquiry through [employer]. SS will also submit PASSR.
[2024-08-08 10:59] LABS: Sodium 149 mMol/L (136-145)
--- NOTE | 2024-08-08 11:18 | PC.SS ---
SS follow up note; SS followed up with patient's daughter, Lisbeth in regards to [facility]. Lisbeth reported that she needs to talk to family in regards to Discharge plan and would like time to decide what the disposition would be. SS informed her that The reported that patient might be discharged tomorrow or Sunday. SS informed her that all 4 local facilities accepted patient. PASSR was sent via [facility] to all facilities. SS will need to follow up with Lisbeth in regards to discharge plan.
[2024-08-08 15:48] LABS: Sodium 148 mMol/L (136-145)
--- NOTE | 2024-08-08 17:32 | ESPR_ITS ---
<Statement entered by Thaddeus Barton MD - 08/09/24 13:15> The patient is evaluated by me personally continues to require high flow oxygen has mild pulmonary congestion but there is influenza pneumonia possibly contributing to her hypoxemia is unlikely that patient has significant high volume overload causing her heart failure symptoms at this time appears to be mostly influenza predominantly in his diuretic therapy can be backed off to lower doses as necessary and her hyponatremia also suggest that she is clinically on the right side we will monitor sodium levels closely. I reviewed the findings agree with the treatment plan recommendations as documented by PGY 2 Dr. Ryan Documentation for date of: 08/08/24 Subjective Subjective Interval history: 88-year-old female patient with significant medical history for HFpEF, moderate to severe aortic stenosis, coronary artery disease s/p RCA stent placements, atrial fibrillation, bilateral endarterectomy (2020 and 2023), severe peripheral artery disease, chronic kidney disease, colon cancer sp resection, DM2, hypertension and hypercholesterolemia presented with worsening shortness of breath and productive cough was admitted for AHRF and sepsis due to influenza pneumonia with superimposed bacterial infection and CHF exacerbation. Patient was administered Tamiflu and started on IV Vanco and Zosyn. Initially patient was started on oxygen mask as she was hypoxic, due to continuing desaturation in the 70s patient was transitioned to BiPAP. Multiple rapid responses were called as patient continued to be desatting and was becoming increasingly tired. Goals of care discussion were held with family, patient's code status was switched to full code and decision was made to upgrade patient to ICU, intubated and started on levophed as patient was progressing towards ARDS. Cardiology was consulted for further management. 08/04/24: Echocardiogram on this admission indicates moderate to severe aortic stenosis with a gradient of 48 mmHg H (mean 30) with Vmax of 3.5 and LVEF 60- 65%. On physical exam patient is does not seem to be fluid overloaded, patient was recently seen at the clinic and was found to be asymptomatic. Patient seems to have an ARDS pattern secondary to influenza pneumonia. Continue current management, if no improvement we will consider right heart swan cath. 08/05/24: Patient has been weaned off of Levophed but still intubated. FiO2 at 40% and on 20 L rate. Morning chest x-ray seems to be worse than previous with more congestion, greater on the right side. Renal function and transaminitis improving. Patient had 1.6 L urine output and 1 bowel movement. Patient started on Bumex 1mg with a goal of -1 to 1.5 L overall fluid balance. Per primary team, picture is more of a obstructive shock. From cardiology point of view, no need for TAVR at this point. 08/06/24: No significant events overnight. Labs significant for hypernatremia most likely secondary to diuresis and decrease p.o. intake. While there was a mild decline in renal function patient's LFTs have been downtrending. Patient had 1.5 L of urine output with overall -650 mL net fluid balance. Patient was extubated on second attempt and was started on nasal cannula without complications. Currently patient on Bumex 1mg as needed which he was administered today. 08/07/24: No events overnight. Vitals stable, currently on 5L nasal cannula. Patient had 2.3L of urine output with overall -2.2L of net fluid balance. While most labs are improving, sodium has increased to 152. Patient currently on 250 mL free water flush Q6H. Patient receiving nutrition through NG tube. Patient stable to be downgraded for floor team to take over care starting tomorrow. We recommend discontinuing diuresis and giving patient x1 500ml D5W IVF. 08/08/24: Patient was started on HFNC overnight as she was found to be hypoxic. Morning labs and x-ray reviewed. Sodium improving/downtrending to 149, free water flush frequency increased by primary team. Renal function stable/same as yesterday. We recommend withholding diuretics. Patient's hypoxia likely due to ARDS, she is not fluid overloaded. Exam Vital Signs Temp Pulse Resp BP Pulse Ox O2 Del Method O2 Flow Rate 97.9 F 67 16 109/55 L 91 L High Flow Nasal Cannula 20 08/08/24 16:00 08/08/24 16:00 08/08/24 16:00 08/08/24 16:00 08/08/24 16:00 08/08/24 16:00 08/08/24 16:00 FiO2 60 08/08/24 16:00 Narrative Exam Constitutional: Frail looking female, in mild distress, cooperative HEENT: NCAT, EOMI, reactive round pupils b/l,moist mucous membranes, on nasal cannula Lung: Mechanically ventilated, no wheezing, no rhonchi, no crackles, decreased air entry on right lower lobe side Heart: Regular S1S2, no murmurs, gallops, or rubs Abdomen: Soft, non-distended, non-tender, bowel sounds present throughout Extremities: No cyanosis, clubbing, + trace edema, LE pulses present b/l Neurologic: Unable to perform due to sedation Skin: Warm, dry, no lesions or rashes noted Objective Labs 08/08/24 04:15 08/08/24 21:25 Labs: Laboratory Results - last 24 hr 08/08/24 08/08/24 08/08/24 04:15 10:25 15:31 WBC 9.7 RBC 4.13 Hgb 11.4 L Hct 37.0 MCV 90 MCH 27.6 MCHC 30.8 L RDW Std Deviation 53.2 H Plt Count 154 Neut % (Auto) 78 Lymph % (Auto) 10 [place] % (Auto) 10 Eos % (Auto) 0 Baso % (Auto) 0 Neut # (Auto) 7.6 Lymph # (Auto) 1.0 [place] # (Auto) 1.0 H Eos # (Auto) 0.0 Baso # (Auto) 0.0 Immature Gran # (Auto) 0.13 H Absolute Nucleated RBC 0.00 Immature Gran % 1 H Nucleated RBC % 0 Sodium 151 H 149 H 148 H Potassium 3.9 D Chloride 110 H Carbon Dioxide 33.8 H Anion Gap 7 BUN 42 H Creatinine 1.6 H Estim Creat Clear Calc 22.3 L eGFR 31 L BUN/Creatinine Ratio 26 H Glucose 177 H Calculated Osmolality 314 H Calcium 8.8 Corrected Calcium 9.3 Magnesium 2.8 H Total Bilirubin 0.5 AST 195 H ALT 212 H Alkaline Phosphatase 146 H D Total Protein 5.8 Albumin 3.4 Globulin 2.4 Albumin/Globulin Ratio 1.4 ABG Interpretation ABG results: 08/02/24 08/02/24 08/02/24 11:32 15:23 16:47 ABG pH 7.37 7.40 ABG pCO2 50 H 44 ABG pO2 36 L* 80 L D ABG HCO3 29 H 27 H ABG O2 Saturation 64 L 96 ABG Base Excess 3 2 VBG pH 7.48 VBG pCO2 35 L VBG pO2 46 VBG Base Excess 3 08/02/24 08/02/24 08/03/24 20:46 23:49 03:08 ABG pH 7.39 7.45 7.48 H ABG pCO2 47 37 D 34 ABG pO2 76 L 248 H D 160 H D ABG HCO3 29 H 25 25 ABG O2 Saturation 95 99 H 98 ABG Base Excess 3 2 2 VBG pH VBG pCO2 VBG pO2 VBG Base Excess 08/03/24 08/03/24 08/04/24 05:03 09:09 04:23 ABG pH 7.45 7.38 7.42 ABG pCO2 37 43 46 ABG pO2 55 L* D 51 L* 92 D ABG HCO3 26 26 30 H ABG O2 Saturation 90 L 85 L 97 ABG Base Excess 2 0 5 H VBG pH VBG pCO2 VBG pO2 VBG Base Excess 08/05/24 08/06/24 04:47 04:07 ABG pH 7.38 7.42 ABG pCO2 50 H 49 H ABG pO2 93 73 L D ABG HCO3 30 H 32 H ABG O2 Saturation 96 94 ABG Base Excess 4 H 7 H VBG pH VBG pCO2 VBG pO2 VBG Base Excess Quality Measures Quality Measures VTE prophylaxis (Heparin subcut) Advance care planning discussed with:: other Assessment & Plan Assessment Current Active Medications: Generic Name Dose Route Start Last Admin Trade Name Freq PRN Reason Stop Dose Admin Acetaminophen 650 mg 08/02/24 13:42 Acetaminophen 325 Mg Tablet PO 09/01/24 13:41 Q6H PRN Mild Pain 1-3 or Fever >100.4 Albuterol/Ipratropium 3 ml 08/02/24 16:45 08/08/24 15:20 Albuterol/Ipratropium (Duoneb) Rt Cindy 3 Ml Nebu INH 09/01/24 16:44 3 ml Q4HRRT JORGE ALBERTO Administration Amiodarone HCl 200 mg 08/03/24 09:00 08/08/24 08:42 Amiodarone Hcl 200 Mg Tablet PO 09/02/24 08:59 200 mg BID JORGE ALBERTO Administration Amlodipine Besylate 5 mg 08/02/24 14:20 08/02/24 15:52 Amlodipine Besylate 5 Mg Tablet PO 09/01/24 14:19 5 mg QDAY JORGE ALBERTO Administration Atorvastatin Calcium 80 mg 08/03/24 09:00 08/08/24 08:42 Atorvastatin Calcium 20 Mg Tablet PO 09/02/24 08:59 80 mg QDAY JORGE ALBERTO Administration Dextrose 25 ml 08/02/24 16:39 Dextrose 50%-Water Inj 50 Ml Syringe IV 09/01/24 16:38 Q15MIN PRN BG 50-70 responsive npo pt Dextrose 50 ml 08/02/24 16:39 Dextrose 50%-Water Inj 50 Ml Syringe IV 09/01/24 16:38 Q15MIN PRN BG <50 OR BG <70 & pt unresponsive Glucagon 1 mg 08/02/24 16:39 Glucagon Inj 1 Mg Vial IM Q15MIN PRN BG <70, and no IV access Guaifenesin 100 mg 08/02/24 14:33 08/02/24 15:54 Guaifenesin Syrup 200 Mg/10 Ml Udc PO 09/01/24 14:32 100 mg QID PRN Administration COUGH Protocol Guaifenesin/Dextromethorphan 1 each 08/02/24 15:30 Guaifenesin/Dm Tablet PO 09/01/24 15:25 Q4HR PRN COUGH Heparin Sodium (Porcine) 5,000 unit 08/03/24 22:00 08/08/24 13:34 Heparin Sod Inj 5000 Unit/Ml Vial SC 08/17/24 21:59 5,000 unit Q8HR JORGE ALBERTO Administration Insulin Human Lispro 0 unit 08/03/24 06:00 08/08/24 11:39 Insulin Lispro (Admelog) 1 Unit/0.01 Ml Unit SC 09/02/24 05:59 3 unit Q6HR JORGE ALBERTO Administration Protocol Metoprolol Succinate 12.5 mg 08/06/24 21:00 08/08/24 08:41 Metoprolol Succinate Xl 25 Mg Tabcr PO 09/05/24 20:59 12.5 mg BID JORGE ALBERTO Administration Pantoprazole Sodium 40 mg 08/03/24 09:00 08/08/24 08:43 Pantoprazole Inj 40 Mg Vial IV 09/02/24 08:59 40 mg QDAY JORGE ALBERTO Administration Sodium Chloride 3 ml 08/02/24 11:12 08/02/24 11:15 Sodium Chloride Rt Icndy 0.9% 3 Ml Nebu INH 09/01/24 11:11 3 ml PRN PRN Administration SOLN Plan 88-year-old female patient with significant medical history for HFpEF, moderate to severe aortic stenosis, coronary artery disease s/p RCA stent placements, atrial fibrillation, bilateral endarterectomy (2020 and 2023), severe peripheral artery disease, chronic kidney disease, colon cancer sp resection, DM2, hypertension and hypercholesterolemia presented with worsening shortness of breath and productive cough was admitted for AHRF and sepsis due to influenza pneumonia with superimposed bacterial infection and CHF exacerbation. #HFpEF (60 to 65%), improving #Hx of CAD s/p RCA stent placement #Hx of s/p bilateral endarterectomy #Hx of hypertension Echocardiogram indicates moderate to severe aortic stenosis with a gradient of 48 mmHg H (mean 30) with Vmax of 3.5 and LVEF 60-65% On addmission BNP 518 and CXR showed prominent vascular congestion On physical exam, patient not fluid overloaded Plan: ? Strict in and out - Hold off diuresis ? Daily weight ? Follow-up electrolytes and replete as necessary - Future TAVR in outpatient setting #Atrial fibrillation, rate controlled #Moderate-severe aortic stenosis [id number] 3 not on anticoagulation due to high risk of bleeding Plan: ? Continue amiodarone 200 mg BID ? No need for TAVR at this point #Shock, septic vs. cardiogenic, resolved In the setting of fever, influenza PNA and possibly superimposed bacterial pneumonia MAP dropped below 65 after intubation Levophed weaned off on 08/05/24 #Sepsis secondary to #Influenza #Pneumonia #CKD IIIb #DM2 #Hx of colon cancer s/p resection -Management per primary team This patient care was discussed with my attending Dr. Mick Lester MD PGY-2 Disclaimer: Minor errors in financial accountant may be present since this note was dictated by speech recognition software.
[2024-08-08 21:54] LABS: Sodium 148 mMol/L (136-145)
[2024-08-09] VITALS (17 sets, daily range): BP systolic 119–148; BP diastolic 43–73; PULSE 65–72; RESP 11–23; TEMP 35.9–36.6; O2SAT 90–98; BMI 25.0
[2024-08-09] MEDS: INSULIN LISPRO (AdmeLOG) 1 UNIT/0.01 ML UNIT SC ×4 (05:20→23:26)
[2024-08-09] MEDS: HEPARIN SOD INJ 5000 UNIT/ML VIAL SC ×2 (05:20→20:19)
[2024-08-09 05:48] LABS: Basophils % (Auto) 0 % (0-2.5); Eosinophils % (Auto) 0 % (0-10); Hematocrit 34.2 % (36.0-46.0); Hemoglobin 10.5 g/dL (12.0-16.0); Immature Granulocytes % (Auto) 2 % (0-0); Immature Granulocytes Auto 0.16 Thou/mm3 (0.00-0.00); Lymphocytes # (Auto) 0.9 Thou/mm3 (1.0-4.8); Lymphocytes % (Auto) 9 % (10-50); Mean Corpuscular HGB Conc 30.7 g/dl (31.0-37.0); Mean Corpuscular Hemoglobin 28.2 pg (25.0-35.0); Mean Corpuscular Volume 92 fL (80-100); Monocytes # (Auto) 0.8 Thou/mm3 (0.0-0.8); Monocytes % (Auto) 8 % (0-12); Neutrophils # (Auto) 8.2 Thou/mm3 (1.8-7.7); Neutrophils % (Auto) 82 % (37-80); Nucleated Red Blood Cell % 0 /100 WBC (0); Platelet Count 134 Thou/mm3 (140-440); RDW Standard Deviation 53.7 fL (36.4-46.3); Red Blood Count 3.73 Miln/mm3 (4.00-5.20)
[2024-08-09 06:39] LABS: Anion Gap 6 (7-16); Calcium 8.8 mg/dL (8.3-10.6); Carbon Dioxide 34.4 mMol/L (20.0-31.0); Chloride 109 mMol/L (98-107); Sodium 149 mMol/L (136-145)
[2024-08-09 06:43] LABS: BUN/Creatinine Ratio 26 Ratio (12-20); Blood Urea Nitrogen 36 mg/dL (9-23); Creatinine (Component) 1.4 mg/dL (0.6-1.3); Estimated Creatinine Clearance 24.9 mL/min (>60); Glucose 153 mg/dL (74-106); Magnesium 2.7 mg/dL (1.6-2.6); Osmolality,Calculated 307 (275-295); Phosphorous 2.4 mg/dL (2.4-5.1); eGFR 36 See Note
[2024-08-09 07:49] LABS: Total Iron Binding Capacity 213 mcg/dL (250-425)
[2024-08-09 07:58] LABS: Iron 42 mcg/dL (50-170); Percent Iron Saturation 19 % (20-55); Unsaturated Iron Binding 171 (225-295)
--- NOTE | 2024-08-09 07:58 | XR_ITS ---
Examination: AP chest single view Technique one AP portable upright chest single view Exam date and time: August 09, 2024 0812 hrs. Comparison August 08, 2024 Indications: Difficulty breathing today. Findings: Moderate CHF Mild to moderate enlargement cardiac contour Prominent vascular congestion with perihilar edema Orogastric tube tip distal stomach versus duodenal Impression: Moderate CHF
[2024-08-09 08:45] LABS: Base Excess 10 (-3-3); HCO3 37 mEq/L (20-26); Inspired Oxygen, FIO2 70 %; PCO2 65 mmHg (32.0-48.0); PO2 67 mmHg (83-108); pH, Arterial 7.37 (7.35-7.45)
[2024-08-09 08:46] LABS: Allen Test Not Performed; O2 Saturation 95 % (91-98); Puncture Site Right Radial
--- NOTE | 2024-08-09 09:28 | PC.NURSE ---
Patient very coarse and crackles throughout lungs, Dr. Freire at bedside and ordered to hold water flushes.
[2024-08-09] MEDS: FUROSEMIDE INJ 10 MG/ML VIAL 2 ML 20 MG IVP ×2 (10:13)
[2024-08-09] MEDS: PANTOPRAZOLE INJ 40 MG VIAL IV (10:14)
[2024-08-09] MEDS: AMIODARONE HCL 200 MG TABLET PO ×2 (10:14→20:18)
[2024-08-09] MEDS: METOPROLOL SUCCINATE XL 25 MG TABCR 12.5 MG PO ×2 (10:14→20:20)
[2024-08-09 10:51] LABS: Procalcitonin 0.31 ng/ml (0.0-0.49)
[2024-08-09] MEDS: ALBUTEROL/IPRATROPIUM (Duoneb) RT SOL 3 ML NEBU INH ×4 (10:57→23:07)
[2024-08-09] MEDS: ATORVASTATIN CALCIUM 20 MG TABLET 80 MG PO (12:21)
--- NOTE | 2024-08-09 12:33 | ESPR_ITS ---
<Statement entered by Portia Chang MD - 08/09/24 16:49> Patient seen and examined this morning at bedside. She sounds very rhonchorous saturating on high flow nasal cannula at 20 L at an FiO2 of 60%. She is net +1.49 L, likely related to the IV fluids and free water flushes that she has been receiving for hypernatremia in the setting of a diuretic holiday. We will hold off on the free water flushes for the hypernatremia and start diuresing the patient with Lasix and give trial of Diamox for the alkalosis. Portia Chang MD PGY-3 Documentation for date of: 08/09/24 Subjective Subjective Interval history: Patient is an 88-year-old female with a past medical history of hypertension CHF diastolic dysfunction HFpEF 60 to 65% (07/2024), CAD s/p stent in right coronary artery, aortic stenosis, carotid disease, s/p endarterectomy (2020& 2023), history of atrial fibrillation (not on Eliquis as patient is currently sinus and has a risk of bleeding?followed up with Dr. Barton store sales consultant), and CKD. Admitted initially on 08/02/2024 for acute hypoxic respiratory failure and upgraded to ICU. Patient downgraded on 08/08/2024 for continued medical management. Overnight, patient received approximately 1500 cc over entire day of water flushes going from 55cc-->250 cc very 2 hours, thus near 9 PM water flushes were stopped. Currenlty holding water flushes given increased crackles heard on physical exam. Lasix 40 mg IV X1 given in AM. Patient was alert and oriented when examined at bedside, complained of shortness of breath with increased work of breathing noted. Patient's high flow increased from FiO2 50-->75. Exam Vital Signs Temp Pulse Resp BP Pulse Ox O2 Del Method O2 Flow Rate 97.2 F 70 18 129/73 97 High Flow Nasal Cannula 30 08/09/24 08:00 08/09/24 10:59 08/09/24 10:59 08/09/24 10:14 08/09/24 10:59 08/09/24 08:00 08/09/24 10:59 FiO2 75 08/09/24 10:59 Narrative Exam General Appearance: Alert & Oriented X2, well-nourished female who is lying in bed with increased work of breathing using abdominal muscles. HEENT: Skull symmetrical and atraumatic. Conjunctivae pale pink and moist. Pupils equal, round, reactive to light and accommodation (PERRL). External ear without lesion or discharge. Straight, nares patient, mucosa pink, no discharge. No thyroid nodule appreciated. Cardio: Normal Rate and Rhythm with S1 and S2 heart sounds. Pulses regular and equal bilaterally. Possible holosystolic. No bruits on carotid auscultation. Peripheral edema improved, +1 Lungs: Symmetric expansion. Chest and back non-tender. Breath sounds vesicular with rhonchi and crackles appreciated. Abdomen: Non-tender, Non-distended, Normal Reactive Bowel Sounds Neuro: Yes Alert, Yes cooperative, Yes oriented to person, Yes place, and No time. Speech clear. CN grossly intact. Upper motor strength 5/5 and Lower motor strength 5/5. Sensation intact. Objective Labs 08/10/24 05:10 08/10/24 05:10 Labs: Laboratory Results - last 24 hr 08/08/24 08/08/24 08/09/24 15:31 21:25 04:27 WBC 10.0 RBC 3.73 L Hgb 10.5 L Hct 34.2 L MCV 92 MCH 28.2 MCHC 30.7 L RDW Std Deviation 53.7 H Plt Count 134 L Neut % (Auto) 82 H Lymph % (Auto) 9 L [place] % (Auto) 8 Eos % (Auto) 0 Baso % (Auto) 0 Neut # (Auto) 8.2 H Lymph # (Auto) 0.9 L [place] # (Auto) 0.8 Eos # (Auto) 0.0 Baso # (Auto) 0.0 Immature Gran # (Auto) 0.16 H Absolute Nucleated RBC 0.00 Immature Gran % 2 H Nucleated RBC % 0 Puncture Site ABG pH ABG pCO2 ABG pO2 ABG HCO3 ABG O2 Saturation ABG Base Excess FiO2 Sodium 148 H 148 H 149 H Potassium 4.0 Chloride 109 H Carbon Dioxide 34.4 H Anion Gap 6 L BUN 36 H Creatinine 1.4 H Estim Creat Clear Calc 24.9 L eGFR 36 L BUN/Creatinine Ratio 26 H Glucose 153 H Calculated Osmolality 307 H Calcium 8.8 Phosphorus 2.4 Magnesium 2.7 H Iron 42 L TIBC 213 L Iron Saturation 19 L Unsat Iron Binding 171 L Procalcitonin 0.31 08/09/24 08:33 WBC RBC Hgb Hct MCV MCH MCHC RDW Std Deviation Plt Count Neut % (Auto) Lymph % (Auto) [place] % (Auto) Eos % (Auto) Baso % (Auto) Neut # (Auto) Lymph # (Auto) [place] # (Auto) Eos # (Auto) Baso # (Auto) Immature Gran # (Auto) Absolute Nucleated RBC Immature Gran % Nucleated RBC % Puncture Site Right Radial ABG pH 7.37 ABG pCO2 65 H ABG pO2 67 L ABG HCO3 37 H ABG O2 Saturation 95 ABG Base Excess 10 H FiO2 70 Sodium Potassium Chloride Carbon Dioxide Anion Gap BUN Creatinine Estim Creat Clear Calc eGFR BUN/Creatinine Ratio Glucose Calculated Osmolality Calcium Phosphorus Magnesium Iron TIBC Iron Saturation Unsat Iron Binding Procalcitonin ABG Interpretation ABG results: 08/02/24 08/02/24 08/02/24 11:32 15:23 16:47 ABG pH 7.37 7.40 ABG pCO2 50 H 44 ABG pO2 36 L* 80 L D ABG HCO3 29 H 27 H ABG O2 Saturation 64 L 96 ABG Base Excess 3 2 VBG pH 7.48 VBG pCO2 35 L VBG pO2 46 VBG Base Excess 3 08/02/24 08/02/24 08/03/24 20:46 23:49 03:08 ABG pH 7.39 7.45 7.48 H ABG pCO2 47 37 D 34 ABG pO2 76 L 248 H D 160 H D ABG HCO3 29 H 25 25 ABG O2 Saturation 95 99 H 98 ABG Base Excess 3 2 2 VBG pH VBG pCO2 VBG pO2 VBG Base Excess 08/03/24 08/03/24 08/04/24 05:03 09:09 04:23 ABG pH 7.45 7.38 7.42 ABG pCO2 37 43 46 ABG pO2 55 L* D 51 L* 92 D ABG HCO3 26 26 30 H ABG O2 Saturation 90 L 85 L 97 ABG Base Excess 2 0 5 H VBG pH VBG pCO2 VBG pO2 VBG Base Excess 08/05/24 08/06/24 08/09/24 04:47 04:07 08:33 ABG pH 7.38 7.42 7.37 ABG pCO2 50 H 49 H 65 H ABG pO2 93 73 L D 67 L ABG HCO3 30 H 32 H 37 H ABG O2 Saturation 96 94 95 ABG Base Excess 4 H 7 H 10 H VBG pH VBG pCO2 VBG pO2 VBG Base Excess Quality Measures Quality Measures VTE prophylaxis (Heparin subcut) Advance care planning discussed with:: patient Assessment & Plan Assessment Current Active Medications: Generic Name Dose Route Start Last Admin Trade Name Freq PRN Reason Stop Dose Admin Acetaminophen 650 mg 08/02/24 13:42 Acetaminophen 325 Mg Tablet PO 09/01/24 13:41 Q6H PRN Mild Pain 1-3 or Fever >100.4 Albuterol/Ipratropium 3 ml 08/02/24 16:45 08/09/24 10:57 Albuterol/Ipratropium (Duoneb) Rt Cindy 3 Ml Nebu INH 09/01/24 16:44 3 ml Q4HRRT JORGE ALBERTO Administration Amiodarone HCl 200 mg 08/03/24 09:00 08/09/24 10:14 Amiodarone Hcl 200 Mg Tablet PO 09/02/24 08:59 200 mg BID JORGE ALBERTO Administration Amlodipine Besylate 5 mg 08/02/24 14:20 08/02/24 15:52 Amlodipine Besylate 5 Mg Tablet PO 09/01/24 14:19 5 mg QDAY JORGE ALBERTO Administration Atorvastatin Calcium 80 mg 08/03/24 09:00 08/09/24 12:21 Atorvastatin Calcium 20 Mg Tablet PO 09/02/24 08:59 80 mg QDAY JORGE ALBERTO Administration Dextrose 25 ml 08/02/24 16:39 Dextrose 50%-Water Inj 50 Ml Syringe IV 09/01/24 16:38 Q15MIN PRN BG 50-70 responsive npo pt Dextrose 50 ml 08/02/24 16:39 Dextrose 50%-Water Inj 50 Ml Syringe IV 09/01/24 16:38 Q15MIN PRN BG <50 OR BG <70 & pt unresponsive Glucagon 1 mg 08/02/24 16:39 Glucagon Inj 1 Mg Vial IM Q15MIN PRN BG <70, and no IV access Guaifenesin 100 mg 08/02/24 14:33 08/02/24 15:54 Guaifenesin Syrup 200 Mg/10 Ml Udc PO 09/01/24 14:32 100 mg QID PRN Administration COUGH Protocol Guaifenesin/Dextromethorphan 1 each 08/02/24 15:30 Guaifenesin/Dm Tablet PO 09/01/24 15:25 Q4HR PRN COUGH Heparin Sodium (Porcine) 5,000 unit 08/09/24 21:00 Heparin Sod Inj 5000 Unit/Ml Vial SC 08/23/24 20:59 BID JORGE ALBERTO Insulin Human Lispro 0 unit 08/03/24 06:00 08/09/24 12:21 Insulin Lispro (Admelog) 1 Unit/0.01 Ml Unit SC 09/02/24 05:59 1 unit Q6HR JORGE ALBERTO Administration Protocol Metoprolol Succinate 12.5 mg 08/06/24 21:00 08/09/24 10:14 Metoprolol Succinate Xl 25 Mg Tabcr PO 09/05/24 20:59 12.5 mg BID JORGE ALBERTO Administration Pantoprazole Sodium 40 mg 08/03/24 09:00 08/09/24 10:14 Pantoprazole Inj 40 Mg Vial IV 09/02/24 08:59 40 mg QDAY JORGE ALBERTO Administration Povidone Iodine 0 ml 08/08/24 21:00 08/09/24 09:21 Povidone Iodine Top Cindy 10% 120 Ml Btl TOP 08/15/24 20:59 Not Given BID JORGE ALBERTO Sodium Chloride 3 ml 08/02/24 11:12 08/02/24 11:15 Sodium Chloride Rt Cindy 0.9% 3 Ml Nebu INH 09/01/24 11:11 3 ml PRN PRN Administration SOLN Plan Patient is an 88-year-old female with a past medical history of hypertension CHF diastolic dysfunction HFpEF (60 to 65%) on 04/27/2024, CAD s/p stent in right coronary artery, aortic stenosis, carotid disease, s/p endarterectomy (2020& 2023), history of atrial fibrillation (not on Eliquis risk of bleeding), history of colorectal cancer, and CKD who was admitted for acute hypoxic respiratory failure. #Hypernatremia, Hypovolemic #Metabolic Alkalosis, secondary to diuretics Etiology: Patient was being diuresed on Bumex in ICU. Patient presented with hypernatremia after downgrade 152. Given that patient appears hypovolemic and dry up on physical exam with improved pedal edema on physical exam and improve pulmonary vascular congestion on chest x-ray, likely secondary to diuretics. DDx: Worsening CKD cannot be ruled out versus central or nephrogenic causes. (08/09/2024): Bicarbonate showing no improvement and limited improvement on Sodium. Given increased bicarbonate Acetazolamide 250 mg POx1 (via NG tube) and Lasix 40 mg X 1 on 07/20/2024 Diagnostics: (08/08/2024) sodium 151, Bicarb 34.4, BUN 36, creatinine 1.4, GFR 36--> Na 149, 150, BUN 36 Cr 1.6, GFR 36 Plan: -Holding Water Flushes (recheck tomorrow) -Goal sodium 145 which would be a difference of 7 within the next 24 hours. -Next sodium check at 10 PM -Bumex on hold. #Acute hypoxic respiratory failure secondary to CHF and pneumonia #Pneumonia, Influenza + with likley superimposed pneumonia #Sepsis, secondary to Pneumonia, resolved #Septic shock, resolved. Etiology: Influenza positive on admission in acute hypoxic respiratory failure from pneumonia likely secondary to influenza positive, patient currently requires oxygen support. DDx: UTI less likely as no symptoms of UTI vs NC less likley given troponins <0.02. No STEM elevation. 08/09/2024: high flow FiO2 increased to 75 given increased work of breathing likely secondary to increased free water flushes for hypernatremia. Currently Holding water flushes, continue to monitor Na Q6 hours Balance 1493, weight no change 64.127 -WBC 10.0 (08/08/2024) -Cxr (08/08/2024): Moderate CHF, Right Base Pneumonia -Cxr (08/02/2024): Moderate CHF, perihilar basilar edema -Urine Culture NO Growth -Blood Culture: No growthin -Sputum Culture: Tia Albicans Plan: -Lasix 40 mg X 1 08/09/2024 -Re-access patient tomorrow and pulmonary exam, may add Lasix 20 mg x 1 -Hold Bumex given bicarbonate and sodium -On high flow FiO2 75 -Consider Nystatin mouth -Duonebs scheduled -Guifensen PRN -Chest Physiology & Acapella -Oseltamivir 30 mg QDay-course completed -Consider ABG if worsening work of breathing #Acute CHF exacerbation, improving #CHF, Diastolic Dysfunciton, HFpEF 60-65% w/ moderate to serve calcified aortic stenosis (08/04/2024) Etiology: Patient has a past medical history of congestive heart failure with a BNP 518. Patient positive for orthopnea, paroxysmal nocturnal orthopnea and increasing cough. CHF exacerbation likely secondary to pneumonia Dignostics: Although patient has a past medical history of CAD status post stents, less likely secondary to NC/no ST elevation on EKG and troponins are not elevated. PE less likely as well score is 1. Echo(08/04/2024) : Normal LV size and function. Estimated EF 60-65% Moderate to severec calcific aortic stenosis. Mild aotic regurgitation RV is normal in size. The right ventricular systolic function is mildly decreased. The estimated RVSP, 47 mmHg. RAP 15. Mild MAC. Mild MR, TR. NYHA Class: likely III Plan: -Hold Bumex -K>4 and Mg >2 -Fluid Restriction and Sodium Restriction 2 g per day -SpO <90%, support PRN -Daily Weights, Strict Ins and Outs, Fluid Striction (1800 ml), Sodium Restriction 2 grams per day -Cardiology Consult, Dr. Barton, appreciate recommendations. #Atrial Fibrillation, rate controlled #CAD s/p stents of right coronary artery #Hyperlipidemia Patient has a past medical history of Atrial Fibrillation. CHADVASC of 3. Currently not on Eliquis per Dr. Barton. Possible risk of bleeding and currently sinus. 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 FEN: NG tube, HOLDING WATER FLUSHES DVT: on subQ heparin Code: Full code - The patient's plan was discussed with attending Dr. Andrew and senior residents Dr. Bernardo Monique MD PGY1 Internal Medicine Attending Provider Attestation/Addendum I have discussed and was present for the essential components of the history, physical examination, diagnosis, and treatment plan with the resident. I agree with the patient's care as documented by the resident and amended herein by me. Roverto Andrew DO. Although this document has been carefully reviewed, there may still be some phonetic and other typographical errors. These errors are purely grammatical due to imperfections in the software program and should not be construed in any way to compromise the substance of the patient's medical care during this visit.
--- NOTE | 2024-08-09 13:49 | ESPR_ITS ---
RE: REILLY TIDWELL : 1935 DATE OF SERVICE: 08/09/2024 SUBJECTIVE: The patient is 88 with a history of aortic stenosis, CAD stent placement, and peripheral artery disease. The patient was admitted for influenza and pneumonia and congestive heart failure with reduced ejection fraction. Aortic stenosis was severe, but not critical. She is still requiring high-flow oxygen at 70% FiO2 via nasal cannula, still having some shortness of breath, weakness, not swallowing that well. She is not having any chest pain, orthopnea, or PND. OBJECTIVE: General: She is somewhat lethargic. Vital Signs: Blood pressure 144/60, pulse 64, respirations 23, temperature 97.4, oxygen saturation 94% on high flow nasal cannula at 70% FiO2. Head: Atraumatic. Neck: Supple. Mild JVD. Chest: Symmetric. Lung: Mostly decreased breath sounds bilaterally, crackles. Heart: S1 and S2. Distant. Abdomen: Thin and soft. Extremities: Mild edema. /Rectal: Not performed. Neurologic: Remarkable . LABORATORY DATA: White count is normal at 10,000, hemoglobin 10.4, creatinine 1.4, BUN 36, sodium 149, potassium 4. IMPRESSION: 1. Hypoxic respiratory failure secondary to a combination of influenza pneumonia and volume overload heart failure. 2. Severe aortic stenosis. 3. Coronary artery disease, stent placement in the past, right coronary artery. 4. Hypernatremia, improving. RECOMMENDATIONS: Continue high flow oxygen. Continue amiodarone for atrial fibrillation and Lasix low dose is fine as long as the patient's 20 mg was given with fairly good urine output. Metoprolol succinate also continued 12.5 mg twice daily, tolerating this well so far. We continue to monitor for signs of decompensation; however, most likely her findings are due to influenza pneumonia rather than heart failure, hence diuretic dose will be used at low doses depending on renal function and urine output. DT: 13:08:48 TT: 13:48:00 Ref: [id number] - TID: [id number]
[2024-08-09 14:06] LABS: Sodium 150 mMol/L (136-145)
[2024-08-09] MEDS: ACETAzolaMIDE 250 MG TABLET PO (14:44)
[2024-08-09 16:27] LABS: Anion Gap 5 (7-16); BUN/Creatinine Ratio 24 Ratio (12-20); Blood Urea Nitrogen 33 mg/dL (9-23); Calcium 8.8 mg/dL (8.3-10.6); Carbon Dioxide 36.2 mMol/L (20.0-31.0); Chloride 108 mMol/L (98-107); Creatinine (Component) 1.4 mg/dL (0.6-1.3); Estimated Creatinine Clearance 24.9 mL/min (>60); Glucose 177 mg/dL (74-106); Osmolality,Calculated 307 (275-295); Potassium 3.9 mMol/L (3.4-5.1); Sodium 149 mMol/L (136-145); eGFR 36 See Note
--- NOTE | 2024-08-09 23:32 | XR_ITS ---
Examination: AP chest single view Technique: AP portable upright chest single view Exam date and time: 03/09/2024 1147 hrs. Comparison August 09, 2024 0811 hrs. Indications: Orogastric tube placement Findings: Moderate CHF Enlarged cardiac contour with prominent vascular congestion and perihilar edema Consider superimposed bilateral pneumonia Orogastric tube in the stomach satisfactory position Impression: Orogastric tube in the stomach satisfactory position
--- NOTE | 2024-08-09 23:45 | PC.NURSE ---
patient having a breathing treatment became agitated and pulled NG tube out. provider notified, new orders given.
[2024-08-10] VITALS (17 sets, daily range): BP systolic 114–144; BP diastolic 49–57; PULSE 69–82; RESP 13–25; TEMP 35.8–36.4; O2SAT 91–95; BMI 24.4
--- NOTE | 2024-08-10 00:01 | PC.NURSE ---
feedings started upon confirmation from x ray of NG tube satisfactory placement.
[2024-08-10] MEDS: ALBUTEROL/IPRATROPIUM (Duoneb) RT SOL 3 ML NEBU INH ×6 (03:29→23:13)
[2024-08-10] MEDS: INSULIN LISPRO (AdmeLOG) 1 UNIT/0.01 ML UNIT SC ×4 (05:16→23:24)
[2024-08-10 06:19] LABS: Basophils % (Auto) 0 % (0-2.5); Eosinophils % (Auto) 0 % (0-10); Hematocrit 32.8 % (36.0-46.0); Hemoglobin 10.2 g/dL (12.0-16.0); Immature Granulocytes % (Auto) 1 % (0-0); Immature Granulocytes Auto 0.14 Thou/mm3 (0.00-0.00); Lymphocytes # (Auto) 0.7 Thou/mm3 (1.0-4.8); Lymphocytes % (Auto) 7 % (10-50); Mean Corpuscular HGB Conc 31.1 g/dl (31.0-37.0); Mean Corpuscular Hemoglobin 27.8 pg (25.0-35.0); Mean Corpuscular Volume 89 fL (80-100); Monocytes # (Auto) 0.5 Thou/mm3 (0.0-0.8); Monocytes % (Auto) 4 % (0-12); Neutrophils # (Auto) 9.3 Thou/mm3 (1.8-7.7); Neutrophils % (Auto) 87 % (37-80); Nucleated Red Blood Cell % 0 /100 WBC (0); Platelet Count 146 Thou/mm3 (140-440); RDW Standard Deviation 51.9 fL (36.4-46.3); Red Blood Count 3.67 Miln/mm3 (4.00-5.20); White Blood Count 10.6 Thou/mm3 (3.6-11.0)
[2024-08-10 06:59] LABS: Anion Gap 5 (7-16); BUN/Creatinine Ratio 26 Ratio (12-20); Blood Urea Nitrogen 37 mg/dL (9-23); Carbon Dioxide 37.2 mMol/L (20.0-31.0); Chloride 109 mMol/L (98-107); Creatinine (Component) 1.4 mg/dL (0.6-1.3); Estimated Creatinine Clearance 24.6 mL/min (>60); Glucose 202 mg/dL (74-106); Magnesium 2.7 mg/dL (1.6-2.6); Osmolality,Calculated 314 (275-295); Phosphorous 2.2 mg/dL (2.4-5.1); Potassium 3.5 mMol/L (3.4-5.1); Sodium 151 mMol/L (136-145); eGFR 36 See Note
--- NOTE | 2024-08-10 09:25 | PD.RESPRO ---
Documentation for date of: 08/10/24 Subjective Subjective Interval history: Patient was seen and examined at the bedside. Patient's family was also present at bedside. She was lethargic and feeling weak was responding slowly to questions. Overnight, patient continued to remain on high flow nasal cannula. This morning, patient was mildly hypotensive and afebrile. She was saturating 90% on high flow nasal cannula 25 L with FiO2 65%. Labs revealed hemoglobin at 10.2 white count within normal limits. Chemistry panel showed hyponatremia with sodium 151, contraction alkalosis with bicarb 37.2. Kidney function showed BUN 37 and creatinine 1.4 with hypophosphatemia. Currently seen with NG tube receiving tube feedings without water flushes. Currently we are continuing with diuresis with IV Lasix 20 mg x 1, p.o. metolazone given 2.5 mg with Diamox 500 mg p.o. x 1 for contraction alkalosis. 60 mEq KCl repleted x 1. Will continue with diuresis and anticipate improvement in sodium levels as well. Patient is showing good diuresis output with negative balance of 1.4 L with urine output 2.8 L. Blood pressure remained stable. Ordered chest PT with Mucomyst Q4 hourly and speech evaluation. Will continue with tube feedings without water flushes and continue sodium checks every 6 hourly. All labs and orders were reviewed. Exam Vital Signs Temp Pulse Resp BP Pulse Ox O2 Del Method O2 Flow Rate 97.3 F 71 16 138/57 H 93 L High Flow Nasal Cannula 25 08/10/24 04:00 08/10/24 06:28 08/10/24 06:28 08/10/24 04:00 08/10/24 06:28 08/10/24 04:00 08/10/24 06:28 FiO2 65 08/10/24 06:28 Narrative Exam GENERAL APPEARANCE: Patient is AO x 2, lethargic lying on the bed with mild increased work of breathing. Currently seen on high flow saturating 90%. 25 L FiO2 65% HEENT: NC, AT. MMM. EOMI, clear conjunctiva, oropharynx clear. NG tube in place NECK: Supple without lymphadenopathy. No stiffness or restricted ROM. HEART: Regular rate and regular rhythm, normal S1/S2, holosystolic murmur on apex LUNGS: CTAB, moving air well. No crackles or wheezes are heard. ABDOMEN: Soft, nontender, nondistended with good bowel sounds heard. BACK: No CVAT, no obvious deformity. EXTREMITIES: Mild trace edema on both lower extremities. NEUROLOGICAL: Grossly nonfocal. Alert and oriented, moving all 4 extremities. CN not formally tested but appear grossly intact. Skin: Warm and dry without any rash. Psych: Lethargic and slow to respond Objective Labs 08/10/24 05:10 08/10/24 14:55 Labs: Laboratory Results - last 24 hr 08/09/24 08/09/24 08/09/24 04:27 13:45 15:53 WBC RBC Hgb Hct MCV MCH MCHC RDW Std Deviation Plt Count Neut % (Auto) Lymph % (Auto) [place] % (Auto) Eos % (Auto) Baso % (Auto) Neut # (Auto) Lymph # (Auto) [place] # (Auto) Eos # (Auto) Baso # (Auto) Immature Gran # (Auto) Absolute Nucleated RBC Immature Gran % Nucleated RBC % Sodium 150 H 149 H Potassium 3.9 Chloride 108 H Carbon Dioxide 36.2 H Anion Gap 5 L BUN 33 H Creatinine 1.4 H Estim Creat Clear Calc 24.9 L eGFR 36 L BUN/Creatinine Ratio 24 H Glucose 177 H Calculated Osmolality 307 H Calcium 8.8 Phosphorus Magnesium Procalcitonin 0.31 08/10/24 05:10 WBC 10.6 RBC 3.67 L Hgb 10.2 L Hct 32.8 L MCV 89 MCH 27.8 MCHC 31.1 RDW Std Deviation 51.9 H Plt Count 146 Neut % (Auto) 87 H Lymph % (Auto) 7 L [place] % (Auto) 4 Eos % (Auto) 0 Baso % (Auto) 0 Neut # (Auto) 9.3 H Lymph # (Auto) 0.7 L [place] # (Auto) 0.5 Eos # (Auto) 0.0 Baso # (Auto) 0.0 Immature Gran # (Auto) 0.14 H Absolute Nucleated RBC 0.00 Immature Gran % 1 H Nucleated RBC % 0 Sodium 151 H Potassium 3.5 Chloride 109 H Carbon Dioxide 37.2 H Anion Gap 5 L BUN 37 H Creatinine 1.4 H Estim Creat Clear Calc 24.6 L eGFR 36 L BUN/Creatinine Ratio 26 H Glucose 202 H Calculated Osmolality 314 H Calcium 9.0 Phosphorus 2.2 L Magnesium 2.7 H Procalcitonin ABG Interpretation ABG results: 08/02/24 08/02/24 08/02/24 11:32 15:23 16:47 ABG pH 7.37 7.40 ABG pCO2 50 H 44 ABG pO2 36 L* 80 L D ABG HCO3 29 H 27 H ABG O2 Saturation 64 L 96 ABG Base Excess 3 2 VBG pH 7.48 VBG pCO2 35 L VBG pO2 46 VBG Base Excess 3 08/02/24 08/02/24 08/03/24 20:46 23:49 03:08 ABG pH 7.39 7.45 7.48 H ABG pCO2 47 37 D 34 ABG pO2 76 L 248 H D 160 H D ABG HCO3 29 H 25 25 ABG O2 Saturation 95 99 H 98 ABG Base Excess 3 2 2 VBG pH VBG pCO2 VBG pO2 VBG Base Excess 08/03/24 08/03/24 08/04/24 05:03 09:09 04:23 ABG pH 7.45 7.38 7.42 ABG pCO2 37 43 46 ABG pO2 55 L* D 51 L* 92 D ABG HCO3 26 26 30 H ABG O2 Saturation 90 L 85 L 97 ABG Base Excess 2 0 5 H VBG pH VBG pCO2 VBG pO2 VBG Base Excess 08/05/24 08/06/24 08/09/24 04:47 04:07 08:33 ABG pH 7.38 7.42 7.37 ABG pCO2 50 H 49 H 65 H ABG pO2 93 73 L D 67 L ABG HCO3 30 H 32 H 37 H ABG O2 Saturation 96 94 95 ABG Base Excess 4 H 7 H 10 H VBG pH VBG pCO2 VBG pO2 VBG Base Excess Quality Measures Quality Measures VTE prophylaxis (Heparin subcut) Advance care planning discussed with:: other Assessment & Plan Assessment Current Active Medications: Generic Name Dose Route Start Last Admin Trade Name Freq PRN Reason Stop Dose Admin Acetaminophen 650 mg 08/02/24 13:42 Acetaminophen 325 Mg Tablet PO 09/01/24 13:41 Q6H PRN Mild Pain 1-3 or Fever >100.4 Albuterol/Ipratropium 3 ml 08/02/24 16:45 08/10/24 06:27 Albuterol/Ipratropium (Duoneb) Rt Cindy 3 Ml Nebu INH 09/01/24 16:44 3 ml Q4HRRT JORGE ALBERTO Administration Amiodarone HCl 200 mg 08/03/24 09:00 08/09/24 20:18 Amiodarone Hcl 200 Mg Tablet PO 09/02/24 08:59 200 mg BID JORGE ALBERTO Administration Amlodipine Besylate 5 mg 08/02/24 14:20 08/02/24 15:52 Amlodipine Besylate 5 Mg Tablet PO 09/01/24 14:19 5 mg QDAY JORGE ALBERTO Administration Atorvastatin Calcium 80 mg 08/03/24 09:00 08/09/24 12:21 Atorvastatin Calcium 20 Mg Tablet PO 09/02/24 08:59 80 mg QDAY JORGE ALBERTO Administration Dextrose 25 ml 08/02/24 16:39 Dextrose 50%-Water Inj 50 Ml Syringe IV 09/01/24 16:38 Q15MIN PRN BG 50-70 responsive npo pt Dextrose 50 ml 08/02/24 16:39 Dextrose 50%-Water Inj 50 Ml Syringe IV 09/01/24 16:38 Q15MIN PRN BG <50 OR BG <70 & pt unresponsive Glucagon 1 mg 08/02/24 16:39 Glucagon Inj 1 Mg Vial IM Q15MIN PRN BG <70, and no IV access Guaifenesin 100 mg 08/02/24 14:33 08/02/24 15:54 Guaifenesin Syrup 200 Mg/10 Ml Udc PO 09/01/24 14:32 100 mg QID PRN Administration COUGH Protocol Guaifenesin/Dextromethorphan 1 each 08/02/24 15:30 Guaifenesin/Dm Tablet PO 09/01/24 15:25 Q4HR PRN COUGH Heparin Sodium (Porcine) 5,000 unit 08/09/24 21:00 08/09/24 20:19 Heparin Sod Inj 5000 Unit/Ml Vial SC 08/23/24 20:59 5,000 unit BID JORGE ALBERTO Administration Insulin Human Lispro 0 unit 08/10/24 07:38 Insulin Lispro (Admelog) 1 Unit/0.01 Ml Unit SC 09/02/24 05:59 Q6HR JORGE ALBERTO Protocol Metoprolol Succinate 12.5 mg 08/06/24 21:00 08/09/24 20:20 Metoprolol Succinate Xl 25 Mg Tabcr PO 09/05/24 20:59 12.5 mg BID JORGE ALBERTO Administration Pantoprazole Sodium 40 mg 08/03/24 09:00 08/09/24 10:14 Pantoprazole Inj 40 Mg Vial IV 09/02/24 08:59 40 mg QDAY JORGE ALBERTO Administration Povidone Iodine 0 ml 08/08/24 21:00 08/09/24 20:20 Povidone Iodine Top Cindy 10% 120 Ml Btl TOP 08/15/24 20:59 Not Given BID JORGE ALBERTO Sodium Chloride 3 ml 08/02/24 11:12 08/02/24 11:15 Sodium Chloride Rt Cindy 0.9% 3 Ml Nebu INH 09/01/24 11:11 3 ml PRN PRN Administration SOLN Plan Patient is an 88-year-old female with a past medical history of hypertension CHF diastolic dysfunction HFpEF (60 to 65%) on 04/27/2024, CAD s/p stent in right coronary artery, aortic stenosis, carotid disease, s/p endarterectomy (2020& 2023), history of atrial fibrillation (not on Eliquis risk of bleeding), history of colorectal cancer, and CKD who was admitted for acute hypoxic respiratory failure. #Hypernatremia, Hypovolemic #Metabolic Alkalosis, secondary to diuretics Etiology: Patient was being diuresed on Bumex in ICU. Patient presented with hypernatremia after downgrade 152. Given that patient appears hypovolemic and dry up on physical exam with improved pedal edema on physical exam and improve pulmonary vascular congestion on chest x-ray, likely secondary to diuretics. DDx: Worsening CKD cannot be ruled out versus central or nephrogenic causes. (08/09/2024): Bicarbonate showing no improvement and limited improvement on Sodium. Given increased bicarbonate Acetazolamide 250 mg POx1 (via NG tube) and Lasix 40 mg X 1 on 07/20/2024 Diagnostics: (08/08/2024) sodium 151, Bicarb 34.4, BUN 36, creatinine 1.4, GFR 36--> Na 149, 150, BUN 36 Cr 1.6, GFR 36 ? 08/10/2024: Sodium 151, bicarb 37.2, BUN 37 and creatinine 1.4 GFR 36 Plan: -Continue IV diuresis with Lasix and metolazone given today per Dr. Alecia estrada, 08/10 -Holding Water Flushes (recheck tomorrow) -Goal sodium 145 which would be a difference of 7 within the next 24 hours. -Continue sodium checks every 6 hourly #Acute hypoxic respiratory failure secondary to CHF and pneumonia #Pneumonia, Influenza + with likley superimposed pneumonia #Sepsis, secondary to Pneumonia, resolved #Septic shock, resolved. Etiology: Influenza positive on admission in acute hypoxic respiratory failure from pneumonia likely secondary to influenza positive, patient currently requires oxygen support. DDx: UTI less likely as no symptoms of UTI vs LA less likley given troponins <0.02. No STEM elevation. 08/09/2024: high flow FiO2 increased to 75 given increased work of breathing likely secondary to increased free water flushes for hypernatremia. Currently Holding water flushes, continue to monitor Na Q6 hours Balance 1493, weight no change 64.127 -WBC 10.0 (08/08/2024) -Cxr (08/08/2024): Moderate CHF, Right Base Pneumonia -Cxr (08/02/2024): Moderate CHF, perihilar basilar edema -Urine Culture NO Growth -Blood Culture: No growthin -Sputum Culture: Tia Albicans Plan: -Ordered lasix 20 mgx1 and metolazone 2.5 mg x 1 with Diamox 500 mg x 1 -60 mEq KCl given x 1 -Weaning off on high flow FiO2 65 -Consider Nystatin mouth -Duonebs scheduled -Ordered chest PT Q4 hourly with Mucomyst -Guifensen PRN -Chest Physiology & Acapella -Oseltamivir 30 mg QDay-course completed -Consider ABG if worsening work of breathing #Acute CHF exacerbation, improving #CHF, Diastolic Dysfunciton, HFpEF 60-65% w/ moderate to serve calcified aortic stenosis (08/04/2024) Etiology: Patient has a past medical history of congestive heart failure with a BNP 518. Patient positive for orthopnea, paroxysmal nocturnal orthopnea and increasing cough. CHF exacerbation likely secondary to pneumonia Dignostics: Although patient has a past medical history of CAD status post stents, less likely secondary to LA/no ST elevation on EKG and troponins are not elevated. PE less likely as well score is 1. Echo(08/04/2024) : Normal LV size and function. Estimated EF 60-65% Moderate to severec calcific aortic stenosis. Mild aotic regurgitation RV is normal in size. The right ventricular systolic function is mildly decreased. The estimated RVSP, 47 mmHg. RAP 15. Mild MAC. Mild MR, TR. NYHA Class: likely III Plan: -Lasix 20 mg IV and metolazone given x 1, weaning of high flow as tolerated -K>4 and Mg >2 -Fluid Restriction and Sodium Restriction 2 g per day -SpO <90%, support PRN -Daily Weights, Strict Ins and Outs, Fluid Striction (1800 ml), Sodium Restriction 2 grams per day -Cardiology Consult, Dr. Barton, appreciate recommendations. #Atrial Fibrillation, rate controlled #CAD s/p stents of right coronary artery #Hyperlipidemia Patient has a past medical history of Atrial Fibrillation. CHADVASC of 3. Currently not on Eliquis per Dr. Barton. Possible risk of bleeding and currently sinus. 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 and intrinsic kidney damage Diagnostics: (08/09/2024): BUN 36, Cr 1.4 GFR 31, BUN/Cr 26 Plan: -Continue with NG tube feeding without water flushes -Renally dose medication -Avoid nephrotoxins # Dysphagia -currently NG tube, hold water flushes -Water flushes initially 55cc-->250 cc every 2 hours-->08/09/2024 CURRENTLY HOLDING Plan -NG Tube, last accessed on 08/08/2024 -Speech Referral -Swallow evaluation Health Maintenance: Disp: Pt is currently admitted to floors for further management of acute hypoxic respiratory failure, awaiting improvement in hypernatremia, heart failure and work of breathing. FEN: NG tube, HOLDING WATER FLUSHES DVT: on subQ heparin Code: Full code - Patient was seen and discussed with attending physician, DO Dr. Sherry Pacheco MD, PGY 2 Attending Provider Attestation/Addendum I have discussed and was present for the essential components of the history, physical examination, diagnosis, and treatment plan with the resident. I agree with the patient's care as documented by the resident and amended herein by me. Roverto Andrew DO. Although this document has been carefully reviewed, there may still be some phonetic and other typographical errors. These errors are purely grammatical due to imperfections in the software program and should not be construed in any way to compromise the substance of the patient's medical care during this visit.
[2024-08-10] MEDS: NAPH,KPH MBDB 1 PACKET (1.5 GM) 2 PACKET PO (10:22)
[2024-08-10] MEDS: POTASSIUM CHLORIDE 10% 20 MEQ/15 ML UDC 40 MEQ PO (10:22)
[2024-08-10] MEDS: AMIODARONE HCL 200 MG TABLET PO ×2 (10:22→20:37)
[2024-08-10] MEDS: METOPROLOL SUCCINATE XL 25 MG TABCR 12.5 MG PO (10:23)
[2024-08-10] MEDS: ATORVASTATIN CALCIUM 20 MG TABLET 80 MG PO (10:23)
[2024-08-10] MEDS: metOLazone 2.5 MG TABLET PO (10:23)
[2024-08-10] MEDS: POVIDONE IODINE 10% TOP ×2 (10:24→20:37)
[2024-08-10] MEDS: HEPARIN SOD INJ 5000 UNIT/ML VIAL SC ×2 (10:24→20:37)
[2024-08-10] MEDS: PANTOPRAZOLE INJ 40 MG VIAL IV (10:24)
[2024-08-10] MEDS: ACETYLCYSTEINE RT SOL 10% 4 ML NEBU 3 ML INH ×4 (10:36→23:13)
--- NOTE | 2024-08-10 11:45 | PC.RT ---
No vest CPT machine available for pt
[2024-08-10] MEDS: FUROSEMIDE INJ 10 MG/ML VIAL 2 ML 20 MG IVP (14:52)
[2024-08-10] MEDS: ACETAzolaMIDE 250 MG TABLET 500 MG PO (14:56)
--- NOTE | 2024-08-10 15:14 | ESCONSULT_ITS ---
RE: REILLY TIDWELL : 1935 DATE OF CONSULTATION: 08/10/2024 ROOM: 262. The patient is seen for Cardiovascular evaluation. HISTORY OF PRESENT ILLNESS: The patient is an 88-year-old lady with past medical history of aortic stenosis and hypoxic respiratory failure following influenza positive. Clearly has had influenza pneumonia with some heart failure, but clinically, she appears to be still dehydrated. Sodium level continues to go up. No JVD. Chest x-ray findings are consistent with mostly pneumonia. Though the patient had aortic stenosis, it is not causing her problems. Currently, it appears to be mostly underlying pneumonia. She is still requiring high-flow oxygen therapy, not eating well, receiving NG tube feedings. PHYSICAL EXAMINATION: VITAL SIGNS: Shows her blood pressure 120/60, pulse rate 70, and temperature normal. NECK: Supple. No JVD. LUNGS: Decreased breath sounds. Bilateral coarse crackles. HEART: S1 and S2, regular. Loud systolic murmur with aortic stenosis. ABDOMEN: Thin and soft. EXTREMITIES: No edema. LABORATORY DATA: Showed elevated BUN and creatinine. BUN is still elevated at 37 and creatinine is slightly elevated at 1.4. Creatinine clearance is 36 and the sodium continues to go up to 151. IMPRESSION: 1. Hypoxia respiratory failure secondary to pneumonia and acute respiratory distress syndrome. 2. Aortic stenosis, severe. 3. Dehydration and hypernatremia. RECOMMENDATIONS: Continue to increase the free water for now. Back off on diuretics as patient is clinically dry. Okay to give oral fluids with NG tube with no restriction. DT: 12:30:25 TT: 15:06:00 Ref: [id number] - TID: [id number]
[2024-08-10 15:31] LABS: Sodium 153 mMol/L (136-145)
[2024-08-10] MEDS: POTASSIUM CHLORIDE 10% 20 MEQ/15 ML UDC PO (18:06)
[2024-08-10 18:58] LABS: B-Type Natriuretic Peptide 349 pg/mL (0-100)
[2024-08-10 21:01] LABS: Lactate (Lactic Acid) 1.2 mMol/L (0.4-2.0)
[2024-08-10 21:20] LABS: Sodium 153 mMol/L (136-145)
[2024-08-11] VITALS (17 sets, daily range): BP systolic 128–143; BP diastolic 51–63; PULSE 70–79; RESP 16–21; TEMP 36–36.8; O2SAT 89–95; BMI 23.8
[2024-08-11 03:13] LABS: Basophils % (Auto) 0 % (0-2.5); Eosinophils % (Auto) 0 % (0-10); Hematocrit 34.6 % (36.0-46.0); Hemoglobin 10.4 g/dL (12.0-16.0); Immature Granulocytes % (Auto) 1 % (0-0); Immature Granulocytes Auto 0.15 Thou/mm3 (0.00-0.00); Lymphocytes # (Auto) 0.8 Thou/mm3 (1.0-4.8); Lymphocytes % (Auto) 7 % (10-50); Mean Corpuscular HGB Conc 30.1 g/dl (31.0-37.0); Mean Corpuscular Hemoglobin 27.7 pg (25.0-35.0); Mean Corpuscular Volume 92 fL (80-100); Monocytes # (Auto) 0.6 Thou/mm3 (0.0-0.8); Monocytes % (Auto) 5 % (0-12); Neutrophils # (Auto) 10.1 Thou/mm3 (1.8-7.7); Neutrophils % (Auto) 86 % (37-80); Nucleated Red Blood Cell % 0 /100 WBC (0); Platelet Count 157 Thou/mm3 (140-440); RDW Standard Deviation 54.1 fL (36.4-46.3); Red Blood Count 3.75 Miln/mm3 (4.00-5.20); White Blood Count 11.7 Thou/mm3 (3.6-11.0)
[2024-08-11] MEDS: ACETYLCYSTEINE RT SOL 10% 4 ML NEBU 3 ML INH ×5 (03:18→23:25)
[2024-08-11] MEDS: ALBUTEROL/IPRATROPIUM (Duoneb) RT SOL 3 ML NEBU INH ×6 (03:19→23:24)
[2024-08-11 03:53] LABS: Alanine Aminotransferase 115 U/L (10-49); Albumin, Serum 3.1 gm/dL (3.4-4.8); Albumin/Globulin Ratio 1.1 (1.2-2.2); Alkaline Phosphatase 227 U/L (46-116); Anion Gap 5 (7-16); Aspartate Amino Transferase 109 U/L (0-34); BUN/Creatinine Ratio 27 Ratio (12-20); Bilirubin,Total 0.4 mg/dL (0.3-1.2); Blood Urea Nitrogen 41 mg/dL (9-23); Calcium 9.6 mg/dL (8.3-10.6); Calcium (Corrected) 10.3 mg/dL (8.5-10.1); Carbon Dioxide 37.1 mMol/L (20.0-31.0); Chloride 113 mMol/L (98-107); Creatinine (Component) 1.5 mg/dL (0.6-1.3); Globulin 2.7 gm/dL (2.3-3.5); Glucose 147 mg/dL (74-106); Magnesium 2.8 mg/dL (1.6-2.6); Osmolality,Calculated 320 (275-295); Phosphorous 2.7 mg/dL (2.4-5.1); Potassium 3.4 mMol/L (3.4-5.1); Sodium 155 mMol/L (136-145); Total Protein 5.8 gm/dL (5.7-8.2); eGFR 34 See Note
[2024-08-11] MEDS: INSULIN LISPRO (AdmeLOG) 1 UNIT/0.01 ML UNIT SC ×3 (05:11→18:07)
[2024-08-11] MEDS: METOPROLOL SUCCINATE XL 25 MG TABCR 12.5 MG PO ×2 (10:17→22:17)
[2024-08-11] MEDS: POTASSIUM CHLORIDE 10% 20 MEQ/15 ML UDC 40 MEQ PO (10:17)
[2024-08-11] MEDS: POVIDONE IODINE 10% TOP ×2 (10:18→23:09)
[2024-08-11] MEDS: PANTOPRAZOLE INJ 40 MG VIAL IV (10:18)
[2024-08-11] MEDS: HEPARIN SOD INJ 5000 UNIT/ML VIAL SC ×2 (10:19→22:16)
[2024-08-11] MEDS: AMIODARONE HCL 200 MG TABLET PO ×2 (10:19→22:18)
[2024-08-11] MEDS: FERROUS SULF 325 MG TABLET PO (10:19)
[2024-08-11 10:31] LABS: Sodium 153 mMol/L (136-145)
--- NOTE | 2024-08-11 11:32 | XR_ITS ---
Examination: AP chest single view TECHNIQUE: AP portable upright chest single view Exam date and time: August 11, 2024 1146 hours Comparison 03/09/2024 INDICATIONS: Shortness of breath O2 desaturation today. FINDINGS: Significant CHF Mild enlargement cardiac contour Prominent vascular congestion with. Hilar edema Orogastric tube in the stomach tip below the level of the film IMPRESSION: Worsening significant CHF
--- NOTE | 2024-08-11 14:35 | ESPR_ITS ---
<Statement entered by Thaddeus Barton MD - 08/13/24 19:11> The patient is examined clinically not doing well requiring high flow oxygen still I evaluated the patient with resident physician Dr. Ryan all essential complaints reviewed patient's condition is deteriorating requiring high flow oxygen combination of pneumonia and heart failure also there is some element of kidney disease nephrology consult was also obtained. Documentation for date of: 08/11/24 Subjective Subjective Interval history: 88-year-old female patient with significant medical history for HFpEF, moderate to severe aortic stenosis, coronary artery disease s/p RCA stent placements, atrial fibrillation, bilateral endarterectomy (2020 and 2023), severe peripheral artery disease, chronic kidney disease, colon cancer sp resection, DM2, hypertension and hypercholesterolemia presented with worsening shortness of breath and productive cough was admitted for AHRF and sepsis due to influenza pneumonia with superimposed bacterial infection and CHF exacerbation. Patient was administered Tamiflu and started on IV Vanco and Zosyn. Initially patient was started on oxygen mask as she was hypoxic, due to continuing desaturation in the 70s patient was transitioned to BiPAP. Multiple rapid responses were called as patient continued to be desatting and was becoming increasingly tired. Goals of care discussion were held with family, patient's code status was switched to full code and decision was made to upgrade patient to ICU, intubated and started on levophed as patient was progressing towards ARDS. Cardiology was consulted for further management. 08/04/24: Echocardiogram on this admission indicates moderate to severe aortic stenosis with a gradient of 48 mmHg H (mean 30) with Vmax of 3.5 and LVEF 60- 65%. On physical exam patient is does not seem to be fluid overloaded, patient was recently seen at the clinic and was found to be asymptomatic. Patient seems to have an ARDS pattern secondary to influenza pneumonia. Continue current management, if no improvement we will consider right heart swan cath. 08/05/24: Patient has been weaned off of Levophed but still intubated. FiO2 at 40% and on 20 L rate. Morning chest x-ray seems to be worse than previous with more congestion, greater on the right side. Renal function and transaminitis improving. Patient had 1.6 L urine output and 1 bowel movement. Patient started on Bumex 1mg with a goal of -1 to 1.5 L overall fluid balance. Per primary team, picture is more of a obstructive shock. From cardiology point of view, no need for TAVR at this point. 08/06/24: No significant events overnight. Labs significant for hypernatremia most likely secondary to diuresis and decrease p.o. intake. While there was a mild decline in renal function patient's LFTs have been downtrending. Patient had 1.5 L of urine output with overall -650 mL net fluid balance. Patient was extubated on second attempt and was started on nasal cannula without complications. Currently patient on Bumex 1mg as needed which he was administered today. 08/07/24: No events overnight. Vitals stable, currently on 5L nasal cannula. Patient had 2.3L of urine output with overall -2.2L of net fluid balance. While most labs are improving, sodium has increased to 152. Patient currently on 250 mL free water flush Q6H. Patient receiving nutrition through NG tube. Patient stable to be downgraded for floor team to take over care starting tomorrow. We recommend discontinuing diuresis and giving patient x1 500ml D5W IVF. 08/08/24: Patient was started on HFNC overnight as she was found to be hypoxic. Morning labs and x-ray reviewed. Sodium improving/downtrending to 149, free water flush frequency increased by primary team. Renal function stable/same as yesterday. We recommend withholding diuretics. Patient's hypoxia likely due to ARDS, she is not fluid overloaded. 08/11/24: Continues to be on HFNC, currently on FiO2 90% at rate of 40 L. Patient continues to be hypernatremic, nephrology was consulted. Patient started on Bumex 2 mg Qday. Chest X-ray showed worsening congestion. Patient had 2.2L urine output with an overall -1.3L net negative fluid balance. Exam Vital Signs Temp Pulse Resp BP Pulse Ox O2 Del Method O2 Flow Rate 98.2 F 78 19 137/53 H 95 High Flow Nasal Cannula 25 08/11/24 12:00 08/11/24 12:08/11/24 12:08/11/24 12:00 08/11/24 12:00 08/11/24 12:00 08/11/24 10:15 FiO2 60 08/11/24 10:15 Narrative Exam Constitutional: Frail looking female, in mild distress HEENT: NCAT, EOMI, reactive round pupils b/l,moist mucous membranes, on HFNC Lung: B/l crackles present, no wheezing, no rhonchi, decreased air entry on right lower lobe side Heart: Regular S1S2, no murmurs, gallops, or rubs Abdomen: Soft, non-distended, non-tender, bowel sounds present throughout Extremities: No cyanosis, clubbing, + trace edema, LE pulses present b/l Neurologic: AOx1, rest can not be performed due to patient's condition Skin: Warm, dry, no lesions or rashes noted Objective Labs 08/11/24 02:58 08/11/24 17:40 Labs: Laboratory Results - last 24 hr 08/10/24 08/10/24 08/11/24 14:55 20:50 02:58 WBC 11.7 H RBC 3.75 L Hgb 10.4 L Hct 34.6 L MCV 92 MCH 27.7 MCHC 30.1 L RDW Std Deviation 54.1 H Plt Count 157 Neut % (Auto) 86 H Lymph % (Auto) 7 L [place] % (Auto) 5 Eos % (Auto) 0 Baso % (Auto) 0 Neut # (Auto) 10.1 H Lymph # (Auto) 0.8 L [place] # (Auto) 0.6 Eos # (Auto) 0.0 Baso # (Auto) 0.0 Immature Gran # (Auto) 0.15 H Absolute Nucleated RBC 0.00 Immature Gran % 1 H Nucleated RBC % 0 Sodium 153 H 153 H 155 H Potassium 3.4 Chloride 113 H Carbon Dioxide 37.1 H Anion Gap 5 L BUN 41 H Creatinine 1.5 H Estim Creat Clear Calc 23.0 L eGFR 34 L BUN/Creatinine Ratio 27 H Glucose 147 H D Calculated Osmolality 320 H Lactic Acid 1.2 Calcium 9.6 Corrected Calcium 10.3 H Phosphorus 2.7 Magnesium 2.8 H Total Bilirubin 0.4 AST 109 H ALT 115 H Alkaline Phosphatase 227 H D B-Natriuretic Peptide 349 H Total Protein 5.8 Albumin 3.1 L Globulin 2.7 Albumin/Globulin Ratio 1.1 L 08/11/24 09:57 WBC RBC Hgb Hct MCV MCH MCHC RDW Std Deviation Plt Count Neut % (Auto) Lymph % (Auto) [place] % (Auto) Eos % (Auto) Baso % (Auto) Neut # (Auto) Lymph # (Auto) [place] # (Auto) Eos # (Auto) Baso # (Auto) Immature Gran # (Auto) Absolute Nucleated RBC Immature Gran % Nucleated RBC % Sodium 153 H Potassium Chloride Carbon Dioxide Anion Gap BUN Creatinine Estim Creat Clear Calc eGFR BUN/Creatinine Ratio Glucose Calculated Osmolality Lactic Acid Calcium Corrected Calcium Phosphorus Magnesium Total Bilirubin AST ALT Alkaline Phosphatase B-Natriuretic Peptide Total Protein Albumin Globulin Albumin/Globulin Ratio ABG Interpretation ABG results: 08/02/24 08/02/24 08/02/24 11:32 15:23 16:47 ABG pH 7.37 7.40 ABG pCO2 50 H 44 ABG pO2 36 L* 80 L D ABG HCO3 29 H 27 H ABG O2 Saturation 64 L 96 ABG Base Excess 3 2 VBG pH 7.48 VBG pCO2 35 L VBG pO2 46 VBG Base Excess 3 08/02/24 08/02/24 08/03/24 20:46 23:49 03:08 ABG pH 7.39 7.45 7.48 H ABG pCO2 47 37 D 34 ABG pO2 76 L 248 H D 160 H D ABG HCO3 29 H 25 25 ABG O2 Saturation 95 99 H 98 ABG Base Excess 3 2 2 VBG pH VBG pCO2 VBG pO2 VBG Base Excess 08/03/24 08/03/24 08/04/24 05:03 09:09 04:23 ABG pH 7.45 7.38 7.42 ABG pCO2 37 43 46 ABG pO2 55 L* D 51 L* 92 D ABG HCO3 26 26 30 H ABG O2 Saturation 90 L 85 L 97 ABG Base Excess 2 0 5 H VBG pH VBG pCO2 VBG pO2 VBG Base Excess 08/05/24 08/06/24 08/09/24 04:47 04:07 08:33 ABG pH 7.38 7.42 7.37 ABG pCO2 50 H 49 H 65 H ABG pO2 93 73 L D 67 L ABG HCO3 30 H 32 H 37 H ABG O2 Saturation 96 94 95 ABG Base Excess 4 H 7 H 10 H VBG pH VBG pCO2 VBG pO2 VBG Base Excess Quality Measures Quality Measures VTE prophylaxis (Heparin subcut) Advance care planning discussed with:: other Assessment & Plan Assessment Current Active Medications: Generic Name Dose Route Start Last Admin Trade Name Freq PRN Reason Stop Dose Admin Acetaminophen 650 mg 08/02/24 13:42 Acetaminophen 325 Mg Tablet PO 09/01/24 13:41 Q6H PRN Mild Pain 1-3 or Fever >100.4 Acetylcysteine 3 ml 08/10/24 11:00 08/11/24 10:15 Acetylcysteine Rt Cindy 10% 4 Ml Nebu INH 09/09/24 10:59 3 ml Q4HRRT JORGE ALBERTO Administration Albuterol/Ipratropium 3 ml 08/02/24 16:45 08/11/24 10:15 Albuterol/Ipratropium (Duoneb) Rt Cindy 3 Ml Nebu INH 09/01/24 16:44 3 ml Q4HRRT JORGE ALBERTO Administration Amiodarone HCl 200 mg 08/03/24 09:00 08/11/24 10:19 Amiodarone Hcl 200 Mg Tablet PO 09/02/24 08:59 200 mg BID JORGE ALBERTO Administration Amlodipine Besylate 5 mg 08/02/24 14:20 08/02/24 15:52 Amlodipine Besylate 5 Mg Tablet PO 09/01/24 14:19 5 mg QDAY JORGE ALBERTO Administration Atorvastatin Calcium 80 mg 08/11/24 21:00 Atorvastatin Calcium 20 Mg Tablet PO 09/02/24 08:59 HS JORGE ALBERTO Dextrose 25 ml 08/02/24 16:39 Dextrose 50%-Water Inj 50 Ml Syringe IV 09/01/24 16:38 Q15MIN PRN BG 50-70 responsive npo pt Dextrose 50 ml 08/02/24 16:39 Dextrose 50%-Water Inj 50 Ml Syringe IV 09/01/24 16:38 Q15MIN PRN BG <50 OR BG <70 & pt unresponsive Ferrous Sulfate 325 mg 08/11/24 07:30 08/11/24 10:19 Ferrous Sulf 325 Mg Tablet PO 09/10/24 07:29 325 mg QOD JORGE ALBERTO Administration Glucagon 1 mg 08/02/24 16:39 Glucagon Inj 1 Mg Vial IM Q15MIN PRN BG <70, and no IV access Guaifenesin 100 mg 08/02/24 14:33 08/02/24 15:54 Guaifenesin Syrup 200 Mg/10 Ml Udc PO 09/01/24 14:32 100 mg QID PRN Administration COUGH Protocol Guaifenesin/Dextromethorphan 1 each 08/02/24 15:30 Guaifenesin/Dm Tablet PO 09/01/24 15:25 Q4HR PRN COUGH Heparin Sodium (Porcine) 5,000 unit 08/09/24 21:00 08/11/24 10:19 Heparin Sod Inj 5000 Unit/Ml Vial SC 08/23/24 20:59 5,000 unit BID JORGE ALBERTO Administration Piperacillin/Tazobactam/Dextrose 50 mls @ 12.5 mls/hr 08/11/24 22:00 Zosyn IV 08/18/24 21:59 Q8HR JORGE ALBERTO Insulin Human Lispro 0 unit 08/10/24 07:38 08/11/24 12:43 Insulin Lispro (Admelog) 1 Unit/0.01 Ml Unit SC 09/02/24 05:59 2 unit Q6HR JORGE ALBERTO Administration Protocol Metoprolol Succinate 12.5 mg 08/06/24 21:00 08/11/24 10:17 Metoprolol Succinate Xl 25 Mg Tabcr PO 09/05/24 20:59 12.5 mg BID JORGE ALBERTO Administration Pantoprazole Sodium 40 mg 08/03/24 09:00 08/11/24 10:18 Pantoprazole Inj 40 Mg Vial IV 09/02/24 08:59 40 mg QDAY JORGE ALBERTO Administration Pharmacy Consult 1 each 08/11/24 13:04 Pharmacy Renal Dose Adjustment 1 Ea XX 09/10/24 13:03 PRN PRN CONSULT Povidone Iodine 0 ml 08/08/24 21:00 08/11/24 10:18 Povidone Iodine Top Cindy 10% 120 Ml Btl TOP 08/15/24 20:59 1 appln BID JORGE ALBERTO Administration Sodium Chloride 3 ml 08/02/24 11:12 08/02/24 11:15 Sodium Chloride Rt Cindy 0.9% 3 Ml Nebu INH 09/01/24 11:11 3 ml PRN PRN Administration SOLN Plan 88-year-old female patient with significant medical history for HFpEF, moderate to severe aortic stenosis, coronary artery disease s/p RCA stent placements, atrial fibrillation, bilateral endarterectomy (2020 and 2023), severe peripheral artery disease, chronic kidney disease, colon cancer sp resection, DM2, hypertension and hypercholesterolemia presented with worsening shortness of breath and productive cough was admitted for AHRF and sepsis due to influenza pneumonia with superimposed bacterial infection and CHF exacerbation. #HFpEF (60 to 65%), improving #Hx of CAD s/p RCA stent placement #Hx of s/p bilateral endarterectomy #Hx of hypertension Echocardiogram indicates moderate to severe aortic stenosis with a gradient of 48 mmHg H (mean 30) with Vmax of 3.5 and LVEF 60-65% On addmission BNP 518 and CXR showed prominent vascular congestion On physical exam, patient not fluid overloaded Plan: ? Strict in and out ? Can continue temporary diuresis ? Daily weight ? Follow-up electrolytes and replete as necessary ? Future TAVR in outpatient setting #Atrial fibrillation, rate controlled #Moderate-severe aortic stenosis [id number] not on anticoagulation due to high risk of bleeding Plan: ? Continue amiodarone 200 mg BID ? No need for TAVR at this point #Shock, septic vs. cardiogenic, resolved In the setting of fever, influenza PNA and possibly superimposed bacterial pneumonia MAP dropped below 65 after intubation Levophed weaned off on 08/05/24 #Sepsis secondary to #Influenza #Pneumonia #CKD IIIb #DM2 #Hx of colon cancer s/p resection -Management per primary team This patient care was discussed with my attending Dr. Mick Lester MD PGY-2 Disclaimer: Minor errors in pick remover may be present since this note was dictated by speech recognition software.
[2024-08-11] MEDS: PIPER/TAZO 3.375 GM 50 ML IV ×2 (14:51→22:16)
[2024-08-11 14:55] LABS: Sodium 150 mMol/L (136-145)
--- NOTE | 2024-08-11 15:11 | ESCONSULT_ITS ---
History of Present Illness Data of Consult Consult date: 08/11/24 Requesting Physician: Ayaka Diaz MD Primary Care Provider: Physician No Primary/Family Consult Narrative Reason for consult: ANASTACIA History of present illness: Ms. Keller is a 88-year-old lady with past medical history of hypertension, dyslipidemia, aortic stenosis presented to the hospital with acute hypoxic respiratory failure and noted to have flu positive. Patient also seem to have some heart failure and was given Lasix and metolazone. However BUN, creatinine, sodium went up and diuretics were held. Patient was given gentle IV fluids. However she went into respiratory failure needing high flow at 40 L/min O2, atrial fibrillation and Dr. Montejo was consulted. Renal consultation requested in view of ANASTACIA/hyponatremia in the setting of fluid overload. Dr. Montejo at bedside. Patient currently on NG tube feeds with no free water flushes. Chest x-ray shows fluid overload/pneumonia. Current medications included amlodipine which was held, Zosyn, Lipitor, heparin, metoprolol, amiodarone, cough syrup. 08/11/2024 WBC 11.7, hemoglobin 10.4, platelets 157. Sodium 150, potassium 3.4, BUN 41, creatinine 1.5, calcium 10.3, phosphorus 2.7, magnesium 2.8, AST 109, ALT 115, alk phos 227, albumin 3.1. Chest x-ray showed worsening congestive heart failure. Patient currently seen in telemetry. Daughter, at bedside. cc:: cc: Ayaka Diaz MD Review of Systems Review of Systems Narrative Review of Systems: Limited as she seems to be very sleepy and barely arousable. Past Medical History Past Medical History NEUROLOGIC: Positive Neurological Disorders; Negative Cerebrovascular Accident, Transient Ischemic Attacks (TIA), Dementia, Alzheimer's Disease, Parkinson's Disease, Brain Tumor, Meningitis, Seizures, Epilepsy, Multiple Sclerosis, Cerebral Palsy, Amyotrophic Lateral Sclerosis (ALS/Belia Gehrig's), Guillain-Nilwood Syndrome, Spina Bifida, Paralysis, Peripheral Neuropathy, Regalado's Palsy, Subdural Hematoma, Migraine, Head Trauma, Spinal Cord Injury or Traumatic Brain Injury CARDIAC: Positive Cardiac Disorders, Heart Murmur, Coronary Artery Disease, Hypercholesterolemia, Congestive Heart Failure, Edema and Hypertension; Negative Myocardial Infarction, Cardiac Arrhythmia, Atrial Fibrillation, Angina, Atherosclerotic Heart Disease, Peripheral Vascular Disease, Aneurysm, Congenital Heart Disease, Valvular Heart Disease, Rheumatic Fever, Cardiomyopathy, Pericarditis, Cellulitis, Deep Vein Thrombosis, Hypotension or Varicose Veins RESPIRATORY: Positive Pneumonia; Negative Chronic Obstructive Pulmonary Disease (COPD), Asthma, Bronchitis, Emphysema, Pulmonary Fibrosis, Cystic Fibrosis, Tuberculosis, Pulmonary Embolism, Pulmonary Edema or Sleep Apnea GASTROINTESTINAL: Positive Colorectal Cancer; Negative Gastrointestinal Disorders, Hepatitis, Cirrhosis, Pancreatitis, Celiac Disease, Gall Bladder Disease, Gastrointestinal Bleed, Esophageal Varices, Simpson's Esophagus, Colitis, Ulcerative Colitis, Diverticulitis, Diverticulosis, Ulcer, Irritable Bowel, Crohn's Disease, Obstructive Bowel, Hiatal Hernia, Hemorrhoids, Gastroesophageal Reflux Disease, Polyps or Obesity GENITOURINARY: Negative Genitourinary Disorders, Renal Disease, Kidney Stones, Polycystic Kidney Disease, Neurogenic Bladder, Inguinal Hernia, Dialysis or Prostate Cancer REPRODUCTIVE: Positive Previous Pregnancies; Negative Breast Cancer, Endometriosis, Pelvic Inflammatory Disease or Uterine Prolapse MUSCULOSKELETAL: Positive Musculoskeletal Disorders and Arthritis; Negative Muscular Dystrophy, Myasthenia Gravis, Marfan's Syndrome, Bone Cancer, Rheumatoid Arthritis, Osteoporosis, Degenerative Disk Disease, Gout, Scoliosis, Carpal Tunnel Syndrome, Fibromyalgia, Fractures, Degenerative Joint Disease, Osteomyelitis or Poliovirus ENT: Positive Cataracts; Negative Glaucoma, Blind, Retinal Detachment, Macular Degeneration, Ear Infection, Deafness, Head Trauma or Eye Prosthesis ENDOCRINE: Negative Endocrine Disorders, Diabetes Mellitus Type 1, Diabetes Mellitus Type 2, Hypoglycemia, Milagro's Syndrome, [place]'s Disease, Hyperthyroidism, Hypothyroidism, Parathyroid Disease, Pituitary Disease, Systemic Lupus Erythematosus, Syndrome of Inappropriate Antidiuretic Hormone (SIADH), Adrenal Disease or Graves' Disease HEMATOLOGIC: Positive Blood Disorders; Negative Anemia, Leukemia, Hemophilia, Thalassemia, Sickle Cell Disease or Clotting Problems (pt) PSYCHO/SOCIAL: Negative Psychiatric Problems, Schizophrenia, Recreational Drug Use, Bipolar Disorder, Depression, Anxiety, Behavior Problems, Self-Mutilation, Attention Deficit Disorder, Attention Deficit Hyperactivity Disorder, Depression, Post Traumatic Stress Disorder or Eating Disorder OTHER HISTORY: Positive Hospitalization, Falls, Blood Transfusions, Chemotherapy, Radiation Therapy, Cancer and Colorectal Cancer; Negative Autoimmune Disease, Down Syndrome, Autism, Developmental Delay, Shingles, Blood Transfusion Reaction, Anesthesia Reactions, Organ Transplant, Hyperbaric Therapy, MRSA, VRSA, Vancomycin-Resistant Enterococci, Human Immunodeficiency Virus (HIV), Chicken Pox, Measles, Mumps, Rubella (French Measles), Pertussis, Clostridium Difficile, Breast Cancer, Cervical Cancer, Lung Cancer, Ovarian Cancer or Prostate Cancer Family History FAMILY HISTORY: Positive Family Cardiac Disorders; Negative Family Psychiatric Problems, Family Respiratory Disorders, Family Gastrointestinal Problems, Family Genitourinary Problems, Family Endocrine Disorders, Family Reproductive Disorders, Family Musculoskeletal Disorders, Family Cancer, Family Surgery or Family Anesthesia Reaction Surgical History SURGICAL: Positive Cardiac Surgery, Coronary Stent, Cardiac Catheterization, Angiogram, Eye Surgery and Abdominal Surgery; Negative Open Heart Surgery, Coronary Artery Bypass Graft, Valve Replacement, Vascular Surgery, Pacemaker, Auto Implanted Cardiovert Defib, Carotid Endarterectomy, Endocrine Surgery, Thyroidectomy, Ear Surgery, Tympanostomy Tube, Nose Surgery, Oral Surgery, Tonsillectomy, Adenoidectomy, Cochlear Implant, Corneal Transplant, Throat Surgery, Tracheostomy, Gastric Bypass Surgery, Gastrostomy, Bowel Surgery, Nephrectomy, Bladder Sling, Ureteral Stent, Transurethral Resection, Joint Replacement, of Shoulder Sx, Amputation, Knee Sx, Hip Sx, Open Reduction Internal Fixation, Arthroscopy, of Back Surgery, Neurologic Surgery, Brain Shunt, Mastectomy, Lumpectomy, Hysterectomy, Tubal Ligation, Section, Organ Transplant or ESWL Social History SMOKING STATUS: Never smoker Meds Home Medications and Allergies Home Medications ?Medication ?Instructions ?Recorded ?Confirmed ?Type amlodipine 5 mg tablet (Norvasc) 5 mg PO QDAY #0 tabs 05/06/16 12/11/22 History atorvastatin 80 mg tablet 80 mg PO QDAY 11/21/22 04/27/24 History amlodipine 5 mg tablet 5 mg PO DAILY 08/02/24 08/02/24 History bumetanide 1 mg tablet 1 mg PO DAILY 08/02/24 08/02/24 History calcitriol 0.25 mcg capsule 0.25 mcg PO DAILY 08/02/24 08/02/24 History metoprolol succinate 25 mg 25 mg PO DAILY 08/02/24 08/02/24 History tablet,extended release 24 hr Allergies Allergy/AdvReac Type Severity Reaction Status Date / Time No Known Allergies Allergy Verified 08/02/24 10:36 Exam Vital Signs Temp Pulse Resp BP Pulse Ox O2 Del Method O2 Flow Rate 36.8 C 71 18 137/53 H 92 L High Flow Nasal Cannula 40 08/11/24 12:00 08/11/24 14:51 08/11/24 14:51 08/11/24 12:00 08/11/24 14:51 08/11/24 12:00 08/11/24 14:51 FiO2 85 08/11/24 14:51 Narrative Exam GENERAL APPEARANCE: Patient sick looking-looks younger than her stated age. Currently seen in telemetry. On high flow oxygen. NECK: Neck supple, no JVD or bruit CARDIOVASCULAR: Heart regular, no murmurs LUNGS/CHEST: Bilateral crackles ABDOMEN: Soft, nontender, nondistended. No masses. Normal bowel sounds. EXTREMITIES: No edema, clubbing or cyanosis. SKIN: Skin exam normal without any rashes MUSCULOSKELETAL: In bed NEUROLOGICAL : Lethargic, barely arousable Results Labs 08/11/24 02:58 08/11/24 14:15 Labs: Short CBC 08/11/24 Range/Units 02:58 WBC 11.7 H (3.6-11.0) Thou/mm3 Hgb 10.4 L (12.0-16.0) g/dL Hct 34.6 L (36.0-46.0) % Plt Count 157 (140-440) Thou/mm3 [facility] 08/10/24 08/10/24 08/11/24 14:55 20:50 02:58 Sodium 153 H 153 H 155 H Potassium 3.4 Chloride 113 H Carbon Dioxide 37.1 H BUN 41 H Creatinine 1.5 H Glucose 147 H D Calcium 9.6 08/11/24 08/11/24 09:57 14:15 Sodium 153 H 150 H Potassium Chloride Carbon Dioxide BUN Creatinine Glucose Calcium Liver Function 08/11/24 Range/Units 02:58 Total Bilirubin 0.4 (0.3-1.2) mg/dL AST 109 H (0-34) U/L ALT 115 H (10-49) U/L Alkaline Phosphatase 227 H D (46-116) U/L Albumin 3.1 L (3.4-4.8) gm/dL ABG Interpretation ABG results: 08/02/24 08/02/24 08/02/24 11:32 15:23 16:47 ABG pH 7.37 7.40 ABG pCO2 50 H 44 ABG pO2 36 L* 80 L D ABG HCO3 29 H 27 H ABG O2 Saturation 64 L 96 ABG Base Excess 3 2 VBG pH 7.48 VBG pCO2 35 L VBG pO2 46 VBG Base Excess 3 08/02/24 08/02/24 08/03/24 20:46 23:49 03:08 ABG pH 7.39 7.45 7.48 H ABG pCO2 47 37 D 34 ABG pO2 76 L 248 H D 160 H D ABG HCO3 29 H 25 25 ABG O2 Saturation 95 99 H 98 ABG Base Excess 3 2 2 VBG pH VBG pCO2 VBG pO2 VBG Base Excess 08/03/24 08/03/24 08/04/24 05:03 09:09 04:23 ABG pH 7.45 7.38 7.42 ABG pCO2 37 43 46 ABG pO2 55 L* D 51 L* 92 D ABG HCO3 26 26 30 H ABG O2 Saturation 90 L 85 L 97 ABG Base Excess 2 0 5 H VBG pH VBG pCO2 VBG pO2 VBG Base Excess 08/05/24 08/06/24 08/09/24 04:47 04:07 08:33 ABG pH 7.38 7.42 7.37 ABG pCO2 50 H 49 H 65 H ABG pO2 93 73 L D 67 L ABG HCO3 30 H 32 H 37 H ABG O2 Saturation 96 94 95 ABG Base Excess 4 H 7 H 10 H VBG pH VBG pCO2 VBG pO2 VBG Base Excess Assessment & Plan Additional Assessment & Plan Additional Plan: 1. Acute renal failure secondary to prerenal azotemia. Patient clinically looks rather hypervolemic. Spoke to Dr. Montejo-will give diuretics. 2. Hypoxia respiratory failure secondary to pneumonia and acute respiratory distress syndrome, fluid overload. Add diuretics, on high flow, antibiotics 3. Aortic stenosis, severe. Under Dr. Montejo 4. Dehydration and hypernatremia. Will add free water flushes NG tube. 5. Congestive heart failure-will add Bumex and closely monitor sodium. Strict I&O's ordered. Echocardiogram last showed ejection fraction 60 to 65%. Thank you [facility] for allowing me to participate in the care of Ms. Keller Plan of care discussed with family at bedside.
--- NOTE | 2024-08-11 15:16 | ESPR_ITS ---
<Statement entered by Maru Yap MD - 08/11/24 16:04> Patient was examined bedside this morning, she was AO x 1, more lethargic. Her sodium today was 155 in the morning. we started free water flushes, but suddenly patient became more hypoxic and her oxygen requirement increased to 100% FiO2. Chest x-ray was ordered, which showed worsening . started him on zosyn to cover aspiration pneumonia .Nephrology is on board . we held the free water flushes foe now, will continue Na Q4 hr . I discussed with and supervised my environmental health and safety intern involved in the care of this patient. I agree with the assessment and plan as documented above. Maru Yap,PGY-3 Disclaimer: Despite multiple revisions, due to the dictation software being used, the document below may not be free of grammatical errors including phonetic/typographic errors. However, this does not deter from our commitment to providing health care in the patient's best interest in mind. Documentation for date of: 08/11/24 Subjective Subjective Interval history: Patient is an 88-year-old female with a past medical history of hypertension CHF diastolic dysfunction HFpEF 60 to 65% (07/2024), CAD s/p stent in right coronary artery, aortic stenosis, carotid disease, s/p endarterectomy (2020& 2023), history of atrial fibrillation (not on Eliquis as patient is currently sinus and has a risk of bleeding?followed up with Dr. Barton board certified orthodontist), and CKD. Admitted initially on 08/02/2024 for acute hypoxic respiratory failure and upgraded to ICU. Patient downgraded on 08/08/2024 for continued medical management. Overnight. Patient continued to have increased work of breathing and this morning Fio2 needed to be tritrated up to 100%. Nephrology consulted-->Free water flushes recommended to continue w/ Bumex. Updated patients family about worsening condition. Continue water flushes until limit reached-->restart 6 AM. Exam Vital Signs Temp Pulse Resp BP Pulse Ox O2 Del Method O2 Flow Rate 98.2 F 71 18 137/53 H 92 L High Flow Nasal Cannula 40 08/11/24 12:00 08/11/24 14:51 08/11/24 14:51 08/11/24 12:00 08/11/24 14:51 08/11/24 12:00 08/11/24 14:51 FiO2 85 08/11/24 14:51 Narrative Exam General Appearance: Alert & Oriented X3, well-nourished female who is lying in bed in with increased work breathing HEENT: Skull symmetrical and atraumatic. Conjunctivae pale pink and moist. Pupils equal, round, reactive to light and accommodation (PERRL). External ear without lesion or discharge. Straight, nares patient, mucosa pink, no discharge. Cardio: Normal Rate and Rhythm with S1 and S2 heart sounds. No murmurs or extra heart sounds auscultated. No bruits on carotid auscultation. No peripheral edema or cyanosis. Lungs: Symmetric with good expansion. Chest and back non-tender. Breath sounds vesicular with crackles and rhonchi Abdomen: Non-tender, Non-distended, Normal Reactive Bowel Sounds Neuro: Alert, cooperative, oriented to person, place, and time. Speech clear. CN grossly intact. Upper motor strength 5/5 and Lower motor strength 5/5. Sensation intact. Objective Labs 08/12/24 05:05 08/12/24 05:05 Labs: Laboratory Results - last 24 hr 08/10/24 08/10/24 08/11/24 14:55 20:50 02:58 WBC 11.7 H RBC 3.75 L Hgb 10.4 L Hct 34.6 L MCV 92 MCH 27.7 MCHC 30.1 L RDW Std Deviation 54.1 H Plt Count 157 Neut % (Auto) 86 H Lymph % (Auto) 7 L [place] % (Auto) 5 Eos % (Auto) 0 Baso % (Auto) 0 Neut # (Auto) 10.1 H Lymph # (Auto) 0.8 L [place] # (Auto) 0.6 Eos # (Auto) 0.0 Baso # (Auto) 0.0 Immature Gran # (Auto) 0.15 H Absolute Nucleated RBC 0.00 Immature Gran % 1 H Nucleated RBC % 0 Sodium 153 H 153 H 155 H Potassium 3.4 Chloride 113 H Carbon Dioxide 37.1 H Anion Gap 5 L BUN 41 H Creatinine 1.5 H Estim Creat Clear Calc 23.0 L eGFR 34 L BUN/Creatinine Ratio 27 H Glucose 147 H D Calculated Osmolality 320 H Lactic Acid 1.2 Calcium 9.6 Corrected Calcium 10.3 H Phosphorus 2.7 Magnesium 2.8 H Total Bilirubin 0.4 AST 109 H ALT 115 H Alkaline Phosphatase 227 H D B-Natriuretic Peptide 349 H Total Protein 5.8 Albumin 3.1 L Globulin 2.7 Albumin/Globulin Ratio 1.1 L 08/11/24 08/11/24 09:57 14:15 WBC RBC Hgb Hct MCV MCH MCHC RDW Std Deviation Plt Count Neut % (Auto) Lymph % (Auto) [place] % (Auto) Eos % (Auto) Baso % (Auto) Neut # (Auto) Lymph # (Auto) [place] # (Auto) Eos # (Auto) Baso # (Auto) Immature Gran # (Auto) Absolute Nucleated RBC Immature Gran % Nucleated RBC % Sodium 153 H 150 H Potassium Chloride Carbon Dioxide Anion Gap BUN Creatinine Estim Creat Clear Calc eGFR BUN/Creatinine Ratio Glucose Calculated Osmolality Lactic Acid Calcium Corrected Calcium Phosphorus Magnesium Total Bilirubin AST ALT Alkaline Phosphatase B-Natriuretic Peptide Total Protein Albumin Globulin Albumin/Globulin Ratio ABG Interpretation ABG results: 08/02/24 08/02/24 08/02/24 11:32 15:23 16:47 ABG pH 7.37 7.40 ABG pCO2 50 H 44 ABG pO2 36 L* 80 L D ABG HCO3 29 H 27 H ABG O2 Saturation 64 L 96 ABG Base Excess 3 2 VBG pH 7.48 VBG pCO2 35 L VBG pO2 46 VBG Base Excess 3 08/02/24 08/02/24 08/03/24 20:46 23:49 03:08 ABG pH 7.39 7.45 7.48 H ABG pCO2 47 37 D 34 ABG pO2 76 L 248 H D 160 H D ABG HCO3 29 H 25 25 ABG O2 Saturation 95 99 H 98 ABG Base Excess 3 2 2 VBG pH VBG pCO2 VBG pO2 VBG Base Excess 08/03/24 08/03/24 08/04/24 05:03 09:09 04:23 ABG pH 7.45 7.38 7.42 ABG pCO2 37 43 46 ABG pO2 55 L* D 51 L* 92 D ABG HCO3 26 26 30 H ABG O2 Saturation 90 L 85 L 97 ABG Base Excess 2 0 5 H VBG pH VBG pCO2 VBG pO2 VBG Base Excess 08/05/24 08/06/24 08/09/24 04:47 04:07 08:33 ABG pH 7.38 7.42 7.37 ABG pCO2 50 H 49 H 65 H ABG pO2 93 73 L D 67 L ABG HCO3 30 H 32 H 37 H ABG O2 Saturation 96 94 95 ABG Base Excess 4 H 7 H 10 H VBG pH VBG pCO2 VBG pO2 VBG Base Excess Quality Measures Quality Measures VTE prophylaxis (Heparin subcut) Advance care planning discussed with:: patient Assessment & Plan Assessment Current Active Medications: Generic Name Dose Route Start Last Admin Trade Name Freq PRN Reason Stop Dose Admin Acetaminophen 650 mg 08/02/24 13:42 Acetaminophen 325 Mg Tablet PO 09/01/24 13:41 Q6H PRN Mild Pain 1-3 or Fever >100.4 Acetylcysteine 3 ml 08/10/24 11:00 08/11/24 14:49 Acetylcysteine Rt Cindy 10% 4 Ml Nebu INH 09/09/24 10:59 3 ml Q4HRRT JORGE ALBERTO Administration Albuterol/Ipratropium 3 ml 08/02/24 16:45 08/11/24 14:49 Albuterol/Ipratropium (Duoneb) Rt Cindy 3 Ml Nebu INH 09/01/24 16:44 3 ml Q4HRRT JORGE ALBERTO Administration Amiodarone HCl 200 mg 08/03/24 09:00 08/11/24 10:19 Amiodarone Hcl 200 Mg Tablet PO 09/02/24 08:59 200 mg BID JORGE ALBERTO Administration Amlodipine Besylate 5 mg 08/02/24 14:20 08/02/24 15:52 Amlodipine Besylate 5 Mg Tablet PO 09/01/24 14:19 5 mg QDAY JORGE ALBERTO Administration Atorvastatin Calcium 80 mg 08/11/24 21:00 Atorvastatin Calcium 20 Mg Tablet PO 09/02/24 08:59 HS JORGE ALBERTO Dextrose 25 ml 08/02/24 16:39 Dextrose 50%-Water Inj 50 Ml Syringe IV 09/01/24 16:38 Q15MIN PRN BG 50-70 responsive npo pt Dextrose 50 ml 08/02/24 16:39 Dextrose 50%-Water Inj 50 Ml Syringe IV 09/01/24 16:38 Q15MIN PRN BG <50 OR BG <70 & pt unresponsive Ferrous Sulfate 325 mg 08/11/24 07:30 08/11/24 10:19 Ferrous Sulf 325 Mg Tablet PO 09/10/24 07:29 325 mg QOD JORGE ALBERTO Administration Glucagon 1 mg 08/02/24 16:39 Glucagon Inj 1 Mg Vial IM Q15MIN PRN BG <70, and no IV access Guaifenesin 100 mg 08/02/24 14:33 08/02/24 15:54 Guaifenesin Syrup 200 Mg/10 Ml Udc PO 09/01/24 14:32 100 mg QID PRN Administration COUGH Protocol Guaifenesin/Dextromethorphan 1 each 08/02/24 15:30 Guaifenesin/Dm Tablet PO 09/01/24 15:25 Q4HR PRN COUGH Heparin Sodium (Porcine) 5,000 unit 08/09/24 21:00 08/11/24 10:19 Heparin Sod Inj 5000 Unit/Ml Vial SC 08/23/24 20:59 5,000 unit BID JORGE ALBERTO Administration Piperacillin/Tazobactam/Dextrose 50 mls @ 12.5 mls/hr 08/11/24 22:00 Zosyn IV 08/18/24 21:59 Q8HR JORGE ALBERTO Insulin Human Lispro 0 unit 08/10/24 07:38 08/11/24 12:43 Insulin Lispro (Admelog) 1 Unit/0.01 Ml Unit SC 09/02/24 05:59 2 unit Q6HR JORGE ALBERTO Administration Protocol Metoprolol Succinate 12.5 mg 08/06/24 21:00 08/11/24 10:17 Metoprolol Succinate Xl 25 Mg Tabcr PO 09/05/24 20:59 12.5 mg BID JORGE ALBERTO Administration Pantoprazole Sodium 40 mg 08/03/24 09:00 08/11/24 10:18 Pantoprazole Inj 40 Mg Vial IV 09/02/24 08:59 40 mg QDAY JORGE ALBERTO Administration Pharmacy Consult 1 each 08/11/24 13:04 Pharmacy Renal Dose Adjustment 1 Ea XX 09/10/24 13:03 PRN PRN CONSULT Povidone Iodine 0 ml 08/08/24 21:00 08/11/24 10:18 Povidone Iodine Top Cindy 10% 120 Ml Btl TOP 08/15/24 20:59 1 appln BID JORGE ALBERTO Administration Sodium Chloride 3 ml 08/02/24 11:12 08/02/24 11:15 Sodium Chloride Rt Cindy 0.9% 3 Ml Nebu INH 09/01/24 11:11 3 ml PRN PRN Administration SOLN Plan Patient is an 88-year-old female with a past medical history of hypertension CHF diastolic dysfunction HFpEF (60 to 65%) on 04/27/2024, CAD s/p stent in right coronary artery, aortic stenosis, carotid disease, s/p endarterectomy (2020& 2023), history of atrial fibrillation (not on Eliquis risk of bleeding), history of colorectal cancer, and CKD who was admitted for acute hypoxic respiratory failure. #Hypernatremia, Hypovolemic #Metabolic Alkalosis, secondary to diuretics Etiology: Patient was being diuresed on Bumex in ICU. Patient presented with hypernatremia after downgrade 152. Given that patient appears hypovolemic and dry up on physical exam with improved pedal edema on physical exam and improve pulmonary vascular congestion on chest x-ray, likely secondary to diuretics. DDx: Worsening CKD cannot be ruled out versus central or nephrogenic causes. (08/09/2024): Bicarbonate showing no improvement and limited improvement on Sodium. Given increased bicarbonate Acetazolamide 250 mg POx1 (via NG tube) and Lasix 40 mg X 1 on 07/20/2024 08/12/2024: Per nephrology: Free Water Flushes at 200 ml q4hr and Bumex mg IVP Qday Diagnostics: (08/08/2024) sodium 151, Bicarb 34.4, BUN 36, creatinine 1.4, GFR 36-->(08/11/2024) Na 153, BUN 36 Cr 1.4, GFR 36 Plan: -IV Bumex 2 mg IVP QDay -Water Flushes at 200 mlg q4hr, stop at fluid restriction -Goal sodium 145 which would be a difference of 7 within the next 24 hours. -Continue sodium checks every 4 hourly #Acute hypoxic respiratory failure secondary to CHF and pneumonia #Pneumonia, Influenza + with likley superimposed pneumonia #Sepsis, secondary to Pneumonia, resolved #Septic shock, resolved. Etiology: Influenza positive on admission in acute hypoxic respiratory failure from pneumonia likely secondary to influenza positive, patient currently requires oxygen support. DDx: UTI less likely as no symptoms of UTI vs AL less likley given troponins <0.02. No STEM elevation. 08/09/2024: high flow FiO2 increased to 75 given increased work of breathing likely secondary to increased free water flushes for hypernatremia. Currently Holding water flushes, continue to monitor Na Q6 hours Balance 1493, weight no change 64.127 08/11/2024: This morning patient had worsening work of breathing, and desatting in the low 80s on high flow rate 20 and FiO2 of 60. FiO2 increased to 100, this evening rechecked and currently sitting at 90% saturating at 95%. Nephrology consulted recommended to restart water flushes of 200 ml every Q4HR with Bumex 2 mg IV push today. Please stop fluid restrictions of 1800. New chest x-ray ordered showed worsening significant CHF with prominent posterior congestion with hilar edema. Consider aspiration pneumonia, started on Zosyn extended release taking consideration CKD 3 and fluid restrictions. Consider fibrosis versus ARDS. Consider CT chest. -WBC 10.0 (08/08/2024) -Cxr (08/08/2024): Moderate CHF, Right Base Pneumonia -Cxr (08/02/2024): Moderate CHF, perihilar basilar edema -Urine Culture NO Growth -Blood Culture: No growthin -Sputum Culture: Tia Albicans Plan: -Zosyn 3.375 mg Extended Release (covering aspiration pneumonia) & at lower fluid 50 ml per day. -Bumex 2 mg IVP Qday + water flushes at 200 ml q4 hrs -40 mEq KCl given x 1 -High flow at Fio2 90% (@6 PM) -Consider Nystatin mouth -Duonebs scheduled -Ordered chest PT Q4 hourly with Mucomyst -Guifensen PRN -Chest Physiology & Acapella -Oseltamivir 30 mg QDay-course completed -Consider ABG if worsening work of breathing #Acute CHF exacerbation, improving #CHF, Diastolic Dysfunciton, HFpEF 60-65% w/ moderate to serve calcified aortic stenosis (08/04/2024) Etiology: Patient has a past medical history of congestive heart failure with a BNP 518. Patient positive for orthopnea, paroxysmal nocturnal orthopnea and increasing cough. CHF exacerbation likely secondary to pneumonia Dignostics: Although patient has a past medical history of CAD status post stents, less likely secondary to AL/no ST elevation on EKG and troponins are not elevated. PE less likely as well score is 1. Echo(08/04/2024) : Normal LV size and function. Estimated EF 60-65% Moderate to severec calcific aortic stenosis. Mild aotic regurgitation RV is normal in size. The right ventricular systolic function is mildly decreased. The estimated RVSP, 47 mmHg. RAP 15. Mild MAC. Mild MR, TR. NYHA Class: likely III Plan: -Bumex 2mg IVP Qday -K>4 and Mg >2 -Fluid Restriction and Sodium Restriction 2 g per day -SpO <90%, support PRN -Daily Weights, Strict Ins and Outs, Fluid Striction (1800 ml), Sodium Restriction 2 grams per day -Cardiology Consult, Dr. Barton, appreciate recommendations. #Atrial Fibrillation, rate controlled #CAD s/p stents of right coronary artery #Hyperlipidemia Patient has a past medical history of Atrial Fibrillation. CHADVASC of 3. Currently not on Eliquis per Dr. Barton. Possible risk of bleeding and currently sinus. 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 Diagnostics: (08/09/2024): BUN 36, Cr 1.4 GFR 36, BUN/Cr 27 Plan: -Bumex 2 mg IVP Qday -Continue with NG tube feeding with water flushes (200 ml q4hr per nephrology) -Renally dose medication -Avoid nephrotoxins # Dysphagia -currently NG tube, hold water flushes -Water flushes currently at 200 ml q4hr Plan -NG Tube, last accessed on 08/08/2024 -Speech Referral -Swallow evaluation Health Maintenance: Disp: Pt is currently admitted to floors for further management of acute hypoxic respiratory failure, awaiting improvement in hypernatremia, heart failure and work of breathing. FEN: NG tube, continue water flushes 200 ml q4hr per nephrology-->stop at fluid restriction then continue with morning team. DVT: on subQ heparin Code: Full code - The patient's plan was discussed with attending Dr. Andrew and senior residents Dr. Onelia Monique MD PGY1 Internal Medicine Attending Provider Attestation/Addendum I have discussed and was present for the essential components of the history, physical examination, diagnosis, and treatment plan with the resident. I agree with the patient's care as documented by the resident and amended herein by me. Roverto Andrew, DO. Although this document has been carefully reviewed, there may still be some phonetic and other typographical errors. These errors are purely grammatical due to imperfections in the software program and should not be construed in any way to compromise the substance of the patient's medical care during this visit.
--- NOTE | 2024-08-11 15:17 | PC.SS ---
Rounding Note: Patient remains on high flow oxygen, 40L.
[2024-08-11] MEDS: BUMETANIDE INJ 0.25 MG/ML VIAL 4 ML 2 MG IVP (18:06)
[2024-08-11 18:17] LABS: Sodium 151 mMol/L (136-145)
[2024-08-11 22:10] LABS: Sodium 152 mMol/L (136-145)
[2024-08-11] MEDS: ATORVASTATIN CALCIUM 20 MG TABLET 80 MG PO (22:18)
[2024-08-12] VITALS (16 sets, daily range): BP systolic 93–133; BP diastolic 50–75; PULSE 70–85; RESP 15–22; TEMP 35.9–36.2; O2SAT 91–98; BMI 23.4
[2024-08-12] MEDS: INSULIN LISPRO (AdmeLOG) 1 UNIT/0.01 ML UNIT SC ×4 (00:56→18:02)
[2024-08-12 01:37] LABS: Sodium 152 mMol/L (136-145)
[2024-08-12] MEDS: ACETYLCYSTEINE RT SOL 10% 4 ML NEBU 3 ML INH ×6 (02:39→22:52)
[2024-08-12] MEDS: ALBUTEROL/IPRATROPIUM (Duoneb) RT SOL 3 ML NEBU INH ×6 (02:40→22:52)
[2024-08-12] MEDS: PIPER/TAZO 3.375 GM 50 ML IV ×2 (05:18→20:29)
[2024-08-12 05:56] LABS: Basophils % (Auto) 0 % (0-2.5); Eosinophils % (Auto) 0 % (0-10); Hematocrit 32.3 % (36.0-46.0); Immature Granulocytes % (Auto) 1 % (0-0); Immature Granulocytes Auto 0.13 Thou/mm3 (0.00-0.00); Lymphocytes % (Auto) 7 % (10-50); Mean Corpuscular Hemoglobin 27.5 pg (25.0-35.0); Mean Corpuscular Volume 89 fL (80-100); Monocytes # (Auto) 0.6 Thou/mm3 (0.0-0.8); Monocytes % (Auto) 5 % (0-12); Neutrophils # (Auto) 12.1 Thou/mm3 (1.8-7.7); Neutrophils % (Auto) 87 % (37-80); Nucleated Red Blood Cell % 0 /100 WBC (0); Platelet Count 152 Thou/mm3 (140-440); RDW Standard Deviation 51.5 fL (36.4-46.3); Red Blood Count 3.63 Miln/mm3 (4.00-5.20); White Blood Count 13.9 Thou/mm3 (3.6-11.0)
[2024-08-12 06:30] LABS: Alanine Aminotransferase 86 U/L (10-49); Albumin, Serum 3.1 gm/dL (3.4-4.8); Albumin/Globulin Ratio 1.2 (1.2-2.2); Alkaline Phosphatase 204 U/L (46-116); Anion Gap 7 (7-16); Aspartate Amino Transferase 55 U/L (0-34); BUN/Creatinine Ratio 28 Ratio (12-20); Bilirubin,Total 0.5 mg/dL (0.3-1.2); Blood Urea Nitrogen 47 mg/dL (9-23); Calcium 9.3 mg/dL (8.3-10.6); Carbon Dioxide 37.4 mMol/L (20.0-31.0); Chloride 109 mMol/L (98-107); Creatinine (Component) 1.7 mg/dL (0.6-1.3); Estimated Creatinine Clearance 18.4 mL/min (>60); Globulin 2.6 gm/dL (2.3-3.5); Glucose 149 mg/dL (74-106); Magnesium 2.8 mg/dL (1.6-2.6); Osmolality,Calculated 318 (275-295); Potassium 3.1 mMol/L (3.4-5.1); Sodium 153 mMol/L (136-145); Total Protein 5.7 gm/dL (5.7-8.2); eGFR 29 See Note
--- NOTE | 2024-08-12 07:56 | PD.NEPHPROG ---
Documentation for date of: 08/12/24 Subjective Subjective Interval history: Ms. Keller is a 88-year-old lady with past medical history of hypertension, dyslipidemia, aortic stenosis presented to the hospital with acute hypoxic respiratory failure and noted to have flu positive. Patient also seem to have some heart failure and was given Lasix and metolazone. However BUN, creatinine, sodium went up and diuretics were held. Patient was given gentle IV fluids. However she went into respiratory failure needing high flow at 40 L/min O2, atrial fibrillation and Dr. Montejo was consulted. Renal consultation requested in view of ANASTACIA/hyponatremia in the setting of fluid overload. Dr. Montejo at bedside. Patient currently on NG tube feeds with no free water flushes. Chest x-ray shows fluid overload/pneumonia. Current medications included amlodipine which was held, Zosyn, Lipitor, heparin, metoprolol, amiodarone, cough syrup. 08/11/2024 WBC 11.7, hemoglobin 10.4, platelets 157. Sodium 150, potassium 3.4, BUN 41, creatinine 1.5, calcium 10.3, phosphorus 2.7, magnesium 2.8, AST 109, ALT 115, alk phos 227, albumin 3.1. Chest x-ray showed worsening congestive heart failure. Patient currently seen in telemetry. Daughter, at bedside. 08/12/2024 patient currently seen in telemetry. She is more alert and awake. Sodium still remains at 153. Apparently she did not get free water flushes yesterday. Creatinine 1.7. Clinically she looks tad better today. Entire family at bedside. Continue with Bumex today. 1 dose of Diamox given due to metabolic alkalosis. Review of Systems Review of Systems Narrative Review of Systems: Limited due to her mentation. Exam Vital Signs Temp Pulse Resp BP Pulse Ox O2 Del Method O2 Flow Rate 36.0 C 78 20 129/52 L 92 L High Flow Nasal Cannula 35 08/12/24 04:00 08/12/24 06:51 08/12/24 06:51 08/12/24 04:00 08/12/24 06:51 08/12/24 04:00 08/12/24 06:51 FiO2 65 08/12/24 06:51 Narrative Exam GENERAL APPEARANCE: Patient sick looking-looks younger than her stated age. Currently seen in telemetry. On high flow oxygen. NECK: Neck supple, no JVD or bruit CARDIOVASCULAR: Heart regular, no murmurs LUNGS/CHEST: Marked improvement in crackles ABDOMEN: Soft, nontender, nondistended. No masses. Normal bowel sounds. EXTREMITIES: No edema, clubbing or cyanosis. SKIN: Skin exam normal without any rashes MUSCULOSKELETAL: In bed NEUROLOGICAL : Sleepy although arousable Objective Labs 08/13/24 02:50 08/13/24 02:50 Labs: Laboratory Results - last 24 hr 08/11/24 08/11/24 08/11/24 09:57 14:15 17:40 WBC RBC Hgb Hct MCV MCH MCHC RDW Std Deviation Plt Count Neut % (Auto) Lymph % (Auto) [place] % (Auto) Eos % (Auto) Baso % (Auto) Neut # (Auto) Lymph # (Auto) [place] # (Auto) Eos # (Auto) Baso # (Auto) Immature Gran # (Auto) Absolute Nucleated RBC Immature Gran % Nucleated RBC % Sodium 153 H 150 H 151 H Potassium Chloride Carbon Dioxide Anion Gap BUN Creatinine Estim Creat Clear Calc eGFR BUN/Creatinine Ratio Glucose Calculated Osmolality Calcium Corrected Calcium Phosphorus Magnesium Total Bilirubin AST ALT Alkaline Phosphatase Total Protein Albumin Globulin Albumin/Globulin Ratio 08/11/24 08/12/24 08/12/24 20:41 01:17 05:05 WBC 13.9 H RBC 3.63 L Hgb 10.0 L Hct 32.3 L MCV 89 MCH 27.5 MCHC 31.0 RDW Std Deviation 51.5 H Plt Count 152 Neut % (Auto) 87 H Lymph % (Auto) 7 L [place] % (Auto) 5 Eos % (Auto) 0 Baso % (Auto) 0 Neut # (Auto) 12.1 H Lymph # (Auto) 1.0 [place] # (Auto) 0.6 Eos # (Auto) 0.0 Baso # (Auto) 0.0 Immature Gran # (Auto) 0.13 H Absolute Nucleated RBC 0.00 Immature Gran % 1 H Nucleated RBC % 0 Sodium 152 H 152 H 153 H Potassium 3.1 L Chloride 109 H Carbon Dioxide 37.4 H Anion Gap 7 BUN 47 H Creatinine 1.7 H Estim Creat Clear Calc 18.4 L eGFR 29 L BUN/Creatinine Ratio 28 H Glucose 149 H Calculated Osmolality 318 H Calcium 9.3 Corrected Calcium 10.0 Phosphorus 3.0 Magnesium 2.8 H Total Bilirubin 0.5 AST 55 H ALT 86 H Alkaline Phosphatase 204 H D Total Protein 5.7 Albumin 3.1 L Globulin 2.6 Albumin/Globulin Ratio 1.2 ABG Interpretation ABG results: 08/02/24 08/02/24 08/02/24 11:32 15:23 16:47 ABG pH 7.37 7.40 ABG pCO2 50 H 44 ABG pO2 36 L* 80 L D ABG HCO3 29 H 27 H ABG O2 Saturation 64 L 96 ABG Base Excess 3 2 VBG pH 7.48 VBG pCO2 35 L VBG pO2 46 VBG Base Excess 3 08/02/24 08/02/24 08/03/24 20:46 23:49 03:08 ABG pH 7.39 7.45 7.48 H ABG pCO2 47 37 D 34 ABG pO2 76 L 248 H D 160 H D ABG HCO3 29 H 25 25 ABG O2 Saturation 95 99 H 98 ABG Base Excess 3 2 2 VBG pH VBG pCO2 VBG pO2 VBG Base Excess 08/03/24 08/03/24 08/04/24 05:03 09:09 04:23 ABG pH 7.45 7.38 7.42 ABG pCO2 37 43 46 ABG pO2 55 L* D 51 L* 92 D ABG HCO3 26 26 30 H ABG O2 Saturation 90 L 85 L 97 ABG Base Excess 2 0 5 H VBG pH VBG pCO2 VBG pO2 VBG Base Excess 08/05/24 08/06/24 08/09/24 04:47 04:07 08:33 ABG pH 7.38 7.42 7.37 ABG pCO2 50 H 49 H 65 H ABG pO2 93 73 L D 67 L ABG HCO3 30 H 32 H 37 H ABG O2 Saturation 96 94 95 ABG Base Excess 4 H 7 H 10 H VBG pH VBG pCO2 VBG pO2 VBG Base Excess Assessment & Plan Additional Assessment & Plan Additional Plan: 1. Acute renal failure secondary to prerenal azotemia. Patient clinically looks rather hypervolemic. Spoke to Dr. Montejo-will give diuretics. Gave 1 dose of Diamox for metabolic alkalosis. Continue Bumex today. Noted mild elevation in creatinine probably related to diuretics 2. Hypoxia respiratory failure secondary to pneumonia and acute respiratory distress syndrome, fluid overload. Add diuretics, on high flow, antibiotics 3. Aortic stenosis, severe. Under Dr. Montejo 4. Dehydration and hypernatremia. Will add free water flushes NG tube-spoke to primary team 5. Congestive heart failure-will add Bumex and closely monitor sodium. Strict I&O's ordered. Echocardiogram last showed ejection fraction 60 to 65%. Thank you Roverto for allowing me to participate in the care of Ms. Keller Plan of care discussed with family at bedside.
[2024-08-12] MEDS: POVIDONE IODINE 10% TOP ×2 (08:50→20:47)
[2024-08-12] MEDS: POTASSIUM CHLORIDE 10% 20 MEQ/15 ML UDC 40 MEQ GT (08:51)
[2024-08-12] MEDS: BUMETANIDE INJ 0.25 MG/ML VIAL 4 ML 2 MG IVP (08:53)
[2024-08-12] MEDS: HEPARIN SOD INJ 5000 UNIT/ML VIAL SC ×2 (08:54→20:28)
[2024-08-12] MEDS: PANTOPRAZOLE INJ 40 MG VIAL IV (08:54)
[2024-08-12] MEDS: METOPROLOL SUCCINATE XL 25 MG TABCR 12.5 MG PO ×2 (08:55→20:28)
[2024-08-12] MEDS: AMIODARONE HCL 200 MG TABLET PO ×2 (08:55→20:31)
[2024-08-12] MEDS: ACETAzolaMIDE SOD 500 MG in SODIUM CHLORIDE 0.9% (P) 50 ML 100 MG IV (09:28)
[2024-08-12 10:37] LABS: Sodium 151 mMol/L (136-145)
--- NOTE | 2024-08-12 10:49 | PC.SS ---
Pretzel Packer (COBY) Molly met with patient and her daughters at bedside. COBY introduced self, role and reason for visit. Patient's daughter, Lisbeth reported that originally, discharge plan was to return home with home health. However, now, family has decided that patient will go to a SNF when medically clear. SW provided pamphlets for STC, GPA, LGNR, and RWCC. Since patient had an ICU admission, SW also provided information for LTAC through [facility]. COBY encouraged family to review information and do tours at facilities by contacting them. COBY will follow up.
[2024-08-12] MEDS: POTASSIUM CHLORIDE 10% 20 MEQ/15 ML UDC 40 MEQ PO (13:16)
--- NOTE | 2024-08-12 13:48 | ESPR_ITS ---
<Statement entered by Maru Yap MD - 08/12/24 14:38> Patient was examined bedside this morning,we held the fluid restriction and started on free water flushes at 200 q3hr . received a dose of dimox. will follow Na every 4 hr . Neurology is on borad . will continue bumex. strict I and O . prognosis poor . I discussed with and supervised my co-resident involved in the care of this patient. I agree with the assessment and plan as documented above. Maru Yap,PGY-3 Disclaimer: Despite multiple revisions, due to the dictation software being used, the document below may not be free of grammatical errors including phonetic/typographic errors. However, this does not deter from our commitment to providing health care in the patient's best interest in mind. 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 Admitted initially on 08/02/2024 for acute hypoxic respiratory failure and upgraded to ICU. Patient downgraded on 08/08/2024 for continued medical management. No overnight events reported. Patient examined at bedside. Patient continues to be altered and unaware of self, place or time. Patient's lung continue to sound course with crackles. Patient stated she feels bad . No fluid restrictions. Currently water flushes per Dr. Springer on board with 200 cc Q3hrs with Bumex. Exam Vital Signs Temp Pulse Resp BP Pulse Ox O2 Del Method O2 Flow Rate 97.1 F 76 16 93/56 L 98 Nasal Cannula 30 08/12/24 12:00 08/12/24 12:00 08/12/24 12:00 08/12/24 12:00 08/12/24 12:00 08/12/24 12:00 08/12/24 10:55 FiO2 50 08/12/24 10:55 Narrative Exam General Appearance: Alert & Oriented X0, well-nourished female who is lying in bed in with increased work breathing HEENT: Skull symmetrical and atraumatic. Conjunctivae pale pink and moist. Pupils equal, round, reactive to light and accommodation (PERRL). External ear without lesion or discharge. Straight, nares patient, mucosa pink, no discharge. Cardio: Normal Rate and Rhythm with S1 and S2 heart sounds. No murmurs or extra heart sounds auscultated. No bruits on carotid auscultation. No peripheral edema or cyanosis. Lungs: Symmetric with good expansion. Chest and back non-tender. Breath sounds vesicular with crackles and rhonchi Abdomen: Non-tender, Non-distended, Normal Reactive Bowel Sounds Neuro: yes Alert,yes cooperative, No oriented to person, No place, and No time. CN grossly intact. Upper motor strength 5/5 and Lower motor strength 5/5. Sensation intact. Objective Labs 08/12/24 05:05 08/12/24 15:03 Labs: Laboratory Results - last 24 hr 08/11/24 08/11/24 08/11/24 14:15 17:40 20:41 WBC RBC Hgb Hct MCV MCH MCHC RDW Std Deviation Plt Count Neut % (Auto) Lymph % (Auto) Dickinson % (Auto) Eos % (Auto) Baso % (Auto) Neut # (Auto) Lymph # (Auto) Dickinson # (Auto) Eos # (Auto) Baso # (Auto) Immature Gran # (Auto) Absolute Nucleated RBC Immature Gran % Nucleated RBC % Sodium 150 H 151 H 152 H Potassium Chloride Carbon Dioxide Anion Gap BUN Creatinine Estim Creat Clear Calc eGFR BUN/Creatinine Ratio Glucose Calculated Osmolality Calcium Corrected Calcium Phosphorus Magnesium Total Bilirubin AST ALT Alkaline Phosphatase Total Protein Albumin Globulin Albumin/Globulin Ratio 08/12/24 08/12/24 08/12/24 01:17 05:05 09:58 WBC 13.9 H RBC 3.63 L Hgb 10.0 L Hct 32.3 L MCV 89 MCH 27.5 MCHC 31.0 RDW Std Deviation 51.5 H Plt Count 152 Neut % (Auto) 87 H Lymph % (Auto) 7 L Dickinson % (Auto) 5 Eos % (Auto) 0 Baso % (Auto) 0 Neut # (Auto) 12.1 H Lymph # (Auto) 1.0 Dickinson # (Auto) 0.6 Eos # (Auto) 0.0 Baso # (Auto) 0.0 Immature Gran # (Auto) 0.13 H Absolute Nucleated RBC 0.00 Immature Gran % 1 H Nucleated RBC % 0 Sodium 152 H 153 H 151 H Potassium 3.1 L Chloride 109 H Carbon Dioxide 37.4 H Anion Gap 7 BUN 47 H Creatinine 1.7 H Estim Creat Clear Calc 18.4 L eGFR 29 L BUN/Creatinine Ratio 28 H Glucose 149 H Calculated Osmolality 318 H Calcium 9.3 Corrected Calcium 10.0 Phosphorus 3.0 Magnesium 2.8 H Total Bilirubin 0.5 AST 55 H ALT 86 H Alkaline Phosphatase 204 H D Total Protein 5.7 Albumin 3.1 L Globulin 2.6 Albumin/Globulin Ratio 1.2 ABG Interpretation ABG results: 08/02/24 08/02/24 08/02/24 11:32 15:23 16:47 ABG pH 7.37 7.40 ABG pCO2 50 H 44 ABG pO2 36 L* 80 L D ABG HCO3 29 H 27 H ABG O2 Saturation 64 L 96 ABG Base Excess 3 2 VBG pH 7.48 VBG pCO2 35 L VBG pO2 46 VBG Base Excess 3 08/02/24 08/02/24 08/03/24 20:46 23:49 03:08 ABG pH 7.39 7.45 7.48 H ABG pCO2 47 37 D 34 ABG pO2 76 L 248 H D 160 H D ABG HCO3 29 H 25 25 ABG O2 Saturation 95 99 H 98 ABG Base Excess 3 2 2 VBG pH VBG pCO2 VBG pO2 VBG Base Excess 08/03/24 08/03/24 08/04/24 05:03 09:09 04:23 ABG pH 7.45 7.38 7.42 ABG pCO2 37 43 46 ABG pO2 55 L* D 51 L* 92 D ABG HCO3 26 26 30 H ABG O2 Saturation 90 L 85 L 97 ABG Base Excess 2 0 5 H VBG pH VBG pCO2 VBG pO2 VBG Base Excess 08/05/24 08/06/24 08/09/24 04:47 04:07 08:33 ABG pH 7.38 7.42 7.37 ABG pCO2 50 H 49 H 65 H ABG pO2 93 73 L D 67 L ABG HCO3 30 H 32 H 37 H ABG O2 Saturation 96 94 95 ABG Base Excess 4 H 7 H 10 H VBG pH VBG pCO2 VBG pO2 VBG Base Excess Quality Measures Quality Measures VTE prophylaxis (Heparin subcut) Advance care planning discussed with:: patient Assessment & Plan Assessment Current Active Medications: Generic Name Dose Route Start Last Admin Trade Name Freq PRN Reason Stop Dose Admin Acetaminophen 650 mg 08/02/24 13:42 Acetaminophen 325 Mg Tablet PO 09/01/24 13:41 Q6H PRN Mild Pain 1-3 or Fever >100.4 Acetylcysteine 3 ml 08/10/24 11:00 08/12/24 10:48 Acetylcysteine Rt Cindy 10% 4 Ml Nebu INH 09/09/24 10:59 3 ml Q4HRRT JORGE ALBERTO Administration Albuterol/Ipratropium 3 ml 08/02/24 16:45 08/12/24 10:48 Albuterol/Ipratropium (Duoneb) Rt Cindy 3 Ml Nebu INH 09/01/24 16:44 3 ml Q4HRRT JORGE ALBERTO Administration Amiodarone HCl 200 mg 08/03/24 09:00 08/12/24 08:55 Amiodarone Hcl 200 Mg Tablet PO 09/02/24 08:59 200 mg BID JORGE ALBERTO Administration Amlodipine Besylate 5 mg 08/02/24 14:20 08/02/24 15:52 Amlodipine Besylate 5 Mg Tablet PO 09/01/24 14:19 5 mg QDAY JORGE ALBERTO Administration Atorvastatin Calcium 80 mg 08/11/24 21:00 08/11/24 22:18 Atorvastatin Calcium 20 Mg Tablet PO 09/02/24 08:59 80 mg HS JORGE ALBERTO Administration Bumetanide 2 mg 08/11/24 17:00 08/12/24 08:53 Bumetanide Inj 0.25 Mg/Ml Vial 4 Ml IVP 08/13/24 09:01 2 mg QDAY JORGE ALBERTO Administration Dextrose 25 ml 08/02/24 16:39 Dextrose 50%-Water Inj 50 Ml Syringe IV 09/01/24 16:38 Q15MIN PRN BG 50-70 responsive npo pt Dextrose 50 ml 08/02/24 16:39 Dextrose 50%-Water Inj 50 Ml Syringe IV 09/01/24 16:38 Q15MIN PRN BG <50 OR BG <70 & pt unresponsive Ferrous Sulfate 325 mg 08/11/24 07:30 08/11/24 10:19 Ferrous Sulf 325 Mg Tablet PO 09/10/24 07:29 325 mg QOD JORGE ALBERTO Administration Glucagon 1 mg 08/02/24 16:39 Glucagon Inj 1 Mg Vial IM Q15MIN PRN BG <70, and no IV access Guaifenesin 100 mg 08/02/24 14:33 08/02/24 15:54 Guaifenesin Syrup 200 Mg/10 Ml Udc PO 09/01/24 14:32 100 mg QID PRN Administration COUGH Protocol Guaifenesin/Dextromethorphan 1 each 08/02/24 15:30 Guaifenesin/Dm Tablet PO 09/01/24 15:25 Q4HR PRN COUGH Heparin Sodium (Porcine) 5,000 unit 08/09/24 21:00 08/12/24 08:54 Heparin Sod Inj 5000 Unit/Ml Vial SC 08/23/24 20:59 5,000 unit BID JORGE ALBERTO Administration Piperacillin/Tazobactam/Dextrose 50 mls @ 12.5 mls/hr 08/12/24 21:00 Zosyn IV 08/19/24 20:59 Q12HR JORGE ALBERTO Protocol Insulin Human Lispro 0 unit 08/10/24 07:38 08/12/24 13:16 Insulin Lispro (Admelog) 1 Unit/0.01 Ml Unit SC 09/02/24 05:59 4 unit Q6HR JORGE ALBERTO Administration Protocol Metoprolol Succinate 12.5 mg 08/06/24 21:00 08/12/24 08:55 Metoprolol Succinate Xl 25 Mg Tabcr PO 09/05/24 20:59 12.5 mg BID JORGE ALBERTO Administration Pantoprazole Sodium 40 mg 08/03/24 09:00 08/12/24 08:54 Pantoprazole Inj 40 Mg Vial IV 09/02/24 08:59 40 mg QDAY JORGE ALBERTO Administration Pharmacy Consult 1 each 08/11/24 13:04 Pharmacy Renal Dose Adjustment 1 Ea XX 09/10/24 13:03 PRN PRN CONSULT Povidone Iodine 0 ml 08/08/24 21:00 08/12/24 08:50 Povidone Iodine Top Cindy 10% 120 Ml Btl TOP 08/15/24 20:59 1 appln BID JORGE ALBERTO Administration Sodium Chloride 3 ml 08/02/24 11:12 08/02/24 11:15 Sodium Chloride Rt Cindy 0.9% 3 Ml Nebu INH 09/01/24 11:11 3 ml PRN PRN Administration SOLN Plan Patient is an 88-year-old female with a past medical history of hypertension CHF diastolic dysfunction HFpEF (60 to 65%) on 04/27/2024, CAD s/p stent in right coronary artery, aortic stenosis, carotid disease, s/p endarterectomy (2020& 2023), history of atrial fibrillation (not on Eliquis risk of bleeding), history of colorectal cancer, and CKD who was admitted for acute hypoxic respiratory failure. #Hypernatremia, Hypovolemic #Metabolic Alkalosis, secondary to diuretics Etiology: Patient was being diuresed on Bumex in ICU. Patient presented with hypernatremia after downgrade 152. Given that patient appears hypovolemic and dry up on physical exam with improved pedal edema on physical exam and improve pulmonary vascular congestion on chest x-ray, likely secondary to diuretics. DDx: Worsening CKD cannot be ruled out versus central or nephrogenic causes. (08/09/2024): Bicarbonate showing no improvement and limited improvement on Sodium. Given increased bicarbonate Acetazolamide 250 mg POx1 (via NG tube) and Lasix 40 mg X 1 on 07/20/2024 08/12/2024: Per nephrology: Free Water Flushes at 200 ml q3hr and Bumex mg IVP Qday (until 08/13/2024). No fluid restrictions. Diagnostics: (08/12/2024) Na 153, 151 Plan: -IV Bumex 2 mg IVP QDay -Water Flushes at 200 mlg q3hr, no fluid restrictions -Goal sodium 145 which would be a difference of 7 within the next 24 hours. -Continue sodium checks every 4 hourly #Acute hypoxic respiratory failure secondary to CHF and pneumonia #Pneumonia, Influenza + with likley superimposed pneumonia #Sepsis, secondary to Pneumonia, resolved #Septic shock, resolved. Etiology: Influenza positive on admission in acute hypoxic respiratory failure from pneumonia likely secondary to influenza positive, patient currently requires oxygen support. DDx: UTI less likely as no symptoms of UTI vs CA less likley given troponins <0.02. No STEM elevation. 08/09/2024: high flow FiO2 increased to 75 given increased work of breathing likely secondary to increased free water flushes for hypernatremia. Currently Holding water flushes, continue to monitor Na Q6 hours Balance 1493, weight no change 64.127 08/11/2024: This morning patient had worsening work of breathing, and desatting in the low 80s on high flow rate 20 and FiO2 of 60. FiO2 increased to 100, this evening rechecked and currently sitting at 90% saturating at 95%. Nephrology consulted recommended to restart water flushes of 200 ml every Q4HR with Bumex 2 mg IV push today. Please stop fluid restrictions of 1800. New chest x-ray ordered showed worsening significant CHF with prominent posterior congestion with hilar edema. Consider aspiration pneumonia, started on Zosyn extended release taking consideration CKD 3 and fluid restrictions. Consider fibrosis versus ARDS. Consider CT chest. 08/12/2024-Continue Zosyn extended release with only 50 ml to reduce fluid. Continue Bumex. Output -1055 ml, 61.19 kg---> 60.01 kg -WBC 10.0 (08/08/2024)-->08/12/2024 13.9 -Cxr (08/08/2024): Moderate CHF, Right Base Pneumonia -Cxr (08/02/2024): Moderate CHF, perihilar basilar edema -Urine Culture NO Growth -Blood Culture: No growthin -Sputum Culture: Tia Albicans Plan: -Zosyn 3.375 mg Extended Release (covering aspiration pneumonia) & at lower fluid 50 ml per day. -Bumex 2 mg IVP Qday + water flushes at 200 ml q3 hrs -High flow at Fio2 50% RR 35 -Consider Nystatin mouth -Duonebs scheduled -Ordered chest PT Q4 hourly with Mucomyst -Guifensen PRN -Chest Physiology & Acapella -Oseltamivir 30 mg QDay-course completed -Consider ABG if worsening work of breathing #Acute CHF exacerbation, improving #CHF, Diastolic Dysfunciton, HFpEF 60-65% w/ moderate to serve calcified aortic stenosis (08/04/2024) Etiology: Patient has a past medical history of congestive heart failure with a BNP 518. Patient positive for orthopnea, paroxysmal nocturnal orthopnea and increasing cough. CHF exacerbation likely secondary to pneumonia Dignostics: Although patient has a past medical history of CAD status post stents, less likely secondary to CA/no ST elevation on EKG and troponins are not elevated. PE less likely as well score is 1. Echo(08/04/2024) : Normal LV size and function. Estimated EF 60-65% Moderate to severec calcific aortic stenosis. Mild aotic regurgitation RV is normal in size. The right ventricular systolic function is mildly decreased. The estimated RVSP, 47 mmHg. RAP 15. Mild MAC. Mild MR, TR. NYHA Class: likely III Plan: -Bumex 2mg IVP [id number] on 08/13/2024 -K>4 and Mg >2 -Fluid Restriction and Sodium Restriction 2 g per day -SpO <90%, support PRN -Daily Weights, Strict Ins and Outs, Fluid Striction (1800 ml), Sodium Restriction 2 grams per day -Cardiology Consult, Dr. Barton, appreciate recommendations. #Atrial Fibrillation, rate controlled #CAD s/p stents of right coronary artery #Hyperlipidemia Patient has a past medical history of Atrial Fibrillation. CHADVASC of 3. Currently not on Eliquis per Dr. Barton. Possible risk of bleeding and currently sinus. 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 Diagnostics: (08/11/2024): BUN 47, Cr 1.7 GFR 29, BUN/Cr 28 Plan: -Bumex 2 mg IVP Qday -re-access at 08/13/2024 -Continue with NG tube feeding with water flushes (200 ml q4hr per nephrology) -Renally dose medication -Avoid nephrotoxins # Dysphagia -currently NG tube, hold water flushes -Water flushes currently at 200 ml q4hr Plan -NG Tube, last accessed on 08/08/2024 -Speech Referral -Swallow evaluation Health Maintenance: Disp: Pt is currently admitted to floors for further management of acute hypoxic respiratory failure, awaiting improvement in hypernatremia, and work of breathing. FEN: NG tube, continue water flushes 200 ml q3hr per nephrology DVT: on subQ heparin Code: Full code - The patient's plan was discussed with attending Dr. Mann and senior residents Dr. Marely Monique MD PGY1 Internal Medicine Attending Provider Attestation/Addendum ILicha, DO, attest that I was physically present for the smith portions of the service and evaluated the patient with the resident and I reviewed and discussed the case with the resident and agree with the resident's findings and plans of care as documented above Patient seen and evaluated this AM. Patient continues to have scattered rhonchi and remains on HFNC with FiO2 of 50% and flow of 30L/min. Patient continues to fail swallow eval. NG tube remains in place. Will continue to have IV diuresis. Daughter updated regarding patient's conditiong and will have goals of care discussion with patient's when he arrives. Patient remains full code at this time. However, she appears more fatigued today and stating that she feels worse. Pt is too weak to expectorate sputum. Will continue wtih chest PT and IV diuresis. Sodium remains elevated. Will continue to trend sodium level.
--- NOTE | 2024-08-12 14:31 | ESPR_ITS ---
<Statement entered by Thaddeus Barton MD - 08/13/24 19:20> I evaluated the patient along with resident physician Dr. Ryan agree with the treatment plan recommendation as documented patient continues to have shortness of breath high flow oxygen requirements nephrology is also evaluated the patient diuretics are being given cautiously patient's condition not improving deteriorating recommended to discuss CODE STATUS with the family Documentation for date of: 08/12/24 Subjective Subjective Interval history: 88-year-old female patient with significant medical history for HFpEF, moderate to severe aortic stenosis, coronary artery disease s/p RCA stent placements, atrial fibrillation, bilateral endarterectomy (2020 and 2023), severe peripheral artery disease, chronic kidney disease, colon cancer sp resection, DM2, hypertension and hypercholesterolemia presented with worsening shortness of breath and productive cough was admitted for AHRF and sepsis due to influenza pneumonia with superimposed bacterial infection and CHF exacerbation. Patient was administered Tamiflu and started on IV Vanco and Zosyn. Initially patient was started on oxygen mask as she was hypoxic, due to continuing desaturation in the 70s patient was transitioned to BiPAP. Multiple rapid responses were called as patient continued to be desatting and was becoming increasingly tired. Goals of care discussion were held with family, patient's code status was switched to full code and decision was made to upgrade patient to ICU, intubated and started on levophed as patient was progressing towards ARDS. Cardiology was consulted for further management. 08/04/24: Echocardiogram on this admission indicates moderate to severe aortic stenosis with a gradient of 48 mmHg H (mean 30) with Vmax of 3.5 and LVEF 60- 65%. On physical exam patient is does not seem to be fluid overloaded, patient was recently seen at the clinic and was found to be asymptomatic. Patient seems to have an ARDS pattern secondary to influenza pneumonia. Continue current management, if no improvement we will consider right heart swan cath. 08/05/24: Patient has been weaned off of Levophed but still intubated. FiO2 at 40% and on 20 L rate. Morning chest x-ray seems to be worse than previous with more congestion, greater on the right side. Renal function and transaminitis improving. Patient had 1.6 L urine output and 1 bowel movement. Patient started on Bumex 1mg with a goal of -1 to 1.5 L overall fluid balance. Per primary team, picture is more of a obstructive shock. From cardiology point of view, no need for TAVR at this point. 08/06/24: No significant events overnight. Labs significant for hypernatremia most likely secondary to diuresis and decrease p.o. intake. While there was a mild decline in renal function patient's LFTs have been downtrending. Patient had 1.5 L of urine output with overall -650 mL net fluid balance. Patient was extubated on second attempt and was started on nasal cannula without complications. Currently patient on Bumex 1mg as needed which he was administered today. 08/07/24: No events overnight. Vitals stable, currently on 5L nasal cannula. Patient had 2.3L of urine output with overall -2.2L of net fluid balance. While most labs are improving, sodium has increased to 152. Patient currently on 250 mL free water flush Q6H. Patient receiving nutrition through NG tube. Patient stable to be downgraded for floor team to take over care starting tomorrow. We recommend discontinuing diuresis and giving patient x1 500ml D5W IVF. 08/08/24: Patient was started on HFNC overnight as she was found to be hypoxic. Morning labs and x-ray reviewed. Sodium improving/downtrending to 149, free water flush frequency increased by primary team. Renal function stable/same as yesterday. We recommend withholding diuretics. Patient's hypoxia likely due to ARDS, she is not fluid overloaded. 08/11/24: Continues to be on HFNC, currently on FiO2 90% at rate of 40 L. Patient continues to be hypernatremic, nephrology was consulted. Patient started on Bumex 2 mg Qday. Chest X-ray showed worsening congestion. Patient had 2.2L urine output with an overall -1.3L net negative fluid balance. 08/12/24: Patient a little more awake today compared to yesterday. On HFNC 50% FiO2 and rate of 35L. Sodium at 153, BUN 47 and Lacquer Pin [employer] Operator 1.7, patient started on water flushes. Had 1.8 L urine output with overall -1L net fluid balance in last 24 hours. Of note, patient's sputum culture did grow 4+ ross. Exam Vital Signs Temp Pulse Resp BP Pulse Ox O2 Del Method O2 Flow Rate 97.1 F 76 16 93/56 L 98 Nasal Cannula 30 08/12/24 12:00 08/12/24 12:00 08/12/24 12:00 08/12/24 12:00 08/12/24 12:00 08/12/24 12:00 08/12/24 10:55 FiO2 50 08/12/24 10:55 Narrative Exam Constitutional: Frail looking female, in mild distress HEENT: NCAT, EOMI, reactive round pupils b/l,moist mucous membranes, on HFNC Lung: Coarse lung sound, no wheezing, no rhonchi, decreased air entry on right lower lobe side Heart: Regular S1S2, no murmurs, gallops, or rubs Abdomen: Soft, non-distended, non-tender, bowel sounds present throughout Extremities: No cyanosis, clubbing, + trace edema, LE pulses present b/l Neurologic: AOx1, rest can not be performed due to patient's condition Skin: Warm, dry, no lesions or rashes noted Objective Labs 08/12/24 05:05 08/12/24 15:03 Labs: Laboratory Results - last 24 hr 08/11/24 08/11/24 08/11/24 14:15 17:40 20:41 WBC RBC Hgb Hct MCV MCH MCHC RDW Std Deviation Plt Count Neut % (Auto) Lymph % (Auto) [place] % (Auto) Eos % (Auto) Baso % (Auto) Neut # (Auto) Lymph # (Auto) [place] # (Auto) Eos # (Auto) Baso # (Auto) Immature Gran # (Auto) Absolute Nucleated RBC Immature Gran % Nucleated RBC % Sodium 150 H 151 H 152 H Potassium Chloride Carbon Dioxide Anion Gap BUN Creatinine Estim Creat Clear Calc eGFR BUN/Creatinine Ratio Glucose Calculated Osmolality Calcium Corrected Calcium Phosphorus Magnesium Total Bilirubin AST ALT Alkaline Phosphatase Total Protein Albumin Globulin Albumin/Globulin Ratio 08/12/24 08/12/24 08/12/24 01:17 05:05 09:58 WBC 13.9 H RBC 3.63 L Hgb 10.0 L Hct 32.3 L MCV 89 MCH 27.5 MCHC 31.0 RDW Std Deviation 51.5 H Plt Count 152 Neut % (Auto) 87 H Lymph % (Auto) 7 L [place] % (Auto) 5 Eos % (Auto) 0 Baso % (Auto) 0 Neut # (Auto) 12.1 H Lymph # (Auto) 1.0 [place] # (Auto) 0.6 Eos # (Auto) 0.0 Baso # (Auto) 0.0 Immature Gran # (Auto) 0.13 H Absolute Nucleated RBC 0.00 Immature Gran % 1 H Nucleated RBC % 0 Sodium 152 H 153 H 151 H Potassium 3.1 L Chloride 109 H Carbon Dioxide 37.4 H Anion Gap 7 BUN 47 H Creatinine 1.7 H Estim Creat Clear Calc 18.4 L eGFR 29 L BUN/Creatinine Ratio 28 H Glucose 149 H Calculated Osmolality 318 H Calcium 9.3 Corrected Calcium 10.0 Phosphorus 3.0 Magnesium 2.8 H Total Bilirubin 0.5 AST 55 H ALT 86 H Alkaline Phosphatase 204 H D Total Protein 5.7 Albumin 3.1 L Globulin 2.6 Albumin/Globulin Ratio 1.2 ABG Interpretation ABG results: 08/02/24 08/02/24 08/02/24 11:32 15:23 16:47 ABG pH 7.37 7.40 ABG pCO2 50 H 44 ABG pO2 36 L* 80 L D ABG HCO3 29 H 27 H ABG O2 Saturation 64 L 96 ABG Base Excess 3 2 VBG pH 7.48 VBG pCO2 35 L VBG pO2 46 VBG Base Excess 3 08/02/24 08/02/24 08/03/24 20:46 23:49 03:08 ABG pH 7.39 7.45 7.48 H ABG pCO2 47 37 D 34 ABG pO2 76 L 248 H D 160 H D ABG HCO3 29 H 25 25 ABG O2 Saturation 95 99 H 98 ABG Base Excess 3 2 2 VBG pH VBG pCO2 VBG pO2 VBG Base Excess 08/03/24 08/03/24 08/04/24 05:03 09:09 04:23 ABG pH 7.45 7.38 7.42 ABG pCO2 37 43 46 ABG pO2 55 L* D 51 L* 92 D ABG HCO3 26 26 30 H ABG O2 Saturation 90 L 85 L 97 ABG Base Excess 2 0 5 H VBG pH VBG pCO2 VBG pO2 VBG Base Excess 08/05/24 08/06/24 08/09/24 04:47 04:07 08:33 ABG pH 7.38 7.42 7.37 ABG pCO2 50 H 49 H 65 H ABG pO2 93 73 L D 67 L ABG HCO3 30 H 32 H 37 H ABG O2 Saturation 96 94 95 ABG Base Excess 4 H 7 H 10 H VBG pH VBG pCO2 VBG pO2 VBG Base Excess Quality Measures Quality Measures VTE prophylaxis (Heparin subcut) Advance care planning discussed with:: other Assessment & Plan Assessment Current Active Medications: Generic Name Dose Route Start Last Admin Trade Name Freq PRN Reason Stop Dose Admin Acetaminophen 650 mg 08/02/24 13:42 Acetaminophen 325 Mg Tablet PO 09/01/24 13:41 Q6H PRN Mild Pain 1-3 or Fever >100.4 Acetylcysteine 3 ml 08/10/24 11:00 08/12/24 10:48 Acetylcysteine Rt Cindy 10% 4 Ml Nebu INH 09/09/24 10:59 3 ml Q4HRRT JORGE ALBERTO Administration Albuterol/Ipratropium 3 ml 08/02/24 16:45 08/12/24 10:48 Albuterol/Ipratropium (Duoneb) Rt Cindy 3 Ml Nebu INH 09/01/24 16:44 3 ml Q4HRRT JORGE ALBERTO Administration Amiodarone HCl 200 mg 08/03/24 09:00 08/12/24 08:55 Amiodarone Hcl 200 Mg Tablet PO 09/02/24 08:59 200 mg BID JORGE ALBERTO Administration Amlodipine Besylate 5 mg 08/02/24 14:20 08/02/24 15:52 Amlodipine Besylate 5 Mg Tablet PO 09/01/24 14:19 5 mg QDAY JORGE ALBERTO Administration Atorvastatin Calcium 80 mg 08/11/24 21:00 08/11/24 22:18 Atorvastatin Calcium 20 Mg Tablet PO 09/02/24 08:59 80 mg HS JORGE ALBERTO Administration Bumetanide 2 mg 08/11/24 17:00 08/12/24 08:53 Bumetanide Inj 0.25 Mg/Ml Vial 4 Ml IVP 08/13/24 09:01 2 mg QDAY JORGE ALBERTO Administration Dextrose 25 ml 08/02/24 16:39 Dextrose 50%-Water Inj 50 Ml Syringe IV 09/01/24 16:38 Q15MIN PRN BG 50-70 responsive npo pt Dextrose 50 ml 08/02/24 16:39 Dextrose 50%-Water Inj 50 Ml Syringe IV 09/01/24 16:38 Q15MIN PRN BG <50 OR BG <70 & pt unresponsive Ferrous Sulfate 325 mg 08/11/24 07:30 08/11/24 10:19 Ferrous Sulf 325 Mg Tablet PO 09/10/24 07:29 325 mg QOD JORGE ALBERTO Administration Glucagon 1 mg 08/02/24 16:39 Glucagon Inj 1 Mg Vial IM Q15MIN PRN BG <70, and no IV access Guaifenesin 100 mg 08/02/24 14:33 08/02/24 15:54 Guaifenesin Syrup 200 Mg/10 Ml Udc PO 09/01/24 14:32 100 mg QID PRN Administration COUGH Protocol Guaifenesin/Dextromethorphan 1 each 08/02/24 15:30 Guaifenesin/Dm Tablet PO 09/01/24 15:25 Q4HR PRN COUGH Heparin Sodium (Porcine) 5,000 unit 08/09/24 21:00 08/12/24 08:54 Heparin Sod Inj 5000 Unit/Ml Vial SC 08/23/24 20:59 5,000 unit BID JORGE ALBERTO Administration Piperacillin/Tazobactam/Dextrose 50 mls @ 12.5 mls/hr 08/12/24 21:00 Zosyn IV 08/19/24 20:59 Q12HR JORGE ALBERTO Protocol Insulin Human Lispro 0 unit 08/10/24 07:38 08/12/24 13:16 Insulin Lispro (Admelog) 1 Unit/0.01 Ml Unit SC 09/02/24 05:59 4 unit Q6HR JORGE ALBERTO Administration Protocol Metoprolol Succinate 12.5 mg 08/06/24 21:00 08/12/24 08:55 Metoprolol Succinate Xl 25 Mg Tabcr PO 09/05/24 20:59 12.5 mg BID JORGE ALBERTO Administration Pantoprazole Sodium 40 mg 08/03/24 09:00 08/12/24 08:54 Pantoprazole Inj 40 Mg Vial IV 09/02/24 08:59 40 mg QDAY JORGE ALBERTO Administration Pharmacy Consult 1 each 08/11/24 13:04 Pharmacy Renal Dose Adjustment 1 Ea XX 09/10/24 13:03 PRN PRN CONSULT Povidone Iodine 0 ml 08/08/24 21:00 08/12/24 08:50 Povidone Iodine Top Cindy 10% 120 Ml Btl TOP 08/15/24 20:59 1 appln BID JORGE ALBERTO Administration Sodium Chloride 3 ml 08/02/24 11:12 08/02/24 11:15 Sodium Chloride Rt Cindy 0.9% 3 Ml Nebu INH 09/01/24 11:11 3 ml PRN PRN Administration SOLN Plan 88-year-old female patient with significant medical history for HFpEF, moderate to severe aortic stenosis, coronary artery disease s/p RCA stent placements, atrial fibrillation, bilateral endarterectomy (2020 and 2023), severe peripheral artery disease, chronic kidney disease, colon cancer sp resection, DM2, hypertension and hypercholesterolemia presented with worsening shortness of breath and productive cough was admitted for AHRF and sepsis due to influenza pneumonia with superimposed bacterial infection and CHF exacerbation. #HFpEF (60 to 65%), improving #Hx of CAD s/p RCA stent placement #Hx of s/p bilateral endarterectomy #Hx of hypertension Echocardiogram indicates moderate to severe aortic stenosis with a gradient of 48 mmHg H (mean 30) with Vmax of 3.5 and LVEF 60-65% On addmission BNP 518 and CXR showed prominent vascular congestion On physical exam, patient not fluid overloaded Plan: ? Strict in and out ? Daily weight ? Follow-up electrolytes and replete as necessary ? Future TAVR in outpatient setting #Atrial fibrillation, rate controlled #Moderate-severe aortic stenosis [id number] not on anticoagulation due to high risk of bleeding Plan: ? Continue amiodarone 200 mg BID ? No need for TAVR at this point #Shock, septic vs. cardiogenic, resolved In the setting of fever, influenza PNA and possibly superimposed bacterial pneumonia MAP dropped below 65 after intubation Levophed weaned off on 08/05/24 #Hypernatremia #ANASTACIA #Sepsis secondary to #Influenza #Pneumonia #CKD IIIb #DM2 #Hx of colon cancer s/p resection -Management per primary team This patient care was discussed with my attending Dr. Mick Lester MD PGY-2 Disclaimer: Minor errors in service architect may be present since this note was dictated by speech recognition software.
[2024-08-12 15:22] LABS: Sodium 150 mMol/L (136-145)
[2024-08-12] MEDS: ATORVASTATIN CALCIUM 20 MG TABLET 80 MG PO (20:28)
[2024-08-13] VITALS (16 sets, daily range): BP systolic 110–142; BP diastolic 46–62; PULSE 62–87; RESP 16–23; TEMP 36–37.4; O2SAT 91–99; BMI 23.8
[2024-08-13] LABS: Sodium 153 mMol/L (136-145)
[2024-08-13] MEDS: INSULIN LISPRO (AdmeLOG) 1 UNIT/0.01 ML UNIT SC ×4 (00:32→18:02)
[2024-08-13 03:08] LABS: Basophils % (Auto) 0 % (0-2.5); Eosinophils # (Auto) 0.1 Thou/mm3 (0.0-0.5); Eosinophils % (Auto) 1 % (0-10); Hematocrit 30.6 % (36.0-46.0); Hemoglobin 9.7 g/dL (12.0-16.0); Immature Granulocytes % (Auto) 1 % (0-0); Immature Granulocytes Auto 0.09 Thou/mm3 (0.00-0.00); Lymphocytes # (Auto) 0.9 Thou/mm3 (1.0-4.8); Lymphocytes % (Auto) 7 % (10-50); Mean Corpuscular HGB Conc 31.7 g/dl (31.0-37.0); Mean Corpuscular Hemoglobin 28.2 pg (25.0-35.0); Mean Corpuscular Volume 89 fL (80-100); Monocytes # (Auto) 0.5 Thou/mm3 (0.0-0.8); Monocytes % (Auto) 4 % (0-12); Neutrophils % (Auto) 87 % (37-80); Nucleated Red Blood Cell % 0 /100 WBC (0); Platelet Count 148 Thou/mm3 (140-440); Red Blood Count 3.44 Miln/mm3 (4.00-5.20); White Blood Count 12.7 Thou/mm3 (3.6-11.0)
[2024-08-13 03:33] LABS: Alanine Aminotransferase 71 U/L (10-49); Albumin, Serum 2.8 gm/dL (3.4-4.8); Alkaline Phosphatase 179 U/L (46-116); Anion Gap 6 (7-16); Aspartate Amino Transferase 59 U/L (0-34); BUN/Creatinine Ratio 28 Ratio (12-20); Bilirubin,Total 0.4 mg/dL (0.3-1.2); Blood Urea Nitrogen 50 mg/dL (9-23); Calcium 8.9 mg/dL (8.3-10.6); Calcium (Corrected) 9.9 mg/dL (8.5-10.1); Chloride 109 mMol/L (98-107); Creatinine (Component) 1.8 mg/dL (0.6-1.3); Estimated Creatinine Clearance 17.4 mL/min (>60); Globulin 2.8 gm/dL (2.3-3.5); Glucose 153 mg/dL (74-106); Magnesium 2.8 mg/dL (1.6-2.6); Osmolality,Calculated 318 (275-295); Phosphorous 3.7 mg/dL (2.4-5.1); Potassium 3.2 mMol/L (3.4-5.1); Sodium 152 mMol/L (136-145); Total Protein 5.6 gm/dL (5.7-8.2); eGFR 27 See Note
[2024-08-13] MEDS: ACETYLCYSTEINE RT SOL 10% 4 ML NEBU 3 ML INH ×6 (03:36→22:22)
[2024-08-13] MEDS: ALBUTEROL/IPRATROPIUM (Duoneb) RT SOL 3 ML NEBU INH ×6 (03:37→22:22)
--- NOTE | 2024-08-13 03:55 | PC.RT ---
cpt w/a pt asleep
--- NOTE | 2024-08-13 08:33 | PD.NEPHPROG ---
Documentation for date of: 08/13/24 Subjective Subjective Interval history: Ms. Keller is a 88-year-old lady with past medical history of hypertension, dyslipidemia, aortic stenosis presented to the hospital with acute hypoxic respiratory failure and noted to have flu positive. Patient also seem to have some heart failure and was given Lasix and metolazone. However BUN, creatinine, sodium went up and diuretics were held. Patient was given gentle IV fluids. However she went into respiratory failure needing high flow at 40 L/min O2, atrial fibrillation and Dr. Mnotejo was consulted. Renal consultation requested in view of ANASTACIA/hyponatremia in the setting of fluid overload. Dr. Montejo at bedside. Patient currently on NG tube feeds with no free water flushes. Chest x-ray shows fluid overload/pneumonia. Current medications included amlodipine which was held, Zosyn, Lipitor, heparin, metoprolol, amiodarone, cough syrup. 08/11/2024 WBC 11.7, hemoglobin 10.4, platelets 157. Sodium 150, potassium 3.4, BUN 41, creatinine 1.5, calcium 10.3, phosphorus 2.7, magnesium 2.8, AST 109, ALT 115, alk phos 227, albumin 3.1. Chest x-ray showed worsening congestive heart failure. Patient currently seen in telemetry. Daughter, at bedside. 08/12/2024 patient currently seen in telemetry. She is more alert and awake. Sodium still remains at 153. Apparently she did not get free water flushes yesterday. Creatinine 1.7. Clinically she looks tad better today. Entire family at bedside. Continue with Bumex today. 1 dose of Diamox given due to metabolic alkalosis. 08/13/2024 patient currently seen in telemetry. Family at bedside. She remains on oxygen. Labs, medications reviewed. Creatinine tad elevated. Held Bumex although Dr. Alston restarted her Bumex due to hypoxic respiratory failure. Sodium tad better. On free water flushes. Replace potassium. Review of Systems Review of Systems Narrative Review of Systems: Limited due to her mentation. Exam Vital Signs Temp Pulse Resp BP Pulse Ox O2 Del Method O2 Flow Rate 36.7 C 71 16 114/53 L 96 High Flow Nasal Cannula 30 08/13/24 08:00 08/13/24 08:00 08/13/24 08:00 08/13/24 08:00 08/13/24 08:00 08/13/24 08:00 08/13/24 06:48 FiO2 70 08/13/24 06:48 Narrative Exam GENERAL APPEARANCE: Patient sick looking-looks younger than her stated age. Currently seen in telemetry. On high flow oxygen. NECK: Neck supple, no JVD or bruit CARDIOVASCULAR: Heart regular, no murmurs LUNGS/CHEST: Marked improvement in crackles ABDOMEN: Soft, nontender, nondistended. No masses. Normal bowel sounds. EXTREMITIES: No edema, clubbing or cyanosis. SKIN: Skin exam normal without any rashes MUSCULOSKELETAL: In bed NEUROLOGICAL : Sleepy although arousable Objective Labs 08/14/24 04:45 08/14/24 04:45 Labs: Laboratory Results - last 24 hr 08/12/24 08/12/24 08/12/24 09:58 15:03 23:30 WBC RBC Hgb Hct MCV MCH MCHC RDW Std Deviation Plt Count Neut % (Auto) Lymph % (Auto) [place] % (Auto) Eos % (Auto) Baso % (Auto) Neut # (Auto) Lymph # (Auto) [place] # (Auto) Eos # (Auto) Baso # (Auto) Immature Gran # (Auto) Absolute Nucleated RBC Immature Gran % Nucleated RBC % Sodium 151 H 150 H 153 H Potassium Chloride Carbon Dioxide Anion Gap BUN Creatinine Estim Creat Clear Calc eGFR BUN/Creatinine Ratio Glucose Calculated Osmolality Calcium Corrected Calcium Phosphorus Magnesium Total Bilirubin AST ALT Alkaline Phosphatase Total Protein Albumin Globulin Albumin/Globulin Ratio 08/13/24 02:50 WBC 12.7 H RBC 3.44 L Hgb 9.7 L Hct 30.6 L MCV 89 MCH 28.2 MCHC 31.7 RDW Std Deviation 52.0 H Plt Count 148 Neut % (Auto) 87 H Lymph % (Auto) 7 L [place] % (Auto) 4 Eos % (Auto) 1 Baso % (Auto) 0 Neut # (Auto) 11.0 H Lymph # (Auto) 0.9 L [place] # (Auto) 0.5 Eos # (Auto) 0.1 Baso # (Auto) 0.0 Immature Gran # (Auto) 0.09 H Absolute Nucleated RBC 0.00 Immature Gran % 1 H Nucleated RBC % 0 Sodium 152 H Potassium 3.2 L Chloride 109 H Carbon Dioxide 37.0 H Anion Gap 6 L BUN 50 H Creatinine 1.8 H Estim Creat Clear Calc 17.4 L eGFR 27 L BUN/Creatinine Ratio 28 H Glucose 153 H Calculated Osmolality 318 H Calcium 8.9 Corrected Calcium 9.9 Phosphorus 3.7 Magnesium 2.8 H Total Bilirubin 0.4 AST 59 H ALT 71 H Alkaline Phosphatase 179 H D Total Protein 5.6 L Albumin 2.8 L Globulin 2.8 Albumin/Globulin Ratio 1.0 L ABG Interpretation ABG results: 08/02/24 08/02/24 08/02/24 11:32 15:23 16:47 ABG pH 7.37 7.40 ABG pCO2 50 H 44 ABG pO2 36 L* 80 L D ABG HCO3 29 H 27 H ABG O2 Saturation 64 L 96 ABG Base Excess 3 2 VBG pH 7.48 VBG pCO2 35 L VBG pO2 46 VBG Base Excess 3 08/02/24 08/02/24 08/03/24 20:46 23:49 03:08 ABG pH 7.39 7.45 7.48 H ABG pCO2 47 37 D 34 ABG pO2 76 L 248 H D 160 H D ABG HCO3 29 H 25 25 ABG O2 Saturation 95 99 H 98 ABG Base Excess 3 2 2 VBG pH VBG pCO2 VBG pO2 VBG Base Excess 08/03/24 08/03/24 08/04/24 05:03 09:09 04:23 ABG pH 7.45 7.38 7.42 ABG pCO2 37 43 46 ABG pO2 55 L* D 51 L* 92 D ABG HCO3 26 26 30 H ABG O2 Saturation 90 L 85 L 97 ABG Base Excess 2 0 5 H VBG pH VBG pCO2 VBG pO2 VBG Base Excess 08/05/24 08/06/24 08/09/24 04:47 04:07 08:33 ABG pH 7.38 7.42 7.37 ABG pCO2 50 H 49 H 65 H ABG pO2 93 73 L D 67 L ABG HCO3 30 H 32 H 37 H ABG O2 Saturation 96 94 95 ABG Base Excess 4 H 7 H 10 H VBG pH VBG pCO2 VBG pO2 VBG Base Excess Assessment & Plan Additional Assessment & Plan Additional Plan: 1. Acute renal failure secondary to prerenal azotemia. Patient clinically looks rather hypervolemic. Spoke to Dr. SagarReddy-will give diuretics. Gave 1 dose of Diamox for metabolic alkalosis. Noted mild elevation in creatinine probably related to diuretics. Held Bumex today. 2. Hypoxia respiratory failure secondary to pneumonia and acute respiratory distress syndrome, fluid overload. Add diuretics, on high flow, antibiotics 3. Aortic stenosis, severe. Under Dr. Montejo 4. Dehydration and hypernatremia. Will add free water flushes NG tube-spoke to primary team-sodium tad better. 5. Congestive heart failure-was on Bumex and closely monitor sodium. Due to worsening BUN and creatinine-held Bumex today. Strict I&O's ordered. Echocardiogram last showed ejection fraction 60 to 65%. Thank you [facility] for allowing me to participate in the care of Ms. Keller Plan of care discussed with family at bedside. 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 Prognosis remains guarded.
[2024-08-13] MEDS: AMIODARONE HCL 200 MG TABLET PO ×2 (08:51→20:13)
[2024-08-13] MEDS: POTASSIUM CHLORIDE 20 mEq TABCR 40 MEQ PO ×2 (08:52→13:19)
[2024-08-13] MEDS: METOPROLOL SUCCINATE XL 25 MG TABCR 12.5 MG PO ×2 (08:52→20:13)
[2024-08-13] MEDS: FERROUS SULF 325 MG TABLET PO (08:52)
[2024-08-13] MEDS: PIPER/TAZO 3.375 GM 50 ML IV ×2 (08:53→20:14)
[2024-08-13] MEDS: HEPARIN SOD INJ 5000 UNIT/ML VIAL SC ×2 (08:53→20:13)
[2024-08-13] MEDS: PANTOPRAZOLE INJ 40 MG VIAL IV (08:53)
[2024-08-13] MEDS: POVIDONE IODINE 10% TOP ×2 (08:54→20:14)
--- NOTE | 2024-08-13 09:58 | PCS.ST ---
Prolonged dysphagia and inability to sustain ANGEL for activity. Consider Video Swallow when pt is more consistently alert for longer periods of time.
--- NOTE | 2024-08-13 10:30 | XR_ITS ---
Examination: AP chest single view Technique: AP portable semiupright chest single view Exam date and time: August 13, 2024 1049 hrs. Comparison 03/11/2024 Indications: Acute hypoxic respiratory failure this week Findings: Mild heart failure Enlarged cardiac contour with prominent vascular congestion and perihilar edema Pneumonia in the right upper lobe Prominent osteopenia Orogastric tube in stomach Impression: Mild heart failure Significant pneumonia right upper
[2024-08-13] MEDS: OSELTAMIVIR 30 MG CAPSULE PO (13:19)
--- NOTE | 2024-08-13 13:57 | ESPR_ITS ---
<Statement entered by Thaddeus Barton MD - 08/13/24 19:30> the patient is examined by me appears to be doing a little better on 65% FiO2 today the family made DNR/DNI disposition already patient's prognosis poor condition deteriorating rapidly she has mostly due to influenza pneumonia and ARDS pattern there may be some element of heart failure but mostly improving clinically and chest x-ray improved somewhat though long-term prognosis still guarded. Documentation for date of: 08/13/24 Subjective Subjective Interval history: 88-year-old female patient with significant medical history for HFpEF, moderate to severe aortic stenosis, coronary artery disease s/p RCA stent placements, atrial fibrillation, bilateral endarterectomy (2020 and 2023), severe peripheral artery disease, chronic kidney disease, colon cancer sp resection, DM2, hypertension and hypercholesterolemia presented with worsening shortness of breath and productive cough was admitted for AHRF and sepsis due to influenza pneumonia with superimposed bacterial infection and CHF exacerbation. Patient was administered Tamiflu and started on IV Vanco and Zosyn. Initially patient was started on oxygen mask as she was hypoxic, due to continuing desaturation in the 70s patient was transitioned to BiPAP. Multiple rapid responses were called as patient continued to be desatting and was becoming increasingly tired. Goals of care discussion were held with family, patient's code status was switched to full code and decision was made to upgrade patient to ICU, intubated and started on levophed as patient was progressing towards ARDS. Cardiology was consulted for further management. 08/04/24: Echocardiogram on this admission indicates moderate to severe aortic stenosis with a gradient of 48 mmHg H (mean 30) with Vmax of 3.5 and LVEF 60- 65%. On physical exam patient is does not seem to be fluid overloaded, patient was recently seen at the clinic and was found to be asymptomatic. Patient seems to have an ARDS pattern secondary to influenza pneumonia. Continue current management, if no improvement we will consider right heart swan cath. 08/05/24: Patient has been weaned off of Levophed but still intubated. FiO2 at 40% and on 20 L rate. Morning chest x-ray seems to be worse than previous with more congestion, greater on the right side. Renal function and transaminitis improving. Patient had 1.6 L urine output and 1 bowel movement. Patient started on Bumex 1mg with a goal of -1 to 1.5 L overall fluid balance. Per primary team, picture is more of a obstructive shock. From cardiology point of view, no need for TAVR at this point. 08/06/24: No significant events overnight. Labs significant for hypernatremia most likely secondary to diuresis and decrease p.o. intake. While there was a mild decline in renal function patient's LFTs have been downtrending. Patient had 1.5 L of urine output with overall -650 mL net fluid balance. Patient was extubated on second attempt and was started on nasal cannula without complications. Currently patient on Bumex 1mg as needed which he was administered today. 08/07/24: No events overnight. Vitals stable, currently on 5L nasal cannula. Patient had 2.3L of urine output with overall -2.2L of net fluid balance. While most labs are improving, sodium has increased to 152. Patient currently on 250 mL free water flush Q6H. Patient receiving nutrition through NG tube. Patient stable to be downgraded for floor team to take over care starting tomorrow. We recommend discontinuing diuresis and giving patient x1 500ml D5W IVF. 08/08/24: Patient was started on HFNC overnight as she was found to be hypoxic. Morning labs and x-ray reviewed. Sodium improving/downtrending to 149, free water flush frequency increased by primary team. Renal function stable/same as yesterday. We recommend withholding diuretics. Patient's hypoxia likely due to ARDS, she is not fluid overloaded. 08/11/24: Continues to be on HFNC, currently on FiO2 90% at rate of 40 L. Patient continues to be hypernatremic, nephrology was consulted. Patient started on Bumex 2 mg Qday. Chest X-ray showed worsening congestion. Patient had 2.2L urine output with an overall -1.3L net negative fluid balance. 08/12/24: Patient a little more awake today compared to yesterday. On HFNC 50% FiO2 and rate of 35L. Sodium at 153, BUN 47 and Photoengraver 1.7, patient started on water flushes. Had 1.8 L urine output with overall -1L net fluid balance in last 24 hours. Of note, patient's sputum culture did grow 4+ ross. 08/13/24: Patient had 1.9 L urine output within 24 hours and overall -1.4 L net fluid balance. Still hypernatremic with NA 152, renal function declining with creatinine of 1.8. Patient continues to be on high flow nasal cannula currently with FiO2 70 and at a rate of 30L. Primary team spoke with system sales consultant Dr. Alston, plan is to continue diuresis and restart patient on Tamiflu. Family members including decided to change CODE STATUS of patient to DNR/DNI. Exam Vital Signs Temp Pulse Resp BP Pulse Ox O2 Del Method O2 Flow Rate 98.1 F 74 21 H 117/60 95 High Flow Nasal Cannula 30 08/13/24 12:00 08/13/24 12:00 08/13/24 12:00 08/13/24 12:00 08/13/24 12:00 08/13/24 12:00 08/13/24 10:13 FiO2 70 08/13/24 10:13 Narrative Exam Constitutional: Frail looking female, in mild distress HEENT: NCAT, EOMI, reactive round pupils b/l,moist mucous membranes, on HFNC Lung: Coarse lung sound, no wheezing, no rhonchi, decreased air entry on right lower lobe side Heart: Regular S1S2, no murmurs, gallops, or rubs Abdomen: Soft, non-distended, non-tender, bowel sounds present throughout Extremities: No cyanosis, clubbing, + trace edema, LE pulses present b/l Neurologic: AOx1, rest can not be performed due to patient's condition Skin: Warm, dry, no lesions or rashes noted Objective Labs 08/13/24 02:50 08/13/24 15:04 Labs: Laboratory Results - last 24 hr 08/12/24 08/12/24 08/13/24 15:03 23:30 02:50 WBC 12.7 H RBC 3.44 L Hgb 9.7 L Hct 30.6 L MCV 89 MCH 28.2 MCHC 31.7 RDW Std Deviation 52.0 H Plt Count 148 Neut % (Auto) 87 H Lymph % (Auto) 7 L Wilcox % (Auto) 4 Eos % (Auto) 1 Baso % (Auto) 0 Neut # (Auto) 11.0 H Lymph # (Auto) 0.9 L Wilcox # (Auto) 0.5 Eos # (Auto) 0.1 Baso # (Auto) 0.0 Immature Gran # (Auto) 0.09 H Absolute Nucleated RBC 0.00 Immature Gran % 1 H Nucleated RBC % 0 Sodium 150 H 153 H 152 H Potassium 3.2 L Chloride 109 H Carbon Dioxide 37.0 H Anion Gap 6 L BUN 50 H Creatinine 1.8 H Estim Creat Clear Calc 17.4 L eGFR 27 L BUN/Creatinine Ratio 28 H Glucose 153 H Calculated Osmolality 318 H Calcium 8.9 Corrected Calcium 9.9 Phosphorus 3.7 Magnesium 2.8 H Total Bilirubin 0.4 AST 59 H ALT 71 H Alkaline Phosphatase 179 H D Total Protein 5.6 L Albumin 2.8 L Globulin 2.8 Albumin/Globulin Ratio 1.0 L ABG Interpretation ABG results: 08/02/24 08/02/24 08/02/24 11:32 15:23 16:47 ABG pH 7.37 7.40 ABG pCO2 50 H 44 ABG pO2 36 L* 80 L D ABG HCO3 29 H 27 H ABG O2 Saturation 64 L 96 ABG Base Excess 3 2 VBG pH 7.48 VBG pCO2 35 L VBG pO2 46 VBG Base Excess 3 08/02/24 08/02/24 08/03/24 20:46 23:49 03:08 ABG pH 7.39 7.45 7.48 H ABG pCO2 47 37 D 34 ABG pO2 76 L 248 H D 160 H D ABG HCO3 29 H 25 25 ABG O2 Saturation 95 99 H 98 ABG Base Excess 3 2 2 VBG pH VBG pCO2 VBG pO2 VBG Base Excess 08/03/24 08/03/24 08/04/24 05:03 09:09 04:23 ABG pH 7.45 7.38 7.42 ABG pCO2 37 43 46 ABG pO2 55 L* D 51 L* 92 D ABG HCO3 26 26 30 H ABG O2 Saturation 90 L 85 L 97 ABG Base Excess 2 0 5 H VBG pH VBG pCO2 VBG pO2 VBG Base Excess 08/05/24 08/06/24 08/09/24 04:47 04:07 08:33 ABG pH 7.38 7.42 7.37 ABG pCO2 50 H 49 H 65 H ABG pO2 93 73 L D 67 L ABG HCO3 30 H 32 H 37 H ABG O2 Saturation 96 94 95 ABG Base Excess 4 H 7 H 10 H VBG pH VBG pCO2 VBG pO2 VBG Base Excess Quality Measures Quality Measures VTE prophylaxis (Heparin subcut) Advance care planning discussed with:: other Assessment & Plan Assessment Current Active Medications: Generic Name Dose Route Start Last Admin Trade Name Freq PRN Reason Stop Dose Admin Acetaminophen 650 mg 08/02/24 13:42 Acetaminophen 325 Mg Tablet PO 09/01/24 13:41 Q6H PRN Mild Pain 1-3 or Fever >100.4 Acetylcysteine 3 ml 08/10/24 11:00 08/13/24 10:13 Acetylcysteine Rt Cindy 10% 4 Ml Nebu INH 09/09/24 10:59 3 ml Q4HRRT JORGE ALBERTO Administration Albuterol/Ipratropium 3 ml 08/02/24 16:45 08/13/24 10:12 Albuterol/Ipratropium (Duoneb) Rt Cindy 3 Ml Nebu INH 09/01/24 16:44 3 ml Q4HRRT JORGE ALBERTO Administration Amiodarone HCl 200 mg 08/03/24 09:00 08/13/24 08:51 Amiodarone Hcl 200 Mg Tablet PO 09/02/24 08:59 200 mg BID JORGE ALBERTO Administration Amlodipine Besylate 5 mg 08/02/24 14:20 08/02/24 15:52 Amlodipine Besylate 5 Mg Tablet PO 09/01/24 14:19 5 mg QDAY JORGE ALBERTO Administration Atorvastatin Calcium 80 mg 08/11/24 21:00 08/12/24 20:28 Atorvastatin Calcium 20 Mg Tablet PO 09/02/24 08:59 80 mg HS JORGE ALBERTO Administration Dextrose 25 ml 08/02/24 16:39 Dextrose 50%-Water Inj 50 Ml Syringe IV 09/01/24 16:38 Q15MIN PRN BG 50-70 responsive npo pt Dextrose 50 ml 08/02/24 16:39 Dextrose 50%-Water Inj 50 Ml Syringe IV 09/01/24 16:38 Q15MIN PRN BG <50 OR BG <70 & pt unresponsive Ferrous Sulfate 325 mg 08/11/24 07:30 08/13/24 08:52 Ferrous Sulf 325 Mg Tablet PO 09/10/24 07:29 325 mg QOD JORGE ALBERTO Administration Glucagon 1 mg 08/02/24 16:39 Glucagon Inj 1 Mg Vial IM Q15MIN PRN BG <70, and no IV access Guaifenesin 100 mg 08/02/24 14:33 08/02/24 15:54 Guaifenesin Syrup 200 Mg/10 Ml Udc PO 09/01/24 14:32 100 mg QID PRN Administration COUGH Protocol Guaifenesin/Dextromethorphan 1 each 08/02/24 15:30 Guaifenesin/Dm Tablet PO 09/01/24 15:25 Q4HR PRN COUGH Heparin Sodium (Porcine) 5,000 unit 08/09/24 21:00 08/13/24 08:53 Heparin Sod Inj 5000 Unit/Ml Vial SC 08/23/24 20:59 5,000 unit BID JORGE ALBERTO Administration Piperacillin/Tazobactam/Dextrose 50 mls @ 12.5 mls/hr 08/12/24 21:00 08/13/24 08:53 Zosyn IV 08/19/24 20:59 12.5 mls/hr Q12HR JORGE ALBERTO Administration Protocol Insulin Human Lispro 0 unit 08/10/24 07:38 08/13/24 11:35 Insulin Lispro (Admelog) 1 Unit/0.01 Ml Unit SC 09/02/24 05:59 2 unit Q6HR JORGE ALBERTO Administration Protocol Metoprolol Succinate 12.5 mg 08/06/24 21:00 08/13/24 08:52 Metoprolol Succinate Xl 25 Mg Tabcr PO 09/05/24 20:59 12.5 mg BID JORGE ALBERTO Administration Oseltamivir Phosphate 30 mg 08/13/24 13:05 08/13/24 13:19 Oseltamivir 30 Mg Capsule PO 08/24/24 13:04 30 mg QDAY JORGE ALBERTO Administration Pantoprazole Sodium 40 mg 08/03/24 09:00 08/13/24 08:53 Pantoprazole Inj 40 Mg Vial IV 09/02/24 08:59 40 mg QDAY JORGE ALBERTO Administration Pharmacy Consult 1 each 08/11/24 13:04 Pharmacy Renal Dose Adjustment 1 Ea XX 09/10/24 13:03 PRN PRN CONSULT Povidone Iodine 0 ml 08/08/24 21:00 08/13/24 08:54 Povidone Iodine Top Cindy 10% 120 Ml Btl TOP 08/15/24 20:59 1 appln BID JORGE ALBERTO Administration Sodium Chloride 3 ml 08/02/24 11:12 08/02/24 11:15 Sodium Chloride Rt Cindy 0.9% 3 Ml Nebu INH 09/01/24 11:11 3 ml PRN PRN Administration SOLN Plan 88-year-old female patient with significant medical history for HFpEF, moderate to severe aortic stenosis, coronary artery disease s/p RCA stent placements, atrial fibrillation, bilateral endarterectomy (2020 and 2023), severe peripheral artery disease, chronic kidney disease, colon cancer sp resection, DM2, hypertension and hypercholesterolemia presented with worsening shortness of breath and productive cough was admitted for AHRF and sepsis due to influenza pneumonia with superimposed bacterial infection and CHF exacerbation. #HFpEF (60 to 65%), improving #Hx of CAD s/p RCA stent placement #Hx of s/p bilateral endarterectomy #Hx of hypertension Echocardiogram indicates moderate to severe aortic stenosis with a gradient of 48 mmHg H (mean 30) with Vmax of 3.5 and LVEF 60-65% On addmission BNP 518 and CXR showed prominent vascular congestion On physical exam, patient not fluid overloaded Plan: ? Strict in and out ? Daily weight ? Follow-up electrolytes and replete as necessary ? Future TAVR in outpatient setting #Atrial fibrillation, rate controlled #Moderate-severe aortic stenosis [id number] 3 not on anticoagulation due to high risk of bleeding Plan: ? Continue amiodarone 200 mg BID ? No need for TAVR at this point #Shock, septic vs. cardiogenic, resolved In the setting of fever, influenza PNA and possibly superimposed bacterial pneumonia MAP dropped below 65 after intubation Levophed weaned off on 08/05/24 #Hypernatremia #ANASTACIA #Sepsis secondary to #Influenza #Pneumonia #CKD IIIb #DM2 #Hx of colon cancer s/p resection -Management per primary team This patient care was discussed with my attending Dr. Mick Lester MD PGY-2 Disclaimer: Minor errors in veneer sample maker may be present since this note was dictated by speech recognition software.
--- NOTE | 2024-08-13 14:01 | ESPR_ITS ---
<Statement entered by Maru Yap MD - 08/13/24 14:06> Patient was examined bedside this morning, still lethargic. Her sodium is around 150s even with free water flushes. Dr. Alston quick print operator , recommended to continue to diurese him and long course of Tamiflu. X-ray was done in the morning which showed Mild heart failure .Significant pneumonia right upper. Will do CT chest after patient is more stable. I discussed with and supervised my co-resident involved in the care of this patient. I agree with the assessment and plan as documented above. Maru Yap,PGY-3 Disclaimer: Despite multiple revisions, due to the dictation software being used, the document below may not be free of grammatical errors including phonetic/typographic errors. However, this does not deter from our commitment to providing health care in the patient's best interest in mind. Documentation for date of: 08/13/24 Subjective Subjective Interval history: Patient is an 88-year-old female with a past medical history of hypertension CHF diastolic dysfunction HFpEF 60 to 65% (07/2024), CAD s/p stent in right coronary artery, aortic stenosis, carotid disease, s/p endarterectomy (2020& 2023), history of atrial fibrillation (not on Eliquis as patient is currently sinus and has a risk of bleeding?followed up with Dr. Barton fabrication engineer), and CKD. Admitted initially on 08/02/2024 for acute hypoxic respiratory failure and upgraded to ICU. Patient downgraded on 08/08/2024 for continued medical management. Patient continues to be confused and not able to state name, place or time. Patient continues to have increased work of breathing. Patient's family at bedside. Gil's at bedside and signed POLST. DNR/DNI. Exam Vital Signs Temp Pulse Resp BP Pulse Ox O2 Del Method O2 Flow Rate 98.1 F 74 21 H 117/60 95 High Flow Nasal Cannula 30 08/13/24 12:00 08/13/24 12:00 08/13/24 12:00 08/13/24 12:00 08/13/24 12:00 08/13/24 12:00 08/13/24 10:13 FiO2 70 08/13/24 10:13 Narrative Exam General Appearance: Alert & Oriented X0, well-nourished female who is lying in bed in with increased work breathing HEENT: Skull symmetrical and atraumatic. Conjunctivae pale pink and moist. Pupils equal, round, reactive to light and accommodation (PERRL). External ear without lesion or discharge. Straight, nares patient, mucosa pink, no discharge. Cardio: Normal Rate and Rhythm with S1 and S2 heart sounds. No murmurs or extra heart sounds auscultated. No bruits on carotid auscultation. No peripheral edema or cyanosis. Lungs: Symmetric with good expansion. Chest and back non-tender. Breath sounds vesicular with crackles and rhonchi Abdomen: Non-tender, Non-distended, Normal Reactive Bowel Sounds Neuro: yes Alert,yes cooperative, No oriented to person, No place, and No time. CN grossly intact. Upper motor strength 5/5 and Lower motor strength 5/5. Sensation intact. Objective Labs 08/13/24 02:50 08/13/24 15:04 Labs: Laboratory Results - last 24 hr 08/12/24 08/12/24 08/13/24 15:03 23:30 02:50 WBC 12.7 H RBC 3.44 L Hgb 9.7 L Hct 30.6 L MCV 89 MCH 28.2 MCHC 31.7 RDW Std Deviation 52.0 H Plt Count 148 Neut % (Auto) 87 H Lymph % (Auto) 7 L Baxter % (Auto) 4 Eos % (Auto) 1 Baso % (Auto) 0 Neut # (Auto) 11.0 H Lymph # (Auto) 0.9 L Baxter # (Auto) 0.5 Eos # (Auto) 0.1 Baso # (Auto) 0.0 Immature Gran # (Auto) 0.09 H Absolute Nucleated RBC 0.00 Immature Gran % 1 H Nucleated RBC % 0 Sodium 150 H 153 H 152 H Potassium 3.2 L Chloride 109 H Carbon Dioxide 37.0 H Anion Gap 6 L BUN 50 H Creatinine 1.8 H Estim Creat Clear Calc 17.4 L eGFR 27 L BUN/Creatinine Ratio 28 H Glucose 153 H Calculated Osmolality 318 H Calcium 8.9 Corrected Calcium 9.9 Phosphorus 3.7 Magnesium 2.8 H Total Bilirubin 0.4 AST 59 H ALT 71 H Alkaline Phosphatase 179 H D Total Protein 5.6 L Albumin 2.8 L Globulin 2.8 Albumin/Globulin Ratio 1.0 L ABG Interpretation ABG results: 08/02/24 08/02/24 08/02/24 11:32 15:23 16:47 ABG pH 7.37 7.40 ABG pCO2 50 H 44 ABG pO2 36 L* 80 L D ABG HCO3 29 H 27 H ABG O2 Saturation 64 L 96 ABG Base Excess 3 2 VBG pH 7.48 VBG pCO2 35 L VBG pO2 46 VBG Base Excess 3 08/02/24 08/02/24 08/03/24 20:46 23:49 03:08 ABG pH 7.39 7.45 7.48 H ABG pCO2 47 37 D 34 ABG pO2 76 L 248 H D 160 H D ABG HCO3 29 H 25 25 ABG O2 Saturation 95 99 H 98 ABG Base Excess 3 2 2 VBG pH VBG pCO2 VBG pO2 VBG Base Excess 08/03/24 08/03/24 08/04/24 05:03 09:09 04:23 ABG pH 7.45 7.38 7.42 ABG pCO2 37 43 46 ABG pO2 55 L* D 51 L* 92 D ABG HCO3 26 26 30 H ABG O2 Saturation 90 L 85 L 97 ABG Base Excess 2 0 5 H VBG pH VBG pCO2 VBG pO2 VBG Base Excess 08/05/24 08/06/24 08/09/24 04:47 04:07 08:33 ABG pH 7.38 7.42 7.37 ABG pCO2 50 H 49 H 65 H ABG pO2 93 73 L D 67 L ABG HCO3 30 H 32 H 37 H ABG O2 Saturation 96 94 95 ABG Base Excess 4 H 7 H 10 H VBG pH VBG pCO2 VBG pO2 VBG Base Excess Quality Measures Quality Measures VTE prophylaxis (Heparin subcut) Advance care planning discussed with:: patient Assessment & Plan Assessment Current Active Medications: Generic Name Dose Route Start Last Admin Trade Name Freq PRN Reason Stop Dose Admin Acetaminophen 650 mg 08/02/24 13:42 Acetaminophen 325 Mg Tablet PO 09/01/24 13:41 Q6H PRN Mild Pain 1-3 or Fever >100.4 Acetylcysteine 3 ml 08/10/24 11:00 08/13/24 10:13 Acetylcysteine Rt Cindy 10% 4 Ml Nebu INH 09/09/24 10:59 3 ml Q4HRRT JORGE ALBERTO Administration Albuterol/Ipratropium 3 ml 08/02/24 16:45 08/13/24 10:12 Albuterol/Ipratropium (Duoneb) Rt Cindy 3 Ml Nebu INH 09/01/24 16:44 3 ml Q4HRRT JORGE ALBERTO Administration Amiodarone HCl 200 mg 08/03/24 09:00 08/13/24 08:51 Amiodarone Hcl 200 Mg Tablet PO 09/02/24 08:59 200 mg BID JORGE ALBERTO Administration Amlodipine Besylate 5 mg 08/02/24 14:20 08/02/24 15:52 Amlodipine Besylate 5 Mg Tablet PO 09/01/24 14:19 5 mg QDAY JORGE ALBERTO Administration Atorvastatin Calcium 80 mg 08/11/24 21:00 08/12/24 20:28 Atorvastatin Calcium 20 Mg Tablet PO 09/02/24 08:59 80 mg HS JORGE ALBERTO Administration Bumetanide 2 mg 08/13/24 14:00 Bumetanide Inj 0.25 Mg/Ml Vial 4 Ml IVP 09/12/24 13:59 QDAY JORGE ALBERTO Dextrose 25 ml 08/02/24 16:39 Dextrose 50%-Water Inj 50 Ml Syringe IV 09/01/24 16:38 Q15MIN PRN BG 50-70 responsive npo pt Dextrose 50 ml 08/02/24 16:39 Dextrose 50%-Water Inj 50 Ml Syringe IV 09/01/24 16:38 Q15MIN PRN BG <50 OR BG <70 & pt unresponsive Ferrous Sulfate 325 mg 08/11/24 07:30 08/13/24 08:52 Ferrous Sulf 325 Mg Tablet PO 09/10/24 07:29 325 mg QOD JORGE ALBERTO Administration Glucagon 1 mg 08/02/24 16:39 Glucagon Inj 1 Mg Vial IM Q15MIN PRN BG <70, and no IV access Guaifenesin 100 mg 08/02/24 14:33 08/02/24 15:54 Guaifenesin Syrup 200 Mg/10 Ml Udc PO 09/01/24 14:32 100 mg QID PRN Administration COUGH Protocol Guaifenesin/Dextromethorphan 1 each 08/02/24 15:30 Guaifenesin/Dm Tablet PO 09/01/24 15:25 Q4HR PRN COUGH Heparin Sodium (Porcine) 5,000 unit 08/09/24 21:00 08/13/24 08:53 Heparin Sod Inj 5000 Unit/Ml Vial SC 08/23/24 20:59 5,000 unit BID JORGE ALBERTO Administration Piperacillin/Tazobactam/Dextrose 50 mls @ 12.5 mls/hr 08/12/24 21:00 08/13/24 08:53 Zosyn IV 08/19/24 20:59 12.5 mls/hr Q12HR JORGE ALBERTO Administration Protocol Insulin Human Lispro 0 unit 08/10/24 07:38 08/13/24 11:35 Insulin Lispro (Admelog) 1 Unit/0.01 Ml Unit SC 09/02/24 05:59 2 unit Q6HR JORGE ALBERTO Administration Protocol Metoprolol Succinate 12.5 mg 08/06/24 21:00 08/13/24 08:52 Metoprolol Succinate Xl 25 Mg Tabcr PO 09/05/24 20:59 12.5 mg BID JORGE ALBERTO Administration Oseltamivir Phosphate 30 mg 08/13/24 13:05 08/13/24 13:19 Oseltamivir 30 Mg Capsule PO 08/24/24 13:04 30 mg QDAY JORGE ALBERTO Administration Pantoprazole Sodium 40 mg 08/03/24 09:00 08/13/24 08:53 Pantoprazole Inj 40 Mg Vial IV 09/02/24 08:59 40 mg QDAY JORGE ALBERTO Administration Pharmacy Consult 1 each 08/11/24 13:04 Pharmacy Renal Dose Adjustment 1 Ea XX 09/10/24 13:03 PRN PRN CONSULT Povidone Iodine 0 ml 08/08/24 21:00 08/13/24 08:54 Povidone Iodine Top Cindy 10% 120 Ml Btl TOP 08/15/24 20:59 1 appln BID JORGE ALBERTO Administration Sodium Chloride 3 ml 08/02/24 11:12 08/02/24 11:15 Sodium Chloride Rt Cindy 0.9% 3 Ml Nebu INH 09/01/24 11:11 3 ml PRN PRN Administration SOLN Plan Patient is an 88-year-old female with a past medical history of hypertension CHF diastolic dysfunction HFpEF (60 to 65%) on 04/27/2024, CAD s/p stent in right coronary artery, aortic stenosis, carotid disease, s/p endarterectomy (2020& 2023), history of atrial fibrillation (not on Eliquis risk of bleeding), history of colorectal cancer, and CKD who was admitted for acute hypoxic respiratory failure. #Hypernatremia, Hypovolemic #Metabolic Alkalosis, secondary to diuretics Etiology: Patient was being diuresed on Bumex in ICU. Patient presented with hypernatremia after downgrade 152. Given that patient appears hypovolemic and dry up on physical exam with improved pedal edema on physical exam and improve pulmonary vascular congestion on chest x-ray, likely secondary to diuretics. DDx: Worsening CKD cannot be ruled out versus central or nephrogenic causes. (08/09/2024): Bicarbonate showing no improvement and limited improvement on Sodium. Given increased bicarbonate Acetazolamide 250 mg POx1 (via NG tube) and Lasix 40 mg X 1 on 07/20/2024 08/12/2024: Per nephrology: Free Water Flushes at 200 ml q3hr and Bumex mg IVP Qday (until 08/13/2024). No fluid restrictions. 08/13/2024-Dr. Springer recommended stopping Bumex at this time. Dr. Alston consulted as well recommended continue Bumex, restart Tamiflu -renally dose, continue fluid flushes. -->Bumex continued Diagnostics: (08/13/2024) Na 152 Plan: -IV Bumex 2 mg IVP QDay -Water Flushes at 200 mlg q3hr, no fluid restrictions -Goal sodium 145 which would be a difference of 7 within the next 24 hours. -Continue sodium checks every 4 hourly -Nephrology Consulted, Dr. Springer, appreciate recommendations #Acute hypoxic respiratory failure secondary to CHF and pneumonia #Pneumonia, Influenza + with likley superimposed pneumonia #Sepsis, secondary to Pneumonia, resolved #Septic shock, resolved. Etiology: Influenza positive on admission in acute hypoxic respiratory failure from pneumonia likely secondary to influenza positive, patient currently requires oxygen support. DDx: UTI less likely as no symptoms of UTI vs NH less likley given troponins <0.02. No STEM elevation. 08/09/2024: high flow FiO2 increased to 75 given increased work of breathing likely secondary to increased free water flushes for hypernatremia. Currently Holding water flushes, continue to monitor Na Q6 hours Balance 1493, weight no change 64.127 08/11/2024: This morning patient had worsening work of breathing, and desatting in the low 80s on high flow rate 20 and FiO2 of 60. FiO2 increased to 100, this evening rechecked and currently sitting at 90% saturating at 95%. Nephrology consulted recommended to restart water flushes of 200 ml every Q4HR with Bumex 2 mg IV push today. Please stop fluid restrictions of 1800. New chest x-ray ordered showed worsening significant CHF with prominent posterior congestion with hilar edema. Consider aspiration pneumonia, started on Zosyn extended release taking consideration CKD 3 and fluid restrictions. Consider fibrosis versus ARDS. Consider CT chest. 08/12/2024-Continue Zosyn extended release with only 50 ml to reduce fluid. Continue Bumex. Output -1055 ml, 61.19 kg---> 60.01 kg 08/13/2024: Continue Zosyn, Continue Tamiflu. Output -1405, weight 60.866 -WBC 10.0 (08/08/2024)-->08/13/2024 12.7 -Cxr (08/08/2024): Moderate CHF, Right Base Pneumonia -Cxr (08/02/2024): Moderate CHF, perihilar basilar edema -Urine Culture NO Growth -Blood Culture: No growthin -Sputum Culture: Tia Albicans Plan: -Zosyn 3.375 mg Extended Release (covering aspiration pneumonia) & at lower fluid 50 ml per day. (08/12/2024--) -Restart Oseltamivir 30 mg PO QDay Susp (08/13/2024) for 5 more days -Bumex 2 mg IVP Qday + water flushes at 200 ml q3 hrs -High flow at Fio2 70% RR 30 -Consider Nystatin mouth -Duonebs scheduled -Ordered chest PT Q4 hourly with Mucomyst -Guifensen PRN -Chest Physiology & Acapella -Oseltamivir 30 mg QDay-course completed -Consider ABG if worsening work of breathing #Acute CHF exacerbation, improving #CHF, Diastolic Dysfunciton, HFpEF 60-65% w/ moderate to serve calcified aortic stenosis (08/04/2024) Etiology: Patient has a past medical history of congestive heart failure with a BNP 518. Patient positive for orthopnea, paroxysmal nocturnal orthopnea and increasing cough. CHF exacerbation likely secondary to pneumonia Dignostics: Although patient has a past medical history of CAD status post stents, less likely secondary to NH/no ST elevation on EKG and troponins are not elevated. PE less likely as well score is 1. Echo(08/04/2024) : Normal LV size and function. Estimated EF 60-65% Moderate to severec calcific aortic stenosis. Mild aotic regurgitation RV is normal in size. The right ventricular systolic function is mildly decreased. The estimated RVSP, 47 mmHg. RAP 15. Mild MAC. Mild MR, TR. NYHA Class: likely III Plan: -Bumex 2mg IVP Qday, continue per doctor Dr. Alston -K>4 and Mg >2 -Fluid Restriction and Sodium Restriction 2 g per day -SpO <90%, support PRN -Daily Weights, Strict Ins and Outs, Fluid Striction (1800 ml), Sodium Restriction 2 grams per day -Cardiology Consult, Dr. Barton, appreciate recommendations. #Atrial Fibrillation, rate controlled #CAD s/p stents of right coronary artery #Hyperlipidemia Patient has a past medical history of Atrial Fibrillation. CHADVASC of 3. Currently not on Eliquis per Dr. Barton. Possible risk of bleeding and currently sinus. 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 Diagnostics: (08/11/2024): BUN 47, Cr 1.7 GFR 29, BUN/Cr 28 Plan: -Bumex 2 mg IVP Qday -re-access at 08/13/2024 -Continue with NG tube feeding with water flushes (200 ml q4hr per nephrology) -Renally dose medication -Avoid nephrotoxins # Dysphagia -currently NG tube, hold water flushes -Water flushes currently at 200 ml q4hr Plan -NG Tube, last accessed on 08/08/2024 -Speech Referral -Swallow evaluation Health Maintenance: Disp: Pt is currently admitted to floors for further management of acute hypoxic respiratory failure, awaiting improvement in hypernatremia, and work of breathing. FEN: NG tube, continue water flushes 200 ml q3hr per nephrology DVT: on subQ heparin Code: Full code - The patient's plan was discussed with attending Dr. Mann and senior residents Dr. Marely Monique MD PGY1 Internal Medicine Attending Provider Attestation/Addendum I, Licha Mann DO, attest that I was physically present for the smith portions of the service and evaluated the patient with the resident and I reviewed and discussed the case with the resident and agree with the resident's findings and plans of care as documented above Patient seen and eval this a.m. She continues have scattered rhonchi rales on exam. She is currently on a high flow nasal cannula with a flow of 30 L/min and FiO2 of 70%. Due to increasing O2 demand, case was discussed with pulmonology/vice president education regarding current condition. Recommends for continued diuresis due to concern for vascular congestion, as well as increasing duration go tamiflu. Will restart tamiflu for another 5 days. Case was also discussed with cardiology, does not feel that this is secondary to heart failure but rather pneumonia. at bedside and stated that they do not wish for patient to undergo re-intubation or CPR if her condition were to deteriorate.
[2024-08-13] MEDS: BUMETANIDE INJ 0.25 MG/ML VIAL 4 ML 2 MG IVP (14:44)
[2024-08-13 15:27] LABS: Sodium 150 mMol/L (136-145)
--- NOTE | 2024-08-13 15:33 | PD.RESEVENT ---
Documentation for date of: 08/13/24 Event Note Event Note: Event note: Goals of care Goals of care discussed with patient's Yassine Kimberly. Patient's poor prognosis explained to family at bedside as patient has not improved since being downgraded from ICU. Continues to have heart failure, chronic kidney disease with hypernatremia and acute hypoxic respiratory failure. At this time patient is DNR and DNI with continued NG tube feedings. Patient's signed POLST form and witnessed by Padmini/patient's nurse. Patient's family understood they may change code status at any time. Yassine Postal, phone number [phone]. Please call if there are any changes. - The patient's plan was discussed with attending Dr. Mann and senior residents Dr. Marely Monique MD PGY1 Internal Medicine
[2024-08-13] MEDS: ATORVASTATIN CALCIUM 20 MG TABLET 80 MG PO (20:12)
[2024-08-13 22:14] LABS: Sodium 152 mMol/L (136-145)
[2024-08-14] VITALS (17 sets, daily range): BP systolic 101–137; BP diastolic 45–58; PULSE 66–89; RESP 13–24; TEMP 36.1–36.6; O2SAT 90–99; BMI 23.8
[2024-08-14] MEDS: INSULIN LISPRO (AdmeLOG) 1 UNIT/0.01 ML UNIT SC ×5 (00:05→23:41)
[2024-08-14 01:20] LABS: Sodium 151 mMol/L (136-145)
[2024-08-14] MEDS: ALBUTEROL/IPRATROPIUM (Duoneb) RT SOL 3 ML NEBU INH ×6 (02:20→23:10)
[2024-08-14] MEDS: ACETYLCYSTEINE RT SOL 10% 4 ML NEBU 3 ML INH ×6 (02:20→23:09)
[2024-08-14] MEDS: MIDODRINE 5 MG TABLET PO (05:44)
[2024-08-14 06:42] LABS: Alanine Aminotransferase 62 U/L (10-49); Albumin/Globulin Ratio 1.1 (1.2-2.2); Alkaline Phosphatase 182 U/L (46-116); Anion Gap 5 (7-16); Aspartate Amino Transferase 61 U/L (0-34); BUN/Creatinine Ratio 32 Ratio (12-20); Bilirubin,Total 0.5 mg/dL (0.3-1.2); Blood Urea Nitrogen 54 mg/dL (9-23); Calcium 8.7 mg/dL (8.3-10.6); Calcium (Corrected) 9.5 mg/dL (8.5-10.1); Carbon Dioxide 33.7 mMol/L (20.0-31.0); Chloride 108 mMol/L (98-107); Creatinine (Component) 1.7 mg/dL (0.6-1.3); Globulin 2.7 gm/dL (2.3-3.5); Glucose 184 mg/dL (74-106); Magnesium 2.8 mg/dL (1.6-2.6); Osmolality,Calculated 312 (275-295); Phosphorous 4.8 mg/dL (2.4-5.1); Sodium 147 mMol/L (136-145); Total Protein 5.7 gm/dL (5.7-8.2); eGFR 29 See Note
[2024-08-14 06:43] LABS: Basophils % (Auto) 0 % (0-2.5); Eosinophils # (Auto) 0.1 Thou/mm3 (0.0-0.5); Eosinophils % (Auto) 1 % (0-10); Hematocrit 30.2 % (36.0-46.0); Hemoglobin 9.6 g/dL (12.0-16.0); Immature Granulocytes % (Auto) 1 % (0-0); Immature Granulocytes Auto 0.11 Thou/mm3 (0.00-0.00); Lymphocytes % (Auto) 9 % (10-50); Mean Corpuscular HGB Conc 31.8 g/dl (31.0-37.0); Mean Corpuscular Hemoglobin 27.7 pg (25.0-35.0); Mean Corpuscular Volume 87 fL (80-100); Monocytes # (Auto) 0.5 Thou/mm3 (0.0-0.8); Monocytes % (Auto) 4 % (0-12); Neutrophils # (Auto) 9.6 Thou/mm3 (1.8-7.7); Neutrophils % (Auto) 85 % (37-80); Nucleated Red Blood Cell % 0 /100 WBC (0); Platelet Count 145 Thou/mm3 (140-440); RDW Standard Deviation 50.4 fL (36.4-46.3); Red Blood Count 3.46 Miln/mm3 (4.00-5.20); White Blood Count 11.3 Thou/mm3 (3.6-11.0)
[2024-08-14] MEDS: POTASSIUM CHL 10 mEq IVPB 10 MEQ/100 ML BAG 100 MEQ IV ×6 (07:44→13:27)
[2024-08-14] MEDS: PIPER/TAZO 3.375 GM 50 ML IV ×2 (08:56→20:20)
[2024-08-14] MEDS: PANTOPRAZOLE INJ 40 MG VIAL IV (08:57)
[2024-08-14] MEDS: AMIODARONE HCL 200 MG TABLET PO ×2 (08:57→20:21)
[2024-08-14] MEDS: BUMETANIDE INJ 0.25 MG/ML VIAL 4 ML 2 MG IVP (08:57)
[2024-08-14] MEDS: HEPARIN SOD INJ 5000 UNIT/ML VIAL SC ×2 (08:58→20:21)
[2024-08-14] MEDS: OSELTAMIVIR 30 MG CAPSULE PO (09:00)
[2024-08-14] MEDS: POVIDONE IODINE 10% TOP ×2 (09:00→20:22)
--- NOTE | 2024-08-14 09:51 | ESPR_ITS ---
Documentation for date of: 08/14/24 Subjective Subjective Interval history: Ms. Keller is a 88-year-old lady with past medical history of hypertension, dyslipidemia, aortic stenosis presented to the hospital with acute hypoxic respiratory failure and noted to have flu positive. Patient also seem to have some heart failure and was given Lasix and metolazone. However BUN, creatinine, sodium went up and diuretics were held. Patient was given gentle IV fluids. However she went into respiratory failure needing high flow at 40 L/min O2, atrial fibrillation and Dr. Montejo was consulted. Renal consultation requested in view of ANASTACIA/hyponatremia in the setting of fluid overload. Dr. Montejo at bedside. Patient currently on NG tube feeds with no free water flushes. Chest x-ray shows fluid overload/pneumonia. Current medications included amlodipine which was held, Zosyn, Lipitor, heparin, metoprolol, amiodarone, cough syrup. 08/11/2024 WBC 11.7, hemoglobin 10.4, platelets 157. Sodium 150, potassium 3.4, BUN 41, creatinine 1.5, calcium 10.3, phosphorus 2.7, magnesium 2.8, AST 109, ALT 115, alk phos 227, albumin 3.1. Chest x-ray showed worsening congestive heart failure. Patient currently seen in telemetry. Daughter, at bedside. 08/12/2024 patient currently seen in telemetry. She is more alert and awake. Sodium still remains at 153. Apparently she did not get free water flushes yesterday. Creatinine 1.7. Clinically she looks tad better today. Entire family at bedside. Continue with Bumex today. 1 dose of Diamox given due to metabolic alkalosis. 08/14/2024 patient currently seen in telemetry. Family at bedside. She remains on oxygen. Labs, medications reviewed. Creatinine tad elevated. Dr. Alston restarted her Bumex due to hypoxic respiratory failure. Sodium tad better. On free water flushes. Replace potassium. Elevated LFTs noted. Plan of care discussed with primary team. Apparently family requesting for her to be transferred to [facility]. Review of Systems Review of Systems Narrative Review of Systems: Limited due to her mentation. Exam Vital Signs Temp Pulse Resp BP Pulse Ox O2 Del Method O2 Flow Rate 36.4 C 66 19 101/58 L 99 High Flow Nasal Cannula 40 08/14/24 08:00 08/14/24 08:58 08/14/24 08:00 08/14/24 08:58 08/14/24 08:00 08/14/24 08:00 08/14/24 08:00 FiO2 80 08/14/24 08:00 Narrative Exam GENERAL APPEARANCE: Patient sick looking-looks younger than her stated age. Currently seen in telemetry. On high flow oxygen. NECK: Neck supple, no JVD or bruit CARDIOVASCULAR: Heart regular, no murmurs LUNGS/CHEST: Marked improvement in crackles ABDOMEN: Soft, nontender, nondistended. No masses. Normal bowel sounds. EXTREMITIES: No edema, clubbing or cyanosis. SKIN: Skin exam normal without any rashes MUSCULOSKELETAL: In bed NEUROLOGICAL : Sleepy although arousable Objective Labs 08/14/24 04:45 08/14/24 04:45 Labs: Laboratory Results - last 24 hr 08/13/24 08/13/24 08/14/24 15:04 21:51 01:00 WBC RBC Hgb Hct MCV MCH MCHC RDW Std Deviation Plt Count Neut % (Auto) Lymph % (Auto) Motley % (Auto) Eos % (Auto) Baso % (Auto) Neut # (Auto) Lymph # (Auto) Motley # (Auto) Eos # (Auto) Baso # (Auto) Immature Gran # (Auto) Absolute Nucleated RBC Immature Gran % Nucleated RBC % Sodium 150 H 152 H 151 H Potassium Chloride Carbon Dioxide Anion Gap BUN Creatinine Estim Creat Clear Calc eGFR BUN/Creatinine Ratio Glucose Calculated Osmolality Calcium Corrected Calcium Phosphorus Magnesium Total Bilirubin AST ALT Alkaline Phosphatase Total Protein Albumin Globulin Albumin/Globulin Ratio 08/14/24 04:45 WBC 11.3 H RBC 3.46 L Hgb 9.6 L Hct 30.2 L MCV 87 MCH 27.7 MCHC 31.8 RDW Std Deviation 50.4 H Plt Count 145 Neut % (Auto) 85 H Lymph % (Auto) 9 L Motley % (Auto) 4 Eos % (Auto) 1 Baso % (Auto) 0 Neut # (Auto) 9.6 H Lymph # (Auto) 1.0 Motley # (Auto) 0.5 Eos # (Auto) 0.1 Baso # (Auto) 0.0 Immature Gran # (Auto) 0.11 H Absolute Nucleated RBC 0.00 Immature Gran % 1 H Nucleated RBC % 0 Sodium 147 H Potassium 3.0 L Chloride 108 H Carbon Dioxide 33.7 H Anion Gap 5 L BUN 54 H Creatinine 1.7 H Estim Creat Clear Calc 20.0 L eGFR 29 L BUN/Creatinine Ratio 32 H Glucose 184 H Calculated Osmolality 312 H Calcium 8.7 Corrected Calcium 9.5 Phosphorus 4.8 Magnesium 2.8 H Total Bilirubin 0.5 AST 61 H ALT 62 H Alkaline Phosphatase 182 H Total Protein 5.7 Albumin 3.0 L Globulin 2.7 Albumin/Globulin Ratio 1.1 L ABG Interpretation ABG results: 08/02/24 08/02/24 08/02/24 11:32 15:23 16:47 ABG pH 7.37 7.40 ABG pCO2 50 H 44 ABG pO2 36 L* 80 L D ABG HCO3 29 H 27 H ABG O2 Saturation 64 L 96 ABG Base Excess 3 2 VBG pH 7.48 VBG pCO2 35 L VBG pO2 46 VBG Base Excess 3 08/02/24 08/02/24 08/03/24 20:46 23:49 03:08 ABG pH 7.39 7.45 7.48 H ABG pCO2 47 37 D 34 ABG pO2 76 L 248 H D 160 H D ABG HCO3 29 H 25 25 ABG O2 Saturation 95 99 H 98 ABG Base Excess 3 2 2 VBG pH VBG pCO2 VBG pO2 VBG Base Excess 08/03/24 08/03/24 08/04/24 05:03 09:09 04:23 ABG pH 7.45 7.38 7.42 ABG pCO2 37 43 46 ABG pO2 55 L* D 51 L* 92 D ABG HCO3 26 26 30 H ABG O2 Saturation 90 L 85 L 97 ABG Base Excess 2 0 5 H VBG pH VBG pCO2 VBG pO2 VBG Base Excess 08/05/24 08/06/24 08/09/24 04:47 04:07 08:33 ABG pH 7.38 7.42 7.37 ABG pCO2 50 H 49 H 65 H ABG pO2 93 73 L D 67 L ABG HCO3 30 H 32 H 37 H ABG O2 Saturation 96 94 95 ABG Base Excess 4 H 7 H 10 H VBG pH VBG pCO2 VBG pO2 VBG Base Excess Assessment & Plan Additional Assessment & Plan Additional Plan: 1. Acute renal failure secondary to prerenal azotemia. Patient clinically looks rather hypervolemic. Spoke to Dr. Montejo-will give diuretics. Gave 1 dose of Diamox for metabolic alkalosis. Noted mild elevation in creatinine probably related to diuretics. Currently on IV Bumex. 2. Hypoxia respiratory failure secondary to pneumonia and acute respiratory distress syndrome, fluid overload. Add diuretics, on high flow, antibiotics 3. Aortic stenosis, severe. Under Dr. Montejo 4. Dehydration and hypernatremia. Will add free water flushes NG tube-spoke to primary team-sodium tad better. 5. Congestive heart failure-was on Bumex and closely monitor sodium. Due to worsening BUN and creatinine-held Bumex today. Strict I&O's ordered. Echocardiogram last showed ejection fraction 60 to 65%. Plan of care discussed with primary team Plan of care discussed with family at bedside. 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 Prognosis remains guarded.Not sure, transferring her to [facility] will change her overall prognosis.
--- NOTE | 2024-08-14 13:35 | ESPR_ITS ---
<Statement entered by Maru Yap MD - 08/14/24 14:39> Patient was examined bedside this morning, however high flow was FiO2 90. Sodium has improved to 147 will continue the current treatment. Apparently family wanted to go to [facility]. Explained them if they want to go to have to either go AMA, and she will get the same treatment that we are doing here. After explaining they were understandable and willing continue treatment here. I discussed with and supervised my co-resident involved in the care of this patient. I agree with the assessment and plan as documented above. Maru Yap,[id number] Disclaimer: Despite multiple revisions, due to the dictation software being used, the document below may not be free of grammatical errors including phonetic/typographic errors. However, this does not deter from our commitment to providing health care in the patient's best interest in mind. Documentation for date of: 08/14/24 Subjective Subjective Interval history: Patient is an 88-year-old female with a past medical history of hypertension CHF diastolic dysfunction HFpEF 60 to 65% (07/2024), CAD s/p stent in right coronary artery, aortic stenosis, carotid disease, s/p endarterectomy (2020& 2023), history of atrial fibrillation (not on Eliquis as patient is currently sinus and has a risk of bleeding?followed up with Dr. Barton maritime pilot), and CKD. Admitted initially on 08/02/2024 for acute hypoxic respiratory failure and upgraded to ICU. Patient downgraded on 08/08/2024 for continued medical management. Overnight, luzma experienced low blood pressure and Midodrine was given X1 but MAP 65. Patient's family is are concern that not enough is beng done for patient's health and would like to transfer to [facility]. Spoke with Dean, case management social worker, and resident about options in terms of transfer. Explained that similar services would be offered at [facility] and transfer expensives would have to be covered by family. No additional services could be rendered at [facility] that are not being offered at [facility]. Patient's Outreach Rep, Dr Barton, knows luzma's case as he is outpatient doctor, director of education following, as well as nephrology. Patient's family is understanding and will continue hospital course here. Concern for low urine output, but had not been update in AM. Output was tracked hourly and luzma was producing greater than required by hour per weight. Continue Bumex, Continue water flushes, goal of hypernatremia 145-go down on water flushes to 50cc per hour. Exam Vital Signs Temp Pulse Resp BP Pulse Ox O2 Del Method O2 Flow Rate 97.5 F 69 19 101/58 L 25 L High Flow Nasal Cannula 40 08/14/24 08:00 08/14/24 10:46 08/14/24 10:46 08/14/24 08:58 08/14/24 10:46 08/14/24 08:00 08/14/24 10:46 FiO2 70 08/14/24 10:46 Narrative Exam General Appearance: Alert & Oriented X1, well-nourished female who is lying in bed in with increased work breathing HEENT: Skull symmetrical and atraumatic. Conjunctivae pale pink and moist. Pupils equal, round, reactive to light and accommodation (PERRL). External ear without lesion or discharge. Straight, nares patient, mucosa pink, no discharge. Cardio: Normal Rate and Rhythm with S1 and S2 heart sounds. No murmurs or extra heart sounds auscultated. No bruits on carotid auscultation. No peripheral edema or cyanosis. Lungs: Symmetric with good expansion. Chest and back non-tender. Breath sounds vesicular with crackles and rhonchi Abdomen: Non-tender, Non-distended, Normal Reactive Bowel Sounds Neuro: yes Alert,yes cooperative, yes oriented to person, No place, and No time. CN grossly intact. Upper motor strength 5/5 and Lower motor strength 5/5. Sensation intact. Objective Labs 08/15/24 06:30 08/15/24 06:30 Labs: Laboratory Results - last 24 hr 08/13/24 08/13/24 08/14/24 15:04 21:51 01:00 WBC RBC Hgb Hct MCV MCH MCHC RDW Std Deviation Plt Count Neut % (Auto) Lymph % (Auto) [place] % (Auto) Eos % (Auto) Baso % (Auto) Neut # (Auto) Lymph # (Auto) [place] # (Auto) Eos # (Auto) Baso # (Auto) Immature Gran # (Auto) Absolute Nucleated RBC Immature Gran % Nucleated RBC % Sodium 150 H 152 H 151 H Potassium Chloride Carbon Dioxide Anion Gap BUN Creatinine Estim Creat Clear Calc eGFR BUN/Creatinine Ratio Glucose Calculated Osmolality Calcium Corrected Calcium Phosphorus Magnesium Total Bilirubin AST ALT Alkaline Phosphatase Total Protein Albumin Globulin Albumin/Globulin Ratio 08/14/24 04:45 WBC 11.3 H RBC 3.46 L Hgb 9.6 L Hct 30.2 L MCV 87 MCH 27.7 MCHC 31.8 RDW Std Deviation 50.4 H Plt Count 145 Neut % (Auto) 85 H Lymph % (Auto) 9 L [place] % (Auto) 4 Eos % (Auto) 1 Baso % (Auto) 0 Neut # (Auto) 9.6 H Lymph # (Auto) 1.0 [place] # (Auto) 0.5 Eos # (Auto) 0.1 Baso # (Auto) 0.0 Immature Gran # (Auto) 0.11 H Absolute Nucleated RBC 0.00 Immature Gran % 1 H Nucleated RBC % 0 Sodium 147 H Potassium 3.0 L Chloride 108 H Carbon Dioxide 33.7 H Anion Gap 5 L BUN 54 H Creatinine 1.7 H Estim Creat Clear Calc 20.0 L eGFR 29 L BUN/Creatinine Ratio 32 H Glucose 184 H Calculated Osmolality 312 H Calcium 8.7 Corrected Calcium 9.5 Phosphorus 4.8 Magnesium 2.8 H Total Bilirubin 0.5 AST 61 H ALT 62 H Alkaline Phosphatase 182 H Total Protein 5.7 Albumin 3.0 L Globulin 2.7 Albumin/Globulin Ratio 1.1 L ABG Interpretation ABG results: 08/02/24 08/02/24 08/02/24 11:32 15:23 16:47 ABG pH 7.37 7.40 ABG pCO2 50 H 44 ABG pO2 36 L* 80 L D ABG HCO3 29 H 27 H ABG O2 Saturation 64 L 96 ABG Base Excess 3 2 VBG pH 7.48 VBG pCO2 35 L VBG pO2 46 VBG Base Excess 3 08/02/24 08/02/24 08/03/24 20:46 23:49 03:08 ABG pH 7.39 7.45 7.48 H ABG pCO2 47 37 D 34 ABG pO2 76 L 248 H D 160 H D ABG HCO3 29 H 25 25 ABG O2 Saturation 95 99 H 98 ABG Base Excess 3 2 2 VBG pH VBG pCO2 VBG pO2 VBG Base Excess 08/03/24 08/03/24 08/04/24 05:03 09:09 04:23 ABG pH 7.45 7.38 7.42 ABG pCO2 37 43 46 ABG pO2 55 L* D 51 L* 92 D ABG HCO3 26 26 30 H ABG O2 Saturation 90 L 85 L 97 ABG Base Excess 2 0 5 H VBG pH VBG pCO2 VBG pO2 VBG Base Excess 08/05/24 08/06/24 08/09/24 04:47 04:07 08:33 ABG pH 7.38 7.42 7.37 ABG pCO2 50 H 49 H 65 H ABG pO2 93 73 L D 67 L ABG HCO3 30 H 32 H 37 H ABG O2 Saturation 96 94 95 ABG Base Excess 4 H 7 H 10 H VBG pH VBG pCO2 VBG pO2 VBG Base Excess Quality Measures Quality Measures VTE prophylaxis (Heparin subcut) Advance care planning discussed with:: patient Assessment & Plan Assessment Current Active Medications: Generic Name Dose Route Start Last Admin Trade Name Freq PRN Reason Stop Dose Admin Acetaminophen 650 mg 08/02/24 13:42 Acetaminophen 325 Mg Tablet PO 09/01/24 13:41 Q6H PRN Mild Pain 1-3 or Fever >100.4 Acetylcysteine 3 ml 08/10/24 11:00 08/14/24 10:43 Acetylcysteine Rt Cindy 10% 4 Ml Nebu INH 09/09/24 10:59 3 ml Q4HRRT JORGE ALBERTO Administration Albuterol/Ipratropium 3 ml 08/02/24 16:45 08/14/24 10:44 Albuterol/Ipratropium (Duoneb) Rt Cindy 3 Ml Nebu INH 09/01/24 16:44 3 ml Q4HRRT JORGE ALBERTO Administration Amiodarone HCl 200 mg 08/03/24 09:00 08/14/24 08:57 Amiodarone Hcl 200 Mg Tablet PO 09/02/24 08:59 200 mg BID JORGE ALBERTO Administration Amlodipine Besylate 5 mg 08/02/24 14:20 08/02/24 15:52 Amlodipine Besylate 5 Mg Tablet PO 09/01/24 14:19 5 mg QDAY JORGE ALBERTO Administration Atorvastatin Calcium 80 mg 08/11/24 21:00 08/13/24 20:12 Atorvastatin Calcium 20 Mg Tablet PO 09/02/24 08:59 80 mg HS JORGE ALBERTO Administration Bumetanide 2 mg 08/13/24 14:00 08/14/24 08:57 Bumetanide Inj 0.25 Mg/Ml Vial 4 Ml IVP 09/12/24 13:59 2 mg QDAY JORGE ALBERTO Administration Dextrose 25 ml 08/02/24 16:39 Dextrose 50%-Water Inj 50 Ml Syringe IV 09/01/24 16:38 Q15MIN PRN BG 50-70 responsive npo pt Dextrose 50 ml 08/02/24 16:39 Dextrose 50%-Water Inj 50 Ml Syringe IV 09/01/24 16:38 Q15MIN PRN BG <50 OR BG <70 & pt unresponsive Ferrous Sulfate 325 mg 08/11/24 07:30 08/13/24 08:52 Ferrous Sulf 325 Mg Tablet PO 09/10/24 07:29 325 mg QOD JORGE ALBERTO Administration Glucagon 1 mg 08/02/24 16:39 Glucagon Inj 1 Mg Vial IM Q15MIN PRN BG <70, and no IV access Guaifenesin 100 mg 08/02/24 14:33 08/02/24 15:54 Guaifenesin Syrup 200 Mg/10 Ml Udc PO 09/01/24 14:32 100 mg QID PRN Administration COUGH Protocol Guaifenesin/Dextromethorphan 1 each 08/02/24 15:30 Guaifenesin/Dm Tablet PO 09/01/24 15:25 Q4HR PRN COUGH Heparin Sodium (Porcine) 5,000 unit 08/09/24 21:00 08/14/24 08:58 Heparin Sod Inj 5000 Unit/Ml Vial SC 08/23/24 20:59 5,000 unit BID JORGE ALBERTO Administration Piperacillin/Tazobactam/Dextrose 50 mls @ 12.5 mls/hr 08/12/24 21:00 08/14/24 08:56 Zosyn IV 08/19/24 20:59 12.5 mls/hr Q12HR JORGE ALBERTO Administration Protocol Insulin Human Lispro 0 unit 08/10/24 07:38 08/14/24 12:15 Insulin Lispro (Admelog) 1 Unit/0.01 Ml Unit SC 09/02/24 05:59 4 unit Q6HR JORGE ALBERTO Administration Protocol Metoprolol Succinate 12.5 mg 08/06/24 21:00 08/14/24 08:58 Metoprolol Succinate Xl 25 Mg Tabcr PO 09/05/24 20:59 Not Given BID JORGE ALBERTO Oseltamivir Phosphate 30 mg 08/13/24 13:05 08/14/24 09:00 Oseltamivir 30 Mg Capsule PO 08/24/24 13:04 30 mg QDAY JORGE ALBERTO Administration Pantoprazole Sodium 40 mg 08/03/24 09:00 08/14/24 08:57 Pantoprazole Inj 40 Mg Vial IV 09/02/24 08:59 40 mg QDAY JORGE ALBERTO Administration Pharmacy Consult 1 each 08/11/24 13:04 Pharmacy Renal Dose Adjustment 1 Ea XX 09/10/24 13:03 PRN PRN CONSULT Povidone Iodine 0 ml 08/08/24 21:00 08/14/24 09:00 Povidone Iodine Top Cindy 10% 120 Ml Btl TOP 08/15/24 20:59 1 appln BID JORGE ALBERTO Administration Sodium Chloride 3 ml 08/02/24 11:12 08/02/24 11:15 Sodium Chloride Rt Cindy 0.9% 3 Ml Nebu INH 09/01/24 11:11 3 ml PRN PRN Administration SOLN Plan Patient is an 88-year-old female with a past medical history of hypertension CHF diastolic dysfunction HFpEF (60 to 65%) on 04/27/2024, CAD s/p stent in right coronary artery, aortic stenosis, carotid disease, s/p endarterectomy (2020& 2023), history of atrial fibrillation (not on Eliquis risk of bleeding), history of colorectal cancer, and CKD who was admitted for acute hypoxic respiratory failure. #Hypernatremia, Hypovolemic improving #Metabolic Alkalosis, secondary to diuretics Etiology: Patient was being diuresed on Bumex in ICU. Patient presented with hypernatremia after downgrade 152. Given that patient appears hypovolemic and dry up on physical exam with improved pedal edema on physical exam and improve pulmonary vascular congestion on chest x-ray, likely secondary to diuretics. DDx: Worsening CKD cannot be ruled out versus central or nephrogenic causes. (08/09/2024): Bicarbonate showing no improvement and limited improvement on Sodium. Given increased bicarbonate Acetazolamide 250 mg POx1 (via NG tube) and Lasix 40 mg X 1 on 07/20/2024 08/12/2024: Per nephrology: Free Water Flushes at 200 ml q3hr and Bumex mg IVP Qday (until 08/13/2024). No fluid restrictions. 08/13/2024-Dr. Springer recommended stopping Bumex at this time. Dr. Alston consulted as well recommended continue Bumex, restart Tamiflu -renally dose, continue fluid flushes. -->Bumex continued 08/14/2024: continue bumex, continue water flushes, continue duonebs, continue to monitor Na-->reduce water flushes to 55 cc per hour if Na goal reached 145 Diagnostics: (08/14/2024) Na 147, 146, pending (17:00) Plan: -Continue to replete K--60 meq 08/14/2024 -IV Bumex 2 mg IVP QDay -Water Flushes at 200 mlg q3hr, no fluid restrictions -Goal sodium 145 which would be a difference of 7 within the >now greater than 24 hours. -Continue sodium checks every 4 hourly -Nephrology Consulted, Dr. Springer, appreciate recommendations #Acute hypoxic respiratory failure secondary to CHF and pneumonia #Pneumonia, Influenza + with likley superimposed pneumonia #Leukocytosis, improved #Sepsis, secondary to Pneumonia, resolved #Septic shock, resolved. Etiology: Influenza positive on admission in acute hypoxic respiratory failure from pneumonia likely secondary to influenza positive, patient currently requires oxygen support. DDx: UTI less likely as no symptoms of UTI vs VT less likley given troponins <0.02. No STEM elevation. 08/09/2024: high flow FiO2 increased to 75 given increased work of breathing likely secondary to increased free water flushes for hypernatremia. Currently Holding water flushes, continue to monitor Na Q6 hours Balance 1493, weight no change 64.127 08/11/2024: This morning patient had worsening work of breathing, and desatting in the low 80s on high flow rate 20 and FiO2 of 60. FiO2 increased to 100, this evening rechecked and currently sitting at 90% saturating at 95%. Nephrology consulted recommended to restart water flushes of 200 ml every Q4HR with Bumex 2 mg IV push today. Please stop fluid restrictions of 1800. New chest x-ray ordered showed worsening significant CHF with prominent posterior congestion with hilar edema. Consider aspiration pneumonia, started on Zosyn extended release taking consideration CKD 3 and fluid restrictions. Consider fibrosis versus ARDS. Consider CT chest. 08/12/2024-Continue Zosyn extended release with only 50 ml to reduce fluid. Continue Bumex. Output -1055 ml, 61.19 kg---> 60.01 kg 08/13/2024: Continue Zosyn, Continue Tamiflu. Output -1405, weight 60.866 08/14/2024: continue zosyn, continue tamiflu, output 105 (ERROR, not charted), Monitor hourly out put, for patient's weight, urine output is sufficient, Weight 60.01 -WBC 10.0 (08/08/2024)-->08/14/2024 11.3 -Cxr (08/08/2024): Moderate CHF, Right Base Pneumonia -Cxr (08/02/2024): Moderate CHF, perihilar basilar edema -Urine Culture NO Growth -Blood Culture: No growthin -Sputum Culture: Tia Albicans Plan: -Zosyn 3.375 mg Extended Release (covering aspiration pneumonia) & at lower fluid 50 ml per day. (08/12/2024--) -Restart Oseltamivir 30 mg PO QDay Susp (08/13/2024) for 5 more days -Bumex 2 mg IVP Qday + water flushes at 200 ml q3 hrs -High flow at Fio2 70% RR 30 -Consider Nystatin mouth -Duonebs scheduled -Ordered chest PT Q4 hourly with Mucomyst -Guifensen PRN -Chest Physiology & Acapella -Oseltamivir 30 mg QDay-course completed -Consider ABG if worsening work of breathing -Consult Pul, Dr. Alston, appreciate recommendations #Acute CHF exacerbation, improving #CHF, Diastolic Dysfunciton, HFpEF 60-65% w/ moderate to serve calcified aortic stenosis (08/04/2024) Etiology: Patient has a past medical history of congestive heart failure with a BNP 518. Patient positive for orthopnea, paroxysmal nocturnal orthopnea and increasing cough. CHF exacerbation likely secondary to pneumonia Dignostics: Although patient has a past medical history of CAD status post stents, less likely secondary to VT/no ST elevation on EKG and troponins are not elevated. PE less likely as well score is 1. Echo(08/04/2024) : Normal LV size and function. Estimated EF 60-65% Moderate to severec calcific aortic stenosis. Mild aotic regurgitation RV is normal in size. The right ventricular systolic function is mildly decreased. The estimated RVSP, 47 mmHg. RAP 15. Mild MAC. Mild MR, TR. NYHA Class: likely III Plan: -Bumex 2mg IVP Qday, continue per doctor Dr. Alston -K>4 and Mg >2 -Fluid Restriction and Sodium Restriction 2 g per day -SpO <90%, support PRN -Daily Weights, Strict Ins and Outs, Fluid Striction (1800 ml), Sodium Restriction 2 grams per day -Cardiology Consult, Dr. Barton, appreciate recommendations. #Atrial Fibrillation, rate controlled #CAD s/p stents of right coronary artery #Hyperlipidemia Patient has a past medical history of Atrial Fibrillation. CHADVASC of 3. Currently not on Eliquis per Dr. Barton. Possible risk of bleeding and currently sinus. 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 Diagnostics: (08/14/2024): BUN 47, Cr 1.7 GFR 29 Plan: -Bumex 2 mg IVP Qday -re-access at 08/14/2024 -Continue with NG tube feeding with water flushes (200 ml q4hr per nephrology) -Renally dose medication -Avoid nephrotoxins # Dysphagia -currently NG tube, hold water flushes -Water flushes currently at 200 ml q4hr Plan -NG Tube, last accessed on 08/08/2024 -Speech Referral -Swallow evaluation Health Maintenance: Disp: Pt is currently admitted to floors for further management of acute hypoxic respiratory failure, awaiting improvement in hypernatremia, and work of breathing. FEN: NG tube, continue water flushes 200 ml q3hr per nephrology DVT: on subQ heparin Code: Full code - The patient's plan was discussed with attending Dr. Mann and senior residents Dr. Marely Monique MD PGY1 Internal Medicine Attending Provider Attestation/Addendum I, Licha Mann DO, attest that I was physically present for the smith portions of the service and evaluated the patient with the resident and I reviewed and discussed the case with the resident and agree with the resident's findings and plans of care as documented above Patient seen and evaluated this a.m. Patient is currently on 40 L/minute and FiO2 of 70%. Patient states she feels about the same. She remains very fatigued. Will continue with Tamiflu and diuretics. Bilateral breath sounds appear improved today with only mild rhonchi. Will continue with current management and titrate O2 as tolerated. Family wishes to undergo a lateral transfer to [facility]. However, they were explained that we can provide the same treatment here in our facility and patient is too unstable to be transferred with her current O2 settings.
[2024-08-14 14:29] LABS: Sodium 146 mMol/L (136-145)
--- NOTE | 2024-08-14 19:00 | ESPR_ITS ---
<Statement entered by Thaddeus Barton MD - 08/16/24 10:26> I personally reviewed the patient patient appears to be doing a little better but still having high flow oxygen requirements but it is much better speed does not complain of any chest pain able to eat some today overall prognosis still poor recommend continue diuretic therapy monitor renal function closely all essential complaints reviewed and agree with the treatment plan recommendation as formulated by PGY 2 Dr. Ryan Documentation for date of: 08/14/24 Subjective Subjective Interval history: 88-year-old female patient with significant medical history for HFpEF, moderate to severe aortic stenosis, coronary artery disease s/p RCA stent placements, atrial fibrillation, bilateral endarterectomy (2020 and 2023), severe peripheral artery disease, chronic kidney disease, colon cancer sp resection, DM2, hypertension and hypercholesterolemia presented with worsening shortness of breath and productive cough was admitted for AHRF and sepsis due to influenza pneumonia with superimposed bacterial infection and CHF exacerbation. Patient was administered Tamiflu and started on IV Vanco and Zosyn. Initially patient was started on oxygen mask as she was hypoxic, due to continuing desaturation in the 70s patient was transitioned to BiPAP. Multiple rapid responses were called as patient continued to be desatting and was becoming increasingly tired. Goals of care discussion were held with family, patient's code status was switched to full code and decision was made to upgrade patient to ICU, intubated and started on levophed as patient was progressing towards ARDS. Cardiology was consulted for further management. 08/04/24: Echocardiogram on this admission indicates moderate to severe aortic stenosis with a gradient of 48 mmHg H (mean 30) with Vmax of 3.5 and LVEF 60- 65%. On physical exam patient is does not seem to be fluid overloaded, patient was recently seen at the clinic and was found to be asymptomatic. Patient seems to have an ARDS pattern secondary to influenza pneumonia. Continue current management, if no improvement we will consider right heart swan cath. 08/05/24: Patient has been weaned off of Levophed but still intubated. FiO2 at 40% and on 20 L rate. Morning chest x-ray seems to be worse than previous with more congestion, greater on the right side. Renal function and transaminitis improving. Patient had 1.6 L urine output and 1 bowel movement. Patient started on Bumex 1mg with a goal of -1 to 1.5 L overall fluid balance. Per primary team, picture is more of a obstructive shock. From cardiology point of view, no need for TAVR at this point. 08/06/24: No significant events overnight. Labs significant for hypernatremia most likely secondary to diuresis and decrease p.o. intake. While there was a mild decline in renal function patient's LFTs have been downtrending. Patient had 1.5 L of urine output with overall -650 mL net fluid balance. Patient was extubated on second attempt and was started on nasal cannula without complications. Currently patient on Bumex 1mg as needed which he was administered today. 08/07/24: No events overnight. Vitals stable, currently on 5L nasal cannula. Patient had 2.3L of urine output with overall -2.2L of net fluid balance. While most labs are improving, sodium has increased to 152. Patient currently on 250 mL free water flush Q6H. Patient receiving nutrition through NG tube. Patient stable to be downgraded for floor team to take over care starting tomorrow. We recommend discontinuing diuresis and giving patient x1 500ml D5W IVF. 08/08/24: Patient was started on HFNC overnight as she was found to be hypoxic. Morning labs and x-ray reviewed. Sodium improving/downtrending to 149, free water flush frequency increased by primary team. Renal function stable/same as yesterday. We recommend withholding diuretics. Patient's hypoxia likely due to ARDS, she is not fluid overloaded. 08/11/24: Continues to be on HFNC, currently on FiO2 90% at rate of 40 L. Patient continues to be hypernatremic, nephrology was consulted. Patient started on Bumex 2 mg Qday. Chest X-ray showed worsening congestion. Patient had 2.2L urine output with an overall -1.3L net negative fluid balance. 08/12/24: Patient a little more awake today compared to yesterday. On HFNC 50% FiO2 and rate of 35L. Sodium at 153, BUN 47 and Housing Case Manager 1.7, patient started on water flushes. Had 1.8 L urine output with overall -1L net fluid balance in last 24 hours. Of note, patient's sputum culture did grow 4+ ross. 08/13/24: Patient had 1.9 L urine output within 24 hours and overall -1.4 L net fluid balance. Still hypernatremic with NA 152, renal function declining with creatinine of 1.8. Patient continues to be on high flow nasal cannula currently with FiO2 70 and at a rate of 30L. Primary team spoke with rough carpenter Dr. Alston, plan is to continue diuresis and restart patient on Tamiflu. Family members including decided to change CODE STATUS of patient to DNR/DNI. 08/14/24: Sodium down trended to 147, patient continues to be on high flow nasal cannula. Patient had 1.7 L of urine output with overall +155 cc net fluid balance. Patient currently on Bumex and Tamiflu. Initially family wanted patient to be transferred to [facility] after talking to primary team decided to stay at [facility]. Exam Vital Signs Temp Pulse Resp BP Pulse Ox O2 Del Method O2 Flow Rate 97.7 F 66 18 108/52 L 95 High Flow Nasal Cannula 40 08/14/24 16:00 08/14/24 16:00 08/14/24 16:00 08/14/24 16:00 08/14/24 16:00 08/14/24 16:00 08/14/24 16:00 FiO2 65 08/14/24 16:00 Narrative Exam Constitutional: Frail looking female, in mild distress HEENT: NCAT, EOMI, reactive round pupils b/l,moist mucous membranes, on HFNC Lung: Less crackles than yesterday, no wheezing, no rhonchi, decreased air entry on right lower lobe side Heart: Regular S1S2, no murmurs, gallops, or rubs Abdomen: Soft, non-distended, non-tender, bowel sounds present throughout Extremities: No cyanosis, clubbing, + trace edema, LE pulses present b/l Neurologic: AOx1, rest can not be performed due to patient's condition Skin: Warm, dry, no lesions or rashes noted Objective Labs 08/14/24 04:45 08/14/24 21:19 Labs: Laboratory Results - last 24 hr 08/13/24 08/14/24 08/14/24 21:51 01:00 04:45 WBC 11.3 H RBC 3.46 L Hgb 9.6 L Hct 30.2 L MCV 87 MCH 27.7 MCHC 31.8 RDW Std Deviation 50.4 H Plt Count 145 Neut % (Auto) 85 H Lymph % (Auto) 9 L [place] % (Auto) 4 Eos % (Auto) 1 Baso % (Auto) 0 Neut # (Auto) 9.6 H Lymph # (Auto) 1.0 [place] # (Auto) 0.5 Eos # (Auto) 0.1 Baso # (Auto) 0.0 Immature Gran # (Auto) 0.11 H Absolute Nucleated RBC 0.00 Immature Gran % 1 H Nucleated RBC % 0 Sodium 152 H 151 H 147 H Potassium 3.0 L Chloride 108 H Carbon Dioxide 33.7 H Anion Gap 5 L BUN 54 H Creatinine 1.7 H Estim Creat Clear Calc 20.0 L eGFR 29 L BUN/Creatinine Ratio 32 H Glucose 184 H Calculated Osmolality 312 H Calcium 8.7 Corrected Calcium 9.5 Phosphorus 4.8 Magnesium 2.8 H Total Bilirubin 0.5 AST 61 H ALT 62 H Alkaline Phosphatase 182 H Total Protein 5.7 Albumin 3.0 L Globulin 2.7 Albumin/Globulin Ratio 1.1 L 08/14/24 14:05 WBC RBC Hgb Hct MCV MCH MCHC RDW Std Deviation Plt Count Neut % (Auto) Lymph % (Auto) [place] % (Auto) Eos % (Auto) Baso % (Auto) Neut # (Auto) Lymph # (Auto) [place] # (Auto) Eos # (Auto) Baso # (Auto) Immature Gran # (Auto) Absolute Nucleated RBC Immature Gran % Nucleated RBC % Sodium 146 H Potassium Chloride Carbon Dioxide Anion Gap BUN Creatinine Estim Creat Clear Calc eGFR BUN/Creatinine Ratio Glucose Calculated Osmolality Calcium Corrected Calcium Phosphorus Magnesium Total Bilirubin AST ALT Alkaline Phosphatase Total Protein Albumin Globulin Albumin/Globulin Ratio ABG Interpretation ABG results: 08/02/24 08/02/24 08/02/24 11:32 15:23 16:47 ABG pH 7.37 7.40 ABG pCO2 50 H 44 ABG pO2 36 L* 80 L D ABG HCO3 29 H 27 H ABG O2 Saturation 64 L 96 ABG Base Excess 3 2 VBG pH 7.48 VBG pCO2 35 L VBG pO2 46 VBG Base Excess 3 08/02/24 08/02/24 08/03/24 20:46 23:49 03:08 ABG pH 7.39 7.45 7.48 H ABG pCO2 47 37 D 34 ABG pO2 76 L 248 H D 160 H D ABG HCO3 29 H 25 25 ABG O2 Saturation 95 99 H 98 ABG Base Excess 3 2 2 VBG pH VBG pCO2 VBG pO2 VBG Base Excess 08/03/24 08/03/24 08/04/24 05:03 09:09 04:23 ABG pH 7.45 7.38 7.42 ABG pCO2 37 43 46 ABG pO2 55 L* D 51 L* 92 D ABG HCO3 26 26 30 H ABG O2 Saturation 90 L 85 L 97 ABG Base Excess 2 0 5 H VBG pH VBG pCO2 VBG pO2 VBG Base Excess 08/05/24 08/06/24 08/09/24 04:47 04:07 08:33 ABG pH 7.38 7.42 7.37 ABG pCO2 50 H 49 H 65 H ABG pO2 93 73 L D 67 L ABG HCO3 30 H 32 H 37 H ABG O2 Saturation 96 94 95 ABG Base Excess 4 H 7 H 10 H VBG pH VBG pCO2 VBG pO2 VBG Base Excess Quality Measures Quality Measures VTE prophylaxis (Heparin subcut) Advance care planning discussed with:: other Assessment & Plan Assessment Current Active Medications: Generic Name Dose Route Start Last Admin Trade Name Freq PRN Reason Stop Dose Admin Acetaminophen 650 mg 08/02/24 13:42 Acetaminophen 325 Mg Tablet PO 09/01/24 13:41 Q6H PRN Mild Pain 1-3 or Fever >100.4 Acetylcysteine 3 ml 08/10/24 11:00 08/14/24 14:59 Acetylcysteine Rt Cindy 10% 4 Ml Nebu INH 09/09/24 10:59 3 ml Q4HRRT JORGE ALBERTO Administration Albuterol/Ipratropium 3 ml 08/02/24 16:45 08/14/24 14:58 Albuterol/Ipratropium (Duoneb) Rt Cindy 3 Ml Nebu INH 09/01/24 16:44 3 ml Q4HRRT JORGE ALBERTO Administration Amiodarone HCl 200 mg 08/03/24 09:00 08/14/24 08:57 Amiodarone Hcl 200 Mg Tablet PO 09/02/24 08:59 200 mg BID JORGE ALBERTO Administration Amlodipine Besylate 5 mg 08/02/24 14:20 08/02/24 15:52 Amlodipine Besylate 5 Mg Tablet PO 09/01/24 14:19 5 mg QDAY JORGE ALBERTO Administration Atorvastatin Calcium 80 mg 08/11/24 21:00 08/13/24 20:12 Atorvastatin Calcium 20 Mg Tablet PO 09/02/24 08:59 80 mg HS JORGE ALBERTO Administration Bumetanide 2 mg 08/13/24 14:00 08/14/24 08:57 Bumetanide Inj 0.25 Mg/Ml Vial 4 Ml IVP 09/12/24 13:59 2 mg QDAY JORGE ALBERTO Administration Dextrose 25 ml 08/02/24 16:39 Dextrose 50%-Water Inj 50 Ml Syringe IV 09/01/24 16:38 Q15MIN PRN BG 50-70 responsive npo pt Dextrose 50 ml 08/02/24 16:39 Dextrose 50%-Water Inj 50 Ml Syringe IV 09/01/24 16:38 Q15MIN PRN BG <50 OR BG <70 & pt unresponsive Ferrous Sulfate 325 mg 08/11/24 07:30 08/13/24 08:52 Ferrous Sulf 325 Mg Tablet PO 09/10/24 07:29 325 mg QOD JORGE ALBERTO Administration Glucagon 1 mg 08/02/24 16:39 Glucagon Inj 1 Mg Vial IM Q15MIN PRN BG <70, and no IV access Guaifenesin 100 mg 08/02/24 14:33 08/02/24 15:54 Guaifenesin Syrup 200 Mg/10 Ml Udc PO 09/01/24 14:32 100 mg QID PRN Administration COUGH Protocol Guaifenesin/Dextromethorphan 1 each 08/02/24 15:30 Guaifenesin/Dm Tablet PO 09/01/24 15:25 Q4HR PRN COUGH Heparin Sodium (Porcine) 5,000 unit 08/09/24 21:00 08/14/24 08:58 Heparin Sod Inj 5000 Unit/Ml Vial SC 08/23/24 20:59 5,000 unit BID JORGE ALBERTO Administration Piperacillin/Tazobactam/Dextrose 50 mls @ 12.5 mls/hr 08/12/24 21:00 08/14/24 08:56 Zosyn IV 08/19/24 20:59 12.5 mls/hr Q12HR JORGE ALBERTO Administration Protocol Insulin Human Lispro 0 unit 08/10/24 07:38 08/14/24 17:58 Insulin Lispro (Admelog) 1 Unit/0.01 Ml Unit SC 09/02/24 05:59 1 unit Q6HR JORGE ALBERTO Administration Protocol Metoprolol Succinate 12.5 mg 08/06/24 21:00 08/14/24 08:58 Metoprolol Succinate Xl 25 Mg Tabcr PO 09/05/24 20:59 Not Given BID JORGE ALBERTO Oseltamivir Phosphate 30 mg 08/13/24 13:05 08/14/24 09:00 Oseltamivir 30 Mg Capsule PO 08/24/24 13:04 30 mg QDAY JORGE ALBERTO Administration Pantoprazole Sodium 40 mg 08/03/24 09:00 08/14/24 08:57 Pantoprazole Inj 40 Mg Vial IV 09/02/24 08:59 40 mg QDAY JORGE ALBERTO Administration Pharmacy Consult 1 each 08/11/24 13:04 Pharmacy Renal Dose Adjustment 1 Ea XX 09/10/24 13:03 PRN PRN CONSULT Povidone Iodine 0 ml 08/08/24 21:00 08/14/24 09:00 Povidone Iodine Top Cindy 10% 120 Ml Btl TOP 08/15/24 20:59 1 appln BID JORGE ALBERTO Administration Sodium Chloride 3 ml 08/02/24 11:12 08/02/24 11:15 Sodium Chloride Rt Cindy 0.9% 3 Ml Nebu INH 09/01/24 11:11 3 ml PRN PRN Administration SOLN Plan 88-year-old female patient with significant medical history for HFpEF, moderate to severe aortic stenosis, coronary artery disease s/p RCA stent placements, atrial fibrillation, bilateral endarterectomy (2020 and 2023), severe peripheral artery disease, chronic kidney disease, colon cancer sp resection, DM2, hypertension and hypercholesterolemia presented with worsening shortness of breath and productive cough was admitted for AHRF and sepsis due to influenza pneumonia with superimposed bacterial infection and CHF exacerbation. #HFpEF (60 to 65%), improving #Hx of CAD s/p RCA stent placement #Hx of s/p bilateral endarterectomy #Hx of hypertension Echocardiogram indicates moderate to severe aortic stenosis with a gradient of 48 mmHg H (mean 30) with Vmax of 3.5 and LVEF 60-65% On addmission BNP 518 and CXR showed prominent vascular congestion On physical exam, patient not fluid overloaded Plan: ? Strict in and out ? Daily weight ? Follow-up electrolytes and replete as necessary ? Future TAVR in outpatient setting #Atrial fibrillation, rate controlled #Moderate-severe aortic stenosis [id number] not on anticoagulation due to high risk of bleeding Plan: ? Continue amiodarone 200 mg BID ? No need for TAVR at this point #Shock, septic vs. cardiogenic, resolved In the setting of fever, influenza PNA and possibly superimposed bacterial pneumonia MAP dropped below 65 after intubation Levophed weaned off on 08/05/24 #Hypernatremia #ANASTACIA #Sepsis secondary to #Influenza #Pneumonia #CKD IIIb #DM2 #Hx of colon cancer s/p resection -Management per primary team This patient care was discussed with my attending Dr. Mick Lester MD PGY-2 Disclaimer: Minor errors in student records coordinator may be present since this note was dictated by speech recognition software.
[2024-08-14] MEDS: ATORVASTATIN CALCIUM 20 MG TABLET 80 MG PO (20:21)
[2024-08-14 22:03] LABS: Sodium 146 mMol/L (136-145)
[2024-08-15] VITALS (20 sets, daily range): BP systolic 109–144; BP diastolic 46–55; PULSE 64–701; RESP 14–27; TEMP 36–36.4; O2SAT 92–99; BMI 23.8; BMI 12.0
[2024-08-15 02:13] LABS: Sodium 148 mMol/L (136-145)
[2024-08-15] MEDS: ACETYLCYSTEINE RT SOL 10% 4 ML NEBU 3 ML INH ×6 (03:07→23:12)
[2024-08-15] MEDS: ALBUTEROL/IPRATROPIUM (Duoneb) RT SOL 3 ML NEBU INH ×6 (03:08→23:12)
[2024-08-15] MEDS: INSULIN LISPRO (AdmeLOG) 1 UNIT/0.01 ML UNIT SC ×3 (05:29→17:23)
[2024-08-15 07:21] LABS: Alanine Aminotransferase 67 U/L (10-49); Albumin, Serum 2.9 gm/dL (3.4-4.8); Alkaline Phosphatase 190 U/L (46-116); Anion Gap 5 (7-16); Aspartate Amino Transferase 79 U/L (0-34); BUN/Creatinine Ratio 34 Ratio (12-20); Bilirubin,Total 0.4 mg/dL (0.3-1.2); Blood Urea Nitrogen 55 mg/dL (9-23); Calcium 8.3 mg/dL (8.3-10.6); Calcium (Corrected) 9.2 mg/dL (8.5-10.1); Carbon Dioxide 34.9 mMol/L (20.0-31.0); Chloride 105 mMol/L (98-107); Creatinine (Component) 1.6 mg/dL (0.6-1.3); Estimated Creatinine Clearance 21.3 mL/min (>60); Globulin 2.8 gm/dL (2.3-3.5); Glucose 156 mg/dL (74-106); Magnesium 2.8 mg/dL (1.6-2.6); Osmolality,Calculated 306 (275-295); Phosphorous 3.6 mg/dL (2.4-5.1); Potassium 3.2 mMol/L (3.4-5.1); Sodium 145 mMol/L (136-145); Total Protein 5.7 gm/dL (5.7-8.2); eGFR 31 See Note
[2024-08-15 07:36] LABS: Basophils % (Auto) 0 % (0-2.5); Eosinophils # (Auto) 0.1 Thou/mm3 (0.0-0.5); Eosinophils % (Auto) 2 % (0-10); Hematocrit 29.3 % (36.0-46.0); Hemoglobin 9.4 g/dL (12.0-16.0); Immature Granulocytes % (Auto) 1 % (0-0); Immature Granulocytes Auto 0.08 Thou/mm3 (0.00-0.00); Lymphocytes # (Auto) 1.1 Thou/mm3 (1.0-4.8); Lymphocytes % (Auto) 13 % (10-50); Mean Corpuscular HGB Conc 32.1 g/dl (31.0-37.0); Mean Corpuscular Hemoglobin 28.2 pg (25.0-35.0); Mean Corpuscular Volume 88 fL (80-100); Monocytes # (Auto) 0.4 Thou/mm3 (0.0-0.8); Monocytes % (Auto) 5 % (0-12); Neutrophils # (Auto) 6.8 Thou/mm3 (1.8-7.7); Neutrophils % (Auto) 79 % (37-80); Nucleated Red Blood Cell % 0 /100 WBC (0); Platelet Count 158 Thou/mm3 (140-440); RDW Standard Deviation 51.7 fL (36.4-46.3); Red Blood Count 3.33 Miln/mm3 (4.00-5.20); White Blood Count 8.6 Thou/mm3 (3.6-11.0)
--- NOTE | 2024-08-15 08:12 | PD.RESPRO ---
Documentation for date of: 08/15/24 Subjective Subjective Interval history: Ms. Keller is a 88-year-old lady with past medical history of hypertension, dyslipidemia, aortic stenosis presented to the hospital with acute hypoxic respiratory failure and noted to have flu positive. Patient also seem to have some heart failure and was given Lasix and metolazone. However BUN, creatinine, sodium went up and diuretics were held. Patient was given gentle IV fluids. However she went into respiratory failure needing high flow at 40 L/min O2, atrial fibrillation and Dr. Montejo was consulted. Renal consultation requested in view of ANASTACIA/hyponatremia in the setting of fluid overload. Dr. Montejo at bedside. Patient currently on NG tube feeds with no free water flushes. Chest x-ray shows fluid overload/pneumonia. Current medications included amlodipine which was held, Zosyn, Lipitor, heparin, metoprolol, amiodarone, cough syrup. 08/11/2024 WBC 11.7, hemoglobin 10.4, platelets 157. Sodium 150, potassium 3.4, BUN 41, creatinine 1.5, calcium 10.3, phosphorus 2.7, magnesium 2.8, AST 109, ALT 115, alk phos 227, albumin 3.1. Chest x-ray showed worsening congestive heart failure. Patient currently seen in telemetry. Daughter, at bedside. 08/12/2024 patient currently seen in telemetry. She is more alert and awake. Sodium still remains at 153. Apparently she did not get free water flushes yesterday. Creatinine 1.7. Clinically she looks tad better today. Entire family at bedside. Continue with Bumex today. 1 dose of Diamox given due to metabolic alkalosis. 08/14/2024 patient currently seen in telemetry. Family at bedside. She remains on oxygen. Labs, medications reviewed. Creatinine tad elevated. Dr. Alston restarted her Bumex due to hypoxic respiratory failure. Sodium tad better. On free water flushes. Replace potassium. Elevated LFTs noted. Plan of care discussed with primary team. Apparently family requesting for her to be transferred to [facility]. 08/15/24: Patient seen and examined at bedside in telemetry. Patient's family at bedside patient continues to have high requirement of oxygen, currently on 30 L by high flow nasal cannula. Patient has good urine output, about 1600 cc in last 24 hours is on IV Bumex 2 mg twice daily. Pulmonology and cardiology closely following the case, patient has a lot of congestion and secretions currently on as needed guaifenesin. Creatinine 1.6 BUN 55 GFR 31. Will continue to monitor renal function and urine output. Exam Vital Signs Temp Pulse Resp BP Pulse Ox O2 Del Method O2 Flow Rate 97.2 F 70 18 120/55 L 96 High Flow Nasal Cannula 30 08/15/24 07:55 08/15/24 07:55 08/15/24 07:55 08/15/24 07:55 08/15/24 07:55 08/15/24 07:55 08/15/24 07:55 FiO2 60 08/15/24 07:55 Narrative Exam GENERAL APPEARANCE: Sick appearing, currently on high flow nasal cannula NECK: Neck supple, no JVD or bruit CARDIOVASCULAR: Heart regular, no murmurs LUNGS/CHEST: Crackles heard bilaterally ABDOMEN: Soft, nontender, nondistended. No masses. Normal bowel sounds. EXTREMITIES: No edema, clubbing or cyanosis. Able to move all 4 extremities. SKIN: Skin exam normal without any rashes NEUROLOGICAL : Alert and oriented x2 Sleepy although arousable. Objective Labs 08/17/24 05:09 08/17/24 05:09 Labs: Laboratory Results - last 24 hr 08/14/24 08/14/24 08/15/24 14:05 21:19 01:35 WBC RBC Hgb Hct MCV MCH MCHC RDW Std Deviation Plt Count Neut % (Auto) Lymph % (Auto) [place] % (Auto) Eos % (Auto) Baso % (Auto) Neut # (Auto) Lymph # (Auto) [place] # (Auto) Eos # (Auto) Baso # (Auto) Immature Gran # (Auto) Absolute Nucleated RBC Immature Gran % Nucleated RBC % Sodium 146 H 146 H 148 H Potassium Chloride Carbon Dioxide Anion Gap BUN Creatinine Estim Creat Clear Calc eGFR BUN/Creatinine Ratio Glucose Calculated Osmolality Calcium Corrected Calcium Phosphorus Magnesium Total Bilirubin AST ALT Alkaline Phosphatase Total Protein Albumin Globulin Albumin/Globulin Ratio 08/15/24 06:30 WBC 8.6 RBC 3.33 L Hgb 9.4 L Hct 29.3 L MCV 88 MCH 28.2 MCHC 32.1 RDW Std Deviation 51.7 H Plt Count 158 Neut % (Auto) 79 Lymph % (Auto) 13 [place] % (Auto) 5 Eos % (Auto) 2 Baso % (Auto) 0 Neut # (Auto) 6.8 Lymph # (Auto) 1.1 [place] # (Auto) 0.4 Eos # (Auto) 0.1 Baso # (Auto) 0.0 Immature Gran # (Auto) 0.08 H Absolute Nucleated RBC 0.00 Immature Gran % 1 H Nucleated RBC % 0 Sodium 145 Potassium 3.2 L Chloride 105 Carbon Dioxide 34.9 H Anion Gap 5 L BUN 55 H Creatinine 1.6 H Estim Creat Clear Calc 21.3 L eGFR 31 L BUN/Creatinine Ratio 34 H Glucose 156 H Calculated Osmolality 306 H Calcium 8.3 Corrected Calcium 9.2 Phosphorus 3.6 Magnesium 2.8 H Total Bilirubin 0.4 AST 79 H ALT 67 H Alkaline Phosphatase 190 H Total Protein 5.7 Albumin 2.9 L Globulin 2.8 Albumin/Globulin Ratio 1.0 L ABG Interpretation ABG results: 08/02/24 08/02/24 08/02/24 11:32 15:23 16:47 ABG pH 7.37 7.40 ABG pCO2 50 H 44 ABG pO2 36 L* 80 L D ABG HCO3 29 H 27 H ABG O2 Saturation 64 L 96 ABG Base Excess 3 2 VBG pH 7.48 VBG pCO2 35 L VBG pO2 46 VBG Base Excess 3 08/02/24 08/02/24 08/03/24 20:46 23:49 03:08 ABG pH 7.39 7.45 7.48 H ABG pCO2 47 37 D 34 ABG pO2 76 L 248 H D 160 H D ABG HCO3 29 H 25 25 ABG O2 Saturation 95 99 H 98 ABG Base Excess 3 2 2 VBG pH VBG pCO2 VBG pO2 VBG Base Excess 08/03/24 08/03/24 08/04/24 05:03 09:09 04:23 ABG pH 7.45 7.38 7.42 ABG pCO2 37 43 46 ABG pO2 55 L* D 51 L* 92 D ABG HCO3 26 26 30 H ABG O2 Saturation 90 L 85 L 97 ABG Base Excess 2 0 5 H VBG pH VBG pCO2 VBG pO2 VBG Base Excess 08/05/24 08/06/24 08/09/24 04:47 04:07 08:33 ABG pH 7.38 7.42 7.37 ABG pCO2 50 H 49 H 65 H ABG pO2 93 73 L D 67 L ABG HCO3 30 H 32 H 37 H ABG O2 Saturation 96 94 95 ABG Base Excess 4 H 7 H 10 H VBG pH VBG pCO2 VBG pO2 VBG Base Excess Quality Measures Quality Measures VTE prophylaxis (Heparin subcut) Advance care planning discussed with:: patient Assessment & Plan Assessment Current Active Medications: Generic Name Dose Route Start Last Admin Trade Name Freq PRN Reason Stop Dose Admin Acetaminophen 650 mg 08/02/24 13:42 Acetaminophen 325 Mg Tablet PO 09/01/24 13:41 Q6H PRN Mild Pain 1-3 or Fever >100.4 Acetylcysteine 3 ml 08/10/24 11:00 08/15/24 06:32 Acetylcysteine Rt Cindy 10% 4 Ml Nebu INH 09/09/24 10:59 3 ml Q4HRRT JORGE ALBERTO Administration Albuterol/Ipratropium 3 ml 08/02/24 16:45 08/15/24 06:32 Albuterol/Ipratropium (Duoneb) Rt Cindy 3 Ml Nebu INH 09/01/24 16:44 3 ml Q4HRRT JORGE ALBERTO Administration Amiodarone HCl 200 mg 08/03/24 09:00 08/14/24 20:21 Amiodarone Hcl 200 Mg Tablet PO 09/02/24 08:59 200 mg BID JORGE ALBERTO Administration Amlodipine Besylate 5 mg 08/02/24 14:20 08/02/24 15:52 Amlodipine Besylate 5 Mg Tablet PO 09/01/24 14:19 5 mg QDAY JORGE ALBERTO Administration Atorvastatin Calcium 80 mg 08/11/24 21:00 08/14/24 20:21 Atorvastatin Calcium 20 Mg Tablet PO 09/02/24 08:59 80 mg HS JORGE ALBERTO Administration Bumetanide 2 mg 08/13/24 14:00 08/14/24 08:57 Bumetanide Inj 0.25 Mg/Ml Vial 4 Ml IVP 09/12/24 13:59 2 mg QDAY JORGE ALBERTO Administration Dextrose 25 ml 08/02/24 16:39 Dextrose 50%-Water Inj 50 Ml Syringe IV 09/01/24 16:38 Q15MIN PRN BG 50-70 responsive npo pt Dextrose 50 ml 08/02/24 16:39 Dextrose 50%-Water Inj 50 Ml Syringe IV 09/01/24 16:38 Q15MIN PRN BG <50 OR BG <70 & pt unresponsive Ferrous Sulfate 325 mg 08/11/24 07:30 08/13/24 08:52 Ferrous Sulf 325 Mg Tablet PO 09/10/24 07:29 325 mg QOD JORGE ALBERTO Administration Glucagon 1 mg 08/02/24 16:39 Glucagon Inj 1 Mg Vial IM Q15MIN PRN BG <70, and no IV access Guaifenesin 100 mg 08/02/24 14:33 08/02/24 15:54 Guaifenesin Syrup 200 Mg/10 Ml Udc PO 09/01/24 14:32 100 mg QID PRN Administration COUGH Protocol Guaifenesin/Dextromethorphan 1 each 08/02/24 15:30 Guaifenesin/Dm Tablet PO 09/01/24 15:25 Q4HR PRN COUGH Heparin Sodium (Porcine) 5,000 unit 08/09/24 21:00 08/14/24 20:21 Heparin Sod Inj 5000 Unit/Ml Vial SC 08/23/24 20:59 5,000 unit BID JORGE ALBERTO Administration Piperacillin/Tazobactam/Dextrose 50 mls @ 12.5 mls/hr 08/12/24 21:00 08/14/24 20:20 Zosyn IV 08/19/24 20:59 12.5 mls/hr Q12HR JORGE ALBERTO Administration Protocol Insulin Human Lispro 0 unit 08/10/24 07:38 08/15/24 05:29 Insulin Lispro (Admelog) 1 Unit/0.01 Ml Unit SC 09/02/24 05:59 2 unit Q6HR JORGE ALBERTO Administration Protocol Metoprolol Succinate 12.5 mg 08/06/24 21:00 08/14/24 20:17 Metoprolol Succinate Xl 25 Mg Tabcr PO 09/05/24 20:59 Not Given BID JORGE ALBERTO Oseltamivir Phosphate 30 mg 08/13/24 13:05 08/14/24 09:00 Oseltamivir 30 Mg Capsule PO 08/24/24 13:04 30 mg QDAY JORGE ALBERTO Administration Pantoprazole Sodium 40 mg 08/03/24 09:00 08/14/24 08:57 Pantoprazole Inj 40 Mg Vial IV 09/02/24 08:59 40 mg QDAY JORGE ALBERTO Administration Pharmacy Consult 1 each 08/11/24 13:04 Pharmacy Renal Dose Adjustment 1 Ea XX 09/10/24 13:03 PRN PRN CONSULT Potassium Chloride 40 meq 08/15/24 12:00 Potassium Chloride 10% 20 Meq/15 Ml Udc NG 08/15/24 12:01 X1 ONE Povidone Iodine 0 ml 08/08/24 21:00 08/14/24 20:22 Povidone Iodine Top Cindy 10% 120 Ml Btl TOP 08/15/24 20:59 1 appln BID JORGE ALBERTO Administration Sodium Chloride 3 ml 08/02/24 11:12 08/02/24 11:15 Sodium Chloride Rt Cindy 0.9% 3 Ml Nebu INH 09/01/24 11:11 3 ml PRN PRN Administration SOLN Plan Summary: Ms. Husain is a 88-year-old female past medical history of hypertension, dyslipidemia, aortic stenosis presented to the hospital with acute hypoxic respiratory failure and noted to have flu positive. Nephrology was consulted for hyponatremia and ANASTACIA. Patient was given gentle IV fluids, pulmonology and cardiology on board, patient currently on Bumex twice daily #Acute kidney injury on chronic kidney disease secondary to prerenal azotemia. 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 Spoke to Dr. Montejo-will give diuretics. Was given 1 dose of Diamox for metabolic alkalosis. Noted mild elevation in creatinine probably related to diuretics. Currently on IV Bumex. Plan: -Continue IV Bumex twice daily -Strict intake and output -Dose medication renally -Will monitor renal function closely -Monitor urine output Plan of care discussed with primary team Plan of care discussed with family at bedside. 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 Prognosis remains guarded #Hypernatremia #Dehydration Patient was on free water flushes through NG-tube Sodium has improved remarkably to 145 from 153, was given gentle IV hydration Plan: -Decrease rate of free water flushes 55cc/hr -Monitor sodium closely -Sodium correction goal 8-10 in 24 hours #Acute hypoxic respiratory failure secondary to CHF and pneumonia and acute respiratory distress syndrome #Pneumonia, Influenza + with likley superimposed pneumonia #Leukocytosis, improved #Sepsis, secondary to Pneumonia, resolved #Septic shock, resolved. 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 Springer. Tessa Branch PGY1 Attending Provider Attestation/Addendum Patient seen and examined with resident physician Dr. Branch. Note reviewed, agree with findings and recommendations. Patient still very lethargic. Daughter is at bedside. One of the residents was a eyeglass maker. Creatinine stable. Did explain to the family regarding cardiorenal syndrome and worsening renal function with diuretics. They had several questions which were answered to their satisfaction. Not quite sure if transferring to [facility] is going to change her overall prognosis especially with congestive heart failure, critical .
[2024-08-15] MEDS: AMIODARONE HCL 200 MG TABLET PO ×2 (08:36→21:11)
[2024-08-15] MEDS: METOPROLOL SUCCINATE XL 25 MG TABCR 12.5 MG PO ×2 (08:37→21:12)
[2024-08-15] MEDS: PIPER/TAZO 3.375 GM 50 ML IV ×2 (08:38→21:16)
[2024-08-15] MEDS: BUMETANIDE INJ 0.25 MG/ML VIAL 4 ML 2 MG IVP (08:38)
[2024-08-15] MEDS: OSELTAMIVIR 30 MG CAPSULE PO (08:38)
[2024-08-15] MEDS: POTASSIUM CHLORIDE 10% 20 MEQ/15 ML UDC 40 MEQ NG (08:38)
[2024-08-15] MEDS: FERROUS SULF 325 MG TABLET PO (08:39)
[2024-08-15] MEDS: PANTOPRAZOLE INJ 40 MG VIAL IV (08:39)
[2024-08-15] MEDS: HEPARIN SOD INJ 5000 UNIT/ML VIAL SC ×2 (08:39→21:14)
--- NOTE | 2024-08-15 10:16 | PCS.ST ---
Improving swallow safety. See daily note for details. Dysphagia 1, MO3 diet. Continue NGT, ST will follow up at meals.
--- NOTE | 2024-08-15 13:30 | ESPR_ITS ---
<Statement entered by Beto Powell MD - 08/15/24 15:36> Patient was seen and examined at the bedside. Patient appears more alert and oriented today as compared to yesterday. Sodium level 145 today therefore water flushes were decreased to 55 cc/h and continue Bumex 2 mg IV daily as patient is showing good diuresis output. We are currently continuing Zosyn for 1 more day and Tamiflu until 08/18. Patient was started on oral feeds with pur?ed diet thick liquid mechanical dysphagia diet 1 along with NG tube feeding. Tube feeds were reduced to 50%. Ordered PT evaluation. Patient is currently being weaned off from high flow nasal cannula FiO2 60% with 30 L. Blood pressure is stable. All labs and orders were reviewed. I saw and examined the patient, and I agree with current management stated by Dr Eneida MD,PGY1. Plan of care was discussed with the attending physician and resident physician. Disclaimer: Despite multiple revisions, due to the dictation software being used, the document bellow may not be free of grammatical errors including phonetic/typographic errors. However, this does not deter from our commitment to providing health care in the patient's best interest in mind. Dr. Sherry MD, PGY 2 Documentation for date of: 08/15/24 Subjective Subjective Interval history: Patient is an 88-year-old female with a past medical history of hypertension CHF diastolic dysfunction HFpEF 60 to 65% (07/2024), CAD s/p stent in right coronary artery, aortic stenosis, carotid disease, s/p endarterectomy (2020& 2023), history of atrial fibrillation (not on Eliquis as patient is currently sinus and has a risk of bleeding?followed up with Dr. Barton bath attendant), and CKD. Admitted initially on 08/02/2024 for acute hypoxic respiratory failure and upgraded to ICU. Patient downgraded on 08/08/2024 for continued medical management. No overnight events reported. Patient examined at beside. Patient stated she feels better. Patient continues to have pulmonary discomfort/pleuritic pain Improved dyspnea. Patient denied chest pain. Patient was alert and oriented x 2 which was an improvement compared to yesterday. Patient continues to be on oly flow RR 30 l/min and FiO2 60. Improved work of breathing. Exam Vital Signs Temp Pulse Resp BP Pulse Ox O2 Del Method O2 Flow Rate 97.6 F 69 16 111/50 L 96 High Flow Nasal Cannula 30 08/15/24 12:00 08/15/24 12:00 08/15/24 12:00 08/15/24 12:00 08/15/24 12:00 08/15/24 12:00 08/15/24 12:00 FiO2 60 08/15/24 12:00 Narrative Exam General Appearance: Alert & Oriented X2, well-nourished female who is lying in bed in with increased work breathing HEENT: Skull symmetrical and atraumatic. Conjunctivae pale pink and moist. Pupils equal, round, reactive to light and accommodation (PERRL). External ear without lesion or discharge. Straight, nares patient, mucosa pink, no discharge. Cardio: Normal Rate and Rhythm with S1 and S2 heart sounds. No murmurs or extra heart sounds auscultated. No bruits on carotid auscultation. No peripheral edema or cyanosis. Lungs: Symmetric with good expansion. Chest and back non-tender. Breath sounds vesicular with crackles and rhonchi, mild improvement. Abdomen: Non-tender, Non-distended, Normal Reactive Bowel Sounds Neuro: YES Alert,YES cooperative, YES oriented to person, YES place, and No time. CN grossly intact. Upper motor strength 5/5 and Lower motor strength 5/5. Sensation intact. Objective Labs 08/16/24 05:32 08/16/24 05:32 Labs: Laboratory Results - last 24 hr 08/14/24 08/14/24 08/15/24 14:05 21:19 01:35 WBC RBC Hgb Hct MCV MCH MCHC RDW Std Deviation Plt Count Neut % (Auto) Lymph % (Auto) [place] % (Auto) Eos % (Auto) Baso % (Auto) Neut # (Auto) Lymph # (Auto) [place] # (Auto) Eos # (Auto) Baso # (Auto) Immature Gran # (Auto) Absolute Nucleated RBC Immature Gran % Nucleated RBC % Sodium 146 H 146 H 148 H Potassium Chloride Carbon Dioxide Anion Gap BUN Creatinine Estim Creat Clear Calc eGFR BUN/Creatinine Ratio Glucose Calculated Osmolality Calcium Corrected Calcium Phosphorus Magnesium Total Bilirubin AST ALT Alkaline Phosphatase Total Protein Albumin Globulin Albumin/Globulin Ratio 08/15/24 06:30 WBC 8.6 RBC 3.33 L Hgb 9.4 L Hct 29.3 L MCV 88 MCH 28.2 MCHC 32.1 RDW Std Deviation 51.7 H Plt Count 158 Neut % (Auto) 79 Lymph % (Auto) 13 [place] % (Auto) 5 Eos % (Auto) 2 Baso % (Auto) 0 Neut # (Auto) 6.8 Lymph # (Auto) 1.1 [place] # (Auto) 0.4 Eos # (Auto) 0.1 Baso # (Auto) 0.0 Immature Gran # (Auto) 0.08 H Absolute Nucleated RBC 0.00 Immature Gran % 1 H Nucleated RBC % 0 Sodium 145 Potassium 3.2 L Chloride 105 Carbon Dioxide 34.9 H Anion Gap 5 L BUN 55 H Creatinine 1.6 H Estim Creat Clear Calc 21.3 L eGFR 31 L BUN/Creatinine Ratio 34 H Glucose 156 H Calculated Osmolality 306 H Calcium 8.3 Corrected Calcium 9.2 Phosphorus 3.6 Magnesium 2.8 H Total Bilirubin 0.4 AST 79 H ALT 67 H Alkaline Phosphatase 190 H Total Protein 5.7 Albumin 2.9 L Globulin 2.8 Albumin/Globulin Ratio 1.0 L ABG Interpretation ABG results: 08/02/24 08/02/24 08/02/24 11:32 15:23 16:47 ABG pH 7.37 7.40 ABG pCO2 50 H 44 ABG pO2 36 L* 80 L D ABG HCO3 29 H 27 H ABG O2 Saturation 64 L 96 ABG Base Excess 3 2 VBG pH 7.48 VBG pCO2 35 L VBG pO2 46 VBG Base Excess 3 08/02/24 08/02/24 08/03/24 20:46 23:49 03:08 ABG pH 7.39 7.45 7.48 H ABG pCO2 47 37 D 34 ABG pO2 76 L 248 H D 160 H D ABG HCO3 29 H 25 25 ABG O2 Saturation 95 99 H 98 ABG Base Excess 3 2 2 VBG pH VBG pCO2 VBG pO2 VBG Base Excess 08/03/24 08/03/24 08/04/24 05:03 09:09 04:23 ABG pH 7.45 7.38 7.42 ABG pCO2 37 43 46 ABG pO2 55 L* D 51 L* 92 D ABG HCO3 26 26 30 H ABG O2 Saturation 90 L 85 L 97 ABG Base Excess 2 0 5 H VBG pH VBG pCO2 VBG pO2 VBG Base Excess 08/05/24 08/06/24 08/09/24 04:47 04:07 08:33 ABG pH 7.38 7.42 7.37 ABG pCO2 50 H 49 H 65 H ABG pO2 93 73 L D 67 L ABG HCO3 30 H 32 H 37 H ABG O2 Saturation 96 94 95 ABG Base Excess 4 H 7 H 10 H VBG pH VBG pCO2 VBG pO2 VBG Base Excess Quality Measures Quality Measures VTE prophylaxis (Heparin subcut) Advance care planning discussed with:: other Assessment & Plan Assessment Current Active Medications: Generic Name Dose Route Start Last Admin Trade Name Freq PRN Reason Stop Dose Admin Acetaminophen 650 mg 08/02/24 13:42 Acetaminophen 325 Mg Tablet PO 09/01/24 13:41 Q6H PRN Mild Pain 1-3 or Fever >100.4 Acetylcysteine 3 ml 08/10/24 11:00 08/15/24 10:11 Acetylcysteine Rt Cindy 10% 4 Ml Nebu INH 09/09/24 10:59 3 ml Q4HRRT JORGE ALBERTO Administration Albuterol/Ipratropium 3 ml 08/02/24 16:45 08/15/24 10:11 Albuterol/Ipratropium (Duoneb) Rt Cindy 3 Ml Nebu INH 09/01/24 16:44 3 ml Q4HRRT JORGE ALBERTO Administration Amiodarone HCl 200 mg 08/03/24 09:00 08/15/24 08:36 Amiodarone Hcl 200 Mg Tablet PO 09/02/24 08:59 200 mg BID JORGE ALBERTO Administration Amlodipine Besylate 5 mg 08/02/24 14:20 08/02/24 15:52 Amlodipine Besylate 5 Mg Tablet PO 09/01/24 14:19 5 mg QDAY JORGE ALBERTO Administration Atorvastatin Calcium 80 mg 08/11/24 21:00 08/14/24 20:21 Atorvastatin Calcium 20 Mg Tablet PO 09/02/24 08:59 80 mg HS JORGE ALBERTO Administration Bumetanide 2 mg 08/13/24 14:00 08/15/24 08:38 Bumetanide Inj 0.25 Mg/Ml Vial 4 Ml IVP 09/12/24 13:59 2 mg QDAY JORGE ALBERTO Administration Dextrose 25 ml 08/02/24 16:39 Dextrose 50%-Water Inj 50 Ml Syringe IV 09/01/24 16:38 Q15MIN PRN BG 50-70 responsive npo pt Dextrose 50 ml 08/02/24 16:39 Dextrose 50%-Water Inj 50 Ml Syringe IV 09/01/24 16:38 Q15MIN PRN BG <50 OR BG <70 & pt unresponsive Ferrous Sulfate 325 mg 08/11/24 07:30 08/15/24 08:39 Ferrous Sulf 325 Mg Tablet PO 09/10/24 07:29 325 mg QOD JORGE ALBERTO Administration Glucagon 1 mg 08/02/24 16:39 Glucagon Inj 1 Mg Vial IM Q15MIN PRN BG <70, and no IV access Guaifenesin 100 mg 08/02/24 14:33 08/02/24 15:54 Guaifenesin Syrup 200 Mg/10 Ml Udc PO 09/01/24 14:32 100 mg QID PRN Administration COUGH Protocol Guaifenesin/Dextromethorphan 1 each 08/02/24 15:30 Guaifenesin/Dm Tablet PO 09/01/24 15:25 Q4HR PRN COUGH Heparin Sodium (Porcine) 5,000 unit 08/09/24 21:00 08/15/24 08:39 Heparin Sod Inj 5000 Unit/Ml Vial SC 08/23/24 20:59 5,000 unit BID JORGE ALBERTO Administration Insulin Human Lispro 0 unit 08/10/24 07:38 08/15/24 12:25 Insulin Lispro (Admelog) 1 Unit/0.01 Ml Unit SC 09/02/24 05:59 4 unit Q6HR JORGE ALBERTO Administration Protocol Metoprolol Succinate 12.5 mg 08/06/24 21:00 08/15/24 08:37 Metoprolol Succinate Xl 25 Mg Tabcr PO 09/05/24 20:59 12.5 mg BID JORGE ALBERTO Administration Oseltamivir Phosphate 30 mg 08/13/24 13:05 08/15/24 08:38 Oseltamivir 30 Mg Capsule PO 08/24/24 13:04 30 mg QDAY JORGE ALBERTO Administration Pantoprazole Sodium 40 mg 08/03/24 09:00 08/15/24 08:39 Pantoprazole Inj 40 Mg Vial IV 09/02/24 08:59 40 mg QDAY JORGE ALBERTO Administration Pharmacy Consult 1 each 08/11/24 13:04 Pharmacy Renal Dose Adjustment 1 Ea XX 09/10/24 13:03 PRN PRN CONSULT Povidone Iodine 0 ml 08/08/24 21:00 08/14/24 20:22 Povidone Iodine Top Cindy 10% 120 Ml Btl TOP 08/15/24 20:59 1 appln BID JORGE ALBERTO Administration Sodium Chloride 3 ml 08/02/24 11:12 08/02/24 11:15 Sodium Chloride Rt Cindy 0.9% 3 Ml Nebu INH 09/01/24 11:11 3 ml PRN PRN Administration SOLN Plan Patient is an 88-year-old female with a past medical history of hypertension CHF diastolic dysfunction HFpEF (60 to 65%) on 04/27/2024, CAD s/p stent in right coronary artery, aortic stenosis, carotid disease, s/p endarterectomy (2020& 2023), history of atrial fibrillation (not on Eliquis risk of bleeding), history of colorectal cancer, and CKD who was admitted for acute hypoxic respiratory failure. #Hypernatremia, Hypovolemic improved #Metabolic Alkalosis, secondary to diuretics Etiology: Patient was being diuresed on Bumex in ICU. Patient presented with hypernatremia after downgrade 152. Given that patient appears hypovolemic and dry up on physical exam with improved pedal edema on physical exam and improve pulmonary vascular congestion on chest x-ray, likely secondary to diuretics. DDx: Worsening CKD cannot be ruled out versus central or nephrogenic causes. (08/09/2024): Bicarbonate showing no improvement and limited improvement on Sodium. Given increased bicarbonate Acetazolamide 250 mg POx1 (via NG tube) and Lasix 40 mg X 1 on 07/20/2024 08/12/2024: Per nephrology: Free Water Flushes at 200 ml q3hr and Bumex mg IVP Qday (until 08/13/2024). No fluid restrictions. 08/13/2024-Dr. Springer recommended stopping Bumex at this time. Dr. Alston consulted as well recommended continue Bumex, restart Tamiflu -renally dose, continue fluid flushes. -->Bumex continued 08/14/2024: continue bumex, continue water flushes, continue duonebs, continue to monitor Na-->reduce water flushes to 55 cc per hour if Na goal reached 145 (08/15/2024): Continue Bumex/reassess tomorrow, water flushes reduced down to 55 cc/h as a sodium goal reached, currently NA 145. Diagnostics: (08/15/2024) Na 145 Plan: -Potassium Replaced 40 meq X 1 -IV Bumex 2 mg IVP QDay -Water Flushes at 55 cc per hour -Nephrology Consulted, Dr. Springer, appreciate recommendations #Acute hypoxic respiratory failure secondary to CHF and pneumonia #Pneumonia, Influenza + with likley superimposed pneumonia #Leukocytosis, improved #Sepsis, secondary to Pneumonia, resolved #Septic shock, resolved. Etiology: Influenza positive on admission in acute hypoxic respiratory failure from pneumonia likely secondary to influenza positive, patient currently requires oxygen support. DDx: UTI less likely as no symptoms of UTI vs MA less likley given troponins <0.02. No STEM elevation. 08/09/2024: high flow FiO2 increased to 75 given increased work of breathing likely secondary to increased free water flushes for hypernatremia. Currently Holding water flushes, continue to monitor Na Q6 hours Balance 1493, weight no change 64.127 08/11/2024: This morning patient had worsening work of breathing, and desatting in the low 80s on high flow rate 20 and FiO2 of 60. FiO2 increased to 100, this evening rechecked and currently sitting at 90% saturating at 95%. Nephrology consulted recommended to restart water flushes of 200 ml every Q4HR with Bumex 2 mg IV push today. Please stop fluid restrictions of 1800. New chest x-ray ordered showed worsening significant CHF with prominent posterior congestion with hilar edema. Consider aspiration pneumonia, started on Zosyn extended release taking consideration CKD 3 and fluid restrictions. Consider fibrosis versus ARDS. Consider CT chest. 08/12/2024-Continue Zosyn extended release with only 50 ml to reduce fluid. Continue Bumex. Output -1055 ml, 61.19 kg---> 60.01 kg 08/13/2024: Continue Zosyn, Continue Tamiflu. Output -1405, weight 60.866 08/14/2024: continue zosyn, continue tamiflu, output 105 (ERROR, not charted), Monitor hourly out put, for patient's weight, urine output is sufficient, Weight 60.01 08/15/2024: continue Zosyn DAY -consider completing tomorrow, continue Tamiflu until 08/17/2024, and continue Bumex 2 mg IVP Qay. total output 1600, Net Balance -262. Wt 61.144 kg (yesterday 60.866) -WBC 10.0 (08/08/2024)-->08/15/2024 8.6 -Cxr (08/08/2024): Moderate CHF, Right Base Pneumonia -Cxr (08/02/2024): Moderate CHF, perihilar basilar edema -Urine Culture NO Growth -Blood Culture: No growthin -Sputum Culture: Tia Albicans Plan: -Zosyn 3.375 mg Extended Release (covering aspiration pneumonia) & at lower fluid 50 ml per day. (08/12/2024--08/16/2024) -Restart Oseltamivir 30 mg PO QDay Susp (08/13/2024) for 5 more days -->08/17/2024 -Bumex 2 mg IVP Qday + water flushes at 55 ml q1hr -High flow at Fio2 60% RR 30 -Consider Nystatin mouth -Duonebs scheduled -Ordered chest PT Q4 hourly with Mucomyst -Guifensen PRN -Chest Physiology & Acapella -Oseltamivir 30 mg QDay-course completed -Consider ABG if worsening work of breathing -Consult Pul, Dr. Alston, appreciate recommendations #Acute CHF exacerbation, improving #CHF, Diastolic Dysfunciton, HFpEF 60-65% w/ moderate to serve calcified aortic stenosis (08/04/2024) Etiology: Patient has a past medical history of congestive heart failure with a BNP 518. Patient positive for orthopnea, paroxysmal nocturnal orthopnea and increasing cough. CHF exacerbation likely secondary to pneumonia Dignostics: Although patient has a past medical history of CAD status post stents, less likely secondary to MA/no ST elevation on EKG and troponins are not elevated. PE less likely as well score is 1. Echo(08/04/2024) : Normal LV size and function. Estimated EF 60-65% Moderate to severec calcific aortic stenosis. Mild aotic regurgitation RV is normal in size. The right ventricular systolic function is mildly decreased. The estimated RVSP, 47 mmHg. RAP 15. Mild MAC. Mild MR, TR. NYHA Class: likely III Plan: -Bumex 2mg IVP Qday, continue per doctor Dr. Alston, consider decreasing on 08/16/2024 -K>4 and Mg >2 -Fluid Restriction and Sodium Restriction 2 g per day -SpO <90%, support PRN -Daily Weights, Strict Ins and Outs, Fluid Striction (1800 ml), Sodium Restriction 2 grams per day -Cardiology Consult, Dr. Barton, appreciate recommendations. #Atrial Fibrillation, rate controlled #CAD s/p stents of right coronary artery #Hyperlipidemia Patient has a past medical history of Atrial Fibrillation. CHADVASC of 3. Currently not on Eliquis per Dr. Barton. Possible risk of bleeding and currently sinus. 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 Diagnostics: (08/14/2024): BUN 55, Cr 1.6 GFR 31 Plan: -Bumex 2 mg IVP Qday -re-access at 08/15/2024 -Continue with NG tube feeding with water flushes (200 ml q4hr per nephrology) -Renally dose medication -Avoid nephrotoxins # Dysphagia -currently NG tube, hold water flushes -Water flushes currently at 55 cc per hour - Plan -NG Tube, last accessed on 08/15/2024, start dysphagia I diet for possible transition off NG tube -Speech Referral -Swallow evaluation Health Maintenance: Disp: Pt is currently admitted to floors for further management of acute hypoxic respiratory failure, awaiting improvement in hypernatremia, and work of breathing. FEN: NG tube-->with transition to Dysphagia type I DVT: on subQ heparin Code: Full code - The patient's plan was discussed with attending Dr. Mann and senior residents Dr. Sehrry Monique MD PGY1 Internal Medicine Attending Provider Attestation/Addendum I, Licha Mann, DO, attest that I was physically present for the smith portions of the service and evaluated the patient with the resident and I reviewed and discussed the case with the resident and agree with the resident's findings and plans of care as documented above Patient seen and evaluated this AM. Patient appears much more alert today and states she is feeling better. She continues to have a productive cough, but HFNC settings titrated down to flow of 30L/min and FiO2 of 60%. OK to start pureed diet per ST, will start tapering tube feeds. Will have patient work with PT due to deconditioning. Continue with bumex and extended course of tamiflu
--- NOTE | 2024-08-15 14:22 | PC.SS ---
Rounding Note: Patient's sodium is improving. Oral feeds have begin.
[2024-08-15] MEDS: POVIDONE IODINE 10% TOP (17:24)
--- NOTE | 2024-08-15 19:05 | ESPR_ITS ---
<Statement entered by Thaddeus Barton MD - 08/16/24 10:32> I personally examined the patient in room 262 patient is much more good spirits eating well today still requiring high flow oxygen however definitely improved overall condition mental status she is also breathing more comfortably today continue medical management including diuretic therapy 2 mg Bumex daily monitor renal function closely sodium level also improved. All essential components reviewed documented by Dr. Ryan PGY2 will continue to monitor the cardiovascular status closely. Patient does have moderate to severe aortic stenosis but not contributing that much to her current problem appears to be mostly viral pneumonia worsening of heart failure symptoms. Documentation for date of: 08/15/24 Subjective Subjective Interval history: 88-year-old female patient with significant medical history for HFpEF, moderate to severe aortic stenosis, coronary artery disease s/p RCA stent placements, atrial fibrillation, bilateral endarterectomy (2020 and 2023), severe peripheral artery disease, chronic kidney disease, colon cancer sp resection, DM2, hypertension and hypercholesterolemia presented with worsening shortness of breath and productive cough was admitted for AHRF and sepsis due to influenza pneumonia with superimposed bacterial infection and CHF exacerbation. Patient was administered Tamiflu and started on IV Vanco and Zosyn. Initially patient was started on oxygen mask as she was hypoxic, due to continuing desaturation in the 70s patient was transitioned to BiPAP. Multiple rapid responses were called as patient continued to be desatting and was becoming increasingly tired. Goals of care discussion were held with family, patient's code status was switched to full code and decision was made to upgrade patient to ICU, intubated and started on levophed as patient was progressing towards ARDS. Cardiology was consulted for further management. 08/04/24: Echocardiogram on this admission indicates moderate to severe aortic stenosis with a gradient of 48 mmHg H (mean 30) with Vmax of 3.5 and LVEF 60- 65%. On physical exam patient is does not seem to be fluid overloaded, patient was recently seen at the clinic and was found to be asymptomatic. Patient seems to have an ARDS pattern secondary to influenza pneumonia. Continue current management, if no improvement we will consider right heart swan cath. 08/05/24: Patient has been weaned off of Levophed but still intubated. FiO2 at 40% and on 20 L rate. Morning chest x-ray seems to be worse than previous with more congestion, greater on the right side. Renal function and transaminitis improving. Patient had 1.6 L urine output and 1 bowel movement. Patient started on Bumex 1mg with a goal of -1 to 1.5 L overall fluid balance. Per primary team, picture is more of a obstructive shock. From cardiology point of view, no need for TAVR at this point. 08/06/24: No significant events overnight. Labs significant for hypernatremia most likely secondary to diuresis and decrease p.o. intake. While there was a mild decline in renal function patient's LFTs have been downtrending. Patient had 1.5 L of urine output with overall -650 mL net fluid balance. Patient was extubated on second attempt and was started on nasal cannula without complications. Currently patient on Bumex 1mg as needed which he was administered today. 08/07/24: No events overnight. Vitals stable, currently on 5L nasal cannula. Patient had 2.3L of urine output with overall -2.2L of net fluid balance. While most labs are improving, sodium has increased to 152. Patient currently on 250 mL free water flush Q6H. Patient receiving nutrition through NG tube. Patient stable to be downgraded for floor team to take over care starting tomorrow. We recommend discontinuing diuresis and giving patient x1 500ml D5W IVF. 08/08/24: Patient was started on HFNC overnight as she was found to be hypoxic. Morning labs and x-ray reviewed. Sodium improving/downtrending to 149, free water flush frequency increased by primary team. Renal function stable/same as yesterday. We recommend withholding diuretics. Patient's hypoxia likely due to ARDS, she is not fluid overloaded. 08/11/24: Continues to be on HFNC, currently on FiO2 90% at rate of 40 L. Patient continues to be hypernatremic, nephrology was consulted. Patient started on Bumex 2 mg Qday. Chest X-ray showed worsening congestion. Patient had 2.2L urine output with an overall -1.3L net negative fluid balance. 08/12/24: Patient a little more awake today compared to yesterday. On HFNC 50% FiO2 and rate of 35L. Sodium at 153, BUN 47 and Insole Stiffener 1.7, patient started on water flushes. Had 1.8 L urine output with overall -1L net fluid balance in last 24 hours. Of note, patient's sputum culture did grow 4+ ross. 08/13/24: Patient had 1.9 L urine output within 24 hours and overall -1.4 L net fluid balance. Still hypernatremic with NA 152, renal function declining with creatinine of 1.8. Patient continues to be on high flow nasal cannula currently with FiO2 70 and at a rate of 30L. Primary team spoke with bowling alley mechanic Dr. Alston, plan is to continue diuresis and restart patient on Tamiflu. Family members including decided to change CODE STATUS of patient to DNR/DNI. 08/14/24: Sodium down trended to 147, patient continues to be on high flow nasal cannula. Patient had 1.7 L of urine output with overall +155 cc net fluid balance. Patient currently on Bumex and Tamiflu. Initially family wanted patient to be transferred to [facility] after talking to primary team decided to stay at [facility]. 08/15/24: No significant overnight events. Patient had 1.6 L urine output with overall positive to 73 cc net fluid balance. Sodium is downtrending at 145 and mild improvement of renal function with downtrending of creatinine to 1.6. Patient is more alert and oriented today, able to follow commands and answer questions. Patient also started eating and suggested to have enchiladas for tomorrow. Patient still on high flow nasal cannula with FiO2 of 60 and rate of 30-40 L. Continue daily Bumex 2 mg daily along with Tamiflu. Exam Vital Signs Temp Pulse Resp BP Pulse Ox O2 Del Method O2 Flow Rate 96.8 F 68 20 115/51 L 99 High Flow Nasal Cannula 28 08/15/24 16:00 08/15/24 18:32 08/15/24 18:32 08/15/24 16:00 08/15/24 18:32 08/15/24 16:00 08/15/24 18:32 FiO2 55 08/15/24 18:32 Narrative Exam Constitutional: Frail looking female, in mild distress HEENT: NCAT, EOMI, reactive round pupils b/l,moist mucous membranes, on HFNC Lung: Less crackles than yesterday, no wheezing, no rhonchi Heart: Regular S1S2, no murmurs, gallops, or rubs Abdomen: Soft, non-distended, non-tender, bowel sounds present throughout Extremities: No cyanosis, clubbing, + trace edema, LE pulses present b/l Neurologic: AOx2, rest can not be performed due to patient's condition Skin: Warm, dry, no lesions or rashes noted Objective Labs 08/15/24 06:30 08/15/24 06:30 Labs: Laboratory Results - last 24 hr 08/14/24 08/15/24 08/15/24 21:19 01:35 06:30 WBC 8.6 RBC 3.33 L Hgb 9.4 L Hct 29.3 L MCV 88 MCH 28.2 MCHC 32.1 RDW Std Deviation 51.7 H Plt Count 158 Neut % (Auto) 79 Lymph % (Auto) 13 [place] % (Auto) 5 Eos % (Auto) 2 Baso % (Auto) 0 Neut # (Auto) 6.8 Lymph # (Auto) 1.1 [place] # (Auto) 0.4 Eos # (Auto) 0.1 Baso # (Auto) 0.0 Immature Gran # (Auto) 0.08 H Absolute Nucleated RBC 0.00 Immature Gran % 1 H Nucleated RBC % 0 Sodium 146 H 148 H 145 Potassium 3.2 L Chloride 105 Carbon Dioxide 34.9 H Anion Gap 5 L BUN 55 H Creatinine 1.6 H Estim Creat Clear Calc 21.3 L eGFR 31 L BUN/Creatinine Ratio 34 H Glucose 156 H Calculated Osmolality 306 H Calcium 8.3 Corrected Calcium 9.2 Phosphorus 3.6 Magnesium 2.8 H Total Bilirubin 0.4 AST 79 H ALT 67 H Alkaline Phosphatase 190 H Total Protein 5.7 Albumin 2.9 L Globulin 2.8 Albumin/Globulin Ratio 1.0 L ABG Interpretation ABG results: 08/02/24 08/02/24 08/02/24 11:32 15:23 16:47 ABG pH 7.37 7.40 ABG pCO2 50 H 44 ABG pO2 36 L* 80 L D ABG HCO3 29 H 27 H ABG O2 Saturation 64 L 96 ABG Base Excess 3 2 VBG pH 7.48 VBG pCO2 35 L VBG pO2 46 VBG Base Excess 3 08/02/24 08/02/24 08/03/24 20:46 23:49 03:08 ABG pH 7.39 7.45 7.48 H ABG pCO2 47 37 D 34 ABG pO2 76 L 248 H D 160 H D ABG HCO3 29 H 25 25 ABG O2 Saturation 95 99 H 98 ABG Base Excess 3 2 2 VBG pH VBG pCO2 VBG pO2 VBG Base Excess 08/03/24 08/03/24 08/04/24 05:03 09:09 04:23 ABG pH 7.45 7.38 7.42 ABG pCO2 37 43 46 ABG pO2 55 L* D 51 L* 92 D ABG HCO3 26 26 30 H ABG O2 Saturation 90 L 85 L 97 ABG Base Excess 2 0 5 H VBG pH VBG pCO2 VBG pO2 VBG Base Excess 08/05/24 08/06/24 08/09/24 04:47 04:07 08:33 ABG pH 7.38 7.42 7.37 ABG pCO2 50 H 49 H 65 H ABG pO2 93 73 L D 67 L ABG HCO3 30 H 32 H 37 H ABG O2 Saturation 96 94 95 ABG Base Excess 4 H 7 H 10 H VBG pH VBG pCO2 VBG pO2 VBG Base Excess Quality Measures Quality Measures VTE prophylaxis (Heparin subcut) Advance care planning discussed with:: other Assessment & Plan Assessment Current Active Medications: Generic Name Dose Route Start Last Admin Trade Name Freq PRN Reason Stop Dose Admin Acetaminophen 650 mg 08/02/24 13:42 Acetaminophen 325 Mg Tablet PO 09/01/24 13:41 Q6H PRN Mild Pain 1-3 or Fever >100.4 Acetylcysteine 3 ml 08/10/24 11:00 08/15/24 18:31 Acetylcysteine Rt Cindy 10% 4 Ml Nebu INH 09/09/24 10:59 3 ml Q4HRRT JORGE ALBERTO Administration Albuterol/Ipratropium 3 ml 08/02/24 16:45 08/15/24 18:31 Albuterol/Ipratropium (Duoneb) Rt Cindy 3 Ml Nebu INH 09/01/24 16:44 3 ml Q4HRRT JORGE ALBERTO Administration Amiodarone HCl 200 mg 08/03/24 09:00 08/15/24 08:36 Amiodarone Hcl 200 Mg Tablet PO 09/02/24 08:59 200 mg BID JORGE ALBERTO Administration Amlodipine Besylate 5 mg 08/02/24 14:20 08/02/24 15:52 Amlodipine Besylate 5 Mg Tablet PO 09/01/24 14:19 5 mg QDAY JORGE ALBERTO Administration Atorvastatin Calcium 80 mg 08/11/24 21:00 08/14/24 20:21 Atorvastatin Calcium 20 Mg Tablet PO 09/02/24 08:59 80 mg HS JORGE ALBERTO Administration Bumetanide 2 mg 08/13/24 14:00 08/15/24 08:38 Bumetanide Inj 0.25 Mg/Ml Vial 4 Ml IVP 09/12/24 13:59 2 mg QDAY JORGE ALBERTO Administration Dextrose 25 ml 08/02/24 16:39 Dextrose 50%-Water Inj 50 Ml Syringe IV 09/01/24 16:38 Q15MIN PRN BG 50-70 responsive npo pt Dextrose 50 ml 08/02/24 16:39 Dextrose 50%-Water Inj 50 Ml Syringe IV 09/01/24 16:38 Q15MIN PRN BG <50 OR BG <70 & pt unresponsive Ferrous Sulfate 325 mg 08/11/24 07:30 08/15/24 08:39 Ferrous Sulf 325 Mg Tablet PO 09/10/24 07:29 325 mg QOD JORGE ALBERTO Administration Glucagon 1 mg 08/02/24 16:39 Glucagon Inj 1 Mg Vial IM Q15MIN PRN BG <70, and no IV access Guaifenesin 100 mg 08/02/24 14:33 08/02/24 15:54 Guaifenesin Syrup 200 Mg/10 Ml Udc PO 09/01/24 14:32 100 mg QID PRN Administration COUGH Protocol Guaifenesin/Dextromethorphan 1 each 08/02/24 15:30 Guaifenesin/Dm Tablet PO 09/01/24 15:25 Q4HR PRN COUGH Heparin Sodium (Porcine) 5,000 unit 08/09/24 21:00 08/15/24 08:39 Heparin Sod Inj 5000 Unit/Ml Vial SC 08/23/24 20:59 5,000 unit BID JORGE ALBERTO Administration Piperacillin/Tazobactam/Dextrose 50 mls @ 12.5 mls/hr 08/15/24 21:00 Zosyn IV 08/16/24 23:00 Q12HR JORGE ALBERTO Protocol Insulin Human Lispro 0 unit 08/10/24 07:38 08/15/24 17:23 Insulin Lispro (Admelog) 1 Unit/0.01 Ml Unit SC 09/02/24 05:59 2 unit Q6HR JORGE ALBERTO Administration Protocol Metoprolol Succinate 12.5 mg 08/06/24 21:00 08/15/24 08:37 Metoprolol Succinate Xl 25 Mg Tabcr PO 09/05/24 20:59 12.5 mg BID JORGE ALBERTO Administration Oseltamivir Phosphate 30 mg 08/16/24 09:00 Oseltamivir 30 Mg Capsule PO 08/17/24 09:01 QDAY JORGE ALBERTO Pantoprazole Sodium 40 mg 08/03/24 09:00 08/15/24 08:39 Pantoprazole Inj 40 Mg Vial IV 09/02/24 08:59 40 mg QDAY JORGE ALBERTO Administration Pharmacy Consult 1 each 08/11/24 13:04 Pharmacy Renal Dose Adjustment 1 Ea XX 09/10/24 13:03 PRN PRN CONSULT Povidone Iodine 0 ml 08/08/24 21:00 08/15/24 17:24 Povidone Iodine Top Cindy 10% 120 Ml Btl TOP 08/15/24 20:59 1 appln BID JORGE ALBERTO Administration Sodium Chloride 3 ml 08/02/24 11:12 08/02/24 11:15 Sodium Chloride Rt Cindy 0.9% 3 Ml Nebu INH 09/01/24 11:11 3 ml PRN PRN Administration SOLN Plan 88-year-old female patient with significant medical history for HFpEF, moderate to severe aortic stenosis, coronary artery disease s/p RCA stent placements, atrial fibrillation, bilateral endarterectomy (2020 and 2023), severe peripheral artery disease, chronic kidney disease, colon cancer sp resection, DM2, hypertension and hypercholesterolemia presented with worsening shortness of breath and productive cough was admitted for AHRF and sepsis due to influenza pneumonia with superimposed bacterial infection and CHF exacerbation. #HFpEF (60 to 65%), improving #Hx of CAD s/p RCA stent placement #Hx of s/p bilateral endarterectomy #Hx of hypertension Echocardiogram indicates moderate to severe aortic stenosis with a gradient of 48 mmHg H (mean 30) with Vmax of 3.5 and LVEF 60-65% On addmission BNP 518 and CXR showed prominent vascular congestion On physical exam, patient not fluid overloaded Plan: ? Continue Bumex 2 mg daily ? Continue Tamiflu ? Strict in and out ? Daily weight ? Follow-up electrolytes and replete as necessary ? Future TAVR in outpatient setting #Atrial fibrillation, rate controlled #Moderate-severe aortic stenosis [id number] 3 not on anticoagulation due to high risk of bleeding Plan: ? Continue amiodarone 200 mg BID ? No need for TAVR at this point #Shock, septic vs. cardiogenic, resolved In the setting of fever, influenza PNA and possibly superimposed bacterial pneumonia MAP dropped below 65 after intubation Levophed weaned off on 08/05/24 #Hypernatremia #ANASTACIA #Sepsis secondary to #Influenza #Pneumonia #CKD IIIb #DM2 #Hx of colon cancer s/p resection -Management per primary team This patient care was discussed with my attending Dr. Mick Lester MD PGY-2 Disclaimer: Minor errors in brick washer may be present since this note was dictated by speech recognition software.
[2024-08-15] MEDS: ATORVASTATIN CALCIUM 20 MG TABLET 80 MG PO (21:10)
[2024-08-16] VITALS (17 sets, daily range): BP systolic 123–139; BP diastolic 47–72; PULSE 62–636; RESP 13–24; TEMP 35.9–36.2; O2SAT 89–98; BMI 23.8
[2024-08-16] MEDS: INSULIN LISPRO (AdmeLOG) 1 UNIT/0.01 ML UNIT SC ×4 (00:24→16:19)
[2024-08-16] MEDS: ACETYLCYSTEINE RT SOL 10% 4 ML NEBU 3 ML INH ×5 (02:28→22:33)
[2024-08-16] MEDS: ALBUTEROL/IPRATROPIUM (Duoneb) RT SOL 3 ML NEBU INH ×6 (02:28→22:33)
[2024-08-16 06:33] LABS: Basophils % (Auto) 0 % (0-2.5); Eosinophils # (Auto) 0.1 Thou/mm3 (0.0-0.5); Eosinophils % (Auto) 1 % (0-10); Hematocrit 28.4 % (36.0-46.0); Immature Granulocytes % (Auto) 1 % (0-0); Immature Granulocytes Auto 0.07 Thou/mm3 (0.00-0.00); Lymphocytes # (Auto) 0.9 Thou/mm3 (1.0-4.8); Lymphocytes % (Auto) 12 % (10-50); Mean Corpuscular HGB Conc 31.7 g/dl (31.0-37.0); Mean Corpuscular Hemoglobin 27.8 pg (25.0-35.0); Mean Corpuscular Volume 88 fL (80-100); Monocytes # (Auto) 0.4 Thou/mm3 (0.0-0.8); Monocytes % (Auto) 5 % (0-12); Neutrophils # (Auto) 6.3 Thou/mm3 (1.8-7.7); Neutrophils % (Auto) 80 % (37-80); Nucleated Red Blood Cell % 0 /100 WBC (0); Platelet Count 169 Thou/mm3 (140-440); RDW Standard Deviation 51.7 fL (36.4-46.3); Red Blood Count 3.24 Miln/mm3 (4.00-5.20); White Blood Count 7.8 Thou/mm3 (3.6-11.0)
[2024-08-16 06:47] LABS: Alanine Aminotransferase 81 U/L (10-49); Albumin, Serum 2.9 gm/dL (3.4-4.8); Albumin/Globulin Ratio 1.1 (1.2-2.2); Alkaline Phosphatase 158 U/L (46-116); Anion Gap 4 (7-16); Aspartate Amino Transferase 104 U/L (0-34); BUN/Creatinine Ratio 31 Ratio (12-20); Bilirubin,Total 0.5 mg/dL (0.3-1.2); Blood Urea Nitrogen 44 mg/dL (9-23); Calcium 8.5 mg/dL (8.3-10.6); Calcium (Corrected) 9.4 mg/dL (8.5-10.1); Chloride 106 mMol/L (98-107); Creatinine (Component) 1.4 mg/dL (0.6-1.3); Estimated Creatinine Clearance 24.4 mL/min (>60); Globulin 2.7 gm/dL (2.3-3.5); Glucose 126 mg/dL (74-106); Magnesium 2.8 mg/dL (1.6-2.6); Osmolality,Calculated 301 (275-295); Phosphorous 3.5 mg/dL (2.4-5.1); Potassium 3.4 mMol/L (3.4-5.1); Sodium 145 mMol/L (136-145); Total Protein 5.6 gm/dL (5.7-8.2); eGFR 36 See Note
[2024-08-16] MEDS: AMIODARONE HCL 200 MG TABLET PO ×2 (08:18→20:48)
[2024-08-16] MEDS: METOPROLOL SUCCINATE XL 25 MG TABCR 12.5 MG PO ×2 (08:19→20:47)
[2024-08-16] MEDS: OSELTAMIVIR 30 MG CAPSULE PO (08:19)
[2024-08-16] MEDS: PANTOPRAZOLE INJ 40 MG VIAL IV (08:20)
[2024-08-16] MEDS: POTASSIUM CHLORIDE 10% 20 MEQ/15 ML UDC 40 MEQ NG (08:20)
[2024-08-16] MEDS: PIPER/TAZO 3.375 GM 50 ML IV ×2 (08:20→20:53)
[2024-08-16] MEDS: BUMETANIDE INJ 0.25 MG/ML VIAL 4 ML 2 MG IVP (08:20)
[2024-08-16] MEDS: HEPARIN SOD INJ 5000 UNIT/ML VIAL SC ×2 (08:21→21:05)
--- NOTE | 2024-08-16 09:15 | PD.RESPRO ---
Documentation for date of: 08/16/24 Subjective Subjective Interval history: Ms. Keller is a 88-year-old lady with past medical history of hypertension, dyslipidemia, aortic stenosis presented to the hospital with acute hypoxic respiratory failure and noted to have flu positive. Patient also seem to have some heart failure and was given Lasix and metolazone. However BUN, creatinine, sodium went up and diuretics were held. Patient was given gentle IV fluids. However she went into respiratory failure needing high flow at 40 L/min O2, atrial fibrillation and Dr. Montejo was consulted. Renal consultation requested in view of ANASTACIA/hyponatremia in the setting of fluid overload. Dr. Montejo at bedside. Patient currently on NG tube feeds with no free water flushes. Chest x-ray shows fluid overload/pneumonia. Current medications included amlodipine which was held, Zosyn, Lipitor, heparin, metoprolol, amiodarone, cough syrup. 08/11/2024 WBC 11.7, hemoglobin 10.4, platelets 157. Sodium 150, potassium 3.4, BUN 41, creatinine 1.5, calcium 10.3, phosphorus 2.7, magnesium 2.8, AST 109, ALT 115, alk phos 227, albumin 3.1. Chest x-ray showed worsening congestive heart failure. Patient currently seen in telemetry. Daughter, at bedside. 08/12/2024 patient currently seen in telemetry. She is more alert and awake. Sodium still remains at 153. Apparently she did not get free water flushes yesterday. Creatinine 1.7. Clinically she looks tad better today. Entire family at bedside. Continue with Bumex today. 1 dose of Diamox given due to metabolic alkalosis. 08/14/2024 patient currently seen in telemetry. Family at bedside. She remains on oxygen. Labs, medications reviewed. Creatinine tad elevated. Dr. Alston restarted her Bumex due to hypoxic respiratory failure. Sodium tad better. On free water flushes. Replace potassium. Elevated LFTs noted. Plan of care discussed with primary team. Apparently family requesting for her to be transferred to [facility]. 08/15/24: Patient seen and examined at bedside in telemetry. Patient's family at bedside patient continues to have high requirement of oxygen, currently on 30 L by high flow nasal cannula. Patient has good urine output, about 1600 cc in last 24 hours is on IV Bumex 2 mg twice daily. Pulmonology and cardiology closely following the case, patient has a lot of congestion and secretions currently on as needed guaifenesin. Creatinine 1.6 BUN 55 GFR 31. Will continue to monitor renal function and urine output. 08/16/24: Patient seen and examined today at bedside in telemetry. Patient's mentation has improved remarkably, patient is alert oriented x 3, conversational, currently saturating on 24 L high flow nasal cannula.Patient has good urine output about 1400 cc in the last 24 hours, BUN 44, creatinine 1.4, GFR 36 has improved compared to yesterday patient is currently on Bumex 1 mg daily. Will continue to monitor renal function and urine output. Exam Vital Signs Temp Pulse Resp BP Pulse Ox O2 Del Method O2 Flow Rate 97.0 F 63 16 136/56 H 90 L High Flow Nasal Cannula 24 08/16/24 08:00 08/16/24 08:20 08/16/24 08:00 08/16/24 08:20 08/16/24 08:00 08/16/24 08:00 08/16/24 08:00 FiO2 45 08/16/24 08:00 Narrative Exam GENERAL APPEARANCE: Sitting comfortably in bed eating breakfast, currently on high flow nasal cannula NECK: Neck supple, no JVD or bruit CARDIOVASCULAR: Heart regular, no murmurs LUNGS/CHEST: Crackles heard bilaterally ABDOMEN: Soft, nontender, nondistended. No masses. Normal bowel sounds. EXTREMITIES: No edema, clubbing or cyanosis. Able to move all 4 extremities. SKIN: Skin exam normal without any rashes NEUROLOGICAL : Alert and oriented x3, conversational, no gross neurological deficit noted. Objective Labs 08/17/24 05:09 08/17/24 05:09 Labs: Laboratory Results - last 24 hr 08/16/24 05:32 WBC 7.8 RBC 3.24 L Hgb 9.0 L Hct 28.4 L MCV 88 MCH 27.8 MCHC 31.7 RDW Std Deviation 51.7 H Plt Count 169 Neut % (Auto) 80 Lymph % (Auto) 12 [place] % (Auto) 5 Eos % (Auto) 1 Baso % (Auto) 0 Neut # (Auto) 6.3 Lymph # (Auto) 0.9 L [place] # (Auto) 0.4 Eos # (Auto) 0.1 Baso # (Auto) 0.0 Immature Gran # (Auto) 0.07 H Absolute Nucleated RBC 0.00 Immature Gran % 1 H Nucleated RBC % 0 Sodium 145 Potassium 3.4 Chloride 106 Carbon Dioxide 35.0 H Anion Gap 4 L BUN 44 H Creatinine 1.4 H Estim Creat Clear Calc 24.4 L eGFR 36 L BUN/Creatinine Ratio 31 H Glucose 126 H Calculated Osmolality 301 H Calcium 8.5 Corrected Calcium 9.4 Phosphorus 3.5 Magnesium 2.8 H Total Bilirubin 0.5 AST 104 H ALT 81 H Alkaline Phosphatase 158 H D Total Protein 5.6 L Albumin 2.9 L Globulin 2.7 Albumin/Globulin Ratio 1.1 L ABG Interpretation ABG results: 08/02/24 08/02/24 08/02/24 11:32 15:23 16:47 ABG pH 7.37 7.40 ABG pCO2 50 H 44 ABG pO2 36 L* 80 L D ABG HCO3 29 H 27 H ABG O2 Saturation 64 L 96 ABG Base Excess 3 2 VBG pH 7.48 VBG pCO2 35 L VBG pO2 46 VBG Base Excess 3 08/02/24 08/02/24 08/03/24 20:46 23:49 03:08 ABG pH 7.39 7.45 7.48 H ABG pCO2 47 37 D 34 ABG pO2 76 L 248 H D 160 H D ABG HCO3 29 H 25 25 ABG O2 Saturation 95 99 H 98 ABG Base Excess 3 2 2 VBG pH VBG pCO2 VBG pO2 VBG Base Excess 08/03/24 08/03/24 08/04/24 05:03 09:09 04:23 ABG pH 7.45 7.38 7.42 ABG pCO2 37 43 46 ABG pO2 55 L* D 51 L* 92 D ABG HCO3 26 26 30 H ABG O2 Saturation 90 L 85 L 97 ABG Base Excess 2 0 5 H VBG pH VBG pCO2 VBG pO2 VBG Base Excess 08/05/24 08/06/24 08/09/24 04:47 04:07 08:33 ABG pH 7.38 7.42 7.37 ABG pCO2 50 H 49 H 65 H ABG pO2 93 73 L D 67 L ABG HCO3 30 H 32 H 37 H ABG O2 Saturation 96 94 95 ABG Base Excess 4 H 7 H 10 H VBG pH VBG pCO2 VBG pO2 VBG Base Excess Quality Measures Quality Measures VTE prophylaxis (Heparin subcut) Advance care planning discussed with:: patient Assessment & Plan Assessment Current Active Medications: Generic Name Dose Route Start Last Admin Trade Name Freq PRN Reason Stop Dose Admin Acetaminophen 650 mg 08/02/24 13:42 Acetaminophen 325 Mg Tablet PO 09/01/24 13:41 Q6H PRN Mild Pain 1-3 or Fever >100.4 Acetylcysteine 3 ml 08/10/24 11:00 08/16/24 06:17 Acetylcysteine Rt Cindy 10% 4 Ml Nebu INH 09/09/24 10:59 Not Given Q4HRRT JORGE ALBERTO Albuterol/Ipratropium 3 ml 08/02/24 16:45 08/16/24 06:17 Albuterol/Ipratropium (Duoneb) Rt Cindy 3 Ml Nebu INH 09/01/24 16:44 3 ml Q4HRRT JORGE ALBERTO Administration Amiodarone HCl 200 mg 08/03/24 09:00 08/16/24 08:18 Amiodarone Hcl 200 Mg Tablet PO 09/02/24 08:59 200 mg BID JORGE ALBERTO Administration Amlodipine Besylate 5 mg 08/02/24 14:20 08/02/24 15:52 Amlodipine Besylate 5 Mg Tablet PO 09/01/24 14:19 5 mg QDAY JORGE ALBERTO Administration Atorvastatin Calcium 80 mg 08/11/24 21:00 08/15/24 21:10 Atorvastatin Calcium 20 Mg Tablet PO 09/02/24 08:59 80 mg HS JORGE ALBERTO Administration Bumetanide 2 mg 08/13/24 14:00 08/16/24 08:20 Bumetanide Inj 0.25 Mg/Ml Vial 4 Ml IVP 09/12/24 13:59 2 mg QDAY JORGE ALBERTO Administration Dextrose 25 ml 08/02/24 16:39 Dextrose 50%-Water Inj 50 Ml Syringe IV 09/01/24 16:38 Q15MIN PRN BG 50-70 responsive npo pt Dextrose 50 ml 08/02/24 16:39 Dextrose 50%-Water Inj 50 Ml Syringe IV 09/01/24 16:38 Q15MIN PRN BG <50 OR BG <70 & pt unresponsive Ferrous Sulfate 325 mg 08/11/24 07:30 08/15/24 08:39 Ferrous Sulf 325 Mg Tablet PO 09/10/24 07:29 325 mg QOD JORGE ALBERTO Administration Glucagon 1 mg 08/02/24 16:39 Glucagon Inj 1 Mg Vial IM Q15MIN PRN BG <70, and no IV access Guaifenesin 100 mg 08/02/24 14:33 08/02/24 15:54 Guaifenesin Syrup 200 Mg/10 Ml Udc PO 09/01/24 14:32 100 mg QID PRN Administration COUGH Protocol Guaifenesin/Dextromethorphan 1 each 08/02/24 15:30 Guaifenesin/Dm Tablet PO 09/01/24 15:25 Q4HR PRN COUGH Heparin Sodium (Porcine) 5,000 unit 08/09/24 21:00 08/16/24 08:21 Heparin Sod Inj 5000 Unit/Ml Vial SC 08/23/24 20:59 5,000 unit BID JORGE ALBERTO Administration Piperacillin/Tazobactam/Dextrose 50 mls @ 12.5 mls/hr 08/15/24 21:00 08/16/24 08:20 Zosyn IV 08/16/24 23:00 12.5 mls/hr Q12HR JORGE ALBERTO Administration Protocol Insulin Human Lispro 0 unit 08/10/24 07:38 08/16/24 05:51 Insulin Lispro (Admelog) 1 Unit/0.01 Ml Unit SC 09/02/24 05:59 2 unit Q6HR JORGE ALBERTO Administration Protocol Metoprolol Succinate 12.5 mg 08/06/24 21:00 08/16/24 08:19 Metoprolol Succinate Xl 25 Mg Tabcr PO 09/05/24 20:59 12.5 mg BID JORGE ALBERTO Administration Oseltamivir Phosphate 30 mg 08/16/24 09:00 08/16/24 08:19 Oseltamivir 30 Mg Capsule PO 08/17/24 09:01 30 mg QDAY JORGE ALBERTO Administration Pantoprazole Sodium 40 mg 08/03/24 09:00 08/16/24 08:20 Pantoprazole Inj 40 Mg Vial IV 09/02/24 08:59 40 mg QDAY JORGE ALBERTO Administration Pharmacy Consult 1 each 08/11/24 13:04 Pharmacy Renal Dose Adjustment 1 Ea XX 09/10/24 13:03 PRN PRN CONSULT Sodium Chloride 3 ml 08/02/24 11:12 08/02/24 11:15 Sodium Chloride Rt Cindy 0.9% 3 Ml Nebu INH 09/01/24 11:11 3 ml PRN PRN Administration SOLN Plan Summary: Ms. Husain is a 88-year-old female past medical history of hypertension, dyslipidemia, aortic stenosis presented to the hospital with acute hypoxic respiratory failure and noted to have flu positive. Nephrology was consulted for hyponatremia and ANASTACIA. Patient was given gentle IV fluids, pulmonology and cardiology on board, patient currently on Bumex twice daily #Acute kidney injury on chronic kidney disease secondary to prerenal azotemia. 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 Spoke to Dr. Montejo-will give diuretics. Was given 1 dose of Diamox for metabolic alkalosis. Noted mild elevation in creatinine probably related to diuretics. Currently on IV Bumex. BUN 44, creatinine 1.4, GFR 36 today Plan: -currently on Bumex 1 mg IVP daily -Strict intake and output -Dose medication renally -Will monitor renal function closely -Monitor urine output Plan of care discussed with primary team Plan of care discussed with family at bedside. #Hypernatremia #Dehydration Patient was on free water flushes through NG-tube Sodium has improved to 145 today Plan: -Decrease rate of free water flushes 25cc/hr -Monitor sodium closely -Sodium correction goal 8-10 in 24 hours #Acute hypoxic respiratory failure secondary to CHF and pneumonia and acute respiratory distress syndrome #Pneumonia, Influenza + with likley superimposed pneumonia #Leukocytosis, improved #Sepsis, secondary to Pneumonia, resolved #Septic shock, resolved. 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 Springer. Tessa Branch PGY1 Attending Provider Attestation/Addendum Patient seen and examined with resident physician Dr. Branch. Note reviewed, agree with findings and recommendations. Patient alert and awake and is having breakfast. Daughter is at bedside. Creatinine stable. Did explain to the family regarding cardiorenal syndrome and worsening renal function with diuretics. They had several questions which were answered to their satisfaction. Not quite sure if transferring to [facility] is going to change her overall prognosis especially with congestive heart failure, critical .
--- NOTE | 2024-08-16 10:00 | PCS.ST ---
Improving swallow function. Has dentures. Upgrade diet to Dysphagia 2/MT2 liquids. Continue ST services.
--- NOTE | 2024-08-16 13:20 | PD.RESPRO ---
Documentation for date of: 08/16/24 Subjective Subjective Interval history: Patient was seen and examined at the bedside this morning. Patient was conversational and more alert she was eating with much more effort and tolerating her diet very well with p.o. intake. Speech therapist recommended to remove the NG tube. Patient wanted to ambulate and will follow-up on PT evaluation tomorrow morning. Currently, vitals showed blood pressure stable at 127/47 heart rate regular rate and rhythm. She is currently weaning down on high flow nasal cannula 24 L and FiO2 45%. Labs revealed white count within normal limits and hemoglobin stable at 9. Chemistry panel showed bicarb 35 kidney functions showed improvement with BUN 44 and creatinine 1.4. Blood glucose 126. Patient showed good diuresis output on Bumex of 1.4 L +770 cc. LFTs are improving. Will decrease the dose of Bumex 1 mg once daily, continuing breathing treatments. Patient will receive last dose of Zosyn and will continue Tamiflu until 08/18. Will follow-up with PT updated evaluation. Continue to wean down high flow. All labs and orders were reviewed. Exam Vital Signs Temp Pulse Resp BP Pulse Ox O2 Del Method O2 Flow Rate 97.0 F 66 19 127/47 L 94 L High Flow Nasal Cannula 24 08/16/24 12:00 08/16/24 12:00 08/16/24 12:00 08/16/24 12:00 08/16/24 12:00 08/16/24 12:00 08/16/24 12:00 FiO2 45 08/16/24 12:00 Narrative Exam GENERAL APPEARANCE: Sitting comfortably in bed eating breakfast, currently on high flow nasal cannula flow rate 24 and FiO2 45. NECK: Neck supple, no JVD or bruit CARDIOVASCULAR: Heart regular rate and rhythm. LUNGS/CHEST: Crackles heard bilaterally ABDOMEN: Soft, nontender, nondistended. No masses. Normal bowel sounds. EXTREMITIES: No edema, clubbing or cyanosis. Able to move all 4 extremities. SKIN: Skin exam normal without any rashes NEUROLOGICAL : Alert and oriented x2 conversational, no gross neurological deficit noted. Improved since admission. Objective Labs 08/16/24 05:32 08/16/24 05:32 Labs: Laboratory Results - last 24 hr 08/16/24 05:32 WBC 7.8 RBC 3.24 L Hgb 9.0 L Hct 28.4 L MCV 88 MCH 27.8 MCHC 31.7 RDW Std Deviation 51.7 H Plt Count 169 Neut % (Auto) 80 Lymph % (Auto) 12 [place] % (Auto) 5 Eos % (Auto) 1 Baso % (Auto) 0 Neut # (Auto) 6.3 Lymph # (Auto) 0.9 L [place] # (Auto) 0.4 Eos # (Auto) 0.1 Baso # (Auto) 0.0 Immature Gran # (Auto) 0.07 H Absolute Nucleated RBC 0.00 Immature Gran % 1 H Nucleated RBC % 0 Sodium 145 Potassium 3.4 Chloride 106 Carbon Dioxide 35.0 H Anion Gap 4 L BUN 44 H Creatinine 1.4 H Estim Creat Clear Calc 24.4 L eGFR 36 L BUN/Creatinine Ratio 31 H Glucose 126 H Calculated Osmolality 301 H Calcium 8.5 Corrected Calcium 9.4 Phosphorus 3.5 Magnesium 2.8 H Total Bilirubin 0.5 AST 104 H ALT 81 H Alkaline Phosphatase 158 H D Total Protein 5.6 L Albumin 2.9 L Globulin 2.7 Albumin/Globulin Ratio 1.1 L ABG Interpretation ABG results: 08/02/24 08/02/24 08/02/24 11:32 15:23 16:47 ABG pH 7.37 7.40 ABG pCO2 50 H 44 ABG pO2 36 L* 80 L D ABG HCO3 29 H 27 H ABG O2 Saturation 64 L 96 ABG Base Excess 3 2 VBG pH 7.48 VBG pCO2 35 L VBG pO2 46 VBG Base Excess 3 08/02/24 08/02/24 08/03/24 20:46 23:49 03:08 ABG pH 7.39 7.45 7.48 H ABG pCO2 47 37 D 34 ABG pO2 76 L 248 H D 160 H D ABG HCO3 29 H 25 25 ABG O2 Saturation 95 99 H 98 ABG Base Excess 3 2 2 VBG pH VBG pCO2 VBG pO2 VBG Base Excess 08/03/24 08/03/24 08/04/24 05:03 09:09 04:23 ABG pH 7.45 7.38 7.42 ABG pCO2 37 43 46 ABG pO2 55 L* D 51 L* 92 D ABG HCO3 26 26 30 H ABG O2 Saturation 90 L 85 L 97 ABG Base Excess 2 0 5 H VBG pH VBG pCO2 VBG pO2 VBG Base Excess 08/05/24 08/06/24 08/09/24 04:47 04:07 08:33 ABG pH 7.38 7.42 7.37 ABG pCO2 50 H 49 H 65 H ABG pO2 93 73 L D 67 L ABG HCO3 30 H 32 H 37 H ABG O2 Saturation 96 94 95 ABG Base Excess 4 H 7 H 10 H VBG pH VBG pCO2 VBG pO2 VBG Base Excess Quality Measures Quality Measures VTE prophylaxis (Heparin subcut) Advance care planning discussed with:: patient Assessment & Plan Assessment Current Active Medications: Generic Name Dose Route Start Last Admin Trade Name Freq PRN Reason Stop Dose Admin Acetaminophen 650 mg 08/02/24 13:42 Acetaminophen 325 Mg Tablet PO 09/01/24 13:41 Q6H PRN Mild Pain 1-3 or Fever >100.4 Acetylcysteine 3 ml 08/10/24 11:00 08/16/24 10:12 Acetylcysteine Rt Cindy 10% 4 Ml Nebu INH 09/09/24 10:59 3 ml Q4HRRT JORGE ALBERTO Administration Albuterol/Ipratropium 3 ml 08/02/24 16:45 08/16/24 10:12 Albuterol/Ipratropium (Duoneb) Rt Cindy 3 Ml Nebu INH 09/01/24 16:44 3 ml Q4HRRT JORGE ALBERTO Administration Amiodarone HCl 200 mg 08/03/24 09:00 08/16/24 08:18 Amiodarone Hcl 200 Mg Tablet PO 09/02/24 08:59 200 mg BID JORGE ALBERTO Administration Amlodipine Besylate 5 mg 08/02/24 14:20 08/02/24 15:52 Amlodipine Besylate 5 Mg Tablet PO 09/01/24 14:19 5 mg QDAY JORGE ALBERTO Administration Atorvastatin Calcium 80 mg 08/11/24 21:00 08/15/24 21:10 Atorvastatin Calcium 20 Mg Tablet PO 09/02/24 08:59 80 mg HS JORGE ALBERTO Administration Bumetanide 1 mg 08/17/24 09:00 Bumetanide Inj 0.25 Mg/Ml Vial 4 Ml IVP 09/16/24 08:59 QDAY JORGE ALBERTO Dextrose 25 ml 08/02/24 16:39 Dextrose 50%-Water Inj 50 Ml Syringe IV 09/01/24 16:38 Q15MIN PRN BG 50-70 responsive npo pt Dextrose 50 ml 08/02/24 16:39 Dextrose 50%-Water Inj 50 Ml Syringe IV 09/01/24 16:38 Q15MIN PRN BG <50 OR BG <70 & pt unresponsive Ferrous Sulfate 325 mg 08/11/24 07:30 08/15/24 08:39 Ferrous Sulf 325 Mg Tablet PO 09/10/24 07:29 325 mg QOD JORGE ALBERTO Administration Glucagon 1 mg 08/02/24 16:39 Glucagon Inj 1 Mg Vial IM Q15MIN PRN BG <70, and no IV access Guaifenesin 100 mg 08/02/24 14:33 08/02/24 15:54 Guaifenesin Syrup 200 Mg/10 Ml Udc PO 09/01/24 14:32 100 mg QID PRN Administration COUGH Protocol Guaifenesin/Dextromethorphan 1 each 08/02/24 15:30 Guaifenesin/Dm Tablet PO 09/01/24 15:25 Q4HR PRN COUGH Heparin Sodium (Porcine) 5,000 unit 08/09/24 21:00 08/16/24 08:21 Heparin Sod Inj 5000 Unit/Ml Vial SC 08/23/24 20:59 5,000 unit BID JORGE ALBERTO Administration Piperacillin/Tazobactam/Dextrose 50 mls @ 12.5 mls/hr 08/15/24 21:00 08/16/24 08:20 Zosyn IV 08/16/24 23:00 12.5 mls/hr Q12HR JORGE ALBERTO Administration Protocol Insulin Human Lispro 0 unit 08/16/24 11:30 08/16/24 11:19 Insulin Lispro (Admelog) 1 Unit/0.01 Ml Unit SC 09/15/24 11:29 2 unit ACHS JORGE ALBERTO Administration Protocol Metoprolol Succinate 12.5 mg 08/06/24 21:00 08/16/24 08:19 Metoprolol Succinate Xl 25 Mg Tabcr PO 09/05/24 20:59 12.5 mg BID JORGE ALBERTO Administration Oseltamivir Phosphate 30 mg 08/16/24 09:00 08/16/24 08:19 Oseltamivir 30 Mg Capsule PO 08/17/24 09:01 30 mg QDAY JORGE ALBERTO Administration Pantoprazole Sodium 40 mg 08/03/24 09:00 08/16/24 08:20 Pantoprazole Inj 40 Mg Vial IV 09/02/24 08:59 40 mg QDAY JORGE ALBERTO Administration Pharmacy Consult 1 each 08/11/24 13:04 Pharmacy Renal Dose Adjustment 1 Ea XX 09/10/24 13:03 PRN PRN CONSULT Sodium Chloride 3 ml 08/02/24 11:12 08/02/24 11:15 Sodium Chloride Rt Cindy 0.9% 3 Ml Nebu INH 09/01/24 11:11 3 ml PRN PRN Administration SOLN Plan This patient is an 88-year-old female with a past medical history of hypertension CHF diastolic dysfunction HFpEF (60 to 65%) on 04/27/2024, CAD s/p stent in right coronary artery, aortic stenosis, carotid disease, s/p endarterectomy (2020& 2023), history of atrial fibrillation (not on Eliquis risk of bleeding), history of colorectal cancer, and CKD who was admitted for acute hypoxic respiratory failure. Currently weaning of high flow nasal cannula as tolerated. #Acute hypoxic respiratory failure secondary to CHF and pneumonia #Pneumonia, Influenza + with likley superimposed pneumonia #Leukocytosis, improved #Sepsis, secondary to Pneumonia, resolved #Septic shock, resolved. Etiology: Influenza positive on admission in acute hypoxic respiratory failure from pneumonia likely secondary to influenza positive, patient currently requires oxygen support. DDx: UTI less likely as no symptoms of UTI vs WA less likley given troponins <0.02. No STEM elevation. -Cxr (08/08/2024): Moderate CHF, Right Base Pneumonia -Urine Culture NO Growth -Blood Culture: No growthin -Sputum Culture: Tia Albicans Plan: -Continue Zosyn 3.375 mg extended release for 1 more day to complete antibiotic course -Continue oseltamivir 30 mg PO QDay Susp (08/13/2024) for additional 5 more days -->08/17/2024 -Reduce dose of Bumex to 1 mg once daily -Wean off high flow as tolerated currently at FiO2 flow rate 24 -Duonebs scheduled -Ordered chest PT Q4 hourly with Mucomyst -Guaifenesin PRN -Chest physiotherapy & Acapella -Consider ABG if worsening work of breathing -Consult Pul, Dr. Alston, appreciate recommendations #Acute CHF exacerbation, improving #CHF, Diastolic Dysfunciton, HFpEF 60-65% w/ moderate to serve calcified aortic stenosis (08/04/2024) Etiology: Patient has a past medical history of congestive heart failure with a BNP 518. Patient positive for orthopnea, paroxysmal nocturnal orthopnea and increasing cough. CHF exacerbation likely secondary to pneumonia Dignostics: Although patient has a past medical history of CAD status post stents, less likely secondary to [place]/no ST elevation on EKG and troponins are not elevated. PE less likely as well score is 1. Echo(08/04/2024) : Normal LV size and function. Estimated EF 60-65% Moderate to severec calcific aortic stenosis. Mild aotic regurgitation RV is normal in size. The right ventricular systolic function is mildly decreased. The estimated RVSP, 47 mmHg. RAP 15. Mild MAC. Mild MR, TR.NYHA Class: likely III Plan: -Reduce dose of Bumex to 1 mg once daily, as patient is showing good diuresis output -Keep K>4 and Mg >2 -Fluid Restriction 1500 cc and Sodium Restriction 2 g per day -SpO <90%, support PRN -Daily Weights, Strict Ins and Outs, Fluid Striction (1800 ml), Sodium Restriction 2 grams per day -Cardiology Consult, Dr. Barton, appreciate recommendations. #Hypernatremia, Hypovolemic, resolved #Metabolic Alkalosis, secondary to diuretics Etiology: Patient was being diuresed on Bumex in ICU. Patient presented with hypernatremia after downgrade 152. Given that patient appears hypovolemic and dry up on physical exam with improved pedal edema on physical exam and improve pulmonary vascular congestion on chest x-ray, likely secondary to diuretics. DDx: Worsening CKD cannot be ruled out versus central or nephrogenic causes. Plan: -Reduce dose of Bumex to 1 mg once daily -NG tube removed -Nephrology Consulted, Dr. Springer, appreciate recommendations #Atrial Fibrillation, rate controlled #CAD s/p stents of right coronary artery #Hyperlipidemia Patient has a past medical history of Atrial Fibrillation. CHADVASC of 3. Currently not on Eliquis per Dr. Barton. Possible risk of bleeding and currently sinus. 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 Plan: -Reduced dose of diuretic -Renally dose medication -Avoid nephrotoxins #Oropharyngeal dysphagia, improving -Speech therapist recommended to discontinue NG tube and encouraged on p.o. intake as patient is tolerating her diet well - Plan -NG tube was removed -Continue improved diet with thick liquid Health Maintenance: Disp: Pt is currently admitted to floors for further management of acute hypoxic respiratory failure due to influenza pneumonia with superimposed bacterial infection and HFpEF. Currently weaning of high flow as tolerated and continuing diuresis therapy with Tamiflu. Completed antibiotic course with Zosyn. FEN: Pur?ed diet with thick liquids dysphagia type I DVT: on subQ heparin Code: Full code - Patient was seen and discussed with attending physician, Dr. Mackenzie Powell MD, PGY 2 Attending Provider Attestation/Addendum I, Licha Mann, DO, attest that I was physically present for the smith portions of the service and evaluated the patient with the resident and I reviewed and discussed the case with the resident and agree with the resident's findings and plans of care as documented above Patient seen and evaluated this AM. Patient states she is feeling better with decreased productive sputum and cough. Patient has been tolerating diet well and able to advance diet per ST. Will DC NG tube. HFNC settings much improved at flow of 24L/min and FIO2 40%. Patient should be able to be titrated to oxymask. Will have her work with PT. Will decrease bumex to home dose and continue with extended duration of tamiflu treatment.
--- NOTE | 2024-08-16 18:12 | ESPR_ITS ---
<Statement entered by Thaddeus Barton MD - 08/17/24 15:47> I personally examined the patient evaluated the patient appears to be clinically doing better than yesterday not have any shortness of breath or chest pain appetite also improving gradually I evaluated the patient with resident physician PGY 2 Dr. Ryan agree with the treatment plan recommendation. Documentation for date of: 08/16/24 Subjective Subjective Interval history: 88-year-old female patient with significant medical history for HFpEF, moderate to severe aortic stenosis, coronary artery disease s/p RCA stent placements, atrial fibrillation, bilateral endarterectomy (2020 and 2023), severe peripheral artery disease, chronic kidney disease, colon cancer sp resection, DM2, hypertension and hypercholesterolemia presented with worsening shortness of breath and productive cough was admitted for AHRF and sepsis due to influenza pneumonia with superimposed bacterial infection and CHF exacerbation. Patient was administered Tamiflu and started on IV Vanco and Zosyn. Initially patient was started on oxygen mask as she was hypoxic, due to continuing desaturation in the 70s patient was transitioned to BiPAP. Multiple rapid responses were called as patient continued to be desatting and was becoming increasingly tired. Goals of care discussion were held with family, patient's code status was switched to full code and decision was made to upgrade patient to ICU, intubated and started on levophed as patient was progressing towards ARDS. Cardiology was consulted for further management. 08/04/24: Echocardiogram on this admission indicates moderate to severe aortic stenosis with a gradient of 48 mmHg H (mean 30) with Vmax of 3.5 and LVEF 60- 65%. On physical exam patient is does not seem to be fluid overloaded, patient was recently seen at the clinic and was found to be asymptomatic. Patient seems to have an ARDS pattern secondary to influenza pneumonia. Continue current management, if no improvement we will consider right heart swan cath. 08/05/24: Patient has been weaned off of Levophed but still intubated. FiO2 at 40% and on 20 L rate. Morning chest x-ray seems to be worse than previous with more congestion, greater on the right side. Renal function and transaminitis improving. Patient had 1.6 L urine output and 1 bowel movement. Patient started on Bumex 1mg with a goal of -1 to 1.5 L overall fluid balance. Per primary team, picture is more of a obstructive shock. From cardiology point of view, no need for TAVR at this point. 08/06/24: No significant events overnight. Labs significant for hypernatremia most likely secondary to diuresis and decrease p.o. intake. While there was a mild decline in renal function patient's LFTs have been downtrending. Patient had 1.5 L of urine output with overall -650 mL net fluid balance. Patient was extubated on second attempt and was started on nasal cannula without complications. Currently patient on Bumex 1mg as needed which he was administered today. 08/07/24: No events overnight. Vitals stable, currently on 5L nasal cannula. Patient had 2.3L of urine output with overall -2.2L of net fluid balance. While most labs are improving, sodium has increased to 152. Patient currently on 250 mL free water flush Q6H. Patient receiving nutrition through NG tube. Patient stable to be downgraded for floor team to take over care starting tomorrow. We recommend discontinuing diuresis and giving patient x1 500ml D5W IVF. 08/08/24: Patient was started on HFNC overnight as she was found to be hypoxic. Morning labs and x-ray reviewed. Sodium improving/downtrending to 149, free water flush frequency increased by primary team. Renal function stable/same as yesterday. We recommend withholding diuretics. Patient's hypoxia likely due to ARDS, she is not fluid overloaded. 08/11/24: Continues to be on HFNC, currently on FiO2 90% at rate of 40 L. Patient continues to be hypernatremic, nephrology was consulted. Patient started on Bumex 2 mg Qday. Chest X-ray showed worsening congestion. Patient had 2.2L urine output with an overall -1.3L net negative fluid balance. 08/12/24: Patient a little more awake today compared to yesterday. On HFNC 50% FiO2 and rate of 35L. Sodium at 153, BUN 47 and [employer] 1.7, patient started on water flushes. Had 1.8 L urine output with overall -1L net fluid balance in last 24 hours. Of note, patient's sputum culture did grow 4+ ross. 08/13/24: Patient had 1.9 L urine output within 24 hours and overall -1.4 L net fluid balance. Still hypernatremic with NA 152, renal function declining with creatinine of 1.8. Patient continues to be on high flow nasal cannula currently with FiO2 70 and at a rate of 30L. Primary team spoke with casting molder Dr. Alston, plan is to continue diuresis and restart patient on Tamiflu. Family members including decided to change CODE STATUS of patient to DNR/DNI. 08/14/24: Sodium down trended to 147, patient continues to be on high flow nasal cannula. Patient had 1.7 L of urine output with overall +155 cc net fluid balance. Patient currently on Bumex and Tamiflu. Initially family wanted patient to be transferred to [facility] after talking to primary team decided to stay at [facility]. 08/15/24: No significant overnight events. Patient had 1.6 L urine output with overall positive to 73 cc net fluid balance. Sodium is downtrending at 145 and mild improvement of renal function with downtrending of creatinine to 1.6. Patient is more alert and oriented today, able to follow commands and answer questions. Patient also started eating and suggested to have enchiladas for tomorrow. Patient still on high flow nasal cannula with FiO2 of 60 and rate of 30-40 L. Continue daily Bumex 2 mg daily along with Tamiflu. 08/16/24: Patient had 1.4 L of urine output with overall -720 cc net fluid balance. Bumex has been decreased to 1 mg daily. She has been improving for the last couple days, more conversational and tolerating p.o. intake. Patient was evaluated by speech swallow, recommended removal of NG tube. Renal function has improvement, creatinine is down trended to 1.4.-Nasal cannula is being downtrended, currently at 45% FiO2 with flow rate of 24 L. Patient is to undergo PT evaluation, prognosis is looking good. Exam Vital Signs Temp Pulse Resp BP Pulse Ox O2 Del Method O2 Flow Rate 97.0 F 63 20 127/47 L 93 L High Flow Nasal Cannula 08/16/24 12:00 08/16/24 16:00 08/16/24 14:17 08/16/24 12:00 08/16/24 14:17 08/16/24 12:00 08/16/24 14:17 FiO2 45 08/16/24 14:17 Narrative Exam Constitutional: Frail looking female, in no distress HEENT: NCAT, EOMI, reactive round pupils b/l,moist mucous membranes, on HFNC Lung: Less crackles auscultated, no wheezing, no rhonchi Heart: Regular S1S2, no murmurs, gallops, or rubs Abdomen: Soft, non-distended, non-tender, bowel sounds present throughout Extremities: No cyanosis, clubbing, no edema, LE pulses present b/l Neurologic: AOx2, rest can not be performed due to patient's condition Skin: Warm, dry, no lesions or rashes noted Objective Labs 08/16/24 05:32 08/16/24 05:32 Labs: Laboratory Results - last 24 hr 08/16/24 05:32 WBC 7.8 RBC 3.24 L Hgb 9.0 L Hct 28.4 L MCV 88 MCH 27.8 MCHC 31.7 RDW Std Deviation 51.7 H Plt Count 169 Neut % (Auto) 80 Lymph % (Auto) 12 [place] % (Auto) 5 Eos % (Auto) 1 Baso % (Auto) 0 Neut # (Auto) 6.3 Lymph # (Auto) 0.9 L [place] # (Auto) 0.4 Eos # (Auto) 0.1 Baso # (Auto) 0.0 Immature Gran # (Auto) 0.07 H Absolute Nucleated RBC 0.00 Immature Gran % 1 H Nucleated RBC % 0 Sodium 145 Potassium 3.4 Chloride 106 Carbon Dioxide 35.0 H Anion Gap 4 L BUN 44 H Creatinine 1.4 H Estim Creat Clear Calc 24.4 L eGFR 36 L BUN/Creatinine Ratio 31 H Glucose 126 H Calculated Osmolality 301 H Calcium 8.5 Corrected Calcium 9.4 Phosphorus 3.5 Magnesium 2.8 H Total Bilirubin 0.5 AST 104 H ALT 81 H Alkaline Phosphatase 158 H D Total Protein 5.6 L Albumin 2.9 L Globulin 2.7 Albumin/Globulin Ratio 1.1 L ABG Interpretation ABG results: 08/02/24 08/02/24 08/02/24 11:32 15:23 16:47 ABG pH 7.37 7.40 ABG pCO2 50 H 44 ABG pO2 36 L* 80 L D ABG HCO3 29 H 27 H ABG O2 Saturation 64 L 96 ABG Base Excess 3 2 VBG pH 7.48 VBG pCO2 35 L VBG pO2 46 VBG Base Excess 3 08/02/24 08/02/24 08/03/24 20:46 23:49 03:08 ABG pH 7.39 7.45 7.48 H ABG pCO2 47 37 D 34 ABG pO2 76 L 248 H D 160 H D ABG HCO3 29 H 25 25 ABG O2 Saturation 95 99 H 98 ABG Base Excess 3 2 2 VBG pH VBG pCO2 VBG pO2 VBG Base Excess 08/03/24 08/03/24 08/04/24 05:03 09:09 04:23 ABG pH 7.45 7.38 7.42 ABG pCO2 37 43 46 ABG pO2 55 L* D 51 L* 92 D ABG HCO3 26 26 30 H ABG O2 Saturation 90 L 85 L 97 ABG Base Excess 2 0 5 H VBG pH VBG pCO2 VBG pO2 VBG Base Excess 08/05/24 08/06/24 08/09/24 04:47 04:07 08:33 ABG pH 7.38 7.42 7.37 ABG pCO2 50 H 49 H 65 H ABG pO2 93 73 L D 67 L ABG HCO3 30 H 32 H 37 H ABG O2 Saturation 96 94 95 ABG Base Excess 4 H 7 H 10 H VBG pH VBG pCO2 VBG pO2 VBG Base Excess Quality Measures Quality Measures VTE prophylaxis (Heparin subcut) Advance care planning discussed with:: other Assessment & Plan Assessment Current Active Medications: Generic Name Dose Route Start Last Admin Trade Name Freq PRN Reason Stop Dose Admin Acetaminophen 650 mg 08/02/24 13:42 Acetaminophen 325 Mg Tablet PO 09/01/24 13:41 Q6H PRN Mild Pain 1-3 or Fever >100.4 Acetylcysteine 3 ml 08/10/24 11:00 08/16/24 14:14 Acetylcysteine Rt Cindy 10% 4 Ml Nebu INH 09/09/24 10:59 3 ml Q4HRRT JORGE ALBERTO Administration Albuterol/Ipratropium 3 ml 08/02/24 16:45 08/16/24 14:15 Albuterol/Ipratropium (Duoneb) Rt Cindy 3 Ml Nebu INH 09/01/24 16:44 3 ml Q4HRRT JORGE ALBERTO Administration Amiodarone HCl 200 mg 08/03/24 09:00 08/16/24 08:18 Amiodarone Hcl 200 Mg Tablet PO 09/02/24 08:59 200 mg BID JORGE ALBERTO Administration Amlodipine Besylate 5 mg 08/02/24 14:20 08/02/24 15:52 Amlodipine Besylate 5 Mg Tablet PO 09/01/24 14:19 5 mg QDAY JORGE ALBERTO Administration Atorvastatin Calcium 80 mg 08/11/24 21:00 08/15/24 21:10 Atorvastatin Calcium 20 Mg Tablet PO 09/02/24 08:59 80 mg HS JORGE ALBERTO Administration Bumetanide 1 mg 08/17/24 09:00 Bumetanide Inj 0.25 Mg/Ml Vial 4 Ml IVP 09/16/24 08:59 QDAY JORGE ALBERTO Dextrose 25 ml 08/02/24 16:39 Dextrose 50%-Water Inj 50 Ml Syringe IV 09/01/24 16:38 Q15MIN PRN BG 50-70 responsive npo pt Dextrose 50 ml 08/02/24 16:39 Dextrose 50%-Water Inj 50 Ml Syringe IV 09/01/24 16:38 Q15MIN PRN BG <50 OR BG <70 & pt unresponsive Ferrous Sulfate 325 mg 08/11/24 07:30 08/15/24 08:39 Ferrous Sulf 325 Mg Tablet PO 09/10/24 07:29 325 mg QOD JORGE ALBERTO Administration Glucagon 1 mg 08/02/24 16:39 Glucagon Inj 1 Mg Vial IM Q15MIN PRN BG <70, and no IV access Guaifenesin 100 mg 08/02/24 14:33 08/02/24 15:54 Guaifenesin Syrup 200 Mg/10 Ml Udc PO 09/01/24 14:32 100 mg QID PRN Administration COUGH Protocol Guaifenesin/Dextromethorphan 1 each 08/02/24 15:30 Guaifenesin/Dm Tablet PO 09/01/24 15:25 Q4HR PRN COUGH Heparin Sodium (Porcine) 5,000 unit 08/09/24 21:00 08/16/24 08:21 Heparin Sod Inj 5000 Unit/Ml Vial SC 08/23/24 20:59 5,000 unit BID JORGE ALBERTO Administration Piperacillin/Tazobactam/Dextrose 50 mls @ 12.5 mls/hr 08/15/24 21:00 08/16/24 08:20 Zosyn IV 08/16/24 23:00 12.5 mls/hr Q12HR JORGE ALBERTO Administration Protocol Insulin Human Lispro 0 unit 08/16/24 11:30 08/16/24 16:19 Insulin Lispro (Admelog) 1 Unit/0.01 Ml Unit SC 09/15/24 11:29 2 unit ACHS JORGE ALBERTO Administration Protocol Metoprolol Succinate 12.5 mg 08/06/24 21:00 08/16/24 08:19 Metoprolol Succinate Xl 25 Mg Tabcr PO 09/05/24 20:59 12.5 mg BID JORGE ALBERTO Administration Oseltamivir Phosphate 30 mg 08/16/24 09:00 08/16/24 08:19 Oseltamivir 30 Mg Capsule PO 08/17/24 09:01 30 mg QDAY JORGE ALBERTO Administration Pantoprazole Sodium 40 mg 08/03/24 09:00 08/16/24 08:20 Pantoprazole Inj 40 Mg Vial IV 09/02/24 08:59 40 mg QDAY JORGE ALBERTO Administration Pharmacy Consult 1 each 08/11/24 13:04 Pharmacy Renal Dose Adjustment 1 Ea XX 09/10/24 13:03 PRN PRN CONSULT Sodium Chloride 3 ml 08/02/24 11:12 08/02/24 11:15 Sodium Chloride Rt Cindy 0.9% 3 Ml Nebu INH 09/01/24 11:11 3 ml PRN PRN Administration SOLN Plan 88-year-old female patient with significant medical history for HFpEF, moderate to severe aortic stenosis, coronary artery disease s/p RCA stent placements, atrial fibrillation, bilateral endarterectomy (2020 and 2023), severe peripheral artery disease, chronic kidney disease, colon cancer sp resection, DM2, hypertension and hypercholesterolemia presented with worsening shortness of breath and productive cough was admitted for AHRF and sepsis due to influenza pneumonia with superimposed bacterial infection and CHF exacerbation. #HFpEF (60 to 65%), improving #Hx of CAD s/p RCA stent placement #Hx of s/p bilateral endarterectomy #Hx of hypertension Echocardiogram indicates moderate to severe aortic stenosis with a gradient of 48 mmHg H (mean 30) with Vmax of 3.5 and LVEF 60-65% On addmission BNP 518 and CXR showed prominent vascular congestion On physical exam, patient not fluid overloaded Plan: ? Continue Bumex 1 mg daily ? Continue Tamiflu until 08/18/24 ? Strict in and out ? Daily weight ? Follow-up electrolytes and replete as necessary ? Future TAVR in outpatient setting #Atrial fibrillation, rate controlled #Moderate-severe aortic stenosis [id number] 3 not on anticoagulation due to high risk of bleeding Plan: ? Continue amiodarone 200 mg BID ? No need for TAVR at this point #Shock, septic vs. cardiogenic, resolved In the setting of fever, influenza PNA and possibly superimposed bacterial pneumonia MAP dropped below 65 after intubation Levophed weaned off on 08/05/24 #Hypernatremia #ANASTACIA #Sepsis secondary to #Influenza #Pneumonia #CKD IIIb #DM2 #Hx of colon cancer s/p resection -Management per primary team This patient care was discussed with my attending Dr. Mick Lester MD PGY-2 Disclaimer: Minor errors in mold tooler may be present since this note was dictated by speech recognition software.
[2024-08-16] MEDS: ATORVASTATIN CALCIUM 20 MG TABLET 80 MG PO (20:48)
[2024-08-16 22:06] LABS: Index Value <0.50
[2024-08-17] VITALS (18 sets, daily range): BP systolic 107–144; BP diastolic 43–55; PULSE 56–71; RESP 12–19; TEMP 36.1–36.3; O2SAT 92–100; BMI 24.0
[2024-08-17] MEDS: ACETYLCYSTEINE RT SOL 10% 4 ML NEBU 3 ML INH ×6 (02:09→22:55)
[2024-08-17] MEDS: ALBUTEROL/IPRATROPIUM (Duoneb) RT SOL 3 ML NEBU INH ×6 (02:09→22:56)
[2024-08-17 05:26] LABS: Basophils % (Auto) 0 % (0-2.5); Eosinophils % (Auto) 1 % (0-10); Hematocrit 27.4 % (36.0-46.0); Lymphocytes # (Auto) 0.8 Thou/mm3 (1.0-4.8); Lymphocytes % (Auto) 10 % (10-50); Mean Corpuscular HGB Conc 31.4 g/dl (31.0-37.0); Mean Corpuscular Volume 89 fL (80-100); Monocytes # (Auto) 0.4 Thou/mm3 (0.0-0.8); Monocytes % (Auto) 5 % (0-12); Neutrophils # (Auto) 6.5 Thou/mm3 (1.8-7.7); Neutrophils % (Auto) 82 % (37-80); Platelet Count 195 Thou/mm3 (140-440); RDW Standard Deviation 51.8 fL (36.4-46.3); Red Blood Count 3.07 Miln/mm3 (4.00-5.20)
[2024-08-17 05:27] LABS: Eosinophils # (Auto) 0.1 Thou/mm3 (0.0-0.5); Immature Granulocytes % (Auto) 1 % (0-0); Immature Granulocytes Auto 0.09 Thou/mm3 (0.00-0.00); Nucleated Red Blood Cell % 0 /100 WBC (0)
[2024-08-17 05:56] LABS: Alanine Aminotransferase 112 U/L (10-49); Albumin, Serum 2.8 gm/dL (3.4-4.8); Albumin/Globulin Ratio 1.1 (1.2-2.2); Alkaline Phosphatase 130 U/L (46-116); Anion Gap 4 (7-16); Aspartate Amino Transferase 135 U/L (0-34); BUN/Creatinine Ratio 28 Ratio (12-20); Bilirubin,Total 0.5 mg/dL (0.3-1.2); Blood Urea Nitrogen 39 mg/dL (9-23); Calcium 8.3 mg/dL (8.3-10.6); Calcium (Corrected) 9.3 mg/dL (8.5-10.1); Carbon Dioxide 35.6 mMol/L (20.0-31.0); Chloride 104 mMol/L (98-107); Creatinine (Component) 1.4 mg/dL (0.6-1.3); Estimated Creatinine Clearance 24.4 mL/min (>60); Globulin 2.5 gm/dL (2.3-3.5); Glucose 149 mg/dL (74-106); Magnesium 2.7 mg/dL (1.6-2.6); Osmolality,Calculated 299 (275-295); Phosphorous 3.5 mg/dL (2.4-5.1); Potassium 3.3 mMol/L (3.4-5.1); Sodium 144 mMol/L (136-145); Total Protein 5.3 gm/dL (5.7-8.2); eGFR 36 See Note
[2024-08-17 06:01] LABS: Hemoglobin 8.6 g/dL (12.0-16.0)
[2024-08-17] MEDS: AMIODARONE HCL 200 MG TABLET PO ×2 (09:36→20:27)
[2024-08-17] MEDS: FERROUS SULF 325 MG TABLET PO (09:36)
[2024-08-17] MEDS: POTASSIUM CHLORIDE 10% 20 MEQ/15 ML UDC 40 MEQ PO (09:37)
[2024-08-17] MEDS: BUMETANIDE INJ 0.25 MG/ML VIAL 4 ML 1 MG IVP (09:37)
[2024-08-17] MEDS: PANTOPRAZOLE INJ 40 MG VIAL IV (09:37)
[2024-08-17] MEDS: HEPARIN SOD INJ 5000 UNIT/ML VIAL SC ×2 (09:38→20:27)
[2024-08-17] MEDS: OSELTAMIVIR 30 MG CAPSULE PO (09:57)
--- NOTE | 2024-08-17 10:24 | ESPR_ITS ---
Documentation for date of: 08/17/24 Subjective Subjective Interval history: Ms. Keller is a 88-year-old lady with past medical history of hypertension, dyslipidemia, aortic stenosis presented to the hospital with acute hypoxic respiratory failure and noted to have flu positive. Patient also seem to have some heart failure and was given Lasix and metolazone. However BUN, creatinine, sodium went up and diuretics were held. Patient was given gentle IV fluids. However she went into respiratory failure needing high flow at 40 L/min O2, atrial fibrillation and Dr. Montejo was consulted. Renal consultation requested in view of ANASTACIA/hyponatremia in the setting of fluid overload. Dr. Montejo at bedside. Patient currently on NG tube feeds with no free water flushes. Chest x-ray shows fluid overload/pneumonia. Current medications included amlodipine which was held, Zosyn, Lipitor, heparin, metoprolol, amiodarone, cough syrup. 08/11/2024 WBC 11.7, hemoglobin 10.4, platelets 157. Sodium 150, potassium 3.4, BUN 41, creatinine 1.5, calcium 10.3, phosphorus 2.7, magnesium 2.8, AST 109, ALT 115, alk phos 227, albumin 3.1. Chest x-ray showed worsening congestive heart failure. Patient currently seen in telemetry. Daughter, at bedside. 08/12/2024 patient currently seen in telemetry. She is more alert and awake. Sodium still remains at 153. Apparently she did not get free water flushes yesterday. Creatinine 1.7. Clinically she looks tad better today. Entire family at bedside. Continue with Bumex today. 1 dose of Diamox given due to metabolic alkalosis. 08/14/2024 patient currently seen in telemetry. Family at bedside. She remains on oxygen. Labs, medications reviewed. Creatinine tad elevated. Dr. Alston restarted her Bumex due to hypoxic respiratory failure. Sodium tad better. On free water flushes. Replace potassium. Elevated LFTs noted. Plan of care discussed with primary team. Apparently family requesting for her to be transferred to [facility]. 08/15/24: Patient seen and examined at bedside in telemetry. Patient's family at bedside patient continues to have high requirement of oxygen, currently on 30 L by high flow nasal cannula. Patient has good urine output, about 1600 cc in last 24 hours is on IV Bumex 2 mg twice daily. Pulmonology and cardiology closely following the case, patient has a lot of congestion and secretions currently on as needed guaifenesin. Creatinine 1.6 BUN 55 GFR 31. Will continue to monitor renal function and urine output. 08/16/24: Patient seen and examined today at bedside in telemetry. Patient's mentation has improved remarkably, patient is alert oriented x 3, conversational, currently saturating on 24 L high flow nasal cannula.Patient has good urine output about 1400 cc in the last 24 hours, BUN 44, creatinine 1.4, GFR 36 has improved compared to yesterday patient is currently on Bumex 1 mg daily. Will continue to monitor renal function and urine output. 08/17/24: Patient seen and examined today at bedside in telemetry. Patient is mildly somnolent, reports feeling better. Currently on HFNC 20L, FiO2 40%, will be wean off as tolerated. NG tube was removed yesterday, patient has eaten breakfast, family reports good appetite. Urine output is 1.2L, BUN 39, Creatinine 1.4. Continues to be on Bumex 1 mg daily. Will continue to monitor renal functions. Exam Vital Signs Temp Pulse Resp BP Pulse Ox O2 Del Method O2 Flow Rate 97.0 F 58 L 17 122/55 L 95 High Flow Nasal Cannula 20 08/17/24 08:00 08/17/24 09:38 08/17/24 08:00 08/17/24 09:38 08/17/24 08:00 08/17/24 08:00 08/17/24 08:00 FiO2 40 08/17/24 08:00 Narrative Exam GENERAL APPEARANCE: Resting comfortably in bed, currently on high flow nasal cannula NECK: Neck supple, no JVD or bruit CARDIOVASCULAR: Heart regular, no murmurs LUNGS/CHEST: Mild crackles heard bilaterally ABDOMEN: Soft, nontender, nondistended. No masses. Normal bowel sounds. EXTREMITIES: No edema, clubbing or cyanosis. Able to move all 4 extremities. SKIN: Skin exam normal without any rashes NEUROLOGICAL : Alert and oriented x3, conversational, no gross neurological deficit noted. Objective Labs 08/17/24 05:09 08/17/24 05:09 Labs: Laboratory Results - last 24 hr 08/17/24 05:09 WBC 8.0 RBC 3.07 L Hgb 8.6 L Hct 27.4 L MCV 89 MCH 28.0 MCHC 31.4 RDW Std Deviation 51.8 H Plt Count 195 Neut % (Auto) 82 H Lymph % (Auto) 10 [place] % (Auto) 5 Eos % (Auto) 1 Baso % (Auto) 0 Neut # (Auto) 6.5 Lymph # (Auto) 0.8 L [place] # (Auto) 0.4 Eos # (Auto) 0.1 Baso # (Auto) 0.0 Immature Gran # (Auto) 0.09 H Absolute Nucleated RBC 0.00 Immature Gran % 1 H Nucleated RBC % 0 Sodium 144 Potassium 3.3 L Chloride 104 Carbon Dioxide 35.6 H Anion Gap 4 L BUN 39 H Creatinine 1.4 H Estim Creat Clear Calc 24.4 L eGFR 36 L BUN/Creatinine Ratio 28 H Glucose 149 H Calculated Osmolality 299 H Calcium 8.3 Corrected Calcium 9.3 Phosphorus 3.5 Magnesium 2.7 H Total Bilirubin 0.5 AST 135 H ALT 112 H Alkaline Phosphatase 130 H D Total Protein 5.3 L Albumin 2.8 L Globulin 2.5 Albumin/Globulin Ratio 1.1 L ABG Interpretation ABG results: 08/02/24 08/02/24 08/02/24 11:32 15:23 16:47 ABG pH 7.37 7.40 ABG pCO2 50 H 44 ABG pO2 36 L* 80 L D ABG HCO3 29 H 27 H ABG O2 Saturation 64 L 96 ABG Base Excess 3 2 VBG pH 7.48 VBG pCO2 35 L VBG pO2 46 VBG Base Excess 3 08/02/24 08/02/24 08/03/24 20:46 23:49 03:08 ABG pH 7.39 7.45 7.48 H ABG pCO2 47 37 D 34 ABG pO2 76 L 248 H D 160 H D ABG HCO3 29 H 25 25 ABG O2 Saturation 95 99 H 98 ABG Base Excess 3 2 2 VBG pH VBG pCO2 VBG pO2 VBG Base Excess 08/03/24 08/03/24 08/04/24 05:03 09:09 04:23 ABG pH 7.45 7.38 7.42 ABG pCO2 37 43 46 ABG pO2 55 L* D 51 L* 92 D ABG HCO3 26 26 30 H ABG O2 Saturation 90 L 85 L 97 ABG Base Excess 2 0 5 H VBG pH VBG pCO2 VBG pO2 VBG Base Excess 08/05/24 08/06/24 08/09/24 04:47 04:07 08:33 ABG pH 7.38 7.42 7.37 ABG pCO2 50 H 49 H 65 H ABG pO2 93 73 L D 67 L ABG HCO3 30 H 32 H 37 H ABG O2 Saturation 96 94 95 ABG Base Excess 4 H 7 H 10 H VBG pH VBG pCO2 VBG pO2 VBG Base Excess Quality Measures Quality Measures VTE prophylaxis (Heparin subcut) Advance care planning discussed with:: other Assessment & Plan Assessment Current Active Medications: Generic Name Dose Route Start Last Admin Trade Name Freq PRN Reason Stop Dose Admin Acetaminophen 650 mg 08/02/24 13:42 Acetaminophen 325 Mg Tablet PO 09/01/24 13:41 Q6H PRN Mild Pain 1-3 or Fever >100.4 Acetylcysteine 3 ml 08/10/24 11:00 08/17/24 06:22 Acetylcysteine Rt Cindy 10% 4 Ml Nebu INH 09/09/24 10:59 3 ml Q4HRRT JORGE ALBERTO Administration Albuterol/Ipratropium 3 ml 08/02/24 16:45 08/17/24 06:22 Albuterol/Ipratropium (Duoneb) Rt Cindy 3 Ml Nebu INH 09/01/24 16:44 3 ml Q4HRRT JORGE ALBERTO Administration Amiodarone HCl 200 mg 08/03/24 09:00 08/17/24 09:36 Amiodarone Hcl 200 Mg Tablet PO 09/02/24 08:59 200 mg BID JORGE ALBERTO Administration Amlodipine Besylate 5 mg 08/02/24 14:20 08/02/24 15:52 Amlodipine Besylate 5 Mg Tablet PO 09/01/24 14:19 5 mg QDAY JORGE ALBERTO Administration Atorvastatin Calcium 80 mg 08/11/24 21:00 08/16/24 20:48 Atorvastatin Calcium 20 Mg Tablet PO 09/02/24 08:59 80 mg HS JORGE ALBERTO Administration Bumetanide 1 mg 08/17/24 09:00 08/17/24 09:37 Bumetanide Inj 0.25 Mg/Ml Vial 4 Ml IVP 09/16/24 08:59 1 mg QDAY JORGE ALBERTO Administration Dextrose 25 ml 08/02/24 16:39 Dextrose 50%-Water Inj 50 Ml Syringe IV 09/01/24 16:38 Q15MIN PRN BG 50-70 responsive npo pt Dextrose 50 ml 08/02/24 16:39 Dextrose 50%-Water Inj 50 Ml Syringe IV 09/01/24 16:38 Q15MIN PRN BG <50 OR BG <70 & pt unresponsive Ferrous Sulfate 325 mg 08/11/24 07:30 08/17/24 09:36 Ferrous Sulf 325 Mg Tablet PO 09/10/24 07:29 325 mg QOD JORGE ALBERTO Administration Glucagon 1 mg 08/02/24 16:39 Glucagon Inj 1 Mg Vial IM Q15MIN PRN BG <70, and no IV access Guaifenesin 100 mg 08/02/24 14:33 08/02/24 15:54 Guaifenesin Syrup 200 Mg/10 Ml Udc PO 09/01/24 14:32 100 mg QID PRN Administration COUGH Protocol Guaifenesin/Dextromethorphan 1 each 08/02/24 15:30 Guaifenesin/Dm Tablet PO 09/01/24 15:25 Q4HR PRN COUGH Heparin Sodium (Porcine) 5,000 unit 08/09/24 21:00 08/17/24 09:38 Heparin Sod Inj 5000 Unit/Ml Vial SC 08/23/24 20:59 5,000 unit BID JORGE ALBERTO Administration Insulin Human Lispro 0 unit 08/16/24 11:30 08/17/24 09:31 Insulin Lispro (Admelog) 1 Unit/0.01 Ml Unit SC 09/15/24 11:29 Not Given A[facility]S [facility] Protocol Metoprolol Succinate 12.5 mg 08/06/24 21:00 08/17/24 09:38 Metoprolol Succinate Xl 25 Mg Tabcr PO 09/05/24 20:59 Not Given BID JORGE ALBERTO Pantoprazole Sodium 40 mg 08/03/24 09:00 08/17/24 09:37 Pantoprazole Inj 40 Mg Vial IV 09/02/24 08:59 40 mg QDAY JORGE ALBERTO Administration Pharmacy Consult 1 each 08/11/24 13:04 Pharmacy Renal Dose Adjustment 1 Ea XX 09/10/24 13:03 PRN PRN CONSULT Sodium Chloride 3 ml 08/02/24 11:12 08/02/24 11:15 Sodium Chloride Rt Cindy 0.9% 3 Ml Nebu INH 09/01/24 11:11 3 ml PRN PRN Administration SOLN Plan Summary: Ms. Husain is a 88-year-old female past medical history of hypertension, dyslipidemia, aortic stenosis presented to the hospital with acute hypoxic respiratory failure and noted to have flu positive. Nephrology was consulted for hyponatremia and ANASTACIA. Patient was given gentle IV fluids, pulmonology and cardiology on board, patient currently on Bumex twice daily #Acute kidney injury on chronic kidney disease secondary to prerenal azotemia. 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 Spoke to Dr. Montejo-will give diuretics. Was given 1 dose of Diamox for metabolic alkalosis. Noted mild elevation in creatinine probably related to diuretics. Currently on IV Bumex. BUN 44, creatinine 1.4, GFR 36 today Plan: -currently on Bumex 1 mg IVP daily -Strict intake and output -Dose medication renally -Will monitor renal function closely -Monitor urine output Plan of care discussed with primary team Plan of care discussed with family at bedside. #Hypernatremia, resolved #Dehydration, resolved Patient was on free water flushes through NG-tube 08/17/2024: Sodium 144 Plan: -Monitor daily CMP #Acute hypoxic respiratory failure secondary to CHF and pneumonia and acute respiratory distress syndrome #Pneumonia, Influenza + with likley superimposed pneumonia #Leukocytosis, improved #Sepsis, secondary to Pneumonia, resolved #Septic shock, resolved. 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 Springer. Tabitha Benitez MD, PGY 1. Attending Provider Attestation/Addendum Patient seen and examined with resident physician Dr. Lu. Note reviewed, agree with findings and recommendations. Patient alert and awake and is having breakfast. Daughter is at bedside. Creatinine stable. Did explain to the family regarding cardiorenal syndrome and worsening renal function with diuretics. They had several questions which were answered to their satisfaction.
[2024-08-17] MEDS: INSULIN LISPRO (AdmeLOG) 1 UNIT/0.01 ML UNIT SC ×2 (11:59→17:18)
--- NOTE | 2024-08-17 12:47 | PC.SS ---
Rounding: down to 2L o2
--- NOTE | 2024-08-17 12:56 | ESPR_ITS ---
<Statement entered by Portia Chang MD - 08/17/24 15:07> I discussed with and supervised my co-resident involved in the care of this patient. I agree with the assessment and plan as documented above. Patient seen and examined at bedside. Transitioned from HFNC to NC today. Improving. Still continues to have cough, encourage incentive spirometer and acapella device. Net negative of 720cc, now on Bumex 1mg Qday. diamox given for alkalosis and potassium repleted. Anticipate discharge within the next 48 hours. 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 Barton athletic trainer), and CKD. Admitted initially on 08/02/2024 for acute hypoxic respiratory failure and upgraded to ICU. Patient downgraded on 08/08/2024 for continued medical management. No overnight events reported for patient. Patient examined at bedside. Patient is alert and oriented x 2 this morning and able to carry on conversation. Discussed physical therapy yesterday. Reminded patient to continue using Acapella at bedside to reduce congestion. Patient demonstrated her physical therapy exercises. Improved work of breathing currently on high flow with a rate of 20 and FiO2 40--> transition to nasal cannula. Diamox X 1 as per nephro recommendations. Exam Vital Signs Temp Pulse Resp BP Pulse Ox O2 Del Method O2 Flow Rate 96.9 F 59 L 16 128/46 L 97 Nasal Cannula 8 08/17/24 12:00 08/17/24 12:00 08/17/24 12:00 08/17/24 12:00 08/17/24 12:00 08/17/24 12:00 08/17/24 12:00 FiO2 35 08/17/24 10:47 Narrative Exam General Appearance: Alert & Oriented X2, well-nourished female who is lying in bed in no acute distress. Improved cough. HEENT: Skull symmetrical and atraumatic. Conjunctivae pin and moist. Pupils equal, round, reactive to light and accommodation (PERRL). External ear without lesion or discharge. Straight, nares patient, mucosa pink, no discharge. Cardio: Normal Rate and Rhythm with S1 and S2 heart sounds. No murmurs or extra heart sounds auscultated. No bruits on carotid auscultation. No peripheral edema or cyanosis. Lungs: Symmetric with good expansion. Chest and back non-tender. Breath sounds vesicular with some crackles, but improved. Abdomen: Non-tender, Non-distended, Normal Reactive Bowel Sounds Neuro: Yes Alert, Yes cooperative, Yes oriented to person, Yes place, and No time. Speech clear. CN grossly intact. Upper motor strength 5/5 and Lower motor strength 5/5. Sensation intact. Objective Labs 08/17/24 05:09 08/17/24 05:09 Labs: Laboratory Results - last 24 hr 08/17/24 05:09 WBC 8.0 RBC 3.07 L Hgb 8.6 L Hct 27.4 L MCV 89 MCH 28.0 MCHC 31.4 RDW Std Deviation 51.8 H Plt Count 195 Neut % (Auto) 82 H Lymph % (Auto) 10 Carter % (Auto) 5 Eos % (Auto) 1 Baso % (Auto) 0 Neut # (Auto) 6.5 Lymph # (Auto) 0.8 L Carter # (Auto) 0.4 Eos # (Auto) 0.1 Baso # (Auto) 0.0 Immature Gran # (Auto) 0.09 H Absolute Nucleated RBC 0.00 Immature Gran % 1 H Nucleated RBC % 0 Sodium 144 Potassium 3.3 L Chloride 104 Carbon Dioxide 35.6 H Anion Gap 4 L BUN 39 H Creatinine 1.4 H Estim Creat Clear Calc 24.4 L eGFR 36 L BUN/Creatinine Ratio 28 H Glucose 149 H Calculated Osmolality 299 H Calcium 8.3 Corrected Calcium 9.3 Phosphorus 3.5 Magnesium 2.7 H Total Bilirubin 0.5 AST 135 H ALT 112 H Alkaline Phosphatase 130 H D Total Protein 5.3 L Albumin 2.8 L Globulin 2.5 Albumin/Globulin Ratio 1.1 L ABG Interpretation ABG results: 08/02/24 08/02/24 08/02/24 11:32 15:23 16:47 ABG pH 7.37 7.40 ABG pCO2 50 H 44 ABG pO2 36 L* 80 L D ABG HCO3 29 H 27 H ABG O2 Saturation 64 L 96 ABG Base Excess 3 2 VBG pH 7.48 VBG pCO2 35 L VBG pO2 46 VBG Base Excess 3 08/02/24 08/02/24 08/03/24 20:46 23:49 03:08 ABG pH 7.39 7.45 7.48 H ABG pCO2 47 37 D 34 ABG pO2 76 L 248 H D 160 H D ABG HCO3 29 H 25 25 ABG O2 Saturation 95 99 H 98 ABG Base Excess 3 2 2 VBG pH VBG pCO2 VBG pO2 VBG Base Excess 08/03/24 08/03/24 08/04/24 05:03 09:09 04:23 ABG pH 7.45 7.38 7.42 ABG pCO2 37 43 46 ABG pO2 55 L* D 51 L* 92 D ABG HCO3 26 26 30 H ABG O2 Saturation 90 L 85 L 97 ABG Base Excess 2 0 5 H VBG pH VBG pCO2 VBG pO2 VBG Base Excess 08/05/24 08/06/24 08/09/24 04:47 04:07 08:33 ABG pH 7.38 7.42 7.37 ABG pCO2 50 H 49 H 65 H ABG pO2 93 73 L D 67 L ABG HCO3 30 H 32 H 37 H ABG O2 Saturation 96 94 95 ABG Base Excess 4 H 7 H 10 H VBG pH VBG pCO2 VBG pO2 VBG Base Excess Quality Measures Quality Measures VTE prophylaxis (Heparin subcut) Advance care planning discussed with:: patient Assessment & Plan Assessment Current Active Medications: Generic Name Dose Route Start Last Admin Trade Name Freq PRN Reason Stop Dose Admin Acetaminophen 650 mg 08/02/24 13:42 Acetaminophen 325 Mg Tablet PO 09/01/24 13:41 Q6H PRN Mild Pain 1-3 or Fever >100.4 Acetylcysteine 3 ml 08/10/24 11:00 08/17/24 10:45 Acetylcysteine Rt Cindy 10% 4 Ml Nebu INH 09/09/24 10:59 3 ml Q4HRRT JORGE ALBERTO Administration Albuterol/Ipratropium 3 ml 08/02/24 16:45 08/17/24 10:45 Albuterol/Ipratropium (Duoneb) Rt Cindy 3 Ml Nebu INH 09/01/24 16:44 3 ml Q4HRRT JORGE ALBERTO Administration Amiodarone HCl 200 mg 08/03/24 09:00 08/17/24 09:36 Amiodarone Hcl 200 Mg Tablet PO 09/02/24 08:59 200 mg BID JORGE ALBERTO Administration Amlodipine Besylate 5 mg 08/02/24 14:20 08/02/24 15:52 Amlodipine Besylate 5 Mg Tablet PO 09/01/24 14:19 5 mg QDAY JORGE ALBERTO Administration Atorvastatin Calcium 80 mg 08/11/24 21:00 08/16/24 20:48 Atorvastatin Calcium 20 Mg Tablet PO 09/02/24 08:59 80 mg HS JORGE ALBERTO Administration Bumetanide 1 mg 08/17/24 09:00 08/17/24 09:37 Bumetanide Inj 0.25 Mg/Ml Vial 4 Ml IVP 09/16/24 08:59 1 mg QDAY JORGE ALBERTO Administration Dextrose 25 ml 08/02/24 16:39 Dextrose 50%-Water Inj 50 Ml Syringe IV 09/01/24 16:38 Q15MIN PRN BG 50-70 responsive npo pt Dextrose 50 ml 08/02/24 16:39 Dextrose 50%-Water Inj 50 Ml Syringe IV 09/01/24 16:38 Q15MIN PRN BG <50 OR BG <70 & pt unresponsive Ferrous Sulfate 325 mg 08/11/24 07:30 08/17/24 09:36 Ferrous Sulf 325 Mg Tablet PO 09/10/24 07:29 325 mg QOD JORGE ALBERTO Administration Glucagon 1 mg 08/02/24 16:39 Glucagon Inj 1 Mg Vial IM Q15MIN PRN BG <70, and no IV access Guaifenesin 100 mg 08/02/24 14:33 08/02/24 15:54 Guaifenesin Syrup 200 Mg/10 Ml Udc PO 09/01/24 14:32 100 mg QID PRN Administration COUGH Protocol Guaifenesin/Dextromethorphan 1 each 08/02/24 15:30 Guaifenesin/Dm Tablet PO 09/01/24 15:25 Q4HR PRN COUGH Heparin Sodium (Porcine) 5,000 unit 08/09/24 21:00 08/17/24 09:38 Heparin Sod Inj 5000 Unit/Ml Vial SC 08/23/24 20:59 5,000 unit BID JORGE ALBERTO Administration Insulin Human Lispro 0 unit 08/16/24 11:30 08/17/24 11:59 Insulin Lispro (Admelog) 1 Unit/0.01 Ml Unit SC 09/15/24 11:29 2 unit ACHS JORGE ALBERTO Administration Protocol Metoprolol Succinate 12.5 mg 08/06/24 21:00 08/17/24 09:38 Metoprolol Succinate Xl 25 Mg Tabcr PO 09/05/24 20:59 Not Given BID JORGE ALBERTO Pantoprazole Sodium 40 mg 08/03/24 09:00 08/17/24 09:37 Pantoprazole Inj 40 Mg Vial IV 09/02/24 08:59 40 mg QDAY JORGE ALBERTO Administration Pharmacy Consult 1 each 08/11/24 13:04 Pharmacy Renal Dose Adjustment 1 Ea XX 09/10/24 13:03 PRN PRN CONSULT Sodium Chloride 3 ml 08/02/24 11:12 08/02/24 11:15 Sodium Chloride Rt Cindy 0.9% 3 Ml Nebu INH 09/01/24 11:11 3 ml PRN PRN Administration SOLN Plan This patient is an 88-year-old female with a past medical history of hypertension CHF diastolic dysfunction HFpEF (60 to 65%) on 04/27/2024, CAD s/p stent in right coronary artery, aortic stenosis, carotid disease, s/p endarterectomy (2020& 2023), history of atrial fibrillation (not on Eliquis risk of bleeding), history of colorectal cancer, and CKD who was admitted for acute hypoxic respiratory failure. Currently weaning of high flow nasal cannula as tolerated. #Acute hypoxic respiratory failure secondary to CHF and pneumonia #Pneumonia, Influenza + with likley superimposed pneumonia #Leukocytosis, improved #Sepsis, secondary to Pneumonia, resolved #Septic shock, resolved. Etiology: Influenza positive on admission in acute hypoxic respiratory failure from pneumonia likely secondary to influenza positive, patient currently requires oxygen support. DDx: UTI less likely as no symptoms of UTI vs IA less likley given troponins <0.02. No STEM elevation. -Cxr (08/08/2024): Moderate CHF, Right Base Pneumonia -Urine Culture NO Growth -Blood Culture: No growthin -Sputum Culture: Tia Albicans Plan: -Continue oseltamivir 30 mg PO QDay Susp (08/13/2024) for additional 5 more days -->08/17/2024 -Reduce dose of Bumex to 1 mg once daily -Wean off high flow as tolerated currently at FiO2 flow rate 24--> to N.C. goal 5 liters -Duonebs scheduled -Ordered chest PT Q4 hourly with Mucomyst -Guaifenesin PRN -Chest physiotherapy & Acapella -Consider ABG if worsening work of breathing -Completed Zosyn 3.375 mg extended release, renally dose on 08/16/2024 -Consult Pul, Dr. Alston, appreciate recommendations #Acute CHF exacerbation, improving #CHF, Diastolic Dysfunciton, HFpEF 60-65% w/ moderate to serve calcified aortic stenosis (08/04/2024) Etiology: Patient has a past medical history of congestive heart failure with a BNP 518. Patient positive for orthopnea, paroxysmal nocturnal orthopnea and increasing cough. CHF exacerbation likely secondary to pneumonia Dignostics: Although patient has a past medical history of CAD status post stents, less likely secondary to IA/no ST elevation on EKG and troponins are not elevated. PE less likely as well score is 1. Echo(08/04/2024) : Normal LV size and function. Estimated EF 60-65% Moderate to severec calcific aortic stenosis. Mild aotic regurgitation RV is normal in size. The right ventricular systolic function is mildly decreased. The estimated RVSP, 47 mmHg. RAP 15. Mild MAC. Mild MR, TR.NYHA Class: likely III Plan: -Reduce dose of Bumex to 1 mg once daily, as patient is showing good diuresis output -Keep K>4 and Mg >2 -Fluid Restriction 1500 cc and Sodium Restriction 2 g per day -SpO <90%, support PRN -Daily Weights, Strict Ins and Outs, Fluid Striction (1800 ml), Sodium Restriction 2 grams per day -Cardiology Consult, Dr. Barton, appreciate recommendations. #Hypernatremia, Hypovolemic, resolved #Metabolic Alkalosis, secondary to diuretics Etiology: Patient was being diuresed on Bumex in ICU. Patient presented with hypernatremia after downgrade 152. Given that patient appears hypovolemic and dry up on physical exam with improved pedal edema on physical exam and improve pulmonary vascular congestion on chest x-ray, likely secondary to diuretics. DDx: Worsening CKD cannot be ruled out versus central or nephrogenic causes. Plan: -Reduce dose of Bumex to 1 mg once daily -Diamox 250 mg X 1 -NG tube removed -Nephrology Consulted, Dr. Springer, appreciate recommendations #Atrial Fibrillation, rate controlled #CAD s/p stents of right coronary artery #Hyperlipidemia Patient has a past medical history of Atrial Fibrillation. CHADVASC of 3. Currently not on Eliquis per Dr. Barton. Possible risk of bleeding and currently sinus. 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 Plan: -Reduced dose of diuretic -Renally dose medication -Avoid nephrotoxins #Oropharyngeal dysphagia, improving -Speech therapist recommended to discontinue NG tube and encouraged on p.o. intake as patient is tolerating her diet well - Plan -NG tube was removed -Dysphagia II #Normocytic anemia Patient's hemoglobin has consistently dropped since admission, Hgb 8.6 and hematocrit 27.4. MCV 89. RR DW deviation is 51.8 which is high. Normocytic anemia likely secondary to anemia of chronic disease given prolonged pneumonia requiring upgrade to ICU for septic shock. DDx: Given patient's past medical history of colon cancer s/p resection?acute bleeding cannot be ruled out less likely given no blood in stool noted versus iron deficiency given iron panel was low Diagnostics: Iron panel (08/09/2024) iron 42 (L), TIBC 213 (L), iron saturation 19 (L), unsaturated iron binding 171 (L) Plan -Iron every other day -Occult blood -continue to monitor hemoglobin levels, transfuse <7 #Transaminitis, improving Etiology: Likely secondary to increase perfusion to liver secondary to septic shock which is improving DDx secondary cause such as medication from albuterol or normal AST and ALT levels on admission versus congestion. Hepatitis Negative Plan: Continue to monitor AST/ALT Health Maintenance: Disp: Pt is currently admitted to floors for further management of acute hypoxic respiratory failure due to influenza pneumonia with superimposed bacterial infection and HFpEF-->transition to N.C. will complete Tamiflu course today. FEN: dysphagia type II DVT: on subQ heparin Code: Full code - The patient's plan was discussed with attending Dr. Mann and senior residents Dr. Bernardo Monique MD PGY1 Internal Medicine Attending Provider Attestation/Addendum I, Licha Mann DO, attest that I was physically present for the smith portions of the service and evaluated the patient with the resident and I reviewed and discussed the case with the resident and agree with the resident's findings and plans of care as documented above Patient seen and evaluated this AM. Patient was able to be titrated to 2L/NC. She continues to have scattered rhonchi, but reports feeling better. Pending PT. Encouraged patient to use IS and acapella.
[2024-08-17] MEDS: ACETAzolaMIDE 250 MG TABLET PO (14:56)
[2024-08-17] MEDS: ATORVASTATIN CALCIUM 20 MG TABLET 80 MG PO (20:26)
[2024-08-17] MEDS: METOPROLOL SUCCINATE XL 25 MG TABCR 12.5 MG PO (20:27)
[2024-08-18] VITALS (18 sets, daily range): BP systolic 115–130; BP diastolic 43–68; PULSE 65–80; RESP 12–20; TEMP 35.9–36.7; O2SAT 94–100; BMI 23.6; BMI 12.0
[2024-08-18] MEDS: ALBUTEROL/IPRATROPIUM (Duoneb) RT SOL 3 ML NEBU INH ×7 (03:24→23:22)
[2024-08-18] MEDS: ACETYLCYSTEINE RT SOL 10% 4 ML NEBU 3 ML INH ×5 (03:25→23:21)
[2024-08-18 05:44] LABS: Basophils % (Auto) 0 % (0-2.5); Eosinophils % (Auto) 0 % (0-10); Hematocrit 28.8 % (36.0-46.0); Hemoglobin 9.1 g/dL (12.0-16.0); Immature Granulocytes % (Auto) 1 % (0-0); Immature Granulocytes Auto 0.08 Thou/mm3 (0.00-0.00); Lymphocytes # (Auto) 1.1 Thou/mm3 (1.0-4.8); Lymphocytes % (Auto) 12 % (10-50); Mean Corpuscular HGB Conc 31.6 g/dl (31.0-37.0); Mean Corpuscular Volume 89 fL (80-100); Monocytes # (Auto) 0.4 Thou/mm3 (0.0-0.8); Monocytes % (Auto) 4 % (0-12); Neutrophils # (Auto) 7.4 Thou/mm3 (1.8-7.7); Neutrophils % (Auto) 82 % (37-80); Nucleated Red Blood Cell % 0 /100 WBC (0); Platelet Count 246 Thou/mm3 (140-440); RDW Standard Deviation 52.7 fL (36.4-46.3); Red Blood Count 3.25 Miln/mm3 (4.00-5.20); White Blood Count 9.1 Thou/mm3 (3.6-11.0)
[2024-08-18 06:15] LABS: Alanine Aminotransferase 141 U/L (10-49); Albumin, Serum 2.7 gm/dL (3.4-4.8); Alkaline Phosphatase 120 U/L (46-116); Anion Gap 5 (7-16); Aspartate Amino Transferase 160 U/L (0-34); BUN/Creatinine Ratio 27 Ratio (12-20); Bilirubin,Total 0.4 mg/dL (0.3-1.2); Blood Urea Nitrogen 32 mg/dL (9-23); Calcium 8.9 mg/dL (8.3-10.6); Calcium (Corrected) 9.9 mg/dL (8.5-10.1); Carbon Dioxide 31.6 mMol/L (20.0-31.0); Chloride 110 mMol/L (98-107); Creatinine (Component) 1.2 mg/dL (0.6-1.3); Estimated Creatinine Clearance 28.3 mL/min (>60); Globulin 2.6 gm/dL (2.3-3.5); Glucose 122 mg/dL (74-106); Magnesium 2.6 mg/dL (1.6-2.6); Osmolality,Calculated 300 (275-295); Phosphorous 3.4 mg/dL (2.4-5.1); Potassium 3.6 mMol/L (3.4-5.1); Sodium 147 mMol/L (136-145); Total Protein 5.3 gm/dL (5.7-8.2); eGFR 44 See Note
[2024-08-18 06:27] LABS: Aspergillus Ag, Ser* NOT DETECTED
[2024-08-18] MEDS: INSULIN LISPRO (AdmeLOG) 1 UNIT/0.01 ML UNIT SC ×4 (07:33→22:10)
--- NOTE | 2024-08-18 08:49 | PC.SS ---
Update: Plan is to d/c patient to SNF. Patient currently at 4L oxygen.
[2024-08-18] MEDS: METOPROLOL SUCCINATE XL 25 MG TABCR 12.5 MG PO ×2 (08:57→22:16)
[2024-08-18] MEDS: BUMETANIDE INJ 0.25 MG/ML VIAL 4 ML 1 MG IVP (08:57)
[2024-08-18] MEDS: HEPARIN SOD INJ 5000 UNIT/ML VIAL SC ×2 (08:58→22:19)
[2024-08-18] MEDS: PANTOPRAZOLE INJ 40 MG VIAL IV (08:58)
[2024-08-18] MEDS: AMIODARONE HCL 200 MG TABLET PO ×2 (08:58→22:15)
--- NOTE | 2024-08-18 09:11 | PC.SS ---
Updated clinicals submitted on [employer] [facility].
--- NOTE | 2024-08-18 11:14 | ESPR_ITS ---
<Statement entered by Portia Chang MD - 08/18/24 13:34> I discussed with and supervised my co-resident involved in the care of this patient. I agree with the assessment and plan as documented above. Patient seen and examined at bedside. She is saturating at 4L of NC. No acute complaints. Her lungs sound significantly better today. Patient still feels very weak. Will have physical therapy work with patient again. Anticipate patient will benefit from rehab to regain strength. Portia Chang MD PGY-3 Documentation for date of: 08/18/24 Subjective Subjective Interval history: Arianna Harrell is an 88-year-old female with a past medical history of hypertension, HFpEF (60 to 65%, 07/2024), CAD status post stent of RCA, aortic stenosis, carotid artery disease (status post endarterectomy in 2020 and 2023), A-fib (not on Eliquis, followed by Dr. Barton), and CKD. Admitted on 08/02/2024 for AHRF and was upgraded to ICU and eventually downgraded on 08/08/2024. No acute overnight events, examined at bedside with family present. Denies chest discomfort, shortness of breath, fever, chills, nausea, vomiting but does feel weak. Worked with physical therapy today and was only able to sit up in bed. Encouraged use of Acapella. Currently on 4 L nasal cannula. Exam Vital Signs Temp Pulse Resp BP Pulse Ox O2 Del Method O2 Flow Rate 96.6 F L 75 18 130/43 L 98 Nasal Cannula 4 08/18/24 07:43 08/18/24 10:19 08/18/24 10:19 08/18/24 08:58 08/18/24 10:19 08/18/24 07:43 08/18/24 10:19 FiO2 35 08/17/24 10:47 Narrative Exam General: AOx3, no acute distress, able to speak full sentences HEENT: NC/AT, mucous membranes moist, bilateral sclera anicteric Cardiovascular: regular rate and rhythm, S1/S2 present, no murmurs appreciated Pulmonary: Diffuse Rales throughout left lung martinez Abdominal: soft, non-tender, non-distended, no rebound/guarding, normal bowel sounds present Musculoskeletal: normal ROM, no peripheral edema Skin: warm and dry, intact, no rashes Neuro: CN II-XII intact, no focal deficits Objective Labs 08/18/24 05:19 08/18/24 05:19 Labs: Laboratory Results - last 24 hr 08/14/24 08/18/24 04:45 05:19 WBC 9.1 RBC 3.25 L Hgb 9.1 L Hct 28.8 L MCV 89 MCH 28.0 MCHC 31.6 RDW Std Deviation 52.7 H Plt Count 246 D Neut % (Auto) 82 H Lymph % (Auto) 12 [place] % (Auto) 4 Eos % (Auto) 0 Baso % (Auto) 0 Neut # (Auto) 7.4 Lymph # (Auto) 1.1 [place] # (Auto) 0.4 Eos # (Auto) 0.0 Baso # (Auto) 0.0 Immature Gran # (Auto) 0.08 H Absolute Nucleated RBC 0.00 Immature Gran % 1 H Nucleated RBC % 0 Sodium 147 H Potassium 3.6 Chloride 110 H Carbon Dioxide 31.6 H Anion Gap 5 L BUN 32 H Creatinine 1.2 Estim Creat Clear Calc 28.3 L eGFR 44 L BUN/Creatinine Ratio 27 H Glucose 122 H Calculated Osmolality 300 H Calcium 8.9 Corrected Calcium 9.9 Phosphorus 3.4 Magnesium 2.6 Total Bilirubin 0.4 AST 160 H ALT 141 H Alkaline Phosphatase 120 H Total Protein 5.3 L Albumin 2.7 L Globulin 2.6 Albumin/Globulin Ratio 1.0 L Aspergillus Ag (EIA) NOT DETECTED Aspergillus Index Value <0.50 ABG Interpretation ABG results: 08/02/24 08/02/24 08/02/24 11:32 15:23 16:47 ABG pH 7.37 7.40 ABG pCO2 50 H 44 ABG pO2 36 L* 80 L D ABG HCO3 29 H 27 H ABG O2 Saturation 64 L 96 ABG Base Excess 3 2 VBG pH 7.48 VBG pCO2 35 L VBG pO2 46 VBG Base Excess 3 08/02/24 08/02/24 08/03/24 20:46 23:49 03:08 ABG pH 7.39 7.45 7.48 H ABG pCO2 47 37 D 34 ABG pO2 76 L 248 H D 160 H D ABG HCO3 29 H 25 25 ABG O2 Saturation 95 99 H 98 ABG Base Excess 3 2 2 VBG pH VBG pCO2 VBG pO2 VBG Base Excess 08/03/24 08/03/24 08/04/24 05:03 09:09 04:23 ABG pH 7.45 7.38 7.42 ABG pCO2 37 43 46 ABG pO2 55 L* D 51 L* 92 D ABG HCO3 26 26 30 H ABG O2 Saturation 90 L 85 L 97 ABG Base Excess 2 0 5 H VBG pH VBG pCO2 VBG pO2 VBG Base Excess 08/05/24 08/06/24 08/09/24 04:47 04:07 08:33 ABG pH 7.38 7.42 7.37 ABG pCO2 50 H 49 H 65 H ABG pO2 93 73 L D 67 L ABG HCO3 30 H 32 H 37 H ABG O2 Saturation 96 94 95 ABG Base Excess 4 H 7 H 10 H VBG pH VBG pCO2 VBG pO2 VBG Base Excess Quality Measures Quality Measures VTE prophylaxis (Heparin subcut) Advance care planning discussed with:: patient Assessment & Plan Assessment Current Active Medications: Generic Name Dose Route Start Last Admin Trade Name Freq PRN Reason Stop Dose Admin Acetaminophen 650 mg 08/02/24 13:42 Acetaminophen 325 Mg Tablet PO 09/01/24 13:41 Q6H PRN Mild Pain 1-3 or Fever >100.4 Acetylcysteine 3 ml 08/10/24 11:00 08/18/24 10:16 Acetylcysteine Rt Cindy 10% 4 Ml Nebu INH 09/09/24 10:59 3 ml Q4HRRT JORGE ALBERTO Administration Albuterol/Ipratropium 3 ml 08/02/24 16:45 08/18/24 10:17 Albuterol/Ipratropium (Duoneb) Rt Cindy 3 Ml Nebu INH 09/01/24 16:44 3 ml Q4HRRT JORGE ALBERTO Administration Amiodarone HCl 200 mg 08/03/24 09:00 08/18/24 08:58 Amiodarone Hcl 200 Mg Tablet PO 09/02/24 08:59 200 mg BID JORGE ALBERTO Administration Amlodipine Besylate 5 mg 08/02/24 14:20 08/02/24 15:52 Amlodipine Besylate 5 Mg Tablet PO 09/01/24 14:19 5 mg QDAY JORGE ALBERTO Administration Atorvastatin Calcium 80 mg 08/11/24 21:00 08/17/24 20:26 Atorvastatin Calcium 20 Mg Tablet PO 09/02/24 08:59 80 mg HS JORGE ALBERTO Administration Bumetanide 1 mg 08/17/24 09:00 08/18/24 08:57 Bumetanide Inj 0.25 Mg/Ml Vial 4 Ml IVP 09/16/24 08:59 1 mg QDAY JORGE ALBERTO Administration Dextrose 25 ml 08/02/24 16:39 Dextrose 50%-Water Inj 50 Ml Syringe IV 09/01/24 16:38 Q15MIN PRN BG 50-70 responsive npo pt Dextrose 50 ml 08/02/24 16:39 Dextrose 50%-Water Inj 50 Ml Syringe IV 09/01/24 16:38 Q15MIN PRN BG <50 OR BG <70 & pt unresponsive Ferrous Sulfate 325 mg 08/11/24 07:30 08/17/24 09:36 Ferrous Sulf 325 Mg Tablet PO 09/10/24 07:29 325 mg QOD JORGE ALBERTO Administration Glucagon 1 mg 08/02/24 16:39 Glucagon Inj 1 Mg Vial IM Q15MIN PRN BG <70, and no IV access Guaifenesin 100 mg 08/02/24 14:33 08/02/24 15:54 Guaifenesin Syrup 200 Mg/10 Ml Udc PO 09/01/24 14:32 100 mg QID PRN Administration COUGH Protocol Guaifenesin/Dextromethorphan 1 each 08/02/24 15:30 Guaifenesin/Dm Tablet PO 09/01/24 15:25 Q4HR PRN COUGH Heparin Sodium (Porcine) 5,000 unit 08/09/24 21:00 08/18/24 08:58 Heparin Sod Inj 5000 Unit/Ml Vial SC 08/23/24 20:59 5,000 unit BID JORGE ALBERTO Administration Insulin Human Lispro 0 unit 08/16/24 11:30 08/18/24 07:33 Insulin Lispro (Admelog) 1 Unit/0.01 Ml Unit SC 09/15/24 11:29 2 unit ACHS JORGE ALBERTO Administration Protocol Metoprolol Succinate 12.5 mg 08/06/24 21:00 08/18/24 08:57 Metoprolol Succinate Xl 25 Mg Tabcr PO 09/05/24 20:59 12.5 mg BID JORGE ALBERTO Administration Pantoprazole Sodium 40 mg 08/03/24 09:00 08/18/24 08:58 Pantoprazole Inj 40 Mg Vial IV 09/02/24 08:59 40 mg QDAY JORGE ALBERTO Administration Pharmacy Consult 1 each 08/11/24 13:04 Pharmacy Renal Dose Adjustment 1 Ea XX 09/10/24 13:03 PRN PRN CONSULT Sodium Chloride 3 ml 08/02/24 11:12 08/02/24 11:15 Sodium Chloride Rt Cindy 0.9% 3 Ml Nebu INH 09/01/24 11:11 3 ml PRN PRN Administration SOLN Trever Harrell is an 88-year-old female with a past medical history of hypertension, HFpEF (60 to 65%, 07/2024), CAD status post stent of RCA, aortic stenosis, carotid artery disease (status post endarterectomy in 2020 and 2023), A-fib (not on Eliquis, followed by Dr. Barton), and CKD. Admitted on 08/02/2024 for AHRF and was upgraded to ICU and eventually downgraded on 08/08/2024. #AHRF, secondary to CHF exacerbation and pneumonia #Pneumonia, secondary to influenza and likely superimposed bacterial pneumonia #Sepsis, secondary to pneumonia, resolved #Septic shock, resolved Influenza positive on admission. Urine culture negative, blood culture negative, sputum culture (+) Tia albicans. CXR showed moderate CHF and right base pneumonia ? Finished course of oseltamavir and Zosyn on 08/16 ? Wean off high flow as tolerated with goal of nasal cannula 5 L ? Scheduled DuoNebs ? Chest physiotherapy every 4 hours with Mucomyst ? Guaifenesin as needed ? Pulmonology consulted, appreciate recommendations #Acute CHF exacerbation, improving #HFpEF (60-65%) Echo 08/04/2024 : EF 60-65%. Moderate to severe calcific . Mild AR. Estimated RVSP 47 mmHg. ? Bumex 1 mg daily ? Keep K > 4 and magnesium > 2 ? Daily weights, strict I's and O's, fluid restriction, sodium restriction ? 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 Bumex 1 mg daily ? Nephrology consulted, appreciate recommendations #Atrial fibrillation, rate controlled #CAD s/p stents of right coronary artery #Hyperlipidemia [id number] 3. Currently not on Eliquis per Dr. Barton. Possible risk of bleeding and currently sinus. ? Metoprolol succinate XL 12.5 mg p.o. twice daily ? Amiodarone 200 mg p.o. twice daily (hold if HR less than 60) ? Atorvastatin 80 mg p.o. at bedtime #Hypertension ? Hold home amlodipine #Oropharyngeal dysphagia, improving Speech therapist recommended to discontinue NG tube and encouraged p.o. intake ? Dysphagia II diet #Normocytic anemia, in setting of CKD Iron 42 (L), TIBC 213 (L), iron saturation 19 (L), unsaturated iron binding 171 (L) ? Iron every other day ? Occult blood Hospital management: Disposition: continuing to titrate oxygen Diet: dysphagia 3 Lines: peripheral DVT prophylaxis: heparin SC GI prophylaxis: pantoprazole IV Leyva: placed CODE STATUS: DNR ----- Plan discussed with attending physician Dr. Mann and senior resident physician Dr. Bernardo Kong MD PGY-1 Internal Medicine Attending Provider Attestation/Addendum ILicha, , attest that I was physically present for the smith portions of the service and evaluated the patient with the resident and I reviewed and discussed the case with the resident and agree with the resident's findings and plans of care as documented above Patient seen and evaluated this AM. Instructed patient on how to use acapella device and encouraged to use it every hour. Patient states she wants to get up and walk, but was only able to stand with PT today. Explained to patient that she will need rehab upon discharge. She is currently on 4L/NC. Will continue with current management and anticipate DC within next 24-48h if patient remains stable on 2-3L/NC
--- NOTE | 2024-08-18 14:22 | PC.SS ---
Rounding Note: Plan is to d/c patient to SNF tomorrow. Patient utilizing 4L oxygen.
--- NOTE | 2024-08-18 15:23 | PC.SS ---
COMPUTER EDUCATION PROFESSOR updated patient's family that the following SNF's have accepted the patient for placement: [facility], [facility] and [facility]. Family to updated COMPUTER EDUCATION PROFESSOR on decision.
--- NOTE | 2024-08-18 15:53 | ESPR_ITS ---
Documentation for date of: 08/18/24 Subjective Subjective Interval history: Ms. Keller is a 88-year-old lady with past medical history of hypertension, dyslipidemia, aortic stenosis presented to the hospital with acute hypoxic respiratory failure and noted to have flu positive. Patient also seem to have some heart failure and was given Lasix and metolazone. However BUN, creatinine, sodium went up and diuretics were held. Patient was given gentle IV fluids. However she went into respiratory failure needing high flow at 40 L/min O2, atrial fibrillation and Dr. Montejo was consulted. Renal consultation requested in view of ANASTACIA/hyponatremia in the setting of fluid overload. Dr. Montejo at bedside. Patient currently on NG tube feeds with no free water flushes. Chest x-ray shows fluid overload/pneumonia. Current medications included amlodipine which was held, Zosyn, Lipitor, heparin, metoprolol, amiodarone, cough syrup. 08/11/2024 WBC 11.7, hemoglobin 10.4, platelets 157. Sodium 150, potassium 3.4, BUN 41, creatinine 1.5, calcium 10.3, phosphorus 2.7, magnesium 2.8, AST 109, ALT 115, alk phos 227, albumin 3.1. Chest x-ray showed worsening congestive heart failure. Patient currently seen in telemetry. Daughter, at bedside. 08/12/2024 patient currently seen in telemetry. She is more alert and awake. Sodium still remains at 153. Apparently she did not get free water flushes yesterday. Creatinine 1.7. Clinically she looks tad better today. Entire family at bedside. Continue with Bumex today. 1 dose of Diamox given due to metabolic alkalosis. 08/14/2024 patient currently seen in telemetry. Family at bedside. She remains on oxygen. Labs, medications reviewed. Creatinine tad elevated. Dr. Alston restarted her Bumex due to hypoxic respiratory failure. Sodium tad better. On free water flushes. Replace potassium. Elevated LFTs noted. Plan of care discussed with primary team. Apparently family requesting for her to be transferred to [facility]. 08/18/2024 patient currently seen in telemetry. Family at bedside. On 5 L oxygen. Resting comfortably. More alert and awake. Labs, medications reviewed. Family wants her to go to rehab. Creatinine 1.1. Continue present management. Review of Systems Review of Systems Narrative Review of Systems: Patient denies any chest pain. Shortness of breath and cough much better. Denies any nausea, vomiting. Does have gait imbalance. Exam Vital Signs Temp Pulse Resp BP Pulse Ox O2 Del Method O2 Flow Rate 36.2 C 80 20 115/48 L 100 Nasal Cannula 4 08/18/24 12:00 08/18/24 14:08 08/18/24 14:08 08/18/24 12:00 08/18/24 14:08 08/18/24 12:00 08/18/24 14:08 FiO2 35 08/18/24 12:00 Narrative Exam GENERAL APPEARANCE: Patient sick looking-looks younger than her stated age. Currently seen in telemetry. On 5 L oxygen NECK: Neck supple, no JVD or bruit CARDIOVASCULAR: Heart regular, no murmurs LUNGS/CHEST: Marked improvement in crackles ABDOMEN: Soft, nontender, nondistended. No masses. Normal bowel sounds. EXTREMITIES: No edema, clubbing or cyanosis. SKIN: Skin exam normal without any rashes MUSCULOSKELETAL: In bed NEUROLOGICAL : Alert and awake. Objective Labs 08/19/24 05:29 08/19/24 05:29 Labs: Laboratory Results - last 24 hr 08/14/24 08/18/24 04:45 05:19 WBC 9.1 RBC 3.25 L Hgb 9.1 L Hct 28.8 L MCV 89 MCH 28.0 MCHC 31.6 RDW Std Deviation 52.7 H Plt Count 246 D Neut % (Auto) 82 H Lymph % (Auto) 12 [place] % (Auto) 4 Eos % (Auto) 0 Baso % (Auto) 0 Neut # (Auto) 7.4 Lymph # (Auto) 1.1 [place] # (Auto) 0.4 Eos # (Auto) 0.0 Baso # (Auto) 0.0 Immature Gran # (Auto) 0.08 H Absolute Nucleated RBC 0.00 Immature Gran % 1 H Nucleated RBC % 0 Sodium 147 H Potassium 3.6 Chloride 110 H Carbon Dioxide 31.6 H Anion Gap 5 L BUN 32 H Creatinine 1.2 Estim Creat Clear Calc 28.3 L eGFR 44 L BUN/Creatinine Ratio 27 H Glucose 122 H Calculated Osmolality 300 H Calcium 8.9 Corrected Calcium 9.9 Phosphorus 3.4 Magnesium 2.6 Total Bilirubin 0.4 AST 160 H ALT 141 H Alkaline Phosphatase 120 H Total Protein 5.3 L Albumin 2.7 L Globulin 2.6 Albumin/Globulin Ratio 1.0 L Aspergillus Ag (EIA) NOT DETECTED Aspergillus Index Value <0.50 ABG Interpretation ABG results: 08/02/24 08/02/24 08/02/24 11:32 15:23 16:47 ABG pH 7.37 7.40 ABG pCO2 50 H 44 ABG pO2 36 L* 80 L D ABG HCO3 29 H 27 H ABG O2 Saturation 64 L 96 ABG Base Excess 3 2 VBG pH 7.48 VBG pCO2 35 L VBG pO2 46 VBG Base Excess 3 08/02/24 08/02/24 08/03/24 20:46 23:49 03:08 ABG pH 7.39 7.45 7.48 H ABG pCO2 47 37 D 34 ABG pO2 76 L 248 H D 160 H D ABG HCO3 29 H 25 25 ABG O2 Saturation 95 99 H 98 ABG Base Excess 3 2 2 VBG pH VBG pCO2 VBG pO2 VBG Base Excess 08/03/24 08/03/24 08/04/24 05:03 09:09 04:23 ABG pH 7.45 7.38 7.42 ABG pCO2 37 43 46 ABG pO2 55 L* D 51 L* 92 D ABG HCO3 26 26 30 H ABG O2 Saturation 90 L 85 L 97 ABG Base Excess 2 0 5 H VBG pH VBG pCO2 VBG pO2 VBG Base Excess 08/05/24 08/06/24 08/09/24 04:47 04:07 08:33 ABG pH 7.38 7.42 7.37 ABG pCO2 50 H 49 H 65 H ABG pO2 93 73 L D 67 L ABG HCO3 30 H 32 H 37 H ABG O2 Saturation 96 94 95 ABG Base Excess 4 H 7 H 10 H VBG pH VBG pCO2 VBG pO2 VBG Base Excess Assessment & Plan Additional Assessment & Plan Additional Plan: 1. Acute renal failure secondary to prerenal azotemia. Currently on Bumex 1 mg IV daily. Creatinine much better. Added albumin. Improved nutritional needs. 2. Hypoxia respiratory failure secondary to pneumonia and congestive heart failure. Compensated now. Add diuretics, on oxygen. 3. Aortic stenosis, severe. Under Dr. Montejo 4. Hypernatremia. Markedly improved 5. Congestive heart failure-was on Bumex and closely monitor sodium. Strict I&O's ordered. Echocardiogram last showed ejection fraction 60 to 65%. 6. Elevated LFTs-question passive liver congestion. Significant elevation noted. Liver ultrasound ordered. Plan of care discussed with primary team Plan of care discussed with family at bedside. 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 Long-term prognosis remains guarded.
[2024-08-18] MEDS: ATORVASTATIN CALCIUM 20 MG TABLET 80 MG PO (22:17)
[2024-08-18] MEDS: guaiFENesin SYRUP 200 MG/10 ML UDC 100 MG PO (23:28)
[2024-08-19] VITALS (12 sets, daily range): BP systolic 109–120; BP diastolic 43–75; PULSE 61–71; RESP 12–20; TEMP 36.1–36.3; O2SAT 94–100; BMI 23.6; BMI 11.0
--- NOTE | 2024-08-19 02:23 | ESPR_ITS ---
RE: REILLY TIDWELL : 1935 DATE OF SERVICE: 08/18/2024 SUBJECTIVE: The patient is an 88-year-old lady admitted to the hospital with multiple problems including shortness of breath and congestive heart failure with pneumonia, influenza, improving gradually. She is much better today. _ , not have any chest pain or shortness of breath. She also has severe aortic stenosis. OBJECTIVE: Vital Signs: Shows blood pressure 118/64, pulse 69. Neck: Supple. No JVD. Lungs: Clear. Heart: Sound regular, no gallops. Abdomen: Thin and soft. Extremities: No edema. IMPRESSION: * congestive heart failure, improved. * Pneumonia, improving. * Aortic stenosis. RECOMMENDATIONS: Continue medical management. For now, aortic stenosis will be managed medically, probably may require TAVR, but not immediately within next 6-12 months. DT: 23:16:07 TT: 02:17:00 Ref: [id number] - TID: [id number]
[2024-08-19] MEDS: guaiFENesin/DM TABLET 1 EACH PO (02:43)
[2024-08-19] MEDS: ALBUTEROL/IPRATROPIUM (Duoneb) RT SOL 3 ML NEBU INH ×4 (03:13→14:43)
[2024-08-19] MEDS: ACETYLCYSTEINE RT SOL 10% 4 ML NEBU 3 ML INH ×4 (03:13→14:43)
[2024-08-19 05:37] LABS: Basophils % (Auto) 0 % (0-2.5); Eosinophils # (Auto) 0.1 Thou/mm3 (0.0-0.5); Eosinophils % (Auto) 1 % (0-10); Hematocrit 28.5 % (36.0-46.0); Immature Granulocytes % (Auto) 1 % (0-0); Immature Granulocytes Auto 0.09 Thou/mm3 (0.00-0.00); Lymphocytes % (Auto) 11 % (10-50); Mean Corpuscular HGB Conc 31.6 g/dl (31.0-37.0); Mean Corpuscular Volume 89 fL (80-100); Monocytes # (Auto) 0.4 Thou/mm3 (0.0-0.8); Monocytes % (Auto) 5 % (0-12); Neutrophils # (Auto) 7.4 Thou/mm3 (1.8-7.7); Neutrophils % (Auto) 82 % (37-80); Nucleated Red Blood Cell # 0.02 Thou/mm3 (0.00-0.00); Nucleated Red Blood Cell % 0 /100 WBC (0); Platelet Count 289 Thou/mm3 (140-440); RDW Standard Deviation 52.1 fL (36.4-46.3); Red Blood Count 3.21 Miln/mm3 (4.00-5.20)
[2024-08-19 06:38] LABS: Alanine Aminotransferase 194 U/L (10-49); Albumin, Serum 2.9 gm/dL (3.4-4.8); Albumin/Globulin Ratio 1.1 (1.2-2.2); Alkaline Phosphatase 125 U/L (46-116); Anion Gap 7 (7-16); Aspartate Amino Transferase 239 U/L (0-34); BUN/Creatinine Ratio 26 Ratio (12-20); Bilirubin,Total 0.5 mg/dL (0.3-1.2); Blood Urea Nitrogen 29 mg/dL (9-23); Calcium 8.4 mg/dL (8.3-10.6); Calcium (Corrected) 9.3 mg/dL (8.5-10.1); Chloride 107 mMol/L (98-107); Creatinine (Component) 1.1 mg/dL (0.6-1.3); Estimated Creatinine Clearance 30.8 mL/min (>60); Globulin 2.6 gm/dL (2.3-3.5); Glucose 127 mg/dL (74-106); Magnesium 2.4 mg/dL (1.6-2.6); Osmolality,Calculated 294 (275-295); Phosphorous 3.1 mg/dL (2.4-5.1); Potassium 3.7 mMol/L (3.4-5.1); Sodium 144 mMol/L (136-145); Total Protein 5.5 gm/dL (5.7-8.2); eGFR 49 See Note
[2024-08-19] MEDS: AMIODARONE HCL 200 MG TABLET PO (09:50)
[2024-08-19] MEDS: BUMETANIDE INJ 0.25 MG/ML VIAL 4 ML 1 MG IVP (09:51)
[2024-08-19] MEDS: PANTOPRAZOLE INJ 40 MG VIAL IV (09:51)
[2024-08-19] MEDS: HEPARIN SOD INJ 5000 UNIT/ML VIAL SC (09:52)
[2024-08-19] MEDS: Ferrous Sulfate 300 MG/5 ML UDC 325 MG PO (10:28)
--- NOTE | 2024-08-19 11:06 | XR_ITS ---
Examination: Abdomen sonogram, Limited Date and time of exam: August 19, 2024 1240 hrs. Indications: Elevated liver enzymes on laboratory examination today Technique: Real-time fernandes scale transabdominal sonographic images of the upper abdomen obtained. Findings: Absent gallbladder Common bile duct 0.4 cm Pancreatic head 3.6 cm Liver 17.5 cm no focal liver lesions Normal hepatopedal portal venous flow Patent IVC Impression: Absent gallbladder Normal common bile duct Prominent pancreas, clinical correlation advised, as clinically warranted, CT abdomen postcontrast follow-up would best assess for pancreatitis, pancreatic mass Mild hepatomegaly no focal liver lesions
[2024-08-19] MEDS: INSULIN LISPRO (AdmeLOG) 1 UNIT/0.01 ML UNIT SC ×2 (11:28→17:21)
--- NOTE | 2024-08-19 11:43 | ESDS_ITS ---
<Statement entered by Licha Mann DO - 08/19/24 17:44> I, Licha Mann DO, attest that I was physically present for the smith portions of the service and evaluated the patient with the resident and I reviewed and discussed the case with the resident and agree with the resident's findings and plans of care as documented above Planned Discharge Date 08/19/24 DS: Providers Provider Date of admission: 08/02/24 13:39 Primary care physician: Physician No Primary/Family Admitting Provider: Tameka Monique MD Attending Provider on Admission: Licha Mann DO Consults: 08/02/24 15:28 Referral Respiratory Therapy Routine Comment: 08/06/24 16:18 Referral Speech Therapy Stat Comment: 08/08/24 07:29 Referral Physical Therapy Routine Comment: Physician Instructions: Instructions: ICU downgraded, general weakness and deconditioned. 08/09/24 16:22 Consult to Pulmonology Routine Comment: Hypernatremia and CHF Consulting Provider: Kelby Alston I 08/10/24 10:14 Referral - PROCESSING MANAGER [employer] Development Specialist Routine Comment: Altered. PLease assess for swallowing 08/11/24 10:59 Consult to Nephrology Routine Comment: Hypernatremia + CHF; started saline 250 cc, Consulting Provider: Estefani Springer 08/13/24 01:44 Referral Registered Dietitian Stat Comment: wound care 08/08/24, Lft heel dti. No referral yet Referral Wound Care Stat Comment: wound care 08/08/24, Lft heel dti. No referral yet Attending Provider on DC: Raza Kong MD Discharging Provider: Raza Kong MD DS: Diagnosis Problem List Completed Was Problem List Reviewed/Reconciled?: Yes Hospital Course Hospital Course Hospital course: Arianna Harrell is an 88-year-old female with a past medical history of hypertension, HFpEF (60 to 65%, 07/2024), CAD status post stent of RCA, aortic stenosis, carotid artery disease (status post endarterectomy in 2020 and 2023), A-fib (not on Eliquis, followed by Dr. Barton), colon cancer status post resection, and CKD 3B who was admitted on 08/02/2024 for AHRF and sepsis likely due to influenza pneumonia with superimposed bacterial infection and CHF exacerbation. Due to rapidly deteriorating respiratory status, decision was made to intubate and upgrade patient to ICU the day after admission. Cardiology was consulted for possible TAVR as previous echo noted moderate/severe with V-max gradient of 3.5 but was decided that there was no need at that point. She was started and finished a course of oseltamivir, diuresed with Bumex, and eventually extubated on 08/06 and downgraded to floors on 08/08. Creatinine improved from 1.8 to 1.6 and LFTs continue to downtrend with diuresis. However, patient appeared dry and over diuresed and so Bumex was held. After being downgraded patient suddenly required increased oxygen, eventually up to high flow nasal cannula and was lethargic and responding slowly to questions. Also found to be persistently hypernatremic and so nephrology was consulted who restarted Bumex with water flushes. Repeat chest x-ray showed worsening vascular congestion as well. Given prognosis, goals of care discussion took place and patient is made DNR/DNI. Patient over time became more awake, alert, and was able to be transitioned to nasal cannula on 08/17. Creatinine and sodium all improved and patient clinically appeared much more improved to family. LFTs did begin to increase and so spoke to cardiology on day of discharge and will change amiodarone 200 mg twice daily to daily and stop atorvastatin. Additionally patient to be discharged with spironolactone 25 mg daily, metoprolol 25 mg daily, and bumetanide 1 mg daily. She will follow-up with cardiology in 2 to 3 weeks. Diagnoses during admission: #AHRF, secondary to CHF exacerbation and pneumonia #Pneumonia, secondary to influenza and likely superimposed bacterial pneumonia #Sepsis, secondary to pneumonia, resolved #Septic shock, resolved #Acute CHF exacerbation, improving #HFpEF (60-65%) #ANASTACIA on CKD IIIb #Hypernatremia, resolved #Metabolic alkalosis, secondary to diuretics #Atrial fibrillation, rate controlled #CAD s/p stents of right coronary artery #Hyperlipidemia #Hypertension #Oropharyngeal dysphagia, improving #Normocytic anemia, in setting of CKD Discharge instructions: -Follow-up with PCP within 1 week of discharge -Follow-up with cardiology within 2-3 weeks of discharge -Take metoprolol succinate 12.5 mg orally twice daily -Take amiodarone 200 mg orally once daily -Take spironolactone 25 mg daily -Continue taking bumetanide and calcitriol as prescribed -Stop taking amlodipine, atorvastatin, and furosemide (Lasix) -Return to the ED if symptoms worsen or recur Time Spent with Patient Time attestation: Total time spent providing and/or coordinating discharge services: >30min Exam Vital Signs Temp Pulse Resp BP Pulse Ox O2 Del Method O2 Flow Rate 97.0 F 67 15 109/75 100 Nasal Cannula 3 08/19/24 08:00 08/19/24 10:12 08/19/24 10:12 08/19/24 09:51 08/19/24 10:12 08/19/24 08:00 08/19/24 10:12 FiO2 35 08/19/24 08:00 Narrative Exam General: AOx3, no acute distress, able to speak full sentences HEENT: NC/AT, mucous membranes moist, bilateral sclera anicteric Cardiovascular: regular rate and rhythm, S1/S2 present, no murmurs appreciated Pulmonary: Diffuse Rales throughout left lung martinez Abdominal: soft, non-tender, non-distended, no rebound/guarding, normal bowel sounds present Musculoskeletal: normal ROM, no peripheral edema Skin: warm and dry, intact, no rashes Neuro: CN II-XII intact, no focal deficits Discharge Plan Plan Patient Disposition: Xfer Skilled Nsg Fac (SNF) Patient condition on transfer: Stable Prescriptions/Referrals Prescriptions/Med Rec: New metoprolol succinate 25 mg tablet extended release 24 hr 12.5 mg PO BID Qty: 60 1RF spironolactone 25 mg tablet 25 mg PO QDAY Qty: 30 0RF guaifenesin 100 mg/5 mL liquid 200 mg PO Q4H PRN (Reason: congestion) Qty: 1000 0RF Continued bumetanide 1 mg tablet 1 mg PO DAILY calcitriol 0.25 mcg capsule 0.25 mcg PO DAILY Changed amiodarone 200 mg Tablet 200 mg PO QDAY Qty: 60 0RF Discontinued amlodipine [Norvasc] 5 MG tablet 5 mg PO QDAY Qty: 0 atorvastatin 80 mg tablet 80 mg PO QDAY furosemide 40 mg tablet 40 mg PO QDAY Qty: 30 0RF metoprolol succinate 25 mg tablet extended release 24 hr 25 mg PO DAILY amlodipine 5 mg tablet 5 mg PO DAILY Referrals: No Primary/Family,Physician [Primary Care Provider] - Patient/Caregiver Discharge Instructions Other Discharge Activity Instructions:: -Follow-up with PCP within 1 week of discharge -Follow-up with cardiology within 2-3 weeks of discharge -Take metoprolol succinate 12.5 mg orally twice daily -Take amiodarone 200 mg orally once daily -Take spironolactone 25 mg daily -Continue taking bumetanide and calcitriol as prescribed -Stop taking amlodipine, atorvastatin, and furosemide (Lasix) -Return to the ED if symptoms worsen or recur -Seguimiento con PCP dentro de 1 semana del reyes -Seguimiento con cardiolog?a dentro de las 2-3 semanas posteriores al reyes. -[place] succinato de metoprolol 12,5 mg por v?a oral dos veces al d?a. -[place] 200 mg de amiodarona por v?a oral ross vez al d?a. -Suri espironolactona 25 mg al d?a. -Continuar tomando bumetanida y calcitriol seg?n lo prescrito. -Deje de suri amlodipino, atorvastatina y furosemida (Lasix) -Regresar al servicio de urgencias si los s?ntomas empeoran o recurren. Education Materials: Heart Failure Dc, Heart Failure Sleep Problems, Heart Failure Print Language: Kyrgyz Stand Alone Forms: Abbie Award Info., Patient Portal Info Letter Discharge Order Discharge Orders: Discharge (Routine); Ordered 08/19/24 Ordered By: Raza Kong Quality Discharge Quality Measures VTE prophylaxis
--- NOTE | 2024-08-19 11:46 | ESPR_ITS ---
Documentation for date of: 08/19/24 Subjective Subjective Interval history: Ms. Keller is a 88-year-old lady with past medical history of hypertension, dyslipidemia, aortic stenosis presented to the hospital with acute hypoxic respiratory failure and noted to have flu positive. Patient also seem to have some heart failure and was given Lasix and metolazone. However BUN, creatinine, sodium went up and diuretics were held. Patient was given gentle IV fluids. However she went into respiratory failure needing high flow at 40 L/min O2, atrial fibrillation and Dr. Montejo was consulted. Renal consultation requested in view of ANASTACIA/hyponatremia in the setting of fluid overload. Dr. Montejo at bedside. Patient currently on NG tube feeds with no free water flushes. Chest x-ray shows fluid overload/pneumonia. Current medications included amlodipine which was held, Zosyn, Lipitor, heparin, metoprolol, amiodarone, cough syrup. 08/11/2024 WBC 11.7, hemoglobin 10.4, platelets 157. Sodium 150, potassium 3.4, BUN 41, creatinine 1.5, calcium 10.3, phosphorus 2.7, magnesium 2.8, AST 109, ALT 115, alk phos 227, albumin 3.1. Chest x-ray showed worsening congestive heart failure. Patient currently seen in telemetry. Daughter, at bedside. 08/12/2024 patient currently seen in telemetry. She is more alert and awake. Sodium still remains at 153. Apparently she did not get free water flushes yesterday. Creatinine 1.7. Clinically she looks tad better today. Entire family at bedside. Continue with Bumex today. 1 dose of Diamox given due to metabolic alkalosis. 08/14/2024 patient currently seen in telemetry. Family at bedside. She remains on oxygen. Labs, medications reviewed. Creatinine tad elevated. Dr. Alston restarted her Bumex due to hypoxic respiratory failure. Sodium tad better. On free water flushes. Replace potassium. Elevated LFTs noted. Plan of care discussed with primary team. Apparently family requesting for her to be transferred to [facility]. 08/19/2024 patient currently seen in telemetry. Family at bedside. On 5 L oxygen. Resting comfortably. More alert and awake. Labs, medications reviewed. Family wants her to go to rehab. Creatinine 1.1. Continue present management. Review of Systems Review of Systems Narrative Review of Systems: Patient denies any chest pain. Shortness of breath and cough much better. Denies any nausea, vomiting. Does have gait imbalance. Exam Vital Signs Temp Pulse Resp BP Pulse Ox O2 Del Method O2 Flow Rate 36.1 C 67 15 109/75 100 Nasal Cannula 3 08/19/24 08:00 08/19/24 10:12 08/19/24 10:12 08/19/24 09:51 08/19/24 10:12 08/19/24 08:00 08/19/24 10:12 FiO2 35 08/19/24 08:00 Narrative Exam GENERAL APPEARANCE: Patient sick looking-looks younger than her stated age. Currently seen in telemetry. On 3 L oxygen NECK: Neck supple, no JVD or bruit CARDIOVASCULAR: Heart regular, no murmurs LUNGS/CHEST: Marked improvement in crackles ABDOMEN: Soft, nontender, nondistended. No masses. Normal bowel sounds. EXTREMITIES: No edema, clubbing or cyanosis. SKIN: Skin exam normal without any rashes MUSCULOSKELETAL: In bed NEUROLOGICAL : Alert and awake. Objective Labs 08/19/24 05:29 08/19/24 05:29 Labs: Laboratory Results - last 24 hr 08/19/24 05:29 WBC 9.0 RBC 3.21 L Hgb 9.0 L Hct 28.5 L MCV 89 MCH 28.0 MCHC 31.6 RDW Std Deviation 52.1 H Plt Count 289 D Neut % (Auto) 82 H Lymph % (Auto) 11 Cherry % (Auto) 5 Eos % (Auto) 1 Baso % (Auto) 0 Neut # (Auto) 7.4 Lymph # (Auto) 1.0 Cherry # (Auto) 0.4 Eos # (Auto) 0.1 Baso # (Auto) 0.0 Immature Gran # (Auto) 0.09 H Absolute Nucleated RBC 0.02 H Immature Gran % 1 H Nucleated RBC % 0 Sodium 144 Potassium 3.7 Chloride 107 Carbon Dioxide 30.0 Anion Gap 7 BUN 29 H Creatinine 1.1 Estim Creat Clear Calc 30.8 L eGFR 49 L BUN/Creatinine Ratio 26 H Glucose 127 H Calculated Osmolality 294 Calcium 8.4 Corrected Calcium 9.3 Phosphorus 3.1 Magnesium 2.4 Total Bilirubin 0.5 AST 239 H ALT 194 H Alkaline Phosphatase 125 H Total Protein 5.5 L Albumin 2.9 L Globulin 2.6 Albumin/Globulin Ratio 1.1 L ABG Interpretation ABG results: 08/02/24 08/02/24 08/02/24 11:32 15:23 16:47 ABG pH 7.37 7.40 ABG pCO2 50 H 44 ABG pO2 36 L* 80 L D ABG HCO3 29 H 27 H ABG O2 Saturation 64 L 96 ABG Base Excess 3 2 VBG pH 7.48 VBG pCO2 35 L VBG pO2 46 VBG Base Excess 3 08/02/24 08/02/24 08/03/24 20:46 23:49 03:08 ABG pH 7.39 7.45 7.48 H ABG pCO2 47 37 D 34 ABG pO2 76 L 248 H D 160 H D ABG HCO3 29 H 25 25 ABG O2 Saturation 95 99 H 98 ABG Base Excess 3 2 2 VBG pH VBG pCO2 VBG pO2 VBG Base Excess 08/03/24 08/03/24 08/04/24 05:03 09:09 04:23 ABG pH 7.45 7.38 7.42 ABG pCO2 37 43 46 ABG pO2 55 L* D 51 L* 92 D ABG HCO3 26 26 30 H ABG O2 Saturation 90 L 85 L 97 ABG Base Excess 2 0 5 H VBG pH VBG pCO2 VBG pO2 VBG Base Excess 08/05/24 08/06/24 08/09/24 04:47 04:07 08:33 ABG pH 7.38 7.42 7.37 ABG pCO2 50 H 49 H 65 H ABG pO2 93 73 L D 67 L ABG HCO3 30 H 32 H 37 H ABG O2 Saturation 96 94 95 ABG Base Excess 4 H 7 H 10 H VBG pH VBG pCO2 VBG pO2 VBG Base Excess Assessment & Plan Additional Assessment & Plan Additional Plan: 1. Acute renal failure secondary to prerenal azotemia. Currently on Bumex 1 mg IV daily. Creatinine much better. Can be transition to p.o. diuretics on discharge. Added albumin. Improved nutritional needs. 2. Hypoxia respiratory failure secondary to pneumonia and congestive heart failure. Compensated now. Add diuretics, on oxygen. 3. Aortic stenosis, severe. Under Dr. Montejo 4. Hypernatremia. Markedly improved 5. Congestive heart failure-was on Bumex and closely monitor sodium. Strict I&O's ordered. Echocardiogram last showed ejection fraction 60 to 65%. 6. Elevated LFTs-question passive liver congestion. Significant elevation noted. Liver ultrasound ordered. Plan of care discussed with primary team Plan of care discussed with family at bedside. 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 Long-term prognosis remains guarded.
--- NOTE | 2024-08-19 11:58 | PC.SS ---
SS follow up note; SS followed up with patient's daughter, Lisbeth in regards to choice of SNF. Lisbeth reported she needs to talk to her sister's in regards to what facility they would like her mother to discharge too. SS informed Lisbeth there was Discharge orders and SS would follow up with her within 1HR to follow up on chosen SNF. Lisbeth Verbalized understanding.
--- NOTE | 2024-08-19 13:11 | PC.SS ---
GATE AGENT conducted phone contact with patient's daughter, Lisbeth; to confirm SNF choice. Daughter in route to tour [facility]. Following tour daughter will inform social services director of preferred facility. automatic data processing planner updated.
--- NOTE | 2024-08-19 14:11 | PC.SS ---
Rounding Note: Plan is for the patient to d/c to SNF today.
--- NOTE | 2024-08-19 14:13 | PC.SS ---
Addendum entered by Aminata García 08/19/24 14:44: SS was contacted by [facility] informing SS that ETA for transportation will be for [id number]. SS notified patient's nurse Altagracia. SS also informed patient's daughter, Lisbeth as well as left Lulú from [facility] a voicemail with ETA. SS will stand by for further needs. Original Note: SS follow up note; SS received a call from patient's daughter Lisbeth and informed SS that they would like patient to discharge to [facility]. SS contacted Lulú from [facility] and she informed SS they are able to accept patient. SS contacted [facility], Reference # [id number].
[2024-08-19] MEDS: guaiFENesin SYRUP 200 MG/10 ML UDC 100 MG PO (18:42)
--- NOTE | 2024-08-19 19:55 | ESPR_ITS ---
RE: JOSEPHOSORIOJENNYFERREILLY CHU : 1935 DATE OF SERVICE: 08/19/2024 SUBJECTIVE: The patient is an 88-year-old elderly female with history of aortic stenosis, influenza pneumonia, congestive heart failure, admitted to the hospital with shortness of breath, and prolonged hospitalization, continues to improve. OBJECTIVE: Vital Signs: Blood pressure 117/60, pulse 70_, and respirations 16. . Neck: Supple. No JVD. Lungs: Decreased breath sounds. No rales or rhonchi. Heart: Heart sounds regular. Loud systolic murmur is heard. Abdomen: Thin and soft. Extremities: No edema. IMPRESSION: 1. Acute decompensated congestive heart failure, improved. 2. Severe aortic stenosis. 3. History of paroxysmal atrial fibrillation. 4. Coronary artery disease status post stent placement. RECOMMENDATIONS: 1. We will discontinue atorvastatin because of LFT abnormality but continue amiodarone, also diuretic therapy. 2. I will see her for followup in 2-3 weeks. DT: 17:48:58 TT: 19:55:00 Ref: [id number] - TID: [id number] MTDD
--- NOTE | 2024-08-21 09:15 | ESPR_ITS ---
RE: REILLY TIDWELL : 1935 DATE OF SERVICE: 08/17/2024 SUBJECTIVE: The patient is an 88-year-old lady with history of aortic stenosis, CAD, stent placement,__ influenza pneumonia, congestive heart failure, continues to improve. In fact, her oxygen saturation is improving despite reducing oxygen. She is not on high flow oxygen anymore, PHYSICAL EXAMINATION: General: Her examination shows she is in sinus rhythm. Vital Signs: Her blood pressure is 128/46, respirations 18, and saturating 97% on nasal cannula. Neck: Supple. No JVD. Chest: Symmetrical. Lungs: Decreased breath sounds. Bilateral crackles at the base. Heart: S1 and S2, regular, distant. Abdomen: Thin and soft. Extremities: No edema. Genitourinary and Rectal: Not performed. LABORATORY DATA: Hemoglobin 8.6 and hematocrit is 27. Chemistry panel shows creatinine is 1.4, BUN is 39, improving, and sodium 144. IMPRESSION: 1. Influenza pneumonia, improving. 2. Congestive heart failure, improving. 3. Severe aortic stenosis. RECOMMENDATIONS: Continue medical management and she is definitely making steady progress. Monitor and correction of the electrolyte imbalance. She does have slightly abnormal LFTs, so we will continue to trend them. DT: 15:02:04 TT: 15:21:00 Ref: [id number] - TID: [id number] MTDD
== END 2024-08-19 18:48 | disposition skilled nursing facility (03) | DRG 871 ==
LOC: SERX 13:09 → SERHOLD 14:07 → S2NX 16:32 → S2SX 22:30 → S2NX 08-07 10:09
PROVIDERS: Internal Medicine; Nurse Practitioner Family; Physician Assistant; Student in an Organized Health Care Education/Training Program; Admitting Provider Student in an Organized Health Care Education/Training Program; Emergency Provider Emergency Medicine; Visit Provider Internal Medicine
DX: A41.89 Other specified sepsis (principal); I50.33 Acute on chronic diastolic (congestive) heart failure; J10.08 Influenza due to other identified influenza virus with other specified pneumonia; J80 Acute respiratory distress syndrome; J15.9 Unspecified bacterial pneumonia; R57.8 Other shock; R65.21 Severe sepsis with septic shock; I13.0 Hypertensive heart and chronic kidney disease with heart failure and stage 1 through stage 4 chronic kidney disease, or unspecified chronic kidney disease; G93.40 Encephalopathy, unspecified; N17.9 Acute kidney failure, unspecified; E87.0 Hyperosmolality and hypernatremia; I48.91 Unspecified atrial fibrillation; Z85.038 Personal history of other malignant neoplasm of large intestine; E11.22 Type 2 diabetes mellitus with diabetic chronic kidney disease; N18.32 Chronic kidney disease, stage 3b; Z95.5 Presence of coronary angioplasty implant and graft; I25.10 Atherosclerotic heart disease of native coronary artery without angina pectoris; I35.0 Nonrheumatic aortic (valve) stenosis; D63.1 Anemia in chronic kidney disease; E87.6 Hypokalemia; E11.51 Type 2 diabetes mellitus with diabetic peripheral angiopathy without gangrene; Z66 Do not resuscitate; T50.2X5A Adverse effect of carbonic-anhydrase inhibitors, benzothiadiazides and other diuretics, initial encounter; E86.1 Hypovolemia; R13.12 Dysphagia, oropharyngeal phase
CPT/HCPCS: 36415; 36600; 71045; 76705; 80048; 80053; 80061; 80074; 80202; 82140; 82803; 83036; 83540; 83550; 83605; 83735; 83880; 84100; 84145; 84146; 84295; 84443; 84484; 85025; 86331; 86635; 87040; 87081; 87086; 87106; 87205; 87305; 87449; 87502; 92526; 92610; 93005; 93306; 94002; 94003; 94640; 94644; 94660; 94664; 94667; 94762; 96374; 97161; 99285; A9270; J0330; J1120; J1643; J1815; J1940; J2470; J2543; J2704; J2919; J3010; J3370; J3480; J3490; J7050; J7060; J7070; J7120; J1644

== ENCOUNTER → 2024-10-23 | Outpatient (CLI) | payer MEDICARE, MEDICAID, SELFPAY ==
--- NOTE | 2024-10-23 13:42 | XR_ITS ---
Examination: PA lateral chest 2 views Technique: Upright PA lateral chest 2 views Exam date and time: October 23, 2024 1343 hrs. Indications: Pneumonia diagnosis July 2024. Findings: Pneumonia in the right upper lobe has cleared Mild enlargement cardiac contour with moderate vascular congestion Prominent osteopenia Impression: Pneumonia right upper lobe has cleared
== END | disposition home or self-care (01) ==
PROVIDERS: PCP Family Medicine; Referring Provider Nurse Practitioner Family; Visit Provider Nurse Practitioner Family
DX: J18.9 Pneumonia, unspecified organism (principal)
CPT/HCPCS: 71046

== ENCOUNTER → 2024-12-25 | Outpatient (CLI) | payer MEDICARE, MEDICAID, SELFPAY ==
--- NOTE | 2024-12-25 15:22 | XR_ITS ---
Examination: PA lateral chest 2 views TECHNIQUE: Upright PA lateral chest 2 views Exam date and time: December 25, 2024 1532 hours INDICATIONS: Coughing beginning 5 months ago. FINDINGS: Mild prominence left ventricle Accentuation bronchovascular markings. No lobar pneumonia Prominent osteopenia IMPRESSION: Bronchitis pattern
== END | disposition home or self-care (01) ==
PROVIDERS: PCP Nurse Practitioner Family; Referring Provider Nurse Practitioner Family; Visit Provider Nurse Practitioner Family
DX: R05.3 Chronic cough (principal)
CPT/HCPCS: 71046

== ENCOUNTER → 2025-01-22 | Outpatient (CLI) | payer MEDICARE, MEDICAID, SELFPAY ==
[2025-01-22 09:40] LABS: Basophils % (Auto) 1 % (0-2.5); Eosinophils # (Auto) 0.1 Thou/mm3 (0.0-0.5); Eosinophils % (Auto) 3 % (0-10); Hematocrit 32.8 % (36.0-46.0); Hemoglobin 10.8 g/dL (12.0-16.0); Immature Granulocytes % (Auto) 0 % (0-0); Immature Granulocytes Auto 0.01 Thou/mm3 (0.00-0.00); Lymphocytes # (Auto) 2.3 Thou/mm3 (1.0-4.8); Lymphocytes % (Auto) 43 % (10-50); Mean Corpuscular HGB Conc 32.9 g/dl (31.0-37.0); Mean Corpuscular Volume 85 fL (80-100); Monocytes # (Auto) 0.4 Thou/mm3 (0.0-0.8); Monocytes % (Auto) 8 % (0-12); Neutrophils # (Auto) 2.4 Thou/mm3 (1.8-7.7); Neutrophils % (Auto) 46 % (37-80); Nucleated Red Blood Cell % 0 /100 WBC (0); Platelet Count 171 Thou/mm3 (140-440); RDW Standard Deviation 50.4 fL (36.4-46.3); Red Blood Count 3.86 Miln/mm3 (4.00-5.20); White Blood Count 5.3 Thou/mm3 (3.6-11.0)
[2025-01-22 09:50] LABS: Glucose Estimated Average 126 mg/dL (80-131)
[2025-01-22 10:01] LABS: Alanine Aminotransferase 20 U/L (10-49); Albumin/Globulin Ratio 1.7 (1.2-2.2); Alkaline Phosphatase 92 U/L (46-116); Anion Gap 10 (7-16); Aspartate Amino Transferase 29 U/L (0-34); BUN/Creatinine Ratio 18 Ratio (12-20); Bilirubin,Total 0.6 mg/dL (0.3-1.2); Blood Urea Nitrogen 28 mg/dL (9-23); Calcium 9.1 mg/dL (8.3-10.6); Calcium (Corrected) 9.1 mg/dL (8.5-10.1); Carbon Dioxide 31.1 mMol/L (20.0-31.0); Cardiac Risk Estimate 2.8 RATIO (3.7-5.6); Chloride 106 mMol/L (98-107); Cholesterol 193 mg/dL (132-200); Creatinine (Component) 1.6 mg/dL (0.6-1.3); Free T4 (Free Thyroxine) 1.84 ng/dL (0.89-1.76); Globulin 2.4 gm/dL (2.3-3.5); Glucose 98 mg/dL (74-106); HDL Cholesterol 68 mg/dL (40-60); LDL Cholesterol,Calculated 103 mg/dL (0-130); Osmolality,Calculated 297 (275-295); Potassium 4.8 mMol/L (3.4-5.1); Sodium 147 mMol/L (136-145); Thyroid Stimulating Hormone 1.59 uIU/mL (0.55-4.78); Total Protein 6.4 gm/dL (5.7-8.2); Triglycerides 108 mg/dL (30-150); eGFR 31 See Note
[2025-01-22 10:02] LABS: Iron 39 mcg/dL (50-170); Total Iron Binding Capacity 353 mcg/dL (250-425)
[2025-01-22 10:03] LABS: Folate 21.18 ng/mL (>5.38); Vitamin B12 1095 pg/mL (211-911); Vitamin D 25 Hydroxy Total 41.7 ng/mL (7.3-40.2)
[2025-01-28 07:17] LABS: Direct LDL* 110 mg/dL (<100)
== END | disposition home or self-care (01) ==
PROVIDERS: PCP Family Medicine; Referring Provider Nurse Practitioner Family; Visit Provider Nurse Practitioner Family
DX: E11.21 Type 2 diabetes mellitus with diabetic nephropathy (principal); E55.9 Vitamin D deficiency, unspecified; D50.9 Iron deficiency anemia, unspecified; Z13.220 Encounter for screening for lipoid disorders; R53.81 Other malaise; R53.83 Other fatigue
CPT/HCPCS: 36415; 80053; 80061; 82306; 82607; 82746; 83036; 83540; 83550; 83721; 84439; 84443; 85025

== ENCOUNTER 2025-01-25 05:51 | Inpatient (IN) | payer MEDICARE, MEDICAID, SELFPAY ==
[2025-01-25] VITALS (16 sets, daily range): BP systolic 131–193; BP diastolic 58–91; PULSE 67–93; RESP 16–88; TEMP 36.3–36.8; O2SAT 75–99; BMI 24.7
--- NOTE | 2025-01-25 05:58 | XR_ITS ---
Examination: AP chest single view Technique one AP portable upright chest single view Date and time: January,, 06 hours Comparison December 25, 2024 INDICATIONS: Shortness of breath today. FINDINGS: Prominent CHF Mild enlargement cardiac contour, Central vascular engorgement, bilateral extensive pulmonary edema Prominent osteopenia IMPRESSION: Prominent CHF Consider superimposed bilateral pneumonia
[2025-01-25 06:16] LABS: Lactate (Lactic Acid) 2.8 mMol/L (0.4-2.0)
[2025-01-25] MEDS: ALBUTEROL/IPRATROPIUM (Duoneb) RT SOL 3 ML NEBU 6 ML INH (06:25)
[2025-01-25] MEDS: MethylPREDNISolone SOD SUCC 62.5 MG/ML 2ML VIAL 125 MG IVP (06:34)
[2025-01-25] MEDS: Magnesium Sulfate 2 GM Ivpb 2 GM/50 ML BAG IV (06:34)
[2025-01-25 06:47] LABS: Sed Rate (ESR) 36 mm/hr (0-30)
--- NOTE | 2025-01-25 06:48 | PD.EDSOB ---
ED SOB =RME/HPI General Chief Complaint: Shortness of Breath/Dyspnea Stated Complaint: DIFFICULTY BREATHING Time Seen by Provider: 01/25/25 06:14 Arrival date/time: 01/25/25 05:51 Limitations: no limitations RME / HPI RME / HPI Narrative: 89 year old female with history of HFpEF 60-65% 07/2024, CAD s/p PCI, A-fib, hypertension, diabetes, colon cancer s/p resection, and CKD presents to the ED for evaluation of acute shortness of breath that began at 4:00 AM today, waking her from sleep. She describes waking up gasping for air, and according to her daughter, the patient?s oxygen saturation was 69% on room air at that time. Daughter administered 2L of oxygen via nasal cannula, which led to minimal improvement, raising her saturation to 73%. Patient denies using inhalers or nebulizers, and states she only uses oxygen at home as needed. Patient reported feeling at her usual state of health last night before going to bed. Denies recent illness, fever, chills, chest pain, abdominal pain, nausea, vomiting, diarrhea, or urinary symptoms. Related Data Home Medications ?Medication ?Instructions ?Recorded ?Confirmed bumetanide 1 mg tablet 1 mg PO DAILY 08/02/24 08/17/24 calcitriol 0.25 mcg capsule 0.25 mcg PO DAILY 08/02/24 08/17/24 Previous Rx's ?Medication ?Instructions ?Recorded metoprolol succinate 25 mg 12.5 mg (1/2 x 25 mg) PO BID #60 08/18/24 tablet,extended release 24 hr tabs amiodarone 200 mg tablet 200 mg PO QDAY #60 tabs 08/19/24 guaifenesin 100 mg/5 mL oral liquid 200 mg (10 mL) PO Q4H PRN 08/19/24 congestion #1,000 mL spironolactone 25 mg tablet 25 mg PO QDAY #30 tabs 08/19/24 Allergies Allergy/AdvReac Type Severity Reaction Status Date / Time No Known Allergies Allergy Verified 01/25/25 06:59 Review of Systems Review of Systems Systems Reviewed: All systems reviewed, normal except as documented Past Medical History Past Medical History NEUROLOGIC: Positive Neurological Disorders CARDIAC: Positive Cardiac Disorders, Heart Murmur, Coronary Artery Disease, Hypercholesterolemia, Congestive Heart Failure, Edema and Hypertension RESPIRATORY: Positive Pneumonia GASTROINTESTINAL: Positive Colorectal Cancer REPRODUCTIVE: Positive Previous Pregnancies MUSCULOSKELETAL: Positive Musculoskeletal Disorders and Arthritis ENT: Positive Cataracts HEMATOLOGIC: Positive Blood Disorders OTHER HISTORY: Positive Hospitalization, Falls, Blood Transfusions, Chemotherapy, Radiation Therapy, Cancer and Colorectal Cancer Family History FAMILY HISTORY: Positive Family Cardiac Disorders Surgical History SURGICAL: Positive Cardiac Surgery, Coronary Stent, Cardiac Catheterization, Angiogram, Eye Surgery and Abdominal Surgery Social History SMOKING STATUS: Never smoker ED Exam General Limitations: Present no limitations General appearance: Present alert and other (Mild respiratory distress ) Head Head exam: Present atraumatic, normocephalic and normal inspection Eye Eye exam: Present normal appearance, PERRL and EOMI ENT ENT exam: Present normal exam, normal oropharynx and mucous membranes moist Neck Neck exam: Present normal inspection, full ROM and trachea midline Chest Chest inspection: Present normal inspection and symmetric chest wall rise Respiratory Respiratory exam: Present other (moving air moderately well, upper airway rhonchi that sounds more stridourous) Cardiovascular Cardiovascular exam: Present regular rate, normal rhythm and normal heart sounds Abdominal Exam Abdominal exam: Present soft and normal bowel sounds Extremities Exam Extremities exam: Present normal inspection and full ROM Back Exam Back exam: Present normal inspection and full ROM Neurological Exam Neurological exam: Present alert, oriented X3 and CN II-XII intact Psychiatric Psychiatric exam: Present normal affect and normal mood Skin Skin exam: Present warm, dry, intact and normal color Course Course Course Narrative: chest xray ordered to help determine etiology of shortness of breath. Quality Measures none Orders Category Date Time Status Bedside COVID-19 Antigen Test NOW Care 01/25/25 05:57 Active Bedside Influenza A&B Antigen Test NOW Care 01/25/25 05:57 Completed COVID-19 Screening Questionnaire NOW Care 01/25/25 10:41 Active Picker Q4H START 00 Care 01/25/25 05:55 Active Decision to Admit X1 Care 01/25/25 10:40 Active EKG (ED ONLY) *Do not use* NOW Care 01/25/25 05:55 Completed Saline [Insert IV] NOW Care 01/25/25 05:57 Active Straight [In and Out Catheter] X1 Care 01/25/25 05:57 Completed EKG (ED Only) Stat Exams 01/25/25 05:55 Ordered XR chest 1V portable Stat Exams 01/25/25 05:58 Completed ABG [Arterial Blood Gas] Stat Lab 01/25/25 06:47 Completed BNP [B-Type Natriuretic Peptide] Stat Lab 01/25/25 07:40 Completed Bilirubin,Direct Stat Lab 01/25/25 06:10 Completed Blood Culture (Lab) Stat Lab 01/25/25 07:10 Received CBC Stat Lab 01/25/25 06:10 Completed CMP [Comprehensive Metabolic Panel] Stat Lab 01/25/25 06:10 Completed CRP [C-Reactive Protein] Stat Lab 01/25/25 06:10 Completed D-Dimer Stat Lab 01/25/25 06:10 Completed ESR [Sed Rate (ESR)] Stat Lab 01/25/25 06:10 Completed Free T4 (Free Thyroxine) Stat Lab 01/25/25 06:10 Completed Lactate (Lactic Acid) Stat Lab 01/25/25 06:10 Completed Lactic Acid, 3 HR Stat Lab 01/25/25 09:49 Completed Magnesium Stat Lab 01/25/25 06:10 Completed PT [Prothrombin Time with INR] Stat Lab 01/25/25 06:10 Completed PTT [Partial Thromboplastin Time] Stat Lab 01/25/25 06:10 Completed Path Review Blood Smear Stat Lab 01/25/25 06:10 Completed Procalcitonin Stat Lab 01/25/25 06:10 Completed RSV [Respiratory Syncytial Virus Ag] Stat Lab 01/25/25 07:14 Completed TSH [Thyroid Stimulating Hormone] Stat Lab 01/25/25 06:10 Completed Troponin I Stat Lab 01/25/25 06:10 Completed UA, C/S IF [Urinalysis, C/S if Indicated] Stat Lab 01/25/25 06:53 Completed Albuterol/Ipratr Rt Cindy [Duoneb Rt Cindy] Med 01/25/25 05:57 Discontinued 6 ml INH X1 ONE Doxycycline Inj [Vibramycin Inj] 100 mg Med 01/25/25 08:01 Discontinued Sodium Chloride 0.9% (Pop) [NS 0.9% mini bag] 100 ml IV X1 Furosemide Inj [Lasix Inj] Med 01/25/25 07:59 Discontinued 40 mg IVP X1 ONE Magnesium Sulfate 2 GM Ivpb [Magnesium Sulfate Ivpb] Med 01/25/25 05:57 Discontinued 2 gm in 50 ml IV X1 MethylPREDNISolone.* [SoluMEDROL Inj] Med 01/25/25 05:57 Discontinued 125 mg IVP X1 ONE Nitroglycerin Oint 2% [Nitro-paste Oint 2%] Med 01/25/25 07:59 Discontinued 1 inch TOP X1 ONE cefTRIAXone [Rocephin] 2 gm Med 01/25/25 08:01 Discontinued SODIUM CHLORIDE 0.9% (Popper) [Ns 0.9% (P)] 50 ml IV X1 Oxygen Delivery NOW RT 01/25/25 06:09 Active Vital Signs Vital signs: Vital Signs Temperature 98.1 F 01/25/25 05:56 Pulse Rate 82 01/25/25 05:56 Respiratory Rate 28 H 01/25/25 05:56 Blood Pressure 193/68 H 01/25/25 05:56 Pulse Oximetry (%) 75 L 01/25/25 05:56 Oxygen Delivery Method Room Air 01/25/25 05:56 Shortness of Breath / Dyspnea MDM Narrative MDM Narrative:: Edda March am scribing for and in the presence of Dr. Hurt. 0749: On reassessment, the patient reports feeling improved. Saturating 99% on 6L nasal cannula. HR 79. Patient data External records reviewed:: [facility] previous records (I reviewed admission from 08/02/2024 through 08/19/2024 for AHRF, sepsis 2/2 respiratory source, CHF exacerbation.) Clinical information provided by:: patient Social determinants that could affect healthcare access:: none Patient has the following chronic illnesses:: HFpEF 60-65% 07/2024, CAD s/p PCI, A-fib, hypertension, diabetes, colon cancer s/p resection, and CKD How is presenting disease/condition affected by chronic disease/condition?: exacerbated by Evaluation data The following diagnostics were reviewed and interpreted by me:: lab results, radiology exam(s) and EKG tracing(s) (EKG 01/25/2025 @ 06:02 AM. Sinus rhythm with first degree AV block, rate 77, left bundle branch block, RI 282ms, QRS 161ms, QT/QTc 452/483 ms, P-R-T 89-24-108) Lab and/or radiology exams considered but not ordered:: None Interpretation Summary: Ordering Physician: Reynold Malcolm MD Date of Service: 01/25/25 Procedure(s): XR chest 1V portable Accession Number(s): [id number] cc: Reynold Malcolm MD; Adan Arevalo MD~ Examination: AP chest single view Technique one AP portable upright chest single view Date and time: January,, 0628 hours Comparison December 25, 2024 INDICATIONS: Shortness of breath today. FINDINGS: Prominent CHF Mild enlargement cardiac contour, Central vascular engorgement, bilateral extensive pulmonary edema Prominent osteopenia IMPRESSION: Prominent CHF Consider superimposed bilateral pneumonia Dictated By: Adan Arevalo MD Signed By: <Electronically signed by Adan Arevalo MD in OV>01/25/25 0734 Medications / Prescriptions Medications or Prescriptions considered but not ordered:: None Medication administrations:: Medication Administration History Discontinued Medications Albuterol/Ipratropium (Albuterol/Ipratropium (Duoneb) Rt Cindy 3 Ml Nebu) 6 ml INH X1 ONE Stop: 01/25/25 05:58 Last Admin: 01/25/25 06:25 Dose: 6 ml Documented By: LIDYA Furosemide (Furosemide Inj 10 Mg/Ml 4ml Vial) 40 mg IVP X1 ONE Stop: 01/25/25 08:00 Last Admin: 01/25/25 08:33 Dose: 40 mg Documented By: JONY Magnesium Sulfate (Magnesium Sulfate Ivpb) 2 gm in 50 mls @ 25 mls/hr IV X1 ONE Stop: 01/25/25 07:56 Last Infusion: 01/25/25 08:37 Dose: Infused Documented By: Admin: 01/25/25 06:34 Dose: 25 mls/hr Documented By: RONALD Ceftriaxone Sodium 2 gm/ (Sodium Chloride) 50 mls @ 100 mls/hr IV X1 ONE Stop: 01/25/25 08:30 Last Infusion: 01/25/25 09:14 Dose: Infused Documented By: Admin: 01/25/25 08:40 Dose: 100 mls/hr Documented By: JONY Doxycycline Hyclate 100 mg/ (Sodium Chloride) 100 mls @ 100 mls/hr IV X1 ONE Stop: 01/25/25 09:00 Last Infusion: 01/25/25 10:21 Dose: Infused Documented By: Admin: 01/25/25 09:15 Dose: 100 mls/hr Documented By: CALVIN Methylprednisolone Sodium Succinate (Methylprednisolone Sod Succ 62.5 Mg/Ml 2ml Vial) 125 mg IVP X1 ONE Stop: 01/25/25 05:58 Last Admin: 06/08/25 06:34 Dose: 125 mg Documented By: BD Nitroglycerin (Nitroglycerin Oint 2% 1 Inch Packet) 1 inch TOP X1 ONE Stop: 01/25/25 08:00 Last Admin: 01/25/25 08:43 Dose: Not Given Documented By: JONY Non-Admin Reason: Patient Refused See above Consultations Consultation(s) initiated? (list below): Yes Consultation #1 (Physician, Specialty, Details): I spoke with resident Dr. Moser working with Dr. Cobb. Discussed patients PMHx, HPI, ED course, exam findings, labs, and radiology results. The hospitalist agree to accept the patient for admission. Time: 10:50 Diagnosis Shortness of Breath Differential Diagnosis: acute exacerbation of chronic obstructive airways disease, congestive heart failure and community acquired pneumonia Most likely diagnosis given after review of the tests above:: Acute CHF exacerbation Pneumonia Hypoxia Admission Indicated Admission indicated?: indicated Admission Request Was there a request for admission?: Yes Admission Attestation Admission request attestation: Discussed case with [] from Hospitalist service regarding admission. Discussed patients ED course, exam findings, labs, and radiology results. The Hospitalist [agrees,declines] to accept the patient for admission. Disposition Plan Disposition Plan: Admit Critical Care Time Critical Care Time Critical Care Time: Yes Total Critical Care Time (min.): 45 Attestation: The high probability of sudden, clinically significant deterioration in the patient's condition required the highest level of my preparedness to intervene urgently. The services I provided to this patient were to treat and/or prevent clinically significant deterioration. Services included the following: chart data review, reviewing nursing notes and/or old charts, documentation time, communications consultant collaboration regarding findings and treatment options, medication orders and management, direct patient care, vital sign assessments and ordering, interpreting and reviewing diagnostic studies and lab tests. Aggregate critical care time includes only time during which I was engaged in work directly related to the patient's care, as described above, whether at bedside or elsewhere in the Emergency Department. It did not include time spent performing other reported procedures or the services of residents, students, nurses or physician assistants. Discharge Plan Plan Patient Disposition: Admit Acute Care w/in Hospital Prescriptions/Referrals Prescriptions/Med Rec: No Action bumetanide 1 mg tablet 1 mg PO DAILY calcitriol 0.25 mcg capsule 0.25 mcg PO DAILY metoprolol succinate 25 mg tablet extended release 24 hr 12.5 mg PO BID Qty: 60 1RF spironolactone 25 mg tablet 25 mg PO QDAY Qty: 30 0RF amiodarone 200 mg Tablet 200 mg PO QDAY Qty: 60 0RF guaifenesin 100 mg/5 mL liquid 200 mg PO Q4H PRN (Reason: congestion) Qty: 1000 0RF Referrals: Alfreda Alberto, TRANSPORTATION CONSULTANT [Primary Care Provider] - In 1 week Problem List Clinical Impression: Acute exacerbation of chronic heart failure, Hypoxia, Pneumonia Patient/Caregiver Discharge Instructions Print Language: Mongolian Stand Alone Forms: Abbie Award Info., Patient Portal Info Letter
[2025-01-25 06:49] LABS: Basophils # (Auto) 0.1 Thou/mm3 (0.0-0.2); Basophils % (Auto) 0 % (0-2.5); Eosinophils # (Auto) 0.2 Thou/mm3 (0.0-0.5); Eosinophils % (Auto) 2 % (0-10); Hematocrit 35.9 % (36.0-46.0); Immature Granulocytes % (Auto) 0 % (0-0); Immature Granulocytes Auto 0.04 Thou/mm3 (0.00-0.00); Lymphocytes # (Auto) 8.1 Thou/mm3 (1.0-4.8); Lymphocytes % (Auto) 63 % (10-50); Mean Corpuscular HGB Conc 33.4 g/dl (31.0-37.0); Mean Corpuscular Hemoglobin 28.3 pg (25.0-35.0); Mean Corpuscular Volume 85 fL (80-100); Monocytes # (Auto) 0.9 Thou/mm3 (0.0-0.8); Monocytes % (Auto) 7 % (0-12); Neutrophils # (Auto) 3.6 Thou/mm3 (1.8-7.7); Neutrophils % (Auto) 28 % (37-80); Nucleated Red Blood Cell % 0 /100 WBC (0); Platelet Count 281 Thou/mm3 (140-440); RDW Standard Deviation 52.1 fL (36.4-46.3); Red Blood Count 4.24 Miln/mm3 (4.00-5.20)
[2025-01-25 07:06] LABS: Collection Type, Urine Clean Catch
[2025-01-25 07:07] LABS: Base Excess 3 (-3-3); HCO3 29 mEq/L (20-26); Inspired Oxygen, FIO2 21 %; O2 Saturation 95 % (91-98); PCO2 51 mmHg (32.0-48.0); PO2 85 mmHg (83-108); pH, Arterial 7.37 (7.35-7.45)
[2025-01-25 07:11] LABS: Allen Test Not Performed; Puncture Site Right Radial
[2025-01-25 07:13] LABS: D-Dimer 813 ng/mL (<600)
[2025-01-25 07:15] LABS: Path Review Blood Smear Sent to Pathologist
[2025-01-25 07:20] LABS: Bilirubin,Urine Negative (Negative); Blood,Urine 1+ (Negative); Clarity,Urine Clear (Clear/Hazy); Color,Urine Yellow (Lt Yel-Yel); Culture Indicated,Urine Not Indicated; Glucose, Urine Negative (Negative); Hyaline Casts,Urine 4 /hpf (0-1); Ketones,Urine Negative (Negative); Leukocyte Esterase,Urine Negative (Negative); Nitrite,Urine Negative (Negative); PH,Urine 5.5 (5.0-7.0); Protein,Urine 1+ (Neg - Trace); RBC,Urine 3 /hpf (0-3); Squamous Epithelial Cell,Urine 1 /hpf (0-5); Urobilinogen,Urine Negative mg/dL (0.0-1.0); WBC,Urine 8 /hpf (0-5)
[2025-01-25 07:37] LABS: Partial Thromboplastin Time 25.1 Seconds (22.0-36.0); Prothrombin Time 10.9 Seconds (9.0-12.2)
[2025-01-25] MEDS: FUROSEMIDE INJ 10 MG/ML 4ML VIAL 40 MG IVP (08:33)
[2025-01-25 08:40] LABS: B-Type Natriuretic Peptide 331 pg/mL (0-100)
[2025-01-25] MEDS: cefTRIAXone 2 GM in SODIUM CHLORIDE 0.9% (Popper) 50 ML IV (08:40)
[2025-01-25 08:41] LABS: Respiratory Syncytial Virus Ag Negative (Negative)
[2025-01-25 09:12] LABS: Reflex Lactate? Y
[2025-01-25] MEDS: DOXYCYCLINE INJ 100 MG in SODIUM CHLORIDE 0.9% (POP) 100 ML IV (09:15)
[2025-01-25 09:24] LABS: Alanine Aminotransferase 15 U/L (10-49); Albumin, Serum 3.9 gm/dL (3.4-4.8); Albumin/Globulin Ratio 1.6 (1.2-2.2); Alkaline Phosphatase 90 U/L (46-116); Anion Gap 9 (7-16); BUN/Creatinine Ratio 17 Ratio (12-20); Bilirubin,Direct 0.1 mg/dL (0.0-0.3); Bilirubin,Total 0.5 mg/dL (0.3-1.2); Blood Urea Nitrogen 29 mg/dL (9-23); C-Reactive Protein 1.8 mg/dL (0.0-0.9); Calcium 9.3 mg/dL (8.3-10.6); Calcium (Corrected) 9.4 mg/dL (8.5-10.1); Carbon Dioxide 29.7 mMol/L (20.0-31.0); Chloride 108 mMol/L (98-107); Creatinine (Component) 1.7 mg/dL (0.6-1.3); Estimated Creatinine Clearance 20.5 mL/min (>60); Free T4 (Free Thyroxine) 1.88 ng/dL (0.89-1.76); Globulin 2.4 gm/dL (2.3-3.5); Glucose 180 mg/dL (74-106); Osmolality,Calculated 303 (275-295); Potassium 4.1 mMol/L (3.4-5.1); Procalcitonin 0.11 ng/ml (0.0-0.49); Sodium 147 mMol/L (136-145); Thyroid Stimulating Hormone 1.45 uIU/mL (0.55-4.78); Total Protein 6.3 gm/dL (5.7-8.2); Troponin I < 0.020 ng/mL (0.0-0.045); eGFR 29 See Note
[2025-01-25 10:14] LABS: Lactic Acid, 3 HR 3.4 mMol/L (0.4-2.0)
[2025-01-25] MEDS: BUMETANIDE INJ 0.25 MG/ML VIAL 4 ML 1 MG IVP ×2 (11:15→18:06)
--- NOTE | 2025-01-25 12:14 | ESHP_ITS ---
<Statement entered by Davi Cobb MD - 02/06/25 14:04> I reviewed above note and agree with findings and plans. I have also personally examined the patient with medicine team and went over assessment and plan with medical team including nurse intern and resident physician. Documentation for date of: 01/25/25 HPI History of Present Illness Chief complaint: SOB History of present illness: Arianna Harrell is an 88-year-old female with a past medical history of hypertension, HFpEF (60 to 65%, 07/2024), CAD status post stent of RCA, aortic stenosis, carotid artery disease (status post endarterectomy in 2020 and 2023), A-fib (not on Eliquis, followed by Dr. Barton), colon cancer status post resection, and CKD 3B presenting to ED due to worsening SOB since past day. Patient's daughter was at bedside who provided most of the history. Stated that her mother would wake up from dyspnea and endorses PND. Stated that at home she typically uses 2 L as needed for oxygen. While using the pulse ox at home initial saturations were reading 69%. They placed the mother on her 2 L which improved to 73% for some time. However the shortness of breath is still persistent. Patient typically has a hard time walking long distances but able to walk around the house. Denies any chest pain but endorses lower extremity swelling. Per daughter, patient has been intubated in previous admission due to respiratory failure. She is otherwise compliant with her medication. In ED, BP 175/91, saturating 98% on 2 L NC. Mild leukocytosis 13, CR 1.7, elevated lactic acid 3.4. Chest x-ray shows CHF with vascular congestion, bilateral pneumonia. She was given DuoNeb, IV methylprednisone 125 Mg, 2 g mag, furosemide 40 IV, ceftriaxone, doxycycline 100 mg, bumetanide IV 1 mg in ED. Cardiology Dr. Barton was consulted. Patient admitted for AHRF secondary to CHF exacerbation versus pneumonia. PMH: as noted above PSH: endarterectomy, CAD s/p stent of right coronary artery, colon cancer s/p resection Social:Denied Alcohol Use, Denied Illicit Drug Use, Never Smoker Meds: Metoprolol 25 mg PO , Amiodarone 200 mg PO BID, Bumetanide 1 mg PO Daily, spironolactone 25mg Allergies: NKDA Review of Systems Review of Systems Systems Reviewed: All systems reviewed, normal except as documented Exam Vital Signs Temp Pulse Resp BP Pulse Ox O2 Del Method O2 Flow Rate 98.1 F 76 17 163/58 H 99 Oxy Mask 2 01/25/25 10:48 01/25/25 11:15 01/25/25 10:48 01/25/25 11:15 01/25/25 10:48 01/25/25 10:48 01/25/25 10:48 Narrative Exam General: Elderly female, No acute distress, oxy mask HEENT: NCAT, No JVD noted. Mucosa dry. Pupils are equal and reactive to light bilaterally Cardiovascular: Normal S1 and S2. Regular rate and rhythm. Respiratory: mild crackles Abdomen: Soft, nontender, not distended, normal bowel sounds. Skin: Warm to touch, dry, purpura upper extremities Musculoskeletal: No gross injuries. Able to move all 4 extremities. +1-2 pitting edema Neuro: somnolent, responds to pain, No focal neuro deficits. Results: Labs 01/25/25 06:10 01/25/25 06:10 Labs: Short CBC 01/25/25 Range/Units 06:10 WBC 13.0 H D (3.6-11.0) Thou/mm3 Hgb 12.0 (12.0-16.0) g/dL Hct 35.9 L (36.0-46.0) % Plt Count 281 D (140-440) Thou/mm3 BMP 01/25/25 06:10 Sodium 147 H Potassium 4.1 D Chloride 108 H Carbon Dioxide 29.7 BUN 29 H Creatinine 1.7 H Glucose 180 H D Calcium 9.3 Cardiac Enzymes 01/25/25 Range/Units 06:10 Troponin I < 0.020 (0.0-0.045) ng/mL Liver Function 01/25/25 Range/Units 06:10 Total Bilirubin 0.5 (0.3-1.2) mg/dL Direct Bilirubin 0.1 (0.0-0.3) mg/dL ALT 15 (10-49) U/L Alkaline Phosphatase 90 (46-116) U/L Albumin 3.9 (3.4-4.8) gm/dL Urine 01/25/25 Range/Units 06:53 Urine Color Yellow (Lt Yel-Yel) Urine Clarity Clear (Clear/Hazy) Urine pH 5.5 (5.0-7.0) Ur Specific [place] 1.020 (1.001-1.035) Urine Protein 1+ A (Neg - Trace) Urine Glucose (UA) Negative (Negative) ABG Interpretation ABG results: 01/25/25 06:47 ABG pH 7.37 ABG pCO2 51 H ABG pO2 85 ABG HCO3 29 H ABG O2 Saturation 95 ABG Base Excess 3 Quality Measures Quality Measures none Advance care planning discussed with:: child Medications Home Medications and Allergies Home Medications ?Medication ?Instructions ?Recorded ?Confirmed ?Type bumetanide 1 mg tablet 1 mg PO DAILY 08/02/2408/17 History calcitriol 0.25 mcg capsule 0.25 mcg PO DAILY 08/02/24 08/17/24 History Allergies Allergy/AdvReac Type Severity Reaction Status Date / Time No Known Allergies Allergy Verified 01/25/25 06:59 Visit Medications Bumetanide (Bumetanide Inj 0.25 Mg/Ml Vial 4 Ml) 1 mg IVP TID JORGE ALBERTO Stop: 02/25/25 05:59 Bumetanide (Bumetanide Inj 0.25 Mg/Ml Vial 4 Ml) 1 mg IVP X1 ONE Stop: 01/25/25 18:01 Doxycycline Hyclate (Doxycycline 100 Mg Tablet) 100 mg PO BID JORGE ALBERTO Stop: 02/01/25 12:14 Ceftriaxone Sodium/Dextrose (Rocephin/D5w 1gm Iv Premix) 1 gm in 50 mls @ 100 mls/hr IV Q12HR JORGE ALBERTO Stop: 02/01/25 12:11 Discontinued Medications Albuterol/Ipratropium (Albuterol/Ipratropium (Duoneb) Rt Cindy 3 Ml Nebu) 6 ml INH X1 ONE Stop: 01/25/25 05:58 Last Admin: 01/25/25 06:25 Dose: 6 ml Bumetanide (Bumetanide Inj 0.25 Mg/Ml Vial 4 Ml) 1 mg IVP X1 ONE Stop: 01/25/25 10:51 Last Admin: 01/25/25 11:15 Dose: 1 mg Furosemide (Furosemide Inj 10 Mg/Ml 4ml Vial) 40 mg IVP X1 ONE Stop: 01/25/25 08:00 Last Admin: 01/25/25 08:33 Dose: 40 mg Magnesium Sulfate (Magnesium Sulfate Ivpb) 2 gm in 50 mls @ 25 mls/hr IV X1 ONE Stop: 01/25/25 07:56 Last Infusion: 01/25/25 08:37 Dose: Infused Ceftriaxone Sodium 2 gm/ (Sodium Chloride) 50 mls @ 100 mls/hr IV X1 ONE Stop: 01/25/25 08:30 Last Infusion: 01/25/25 09:14 Dose: Infused Doxycycline Hyclate 100 mg/ (Sodium Chloride) 100 mls @ 100 mls/hr IV X1 ONE Stop: 01/25/25 09:00 Last Infusion: 01/25/25 10:21 Dose: Infused Methylprednisolone Sodium Succinate (Methylprednisolone Sod Succ 62.5 Mg/Ml 2ml Vial) 125 mg IVP X1 ONE Stop: 01/25/25 05:58 Last Admin: 01/25/25 06:34 Dose: 125 mg Nitroglycerin (Nitroglycerin Oint 2% 1 Inch Packet) 1 inch TOP X1 ONE Stop: 01/25/25 08:00 Last Admin: 01/25/25 08:43 Dose: Not Given Assessment & Plan Plan Arianna Harrell is an 88-year-old female with a past medical history of hypertension, HFpEF (60 to 65%, 07/2024), CAD status post stent of RCA, aortic stenosis, carotid artery disease (status post endarterectomy in 2020 and 2023), A-fib (not on Eliquis, followed by Dr. Barton), colon cancer status post resection, and CKD 3B presenting to ED due to worsening SOB since past day. Stated that at home she typically uses 2 L as needed for oxygen. While using the pulse ox at home initial saturations were reading 69%. They placed the mother on her 2 L which improved to 73% for some time. Cardiology Dr. Barton was consulted. Patient admitted for AHRF secondary to CHF exacerbation versus pneumonia. #Acute on chronic hypoxic respiratory failure 2/2 #CAP and #CHF exacerbation #Hx HFpEF (60-65%) Chief complaint of SOB, desaturating at home pulse ox 69% improved to 73% on 2 L. Started on oxime mask 2 L saturating 98%. Patient sees Dr. Barton outpatient. Presenting with mild crackles in lower extremity pitting edema. Most recent echo from 08/04/2024 EF 60-65%, significant calcific aortic stenosis. Chest x-ray shows CHF pattern with prominent vascular congestion, bilateral pneumonia. NYHA class 2-3 -PO doxycycline 100 mg BID -IV ceftriaxone 1g daily -blood cultures pending -Dr. Barton consulted, appreciate recs -echo pending -IV Bumex 1mg TID -daily weights -strict INOs -low sodium diet -restrict fluid to 1500mL -keep potassium >4, mag >2 -daily CBC, CMP #ANASTACIA on CKD IIIb Most likely cardiorenal in setting of CHF exacerbation. BUN 29, CR 1.7 on admission. GFR 29. Anticipate improval after starting diuretics. -maintenance fluids -avoid nephrotoxic agents -daily CMP #Lactic acidosis LA 2.8-->3.4, CRP elevated 1.8, pro stacia normal. -avoiding fluids due to exacerbation -treat possible infection source with antibiotics ? Trend lactic acid #Atrial Fibrillation, rate controlled #CAD s/p stents of right coronary artery #Hyperlipidemia Patient has a past medical history of Atrial Fibrillation. CHADVASC of 3. Currently not on Eliquis per Dr. Barton. Possible risk of bleeding and currently sinus. Plan -Metoprolol Succinate XL 12.5 mg POBID -Amiodarone 200 mg PO BID, hold if HR <60 #Hx HTN Takes metoprolol succinate 12.5mg BID at home. -resume pending med rec Health maintenance: [facility] FEN: cardiac DVT prophylaxis: Subcu heparin CODE STATUS: Full code The patient's management plan was discussed with my attending physician Dr. Cobb. Deneen Moser, PGY-1
[2025-01-25] MEDS: HEPARIN SOD INJ 5000 UNIT/ML VIAL SC ×2 (14:33→21:07)
[2025-01-25 15:47] LABS: Lactate (Lactic Acid) 3.8 mMol/L (0.4-2.0)
[2025-01-25 17:14] LABS: Reflex Lactate? Y
[2025-01-25 18:26] LABS: Lactate (Lactic Acid) 3.3 mMol/L (0.4-2.0)
--- NOTE | 2025-01-25 18:41 | PC.NURSE ---
med rec not completed,family will bring rest of meds tomorrow.
[2025-01-25 18:45] LABS: Reflex Lactate? Y
[2025-01-25] MEDS: cefTRIAXone/D5w 1gm IV premix 1 GM/50 ML BAG IV (21:07)
[2025-01-25] MEDS: DOXYCYCLINE 100 MG TABLET PO (21:07)
[2025-01-25 21:21] LABS: Reflex Lactate? Y
[2025-01-25 21:30] LABS: Lactic Acid, 3 HR 4.6 mMol/L (0.4-2.0)
[2025-01-26] VITALS (13 sets, daily range): BP systolic 131–164; BP diastolic 49–86; PULSE 61–86; RESP 15–20; TEMP 36.3–37.2; O2SAT 95–99; BMI 23.4
--- NOTE | 2025-01-26 01:28 | ESCONSULT_ITS ---
RE: REILLY TIDWELL : 1935 DATE OF CONSULTATION: 01/25/2025 CONSULTING PHYSICIAN: Hospitalist. REASON FOR CONSULTATION: Evaluation of shortness of breath and congestive heart failure symptoms. HISTORY OF PRESENT ILLNESS: The patient is well known to me. She is an 89-year-old elderly female with a history of known CAD, aortic stenosis, and a history of coronary artery disease, status post stent placement of right coronary artery, congestive heart failure, preserved ejection fraction, bilateral carotid endarterectomy, atrial fibrillation, peripheral artery disease, chronic kidney disease, diabetes mellitus, hypertension, hypercholesterolemia, came to the hospital with shortness of breath on exertion and some chest discomfort as well. She was admitted to the hospital and diagnosed with congestive heart failure with preserved ejection fraction and also aortic stenosis. She is feeling a little better after diuretic therapy. She is not having any chest pain or shortness of breath. She did have some chest discomfort and shortness of breath when she came to the hospital; however, she is feeling a lot better according to her. Last cardiac echo performed in my office only recently, last month showed evidence of severe calcific aortic stenosis, gradient of 60 mmHg across throughout the aortic valve, normal ejection fraction. PAST MEDICAL HISTORY: Multiple problems as described earlier. CAD, status post stent to the right coronary artery, congestive heart failure with preserved ejection fraction, severe calcific aortic stenosis, carotid endarterectomy bilateral, atrial fibrillation, status post resection, CKD stage IIIB. MEDICATIONS: The patient takes 1. Metoprolol 25 mg daily. 2. Amiodarone 200 mg twice a day. 3. Bumetanide 1 mg daily. 4. Spironolactone 25 mg daily. SOCIAL HISTORY: She lives with a supportive family. She does not smoke or drink alcoholic beverages. FAMILY HISTORY: Noncontributory. REVIEW OF SYSTEMS: Cardiovascular: Chest pain, shortness of breath, orthopnea. Gastrointestinal: No nausea or vomiting. Genitourinary: No frequency or dysuria. PHYSICAL EXAMINATION: GENERAL: Well-nourished, thin built, elderly female, alert, awake, in no acute distress. VITAL SIGNS: Remained stable. Her blood pressure is 150/60, pulse rate 76, respirations 16, and temperature normal. HEENT: Head is atraumatic. Eyes normal. ENT: Normal. NECK: Supple. No JVD. Carotid pulse felt. There are no bruits. CHEST: Symmetrical. LUNGS: Decreased breath sounds at the bases. No rales or rhonchi. HEART: S1 and S2, regular. There is a loud 3/6 systolic murmur heard at the aortic area. ABDOMEN: Thin and soft. EXTREMITIES: Mild edema. GENITOURINARY AND RECTAL: Not performed. EDUCATION RN: Unremarkable peripheral pulses diminished distal pulses. LABORATORY DATA: Hemoglobin is 12, white count is 13, creatinine 1.7, chronic kidney disease, BUN 79. Troponin is negative and her EKG showed evidence of underlying atrial fibrillation and left bundle branch block, unchanged from previous EKGs. IMPRESSION/ASSESSMENT: 1. Acutely decompensated congestive heart failure with preserved ejection fraction. 2. Chest discomfort with known history of CAD, stent placed in the right coronary. 3. Peripheral artery disease. 4. Severe calcific aortic stenosis with congestive heart failure symptoms. RECOMMENDATIONS: I agree with present medical management. She will continue with her Bumex 12 mg 2-3 times daily as tolerated. Antibiotic also will be started. She does have fairly severe aortic stenosis that could be contributing to her congestive heart failure. She continues to have problems with shortness of breath. We will consider her evaluation for TAVR procedure later on, but for now, continue diuretic therapy. She just had a cardiac echocardiogram showed severe aortic stenosis and normal ejection fraction of 65%. Hence, no need to repeat cardiac echo. DT: 23:53:56 TT: 00:57:00 Ref: [id number] - TID: [id number] MTDD
[2025-01-26 01:47] LABS: Lactate (Lactic Acid) 3.3 mMol/L (0.4-2.0)
[2025-01-26 04:45] LABS: Reflex Lactate? Y
[2025-01-26] MEDS: HEPARIN SOD INJ 5000 UNIT/ML VIAL SC ×3 (05:24→21:26)
[2025-01-26] MEDS: BUMETANIDE INJ 0.25 MG/ML VIAL 4 ML 1 MG IVP ×3 (05:24→21:24)
[2025-01-26 06:02] LABS: Basophils % (Auto) 0 % (0-2.5); Eosinophils % (Auto) 0 % (0-10); Hematocrit 32.8 % (36.0-46.0); Hemoglobin 10.6 g/dL (12.0-16.0); Immature Granulocytes % (Auto) 1 % (0-0); Immature Granulocytes Auto 0.05 Thou/mm3 (0.00-0.00); Lymphocytes % (Auto) 10 % (10-50); Mean Corpuscular HGB Conc 32.3 g/dl (31.0-37.0); Mean Corpuscular Volume 87 fL (80-100); Monocytes # (Auto) 0.4 Thou/mm3 (0.0-0.8); Monocytes % (Auto) 4 % (0-12); Neutrophils # (Auto) 8.9 Thou/mm3 (1.8-7.7); Neutrophils % (Auto) 86 % (37-80); Nucleated Red Blood Cell % 0 /100 WBC (0); Platelet Count 167 Thou/mm3 (140-440); RDW Standard Deviation 51.9 fL (36.4-46.3); Red Blood Count 3.78 Miln/mm3 (4.00-5.20); White Blood Count 10.3 Thou/mm3 (3.6-11.0)
[2025-01-26 06:35] LABS: Anion Gap 15 (7-16); BUN/Creatinine Ratio 24 Ratio (12-20); Blood Urea Nitrogen 33 mg/dL (9-23); Calcium 9.3 mg/dL (8.3-10.6); Carbon Dioxide 30.5 mMol/L (20.0-31.0); Chloride 105 mMol/L (98-107); Creatinine (Component) 1.4 mg/dL (0.6-1.3); Glucose 152 mg/dL (74-106); Magnesium 2.2 mg/dL (1.6-2.6); Osmolality,Calculated 308 (275-295); Phosphorous 2.8 mg/dL (2.4-5.1); Potassium 3.8 mMol/L (3.4-5.1); Sodium 150 mMol/L (136-145); eGFR 36 See Note
[2025-01-26 06:36] LABS: Alanine Aminotransferase 15 U/L (10-49); Albumin, Serum 3.9 gm/dL (3.4-4.8); Albumin/Globulin Ratio 1.6 (1.2-2.2); Alkaline Phosphatase 92 U/L (46-116); Bilirubin,Total 0.3 mg/dL (0.3-1.2); Calcium (Corrected) 9.4 mg/dL (8.5-10.1); Cardiac Risk Estimate 2.8 RATIO (3.7-5.6); Cholesterol 198 mg/dL (132-200); Globulin 2.5 gm/dL (2.3-3.5); HDL Cholesterol 72 mg/dL (40-60); LDL Cholesterol,Calculated 109 mg/dL (0-130); Thyroid Stimulating Hormone 0.79 uIU/mL (0.55-4.78); Total Protein 6.4 gm/dL (5.7-8.2); Triglycerides 84 mg/dL (30-150)
[2025-01-26 07:57] LABS: Lactic Acid, 3 HR 2.3 mMol/L (0.4-2.0)
[2025-01-26] MEDS: SENNA TABLET 1 TAB PO (09:14)
[2025-01-26] MEDS: PANTOPRAZOLE 40 MG TABLET PO (09:14)
[2025-01-26] MEDS: cefTRIAXone/D5w 1gm IV premix 1 GM/50 ML BAG IV ×2 (09:14→20:12)
[2025-01-26] MEDS: DOXYCYCLINE 100 MG TABLET PO ×2 (09:14→20:12)
[2025-01-26] MEDS: DEXTROSE 5%-WATER 500 ML 50 ML IV ×2 (09:44→19:00)
[2025-01-26 10:47] LABS: Sodium 144 mMol/L (136-145)
[2025-01-26 13:15] LABS: Sodium 150 mMol/L (136-145)
--- NOTE | 2025-01-26 13:38 | PC.SS ---
FIELD MANAGER conducted bedside contact with the patient conduct initial assessment and to discuss discharge planning.? FIELD MANAGER utilized translation services.? Patient is Ugandan speaking.? Patient confirmed demographic information.? Patient resides at home with spouse.? Patient utilizes a walker to assist with ambulation.? Patient utilizes home oxygen.? Patient describes the ability to complete ADL?s independently.? Patient identified daughter, Lisbeth Lynn ; as medical surrogate decision maker.? Patient?s PCP is Alfreda Alberto.? Patient?s forging press setter up is Dr. Barton.? Patient does not participate with dialysis.? Patient utilizes [facility] for medication services.? Plan is for the patient to return home at the time of discharge.? Family will provide transportation on behalf of the patient. ?No further discharge needs identified by the patient.? No further intervention required at this time, social human services assistants will be available to address any further concerns.? Next of Kin: Lisbeth Lynn D/C Plan: Home
--- NOTE | 2025-01-26 13:56 | PD.RESPRO ---
Documentation for date of: 01/26/25 Subjective Subjective Interval history: Patient examined at bedside. Appears to have clinically improved since yesterday. No complaints, no events overnight. Telemetry reviewed, patient in normal sinus rhythm with rate 70-75bpm. Urine output +50cc in past 24 hrs. Sodium was uptrending to 150 so started her on D5W. Continue sodium checks q4hr with goal of 145. WBC down trended to 10, lactic acid resolving, creatinine downtrending 1.4 with fluids. Continue doxycycline and IV ceftriaxone for pneumonia along with metoprolol succinate, IV Bumex, and amiodarone for A-fib and CHF. Exam Vital Signs Temp Pulse Resp BP Pulse Ox O2 Del Method O2 Flow Rate 97.3 F 61 19 145/65 H 96 Nasal Cannula 2 01/26/25 12:00 01/26/25 13:42 01/26/25 12:00 01/26/25 13:42 01/26/25 12:00 01/26/25 12:00 01/26/25 12:00 Narrative Exam General: Elderly female, No acute distress,NC HEENT: NCAT, mild JVD noted. Mucosa dry. Pupils are equal and reactive to light bilaterally Cardiovascular: Normal S1 and S2. Regular rate and rhythm. Respiratory: mild crackles Abdomen: Soft, nontender, not distended, normal bowel sounds. Skin: Warm to touch, dry, purpura upper extremities Musculoskeletal: No gross injuries. Able to move all 4 extremities. Pitting edema resolved. Neuro: somnolent, responds to pain, No focal neuro deficits. Objective Labs 01/27/25 04:48 01/27/25 04:48 Labs: Laboratory Results - last 24 hr 01/25/25 01/25/25 01/25/25 14:14 15:43 18:08 WBC RBC Hgb Hct MCV MCH MCHC RDW Std Deviation Plt Count Neut % (Auto) Lymph % (Auto) [place] % (Auto) Eos % (Auto) Baso % (Auto) Neut # (Auto) Lymph # (Auto) [place] # (Auto) Eos # (Auto) Baso # (Auto) Immature Gran # (Auto) Absolute Nucleated RBC Immature Gran % Nucleated RBC % Sodium Potassium Chloride Carbon Dioxide Anion Gap BUN Creatinine Estim Creat Clear Calc eGFR BUN/Creatinine Ratio Glucose Calculated Osmolality Lactic Acid 3.0 H 3.8 H 3.3 H Calcium Corrected Calcium Phosphorus Magnesium Total Bilirubin ALT Alkaline Phosphatase Total Protein Albumin Globulin Albumin/Globulin Ratio Triglycerides Cholesterol LDL Cholesterol, Calc HDL Cholesterol Cholesterol/HDL Ratio TSH 01/25/25 01/26/25 01/26/25 21:10 01:30 04:29 WBC 10.3 RBC 3.78 L Hgb 10.6 L Hct 32.8 L MCV 87 MCH 28.0 MCHC 32.3 RDW Std Deviation 51.9 H Plt Count 167 D Neut % (Auto) 86 H Lymph % (Auto) 10 [place] % (Auto) 4 Eos % (Auto) 0 Baso % (Auto) 0 Neut # (Auto) 8.9 H Lymph # (Auto) 1.0 [place] # (Auto) 0.4 Eos # (Auto) 0.0 Baso # (Auto) 0.0 Immature Gran # (Auto) 0.05 H Absolute Nucleated RBC 0.00 Immature Gran % 1 H Nucleated RBC % 0 Sodium 150 H Potassium 3.8 Chloride 105 Carbon Dioxide 30.5 Anion Gap 15 BUN 33 H Creatinine 1.4 H Estim Creat Clear Calc 23.0 L eGFR 36 L BUN/Creatinine Ratio 24 H Glucose 152 H Calculated Osmolality 308 H Lactic Acid 4.6 H* 3.3 H Calcium 9.3 Corrected Calcium 9.4 Phosphorus 2.8 Magnesium 2.2 Total Bilirubin 0.3 ALT 15 Alkaline Phosphatase 92 Total Protein 6.4 Albumin 3.9 Globulin 2.5 Albumin/Globulin Ratio 1.6 Triglycerides 84 Cholesterol 198 LDL Cholesterol, Calc 109 HDL Cholesterol 72 H Cholesterol/HDL Ratio 2.8 L TSH 0.79 01/26/25 01/26/25 01/26/25 04:37 07:30 12:44 WBC RBC Hgb Hct MCV MCH MCHC RDW Std Deviation Plt Count Neut % (Auto) Lymph % (Auto) [place] % (Auto) Eos % (Auto) Baso % (Auto) Neut # (Auto) Lymph # (Auto) [place] # (Auto) Eos # (Auto) Baso # (Auto) Immature Gran # (Auto) Absolute Nucleated RBC Immature Gran % Nucleated RBC % Sodium 144 150 H Potassium Chloride Carbon Dioxide Anion Gap BUN Creatinine Estim Creat Clear Calc eGFR BUN/Creatinine Ratio Glucose Calculated Osmolality Lactic Acid 2.3 H Calcium Corrected Calcium Phosphorus Magnesium Total Bilirubin ALT Alkaline Phosphatase Total Protein Albumin Globulin Albumin/Globulin Ratio Triglycerides Cholesterol LDL Cholesterol, Calc HDL Cholesterol Cholesterol/HDL Ratio TSH ABG Interpretation ABG results: 01/25/25 06:47 ABG pH 7.37 ABG pCO2 51 H ABG pO2 85 ABG HCO3 29 H ABG O2 Saturation 95 ABG Base Excess 3 Quality Measures Quality Measures none Advance care planning discussed with:: patient Assessment & Plan Assessment Current Active Medications: Generic Name Dose Route Start Last Admin Trade Name Freq PRN Reason Stop Dose Admin Acetaminophen 650 mg 01/25/25 12:14 Acetaminophen 325 Mg Tablet PO 02/24/25 12:13 Q6H PRN PAIN OR FEVER > 101 Bumetanide 1 mg 01/26/25 06:00 01/26/25 13:42 Bumetanide Inj 0.25 Mg/Ml Vial 4 Ml IVP 02/25/25 05:59 1 mg TID JORGE ALBERTO Administration Doxycycline Hyclate 100 mg 01/25/25 21:00 01/26/25 09:14 Doxycycline 100 Mg Tablet PO 02/01/25 20:59 100 mg BID JORGE ALBERTO Administration Heparin Sodium (Porcine) 5,000 unit 01/25/25 14:00 01/26/25 13:43 Heparin Sod Inj 5000 Unit/Ml Vial SC 02/08/25 13:59 5,000 unit Q8HR JORGE ALBERTO Administration Ceftriaxone Sodium/Dextrose 1 gm in 50 mls @ 100 mls/hr 01/25/25 21:00 01/26/25 09:14 Rocephin/D5w 1gm Iv Premix IV 02/01/25 20:59 100 mls/hr Q12HR JORGE ALBERTO Administration Ondansetron HCl 4 mg 01/25/25 12:14 Ondansetron Inj 2 Mg/Ml Inj 2 Ml IVP 02/24/25 12:13 Q6H PRN NAUSEA OR VOMITING Protocol Pantoprazole Sodium 40 mg 01/26/25 09:00 01/26/25 09:14 Pantoprazole 40 Mg Tablet PO 02/25/25 08:59 40 mg QDAY JORGE ALBERTO Administration Sennosides 1 tab 01/26/25 09:00 01/26/25 09:14 Senna Tablet PO 02/25/25 08:59 1 tab QDAY JORGE ALBERTO Administration Protocol Plan Arianna Harrell is an 88-year-old female with a past medical history of hypertension, HFpEF (60 to 65%, 07/2024), CAD status post stent of RCA, aortic stenosis, carotid artery disease (status post endarterectomy in 2020 and 2023), A-fib (not on Eliquis, followed by Dr. Barton), colon cancer status post resection, and CKD 3B presenting to ED due to worsening SOB since past day. Stated that at home she typically uses 2 L as needed for oxygen. While using the pulse ox at home initial saturations were reading 69%. They placed the mother on her 2 L which improved to 73% for some time. Cardiology Dr. Barton was consulted. Patient admitted for AHRF secondary to CHF exacerbation versus pneumonia. #Acute on chronic hypoxic respiratory failure 2/ #CAP and #CHF exacerbation #Hx HFpEF (60-65%) Chief complaint of SOB, desaturating at home pulse ox 69% improved to 73% on 2 L. Started on oxime mask 2 L saturating 98%. Patient sees Dr. Barton outpatient. Presenting with mild crackles in lower extremity pitting edema. Most recent echo from 08/04/2024 EF 60-65%, significant calcific aortic stenosis. Chest x-ray shows CHF pattern with prominent vascular congestion, bilateral pneumonia. NYHA class 2-3 cardio recs---will consider her evaluation for TAVR procedure later on, but for now, continue diuretic therapy. She just had a cardiac echocardiogram showed severe and normal EF of 65%. Hence, no need to repeat cardiac echo. -PO doxycycline 100 mg BID -IV ceftriaxone 1g daily -blood cultures pending -Dr. Barton consulted, appreciate recs -IV Bumex 1mg TID -daily weights -strict INOs -low sodium diet -restrict fluid to 1500mL -keep potassium >4, mag >2 -daily CBC, CMP #ANASTACIA on CKD IIIb Most likely cardiorenal in setting of CHF exacerbation. BUN 29, CR 1.7 on admission. GFR 29. Anticipate improval after starting diuretics. -maintenance fluids -avoid nephrotoxic agents -daily CMP #Electrolyte abnormalities #Hypernatremia Sodium has been slowly uptrending since admission. Most recent at 150. Likely due to dehydration or in setting of CKD. -start D5W 50cc/hr -sodium check q4hr -goal sodium 145 #Lactic acidosis-improving LA 2.8-->3.4, CRP elevated 1.8, pro stacia normal. -avoiding fluids due to exacerbation -treat possible infection source with antibiotics ? Trend lactic acid #Atrial Fibrillation, rate controlled #CAD s/p stents of right coronary artery #Hyperlipidemia Patient has a past medical history of Atrial Fibrillation. CHADVASC of 3. Currently not on Eliquis per Dr. Barton. Possible risk of bleeding and currently sinus. Plan -Metoprolol Succinate XL 12.5 mg POBID -Amiodarone 200 mg PO BID, hold if HR <60 #Hx HTN Takes metoprolol succinate 12.5mg BID at home. -resume pending med rec Health maintenance: Dispo: tele AHRF CHF, PNA FEN: cardiac DVT prophylaxis: Subcu heparin CODE STATUS: Full code The patient's management plan was discussed with my attending physician Dr. Purdy. Deneen Moser, PGY-1 Attending Provider Attestation/Addendum I attest that I was physically present for the evaluation, physical examination, lab and imaging review of the patient with the residents. I discussed the case with the residents and agree with the findings and plans of care as documented above. Daniel Purdy MD
--- NOTE | 2025-01-26 14:37 | PC.SS ---
Rounding Note: Plan is to diuresis patient. Monitoring electrolytes. Discharge home within 1 day.
[2025-01-26 17:45] LABS: Sodium 144 mMol/L (136-145)
[2025-01-26 21:40] LABS: Sodium 143 mMol/L (136-145)
[2025-01-27] VITALS: BP 130/62; PULSE 63; RESP 12; TEMP 36.1; O2SAT 97
--- NOTE | 2025-01-27 01:08 | ESPR_ITS ---
RE: REILLY TIDWELL : 1935 DATE OF SERVICE: 01/26/2025 SUBJECTIVE: The patient is an 89-year-old elderly female with history of aortic stenosis, CAD, stent placement to RCA and peripheral artery disease, who came to the hospital with shortness of breath and congestive heart failure symptoms. Good urinary output and doing slightly better. She is comfortable. OBJECTIVE: Vital Signs: Saturating 98% on room air. HEENT: Head is atraumatic. Neck: Supple. No JVD. Chest: Symmetrical. Lungs: Clear. No rales or rhonchi. Heart: S1 and S2 regular. S4 gallop. Abdomen: Thin and soft. Extremities: Mild edema. and Rectal: Not performed. Neurologic: Normal. LABORATORY DATA: Unremarkable. IMPRESSION: 1. Acute decompensated congestive heart failure due to preserved ejection fraction. 2. Moderate to severe calcific aortic stenosis. If she has significant worsening of symptoms, she may require transcatheter aortic valve replacement. 3. Atrial fibrillation, stable. RECOMMENDATIONS: Continue present medications, diuretic use cautiously and follow up closely for any signs of decompensation. The patient did have negative coronary angiogram, hence I am not concerned about CAD here. DT: 23:51:21 TT: 00:47:00 Ref: [id number] - TID: [id number]
[2025-01-27 04:00] VITALS: BP 157/57; PULSE 54; RESP 15; TEMP 36.3; O2SAT 98
[2025-01-27 05:01] VITALS: BMI 24.7
[2025-01-27 05:18] LABS: Basophils % (Auto) 0 % (0-2.5); Eosinophils # (Auto) 0.1 Thou/mm3 (0.0-0.5); Eosinophils % (Auto) 1 % (0-10); Hemoglobin 10.7 g/dL (12.0-16.0); Immature Granulocytes % (Auto) 0 % (0-0); Immature Granulocytes Auto 0.03 Thou/mm3 (0.00-0.00); Lymphocytes % (Auto) 20 % (10-50); Mean Corpuscular HGB Conc 31.5 g/dl (31.0-37.0); Mean Corpuscular Hemoglobin 27.9 pg (25.0-35.0); Mean Corpuscular Volume 89 fL (80-100); Monocytes # (Auto) 0.6 Thou/mm3 (0.0-0.8); Monocytes % (Auto) 6 % (0-12); Neutrophils # (Auto) 7.3 Thou/mm3 (1.8-7.7); Neutrophils % (Auto) 73 % (37-80); Nucleated Red Blood Cell % 0 /100 WBC (0); Platelet Count 160 Thou/mm3 (140-440); RDW Standard Deviation 53.6 fL (36.4-46.3); Red Blood Count 3.84 Miln/mm3 (4.00-5.20)
[2025-01-27 05:23] VITALS: BP 157/57; PULSE 54
[2025-01-27] MEDS: BUMETANIDE INJ 0.25 MG/ML VIAL 4 ML 1 MG IVP (05:23)
[2025-01-27] MEDS: HEPARIN SOD INJ 5000 UNIT/ML VIAL SC (05:23)
[2025-01-27 05:50] LABS: Alanine Aminotransferase 11 U/L (10-49); Albumin, Serum 3.6 gm/dL (3.4-4.8); Albumin/Globulin Ratio 1.6 (1.2-2.2); Alkaline Phosphatase 82 U/L (46-116); Anion Gap 11 (7-16); BUN/Creatinine Ratio 28 Ratio (12-20); Bilirubin,Total 0.3 mg/dL (0.3-1.2); Blood Urea Nitrogen 36 mg/dL (9-23); Calcium 8.7 mg/dL (8.3-10.6); Carbon Dioxide 32.1 mMol/L (20.0-31.0); Chloride 104 mMol/L (98-107); Creatinine (Component) 1.3 mg/dL (0.6-1.3); Estimated Creatinine Clearance 26.9 mL/min (>60); Globulin 2.3 gm/dL (2.3-3.5); Glucose 87 mg/dL (74-106); Magnesium 1.8 mg/dL (1.6-2.6); Osmolality,Calculated 299 (275-295); Phosphorous 2.6 mg/dL (2.4-5.1); Potassium 3.3 mMol/L (3.4-5.1); Sodium 147 mMol/L (136-145); Total Protein 5.9 gm/dL (5.7-8.2); eGFR 40 See Note
[2025-01-27 08:00] VITALS: BP 175/103; PULSE 69; PULSE 74; RESP 14; TEMP 36.2; O2SAT 97
[2025-01-27 09:23] VITALS: BP 175/103; PULSE 75
[2025-01-27] MEDS: DOXYCYCLINE 100 MG TABLET PO (09:23)
[2025-01-27] MEDS: AMIODARONE HCL 200 MG TABLET PO (09:23)
[2025-01-27] MEDS: PANTOPRAZOLE 40 MG TABLET PO (09:23)
[2025-01-27] MEDS: cefTRIAXone/D5w 1gm IV premix 1 GM/50 ML BAG IV (09:26)
[2025-01-27] MEDS: POTASSIUM CHLORIDE 20 mEq TABCR 40 MEQ PO (09:27)
[2025-01-27] MEDS: SENNA TABLET 1 TAB PO (09:31)
--- NOTE | 2025-01-27 10:10 | ESDS_ITS ---
Planned Discharge Date 01/27/25 DS: Providers Provider Date of admission: 01/25/25 10:51 Primary care physician: Alfreda Alberto NP Admitting Provider: Davi Cobb MD Attending Provider on Admission: Davi Cobb MD Consults: 01/25/25 12:13 Consult to Cardiology Routine Comment: CHF exacerbation Consulting Provider: Thaddeus Barton Attending Provider on DC: Carl Bhatt MD Discharging Provider: Carl Bhatt MD DS: Diagnosis Problem List Completed Was Problem List Reviewed/Reconciled?: Yes Hospital Course Hospital Course Hospital course: Reason for hospitalization: AHRF 2/2 CHF exacerbation, PNA Arianna Harrell is an 88-year-old female with a past medical history of hypertension, HFpEF (60 to 65%, 07/2024), CAD status post stent of RCA, aortic stenosis, carotid artery disease (status post endarterectomy in 2020 and 2023), A-fib (not on Eliquis, followed by Dr. Barton), colon cancer status post resection, and CKD 3B presented to ED on 01/25/25 due to worsening SOB. Patient's daughter was at bedside who provided most of the history. Stated that her mother would wake up from dyspnea and endorsed PND. At home typically uses 2 L as needed for oxygen. While using the pulse ox at home initial saturations were reading 69%. Placed on oxymask in ED which improved saturations. Chest x- ray showed CHF with vascular congestion, bilateral pneumonia, elevated lactic acid 3.[address] Barton was consulted. Patient admitted for AHRF secondary to CHF exacerbation and pneumonia. She was started on IV Bumex TID and doxycyline/IV ceftriaxone. Cardiology was not concerned about CAD. She has moderate to severe calcific aortic stenosis. May require ranscatheter aortic valve replacement. She was inst ructed to follow up with cardiology in 1-2 weeks. Patient had hypernatremia which improved with D10 fluids. Lactic acidosis and ANASTACIA resolved with fluids. Patient is now in stable condition and ready for discharge. Recommendations were given as below. Discharge Recommendations: Finish taking antibiotics Augmentin and doxycyline for treatment of pneumonia. Continue taking Bumetanide as prescribed for treatment of heart failure. Continue previous medications. Follow up with cardiology in 1-2 weeks. Follow up with PCP in 1-2 weeks. Termine de yareli los antibi?ticos Augmentin y doxiciclina para el tratamiento de la neumon?a. Contin?e tomando bumetanida seg?n lo prescrito para el tratamiento de la insuficiencia card?hayes. Contin?e con la receta anterior. Berkley kristina con el cardiolog?o en [place] o dos semanas. Berkley kristina con sheppard m?dico de atenci?n primaria en ross o dos semanas. Hospital Diagnoses: #Acute on chronic hypoxic respiratory failure 2/2 #CAP and #CHF exacerbation #Hx HFpEF (60-65%) #ANASTACIA on CKD IIIb #Electrolyte abnormalities #Hypernatremia #Lactic acidosis-improving #Atrial Fibrillation, rate controlled #CAD s/p stents of right coronary artery #Hyperlipidemia #Hx HTN #Aortic stenosis The patient's management plan was discussed with my attending physician Dr. Bhatt. Deneen Moser MD, PGY-1 Time Spent with Patient Time attestation: Total time spent providing and/or coordinating discharge services: Time spent: Greater than 30 minutes Exam Vital Signs Temp Pulse Resp BP Pulse Ox O2 Del Method O2 Flow Rate 97.1 F 75 14 175/103 H 97 Nasal Cannula 2 01/27/25 08:00 01/27/25 09:23 01/27/25 08:00 01/27/25 09:23 01/27/25 08:00 01/27/25 08:00 01/27/25 08:00 Narrative Exam General: Elderly female, No acute distress,NC HEENT: NCAT, mild JVD noted. Mucosa dry. Pupils are equal and reactive to light bilaterally Cardiovascular: Normal S1 and S2. Regular rate and rhythm. Respiratory: mild crackles Abdomen: Soft, nontender, not distended, normal bowel sounds. Skin: Warm to touch, dry, purpura upper extremities Musculoskeletal: No gross injuries. Able to move all 4 extremities. Pitting edema resolved. Neuro: somnolent, responds to pain, No focal neuro deficits. Discharge Plan Plan Patient Disposition: HOME (Self Care) Patient condition on transfer: Stable Prescriptions/Referrals Prescriptions/Med Rec: New amoxicillin-pot clavulanate [Augmentin] 500-125 mg tablet 1 tab PO BID 3 Days Qty: 6 0RF doxycycline hyclate 100 mg capsule 100 mg PO BID 3 Days Qty: 6 0RF Continued gabapentin 100 mg capsule 100 mg PO BID Rx Instructions: 100 mg orally; prn amlodipine 5 mg tablet 5 mg PO DAILY amiodarone 200 mg Tablet 200 mg PO BID bumetanide 1 mg tablet 1 mg PO DAILY calcitriol 0.25 mcg capsule 0.25 mcg PO DAILY metoprolol succinate 25 mg tablet extended release 24 hr 12.5 mg PO BID Qty: 60 1RF spironolactone 25 mg tablet 25 mg PO QDAY Qty: 30 0RF guaifenesin 100 mg/5 mL liquid 200 mg PO Q4H PRN (Reason: congestion) Qty: 1000 0RF Referrals: Alfreda Alberto NP [Primary Care Provider] - Thaddeus Barton MD [Physician] - Patient/Caregiver Discharge Instructions Other Discharge Activity Instructions:: Finish taking antibiotics Augmentin and doxycyline for treatment of pneumonia. Continue taking Bumetanide as prescribed for treatment of heart failure. Continue previous medications. Follow up with cardiology in 1-2 weeks. Follow up with PCP in 1-2 weeks. Termine de yareli los antibi?ticos Augmentin y doxiciclina para el tratamiento de la neumon?a. Contin?e tomando bumetanida seg?n lo prescrito para el tratamiento de la insuficiencia card?hayes. Contin?e con la receta anterior. Berkley kristina con el cardiolog?o en [place] o dos semanas. Berkley kristina con sheppard m?dico de atenci?n primaria en ro[place] o dos semanas. Education Materials: Chest and Lung Problems, Heart Failure Print Language: Kinyarwanda Stand Alone Forms: Abbie Award Info., Patient Portal Info Letter Discharge Order Discharge Orders: Discharge (Routine); Ordered 01/27/25 Ordered By: Deneen Moser Quality Discharge Quality Measures VTE prophylaxis Attestestation MD Attestation I have examined the patient, reviewed labs and imaging findings, discussed the case with the resident(s), and reviewed entered orders. I agree with the plan of care as outlined in this note. Time Spent: [address] Nova MD
[2025-01-27 11:45] VITALS: BP 143/53; PULSE 62; RESP 14; TEMP 36.4; O2SAT 98
--- NOTE | 2025-01-27 15:21 | PC.SS ---
Rounding Note: Plan is to d/c patient home today.
== END 2025-01-27 13:26 | disposition home or self-care (01) | DRG 291 ==
LOC: SERX 10:51 → SERHOLD 10:57 → S2NX 16:12
PROVIDERS: Emergency Medicine; Student in an Organized Health Care Education/Training Program; Admitting Provider Internal Medicine; Emergency Provider Family Medicine; PCP Nurse Practitioner Family; Visit Provider Internal Medicine
DX: I13.0 Hypertensive heart and chronic kidney disease with heart failure and stage 1 through stage 4 chronic kidney disease, or unspecified chronic kidney disease (principal); I50.33 Acute on chronic diastolic (congestive) heart failure; J18.9 Pneumonia, unspecified organism; J96.21 Acute and chronic respiratory failure with hypoxia; E87.0 Hyperosmolality and hypernatremia; E87.20 Acidosis, unspecified; N17.9 Acute kidney failure, unspecified; I35.0 Nonrheumatic aortic (valve) stenosis; N18.32 Chronic kidney disease, stage 3b; I25.10 Atherosclerotic heart disease of native coronary artery without angina pectoris; I48.91 Unspecified atrial fibrillation; E11.22 Type 2 diabetes mellitus with diabetic chronic kidney disease; E11.51 Type 2 diabetes mellitus with diabetic peripheral angiopathy without gangrene; E78.00 Pure hypercholesterolemia, unspecified; Z95.5 Presence of coronary angioplasty implant and graft; Z85.038 Personal history of other malignant neoplasm of large intestine; Z79.899 Other long term (current) drug therapy
CPT/HCPCS: 36415; 36600; 71045; 80048; 80053; 80061; 81001; 82248; 82306; 82607; 82746; 82803; 83036; 83540; 83550; 83605; 83721; 83735; 83880; 84100; 84145; 84295; 84439; 84443; 84484; 85025; 85379; 85610; 85652; 85730; 86140; 87040; 87400; 87634; 87811; 93005; 94640; 96365; 96366; 96367; 96372; 96374; 96375; 99291; A9270; J0696; J1644; J1938; J2919; J3475; J3490; J7050; J7070

== ENCOUNTER → 2025-01-30 | Outpatient (CLI) | payer MEDICARE, MEDICAID, SELFPAY ==
--- NOTE | 2025-01-30 09:38 | XR_ITS ---
Examination: PA lateral chest 2 views TECHNIQUE: Upright PA lateral chest 2 views Date and time: 10/02/2024 0947 hours Comparison January 25, 2025 INDICATIONS: Severe pneumonia and/or heart failure January 25, 2025 FINDINGS: Marked improvement Mild prominence cardiac contour Mild vascular congestion. No current pneumonia or pulmonary edema Prominent osteopenia IMPRESSION: Mild vascular congestion No current pneumonia or pulmonary edema
[2025-01-30 10:20] LABS: Basophils % (Auto) 0 % (0-2.5); Eosinophils % (Auto) 0 % (0-10); Hematocrit 38.7 % (36.0-46.0); Hemoglobin 12.3 g/dL (12.0-16.0); Immature Granulocytes % (Auto) 1 % (0-0); Immature Granulocytes Auto 0.09 Thou/mm3 (0.00-0.00); Lymphocytes # (Auto) 1.9 Thou/mm3 (1.0-4.8); Lymphocytes % (Auto) 19 % (10-50); Mean Corpuscular HGB Conc 31.8 g/dl (31.0-37.0); Mean Corpuscular Hemoglobin 27.8 pg (25.0-35.0); Mean Corpuscular Volume 87 fL (80-100); Monocytes # (Auto) 0.4 Thou/mm3 (0.0-0.8); Monocytes % (Auto) 4 % (0-12); Neutrophils # (Auto) 7.3 Thou/mm3 (1.8-7.7); Neutrophils % (Auto) 75 % (37-80); Nucleated Red Blood Cell % 0 /100 WBC (0); Platelet Count 186 Thou/mm3 (140-440); RDW Standard Deviation 52.5 fL (36.4-46.3); Red Blood Count 4.43 Miln/mm3 (4.00-5.20); White Blood Count 9.6 Thou/mm3 (3.6-11.0)
[2025-01-30 10:42] LABS: Alanine Aminotransferase 13 U/L (10-49); Albumin, Serum 4.4 gm/dL (3.4-4.8); Albumin/Globulin Ratio 1.6 (1.2-2.2); Alkaline Phosphatase 104 U/L (46-116); Anion Gap 8 (7-16); Aspartate Amino Transferase 20 U/L (0-34); BUN/Creatinine Ratio 27 Ratio (12-20); Bilirubin,Total 0.6 mg/dL (0.3-1.2); Blood Urea Nitrogen 38 mg/dL (9-23); Calcium 9.9 mg/dL (8.3-10.6); Calcium (Corrected) 9.9 mg/dL (8.5-10.1); Carbon Dioxide 31.8 mMol/L (20.0-31.0); Chloride 104 mMol/L (98-107); Creatinine (Component) 1.4 mg/dL (0.6-1.3); Globulin 2.8 gm/dL (2.3-3.5); Glucose 146 mg/dL (74-106); Osmolality,Calculated 298 (275-295); Potassium 5.2 mMol/L (3.4-5.1); Sodium 144 mMol/L (136-145); Total Protein 7.2 gm/dL (5.7-8.2); eGFR 36 See Note
== END | disposition home or self-care (01) ==
LOC: CDIM 09:16 → COPL 09:52
PROVIDERS: PCP Nurse Practitioner Family; Referring Provider Nurse Practitioner Family; Visit Provider Radiology Diagnostic Radiology
DX: R09.89 Other specified symptoms and signs involving the circulatory and respiratory systems (principal); I50.9 Heart failure, unspecified
CPT/HCPCS: 36415; 71046; 80053; 85025

== ENCOUNTER → 2025-05-01 | Outpatient (CLI) | payer MEDICARE, MEDICAID, SELFPAY ==
[2025-05-01 10:32] LABS: Basophils # (Auto) 0.0 Thou/mm3 (0.0-0.2); Basophils % (Auto) 1 % (0-2.5); Eosinophils # (Auto) 0.1 Thou/mm3 (0.0-0.5); Eosinophils % (Auto) 2 % (0-10); Hematocrit 38.3 % (36.0-46.0); Hemoglobin 12.9 g/dL (12.0-16.0); Immature Granulocytes Auto 0.02 Thou/mm3 (0.00-0.00); Lymphocytes # (Auto) 2.8 Thou/mm3 (1.0-4.8); Lymphocytes % (Auto) 50 % (10-50); Mean Corpuscular HGB Conc 33.7 g/dl (31.0-37.0); Mean Corpuscular Hemoglobin 29.6 pg (25.0-35.0); Mean Corpuscular Volume 88 fL (80-100); Monocytes # (Auto) 0.5 Thou/mm3 (0.0-0.8); Monocytes % (Auto) 9 % (0-12); Neutrophils # (Auto) 2.2 Thou/mm3 (1.8-7.7); Neutrophils % (Auto) 39 % (37-80); Nucleated Red Blood Cell # 0.00 Thou/mm3 (0.00-0.00); Nucleated Red Blood Cell % 0 /100 WBC (0); Platelet Count 161 Thou/mm3 (140-440); RDW Standard Deviation 50.2 fL (36.4-46.3); Red Blood Count 4.36 Miln/mm3 (4.00-5.20); White Blood Count 5.6 Thou/mm3 (3.6-11.0)
[2025-05-01 10:44] LABS: Glucose Estimated Average 128 mg/dL (80-131); Hemoglobin A1C 6.1 % Hgb (4.8-6.0)
[2025-05-01 11:02] LABS: Alanine Aminotransferase 10 U/L (10-49); Albumin, Serum 4.2 gm/dL (3.4-4.8); Albumin/Globulin Ratio 1.6 (1.2-2.2); Alkaline Phosphatase 94 U/L (46-116); Anion Gap 12 (7-16); Aspartate Amino Transferase 24 U/L (0-34); BUN/Creatinine Ratio 13 Ratio (12-20); Bilirubin,Total 0.6 mg/dL (0.3-1.2); Blood Urea Nitrogen 21 mg/dL (9-23); Calcium 9.8 mg/dL (8.3-10.6); Calcium (Corrected) 9.8 mg/dL (8.5-10.1); Carbon Dioxide 29.2 mMol/L (20.0-31.0); Chloride 99 mMol/L (98-107); Creatinine (Component) 1.6 mg/dL (0.6-1.3); Globulin 2.6 gm/dL (2.3-3.5); Glucose 105 mg/dL (74-106); Osmolality,Calculated 282 (275-295); Potassium 4.5 mMol/L (3.4-5.1); Sodium 140 mMol/L (136-145); Total Protein 6.8 gm/dL (5.7-8.2); eGFR 31 See Note
== END | disposition home or self-care (01) ==
LOC: COPL 08:53
PROVIDERS: PCP Nurse Practitioner Family; Referring Provider Nurse Practitioner Family; Visit Provider Nurse Practitioner Family
DX: D72.820 Lymphocytosis (symptomatic) (principal); E11.22 Type 2 diabetes mellitus with diabetic chronic kidney disease; N18.4 Chronic kidney disease, stage 4 (severe); E11.21 Type 2 diabetes mellitus with diabetic nephropathy
CPT/HCPCS: 36415; 80053; 83036; 85025

== ENCOUNTER → 2025-05-12 | Outpatient (CLI) | payer MEDICARE, MEDICAID, SELFPAY ==
--- NOTE | 2025-05-12 14:00 | XR_ITS ---
Examination: Duplex scan of the lower extremity, unilateral left Date and time of exam: May 12, 2025 1425 hours INDICATIONS: Left lower leg swelling and pain beginning several months ago Technique: Duplex scan of the extremity veins using B-mode/grayscale imaging and Doppler spectral analysis and color flow Attention is directed to internal echogenicity, compression and augmentation involving these veins, color flow assessment, spectral analysis Findings: Major deep venous structures in the extremity demonstrate normal course and caliber. There is no evidence of deep vein thrombosis. Normal color flow and spectral analysis Impression: Negative for DVT.. Incidental note occlusion proximal left superficial femoral artery, consider CTA iliofemoral runoff post intravenous contrast follow-up
== END | disposition home or self-care (01) ==
LOC: CDIM 13:58
PROVIDERS: PCP Nurse Practitioner Family; Referring Provider Nurse Practitioner Family; Visit Provider Nurse Practitioner Family
DX: I83.892 Varicose veins of left lower extremity with other complications (principal)
CPT/HCPCS: 93971

== ENCOUNTER → 2025-06-04 | Outpatient (CLI) | payer MEDICARE, SELFPAY ==
[2025-06-04 11:21] LABS: Basophils # (Auto) 0.0 Thou/mm3 (0.0-0.2); Basophils % (Auto) 1 % (0-2.5); Eosinophils # (Auto) 0.1 Thou/mm3 (0.0-0.5); Eosinophils % (Auto) 2 % (0-10); Hematocrit 35.3 % (36.0-46.0); Hemoglobin 11.7 g/dL (12.0-16.0); Immature Granulocytes Auto 0.02 Thou/mm3 (0.00-0.00); Lymphocytes # (Auto) 2.2 Thou/mm3 (1.0-4.8); Lymphocytes % (Auto) 43 % (10-50); Mean Corpuscular HGB Conc 33.1 g/dl (31.0-37.0); Mean Corpuscular Hemoglobin 30.3 pg (25.0-35.0); Mean Corpuscular Volume 92 fL (80-100); Monocytes # (Auto) 0.5 Thou/mm3 (0.0-0.8); Monocytes % (Auto) 9 % (0-12); Neutrophils # (Auto) 2.4 Thou/mm3 (1.8-7.7); Neutrophils % (Auto) 45 % (37-80); Nucleated Red Blood Cell # 0.00 Thou/mm3 (0.00-0.00); Nucleated Red Blood Cell % 0 /100 WBC (0); Platelet Count 144 Thou/mm3 (140-440); RDW Standard Deviation 54.0 fL (36.4-46.3); Red Blood Count 3.86 Miln/mm3 (4.00-5.20); White Blood Count 5.2 Thou/mm3 (3.6-11.0)
[2025-06-04 11:39] LABS: Alanine Aminotransferase 14 U/L (10-49); Albumin, Serum 4.0 gm/dL (3.4-4.8); Albumin/Globulin Ratio 1.6 (1.2-2.2); Alkaline Phosphatase 88 U/L (46-116); Anion Gap 10 (7-16); Aspartate Amino Transferase 28 U/L (0-34); BUN/Creatinine Ratio 11 Ratio (12-20); Bilirubin,Total 0.5 mg/dL (0.3-1.2); Blood Urea Nitrogen 13 mg/dL (9-23); Calcium 9.1 mg/dL (8.3-10.6); Calcium (Corrected) 9.1 mg/dL (8.5-10.1); Carbon Dioxide 27.6 mMol/L (20.0-31.0); Chloride 104 mMol/L (98-107); Creatinine (Component) 1.2 mg/dL (0.6-1.3); Globulin 2.5 gm/dL (2.3-3.5); Glucose 94 mg/dL (74-106); LDH (Lactate Dehydrogenase) 209 U/L (120-246); Osmolality,Calculated 283 (275-295); Potassium 4.1 mMol/L (3.4-5.1); Sodium 142 mMol/L (136-145); Total Protein 6.5 gm/dL (5.7-8.2); eGFR 44 See Note
== END | disposition home or self-care (01) ==
PROVIDERS: PCP Nurse Practitioner Family; Referring Provider Internal Medicine Hematology & Oncology; Visit Provider Internal Medicine Hematology & Oncology
DX: D72.820 Lymphocytosis (symptomatic) (principal); R59.1 Generalized enlarged lymph nodes
CPT/HCPCS: 36415; 80053; 83615; 85025